=== PATIENT | female | born 1955 | race Caucasian/White ===

== ENCOUNTER 2019-05-26 18:02 | Observation (INO) | payer MEDICARE, SELFPAY ==
--- NOTE | ~2019-05-26 | XR_ITS ---
EXAMINATION: XR chest 2V DATE: 05/26/2019 18:36 INDICATION: Mid chest pain and dizziness TECHNIQUE: PA and lateral views of the chest are obtained. COMPARISON: 03/25/2019 FINDINGS: The lungs are free of acute opacities. There is no pleural effusion or pneumothorax. The ca rdiomediastinal silhouette is normal. There is mild thoracic spondylosis. IMPRESSION: 1. No acute cardiopulmonary abnormality. Reviewed, dictated and finalized at location A. PERFORMANCE SUPPORT ANALYST
[2019-05-26 18:05] VITALS: BP 107/66; PULSE 92; RESP 19; TEMP 37.3; O2SAT 97
[2019-05-26 18:08] VITALS: BP 128/82; PULSE 94; RESP 20; TEMP 37.1; O2SAT 100
--- NOTE | 2019-05-26 18:08 | ECG_ITS ---
Measurements Intervals [place] Rate: 89 P: 61 MO: 158 QRS: -30 QRSD: 111 T: 34 QT: 352 QTc: 430 Interpretive Statements SINUS RHYTHM LEFT AXIS DEVIATION POSSIBLE LEFT ATRIAL ENLARGEMENT INTRAVENTRICULAR CONDUCTION DELAY DELAYED PRECORDIAL R/S TRANSITION BORDERLINE ST-T WAVE ABNORMALITY- INFERIOR LEADS BASELINE ARTIFACT- II, III, AVL, AVF BORDERLINE ECG Electronically Signed On 05-26-2019 19:51:34 RUBBER TUBING SPLICER by Torin Pereyra D.O.
[2019-05-26 18:29] LABS: Basophils Percent Auto 0.5 % (0.2-1.2); Eosinophils Absolute Auto 0.1 K/mm3 (0-0.3); Eosinophils Percent Auto 1.1 % (0-4.4); Hematocrit 42.8 % (37.0-47.0); Hemoglobin 13.9 g/dL (12.0-15.0); Immature Granulocyte Absolute 0.02 K/mm3 (0.00-0.031); Immature Granulocyte Percent A 0.3 % (0-0.5); Lymphocytes Absolute Auto 1.43 K/mm3 (0.9-3.2); Mean Corpuscular HGB Conc 32.5 g/dl (32-36); Mean Corpuscular Hemoglobin 29.9 pg (26-34); Mean Platelet Volume 9.9 fl (7.4-10.4); Monocytes Absolute Auto 0.7 K/mm3 (0.1-0.6); Monocytes Percent Auto 9.3 % (2.6-8.5); Neutrophils Absolute Auto 5.6 K/mm3 (1.3-6.7); Neutrophils Percent Auto 70.8 % (45.5-73.1); Platelet Count Result 321 k/mm3 (150-375); Red Blood Count 4.65 M/mm3 (4.2-5.4); Red Cell Distribution Width 12.1 % (11.5-14.5)
[2019-05-26 18:40] LABS: INR 0.9; Prothrombin Time 11.9 Seconds (11.1-14.7)
[2019-05-26 18:41] LABS: Partial Thromboplastin Time 24.3 SECONDS (22.3-36.8)
[2019-05-26 18:42] LABS: Blood Urea Nitrogen 28 mg/dL (7-17); Calcium 9.5 mg/dL (8.4-10.2); Carbon Dioxide 25 mmol/L (22-30); Chloride 98 mmol/L (98-107); Estimated Glomerular Filt Rate 41; Glucose 115 mg/dL (65-105); Potassium 3.4 mmol/L (3.4-5.0); Sodium 139 mmol/L (137-145)
[2019-05-26 18:53] LABS: Troponin I < 0.012 ng/mL (0.000-0.034)
--- NOTE | 2019-05-26 21:00 | ED.CHESTPAIN ---
HPI - Chest Pain General Chief Complaint: Chest Pain Stated Complaint: chest pain Time Seen by Provider: 05/26/19 20:58 Source: patient, family and RN notes reviewed Mode of arrival: EMS Limitations: no limitations History of Present Illness HPI narrative: A 64 y/o female, with a hx of a cardiac arrest 7 years ago, presents to the ED via EMS with intermittent, stabbing, substernal CP for the past 4.5 hours. 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 She reports that the pain lasts a couple minutes each episode and is then resolved for a couple minutes before it returns. She notes associated SOB, nausea, and feeling hot. She states that she had a similar episode while she was pushing carts a couple months ago, which she was seen in the ED for but ended up leaving because her son was graduating the next day. She also reports that the Nitro helped alleviate her symptoms and denies anything aggravating them. She also denies any sweating, vomiting, or ABD pain. MD complaint: chest pain Pertinent past history: other (cardiac arrest) Onset (ago): hour(s) (4.5) Timing of current episode: episodic Prior episodes: Yes Onset: during exertion Pain location: substernal Quality: other (stabbing) Relieving factors: nitroglycerin Exacerbating factors: nothing Associated symptoms: nausea, dyspnea and other (feel hot) Treatment prior to arrival: nitroglycerin Related Data Home Medications Medication Instructions Recorded Confirmed atorvastatin 05/26/19 lacosamide [Vimpat] 05/26/19 lamotrigine 05/26/19 levothyroxine 05/26/19 lurasidone [Latuda] mg 05/26/19 meclizine mg 05/26/19 potassium chloride meq PO 05/26/19 quetiapine 05/26/19 quetiapine mg PO 05/26/19 quetiapine mg PO 05/26/19 ropinirole mg 05/26/19 tramadol mg 05/26/19 triamterene-hydrochlorothiazid cap 05/26/19 Allergies Allergy/AdvReac Type Severity Reaction Status Date / Time acetaminophen [From [place]] Allergy Unknown Verified 03/25/19 18:17 codeine Allergy Unknown Verified 03/25/19 18:17 erythromycin base Allergy Unknown Verified 12/13/19 18:17 hydrocodone [From [place]] Allergy Unknown Verified 03/25/19 18:17 latex Allergy Unknown Verified 03/25/19 18:17 Penicillins Allergy Unknown Verified 03/25/19 18:17 prednisone Allergy Unknown Verified 03/25/19 18:17 propoxyphene [From [place]] Allergy Unknown Verified 03/25/19 18:17 Review of Systems Review of Systems: All systems reviewed & are unremarkable except as noted in HPI and below Constitutional: Constitutional: Reports other (feeling hot. Denies: sweats.) Cardiovascular: Cardiovascular: Reports chest pain (substernal) Respiratory: Respiratory: Reports dyspnea Gastrointestinal: Gastrointestinal: Denies abdominal pain, Reports nausea and Denies vomiting PMFSH Past Medical History Medical History (Updated 05/26/19 @ 21:39 by Taylor Delvalle MD) Cardiac arrest Carpal tunnel syndrome History of heart attack Hx of endometriosis Hypercholesteremia Hypothyroid Meniere's disease Seizures Surgical History Surgical History (Updated 05/26/19 @ 21:28 by Reagan Fitzgerald) History of appendectomy History of carpal tunnel surgery History of knee surgery x2. Hx of cardiac cath No significant past surgical history S/P laparoscopic surgery Pelvic. Social History Social History (Updated 03/25/19 @ 18:50 by Reagan Fitzgerald) Smoking status: Smoker, status unknown Gender identity (if verbalized by the patient): Female Comments PCP: Dr. Griffin. Cardiology: Dr. Duckworth. Exam Const: General: cooperative, no acute distress and alert Nutritional Appearance: well nourished Orientation/consciousness: patient oriented x3 Limitations: no limitations HENMT: Mouth: Yes lip normal and Yes moist mucous membranes Resp: Effort & Inspection: normal respiratory effort Auscultation: clear to auscultation bilaterally Cardio: Rate: regular rate Rhythm: regular rhyth
[2019-05-26 21:20] VITALS: O2SAT 98
[2019-05-26 21:23] VITALS: BP 114/74; PULSE 84; RESP 17; O2SAT 98
[2019-05-26] MEDS: NITROGLYCERIN SL 0.4 MG TABLET SUBLINGUAL (21:54)
--- NOTE | 2019-05-26 22:00 | ECG_ITS ---
Measurements Intervals [place] Rate: 92 P: 49 ID: [id number] QRS: -33 QRSD: 93 T: 17 QT: 355 QTc: 440 Interpretive Statements SINUS RHYTHM LEFT AXIS DEVIATION BORDERLINE R WAVE PROGRESSION, ANTERIOR LEADS BORDERLINE T WAVE ABNORMALITY- INFERIOR LEADS BASELINE ARTIFACT- II, III, AVR, AVL, AVF BORDERLINE ECG Electronically Signed On 05-27-2019 6:59:55 POLYETHYLENE BAG MACHINE OPERATOR by Torin Pereyra D.O.
[2019-05-26 22:08] LABS: Cholesterol 137 mg/dL (0-200); HDL Direct 49 mg/dL; Triglycerides 71 mg/dL (<150)
[2019-05-26 22:20] LABS: LDL Cholesterol Direct 77 mg/dL
[2019-05-26 22:21] LABS: Troponin I < 0.012 ng/mL (0.000-0.034)
[2019-05-26] MEDS: KETOROLAC 30 MG/ML VIAL (*BKC) IV PUSH (22:27)
[2019-05-26 22:35] VITALS: BP 120/64; PULSE 78; RESP 20; TEMP 36.6; O2SAT 98
[2019-05-26] MEDS: ONDANSETRON INJ 4 MG/2 ML VIAL IV PUSH (22:40)
[2019-05-26 23:00] VITALS: BP 119/66; PULSE 74; PULSE 76; RESP 20; TEMP 37.2; O2SAT 97; BMI 27.0
--- NOTE | 2019-05-26 23:02 | ADMGEN ---
This patient, Katherin Penaloza, was admitted to [facility] at 2258. Patient/family oriented to hospital policies and general routines including ID bracelet, bed and alarms, visiting hours, pain management, procedures, bathroom and other care routines, personal items, smoking policy, room service/diet, and visiting hours. Valuables list has been completed. Information on how to activate the Rapid Response Team has been discussed. Patient/Family are encouraged to report perceived risks to care and to ask questions if they do not understand what they are told or what they should do.
[2019-05-27] VITALS: BP 113/58; PULSE 62; RESP 14; TEMP 36.5; O2SAT 98
--- NOTE | 2019-05-27 00:37 | ECG_ITS ---
Measurements Intervals [place] Rate: 61 P: 49 [place]: 176 QRS: -21 QRSD: 98 T: 19 QT: 405 QTc: 411 Interpretive Statements SINUS RHYTHM DELAYED PRECORDIAL R/S TRANSITION BORDERLINE T WAVE ABNORMALITY- INFERIOR LEADS BASELINE ARTIFACT- II, III, AVR, AVL, AVF, V5 BORDERLINE ECG Electronically Signed On 05-27-2019 7:02:09 MANUFACTURING MAINTENANCE MANAGER by Torin Pereyra D.O.
[2019-05-27] MEDS: QUEtiapine FUMARATE 25 MG TABLET PO (01:02)
[2019-05-27 01:03] LABS: Troponin I < 0.012 ng/mL (0.000-0.034)
[2019-05-27 02:00] VITALS: PULSE 73
[2019-05-27 04:00] VITALS: BP 110/48; PULSE 59; RESP 20; TEMP 36.2; O2SAT 98
[2019-05-27] MEDS: LEVOTHYROXINE SODIUM 112 MCG TABLET PO (06:20)
[2019-05-27] MEDS: LEVOTHYROXINE SODIUM 25 MCG TABLET PO (07:00)
[2019-05-27 08:00] VITALS: BP 106/47; PULSE 55; PULSE 67; RESP 14; TEMP 37.2; O2SAT 99
--- NOTE | 2019-05-27 09:11 | PC.NURSE ---
DR. BARRY HERE TO SEE PT. CONDITION UPDATE GIVEN.
--- NOTE | 2019-05-27 09:24 | PM.IMHP ---
H&P: HPI History of Present Illness Chief complaint: chest pain Narrative: Short-stay cardiology H&P summary: Date of service: 05/27/2019 08:54 Chief complaint: Sharp chest pain while pushing carts Katherin Penaloza is a pleasant 64 year old female with a past medical history significant for minimal nonobstructive CAD on left heart catheterization 2005 and 2012 with chronic chest pain syndrome, many years disease, history of syncope, seizure disorder, history of hypothyroidism, bipolar disorder who presented to the ER with complaints of sharp central chest pain radiating to the left arm with associated numbness lasting few minutes the nearly resolving with waxing and waning pattern. 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 while pushing carts she had onset of chest pain which was severe. Symptoms improved but then returned several minutes later and due to persistent she presented to the ER for further evaluation. She present to the ER in March with a very similar description. She states her chest pain symptoms are very similar to chest pain she has had over many years for which she has had 2 cardiac catheterizations and extensive follow-up. She feels well and has no complaints and would like to be discharged home. She has ruled out for myocardial infarction with negative serial cardiac enzymes, EKG unchanged compared to prior EKG April 2019. She last saw her window/distribution clerk Dr. Negro 04/2019. She has no other complaints at this time and feels well. She denies progressive exertional dyspnea, declining exercise tolerance, near-syncope or syncope. She states she had upper respiratory tract infection in the past 2-4 weeks with cough which has resolved. She intermittently has episodes of chest pain which can occur while bagging or other random times which are essentially exactly she describes with this episode. Patient mentions having had a cardiac arrest and heart attack, however, this appears to be related to a syncopal episode which no etiology could be identified after extensive workup. Per her window/distribution clerk's office note April 2019 this episode was felt to be more likely related to seizure. Review of Systems Review of Systems: All systems reviewed & are unremarkable except as noted in HPI and below Constitutional: Constitutional: Reports as per HPI and Reports no additional constitutional complaints Eyes: Eyes: Reports as per HPI and Reports no additional eye complaints ENT: Reports system reviewed and no additional complaints, except as documented and Reports as per HPI Comments: Progressive hearing loss, definite right ear. Cardiovascular: Cardiovascular: Reports as per HPI, Reports no additional cardiovascular complaints, Reports chest pain, Denies diaphoresis, Denies pedal edema, Denies leg edema, Denies lightheadedness and Denies palpitations Respiratory: Respiratory: Reports as per HPI, Reports no additional respiratory complaints, Denies cough, Denies hemoptysis, Denies dyspnea and Denies dyspnea on exertion Gastrointestinal: Gastrointestinal: Reports as per HPI, Reports no additional gastrointestinal complaints, Denies abdominal pain, Denies melena, Denies hematochezia, Denies heartburn, Reports nausea and Denies vomiting Genitourinary: Genitourinary: Reports as per HPI, Denies hematuria, Denies nocturia, Denies dysuria and Denies flank pain Musculoskeletal: Musculoskeletal: Reports no additional musculoskeletal complaints, Reports as per HPI, Denies back pain, Denies arthralgias and Denies neck pain Integumentary/Breasts: Skin/Breast: Reports system reviewed and no additional complaints, except as docu, Reports as per HPI, Denies rash and Denies unusual bruising Neurologic: Reports system reviewed and no additional complaints, except as documented, Reports as per HPI and Denies headache(s) Psychiatric: Psychiatric: Reports no additional psychiatric complaints, Reports
[2019-05-27 10:00] VITALS: PULSE 71
--- NOTE | 2019-05-27 12:30 | PC.NURSE ---
DISCHARGE INSTRUCTIONS GIVEN AND REVIEWED W/ PT. ALL QUESTIONS ANSWERED. VOICED UNDERSTANDING OF ALL. DISCHARGED HOME, OUT AMBULATORY, WITH ALL PERSONAL BELONGINGS AND DISCHARGE INSTRUCTIONS TO DAUGHTER IN LAW'S WAITING CAR. STEADY GAIT, VOICES NO C/O. NO DISTRESS NOTED.
== END 2019-05-27 12:30 | disposition home or self-care (01) ==
LOC: ANHED 21:39 → ANHCPC 21:59
PROVIDERS: Emergency Medicine; Admitting Provider Internal Medicine Cardiovascular Disease; Emergency Provider Emergency Medicine; Visit Provider Internal Medicine Cardiovascular Disease
DX: R07.89 Other chest pain (principal); I25.10 Atherosclerotic heart disease of native coronary artery without angina pectoris; E87.5 Hyperkalemia; H81.09 Meniere's disease, unspecified ear; G40.909 Epilepsy, unspecified, not intractable, without status epilepticus; E78.00 Pure hypercholesterolemia, unspecified; E03.9 Hypothyroidism, unspecified; I25.2 Old myocardial infarction; Z86.74 Personal history of sudden cardiac arrest; Z87.891 Personal history of nicotine dependence
CPT/HCPCS: 36415; 71046; 80048; 80061; 84484; 85025; 85610; 85730; 93005; 96374; 96375; 99285; A9270; G0378; J1885; J2405

== ENCOUNTER 2019-12-10 11:53 | Observation (INO) | payer MEDICARE, SELFPAY ==
[2019-12-10] VITALS (14 sets, daily range): BP systolic 107–137; BP diastolic 56–77; PULSE 60–80; RESP 16–20; TEMP 36.6–37.4; O2SAT 96–99; BMI 27.3
--- NOTE | ~2019-12-10 | XR_ITS ---
EXAMINATION: XR chest 2V DATE: 12/10/2019 12:23 INDICATION: Chest pain radiating to the left arm TECHNIQUE: PA and lateral views of the chest were obtained. COMPARISON: Chest radiograph dated 05/26/2019 FINDINGS: The lungs remain clear with no focal airspace opacities, pulmonary edema, pleural effusion or pneumot horax. The cardiomediastinal silhouette is normal. Mild thoracic spondylosis. IMPRESSION: 1. Reviewed, dictated and finalized at location A. IMPRESSION: 1.
--- NOTE | ~2019-12-10 | US_ITS ---
US right upper quadrant INDICATION: History of gallstones. PROCEDURE: Realtime right upper abdominal ultrasound. COMPARISON: No prior studies for comparison. FINDINGS: The pancreas is normal without focal mass or pancreatic ductal dilation. Liver echotexture is normal without focal mass or intrahepatic biliary dilatation. There is normal directional flow i n the portal vein. There are gallstones. No gallbladder wall thickening, pericholecystic fluid or gallbladder wall thick ening. Common bile duct measures 3 mm. No sonographic Flores's sign. IMPRESSION: 1: Cholelithiasis. Reviewed, dictated and finalized at location A. IMPRESSION: 1: Cholelithiasis.
--- NOTE | 2019-12-10 11:56 | ECG_ITS ---
Measurements Intervals [place] Rate: 69 P: 53 [place]: 170 QRS: -22 QRSD: 105 T: 31 QT: 386 QTc: 415 Interpretive Statements SINUS RHYTHM POSSIBLE LEFT ATRIAL ENLARGEMENT DELAYED PRECORDIAL R/S TRANSITION BASELINE ARTIFACT- II, III, AVR, AVL, AVF, V1 BORDERLINE ECG Electronically Signed On 12-10-2019 13:04:54 CDT by Torin Pereyra D.O.
[2019-12-10 13:08] LABS: Basophils Absolute Auto 0.1 K/mm3 (0.0-0.1); Basophils Percent Auto 0.7 % (0.2-1.2); Eosinophils Absolute Auto 0.1 K/mm3 (0-0.3); Eosinophils Percent Auto 1.4 % (0-4.4); Hematocrit 41.4 % (37.0-47.0); Hemoglobin 13.9 g/dL (12.0-15.0); Immature Granulocyte Absolute 0.03 K/mm3 (0.00-0.031); Immature Granulocyte Percent A 0.4 % (0-0.5); Lymphocytes Absolute Auto 1.17 K/mm3 (0.9-3.2); Lymphocytes Percent Auto 16.6 % (18.3-44.2); Mean Corpuscular HGB Conc 33.6 g/dl (32-36); Mean Corpuscular Hemoglobin 30.2 pg (26-34); Mean Platelet Volume 9.5 fl (7.4-10.4); Monocytes Absolute Auto 0.9 K/mm3 (0.1-0.6); Monocytes Percent Auto 12.8 % (2.6-8.5); Neutrophils Absolute Auto 4.8 K/mm3 (1.3-6.7); Neutrophils Percent Auto 68.1 % (45.5-73.1); Platelet Count Result 317 k/mm3 (150-375); Red Cell Distribution Width 12.8 % (11.5-14.5)
[2019-12-10 13:16] LABS: Partial Thromboplastin Time 22.5 SECONDS (22.3-36.8); Prothrombin Time 12.4 Seconds (11.1-14.7)
[2019-12-10 13:18] LABS: Anion Gap 7 mmol/L (8-16); Blood Urea Nitrogen 28 mg/dL (7-17); Calcium 8.9 mg/dL (8.4-10.2); Carbon Dioxide 28 mmol/L (22-30); Chloride 101 mmol/L (98-107); Estimated CRCL calculation 42 ml/min; Estimated Glomerular Filt Rate 50; Glucose 103 mg/dL (65-105); Potassium 3.4 mmol/L (3.4-5.0); Sodium 136 mmol/L (137-145)
[2019-12-10 13:29] LABS: Troponin I < 0.012 ng/mL (0.000-0.034)
[2019-12-10] MEDS: MORPHINE SULFATE 2 MG/ML INJ IV PUSH (13:45)
[2019-12-10] MEDS: ASPIRIN 81 MG CHEWABLE TABLET 324 MG PO (13:45)
--- NOTE | 2019-12-10 13:51 | ED.CHESTPAIN ---
HPI - Chest Pain General Chief Complaint: Chest Pain Stated Complaint: chest pains Time Seen by Provider: 12/10/19 12:37 Source: patient and family Mode of arrival: ambulatory Limitations: no limitations History of Present Illness HPI narrative: 64-year-old with a history of hypertension, CAD, seizure disorder, bipolar disorder, hypothyroidism here with complaints of left-sided chest pain started this morning while she was at work. 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 Patient states that she took 2 nitro tablets which helped to ease the pain. Patient still has pain 6 out of 10 at this time. She denies any shortness of breath, nausea or vomiting. Pain is nonreproducible. She denies any fever chills or COVID exposure. MD complaint: chest pain Pertinent past history: coronary artery disease Onset (ago): hour(s) (1) Timing of current episode: constant and still present Onset: during exertion Pain location: left chest Pain radiation: none Pain scale (0-10): 6 Quality: tightness and heaviness Relieving factors: nitroglycerin Exacerbating factors: nothing Risk Factors Coronary artery disease risk factors: hypertension Related Data Home Medications Medication Instructions Recorded Confirmed Latuda 10 mg PO DAILY 05/26/19 05/26/19 atorvastatin 20 mg PO DAILY 05/26/19 05/26/19 lamotrigine 200 mg PO DAILY 05/26/19 05/26/19 levothyroxine 137 mcg PO DAILY 05/26/19 05/26/19 meclizine 25 mg PO TID PRN 05/26/19 05/26/19 potassium chloride 20 meq PO DAILY 05/26/19 05/26/19 quetiapine 25 mg PO HS 05/26/19 05/26/19 ropinirole 2 mg PO HS 05/26/19 05/26/19 tramadol 50 mg PO Q6H PRN 05/26/19 05/26/19 triamterene-hydrochlorothiazid 2 cap PO DAILY 05/26/19 05/26/19 Allergies Allergy/AdvReac Type Severity Reaction Status Date / Time acetaminophen [From [place]] Allergy Unknown Verified 03/25/19 18:17 codeine Allergy Unknown Verified 03/25/19 18:17 erythromycin base Allergy Unknown Verified 03/25/19 18:17 hydrocodone [From [place]] Allergy Unknown Verified 03/25/19 18:17 latex Allergy Unknown Verified 03/25/19 18:17 Penicillins Allergy Unknown Verified 03/25/19 18:17 prednisone Allergy Unknown Verified 03/25/19 18:17 propoxyphene [From [place]] Allergy Unknown Verified 03/25/19 18:17 Review of Systems Review of Systems: All systems reviewed & are unremarkable except as noted in HPI and below Constitutional: Constitutional: Reports as per HPI Eyes: Eyes: Reports as per HPI ENT: Reports system reviewed and no additional complaints, except as documented Cardiovascular: Cardiovascular: Reports no additional cardiovascular complaints Respiratory: Respiratory: Reports as per HPI Gastrointestinal: Gastrointestinal: Reports as per HPI Musculoskeletal: Musculoskeletal: Reports no additional musculoskeletal complaints Neurologic: Reports system reviewed and no additional complaints, except as documented Psychiatric: Psychiatric: Reports no additional psychiatric complaints PMFSH Past Medical History Medical History CAD (coronary artery disease) Cardiac arrest Carpal tunnel syndrome History of heart attack Hx of endometriosis Hypercholesteremia Hypothyroid Meniere's disease Seizures Surgical History Surgical History History of appendectomy History of carpal tunnel surgery History of knee surgery x2. Hx of cardiac cath No significant past surgical history S/P laparoscopic surgery Pelvic. Family History Family History Mother Crohn disease Father Old age Sibling Diabetes mellitus Social History Social History Smoking status: Former smoker Smoking end date: 05/26/19 Gender identity (if verbalized by the patient): Female Exam
[2019-12-10] MEDS: NITROGLYCERIN OINTMENT 1 INCH DOSE TRANSDERM ×2 (14:42→18:58)
--- NOTE | 2019-12-10 15:05 | PC.NURSE ---
Report given to ENRIQUE Billingsley
--- NOTE | 2019-12-10 15:59 | PC.NURSE ---
This patient, Katherin Penaloza, was admitted to IMU Room 203-01. Patient/family oriented to hospital policies and general routines including ID bracelet, bed and alarms, visiting hours, pain management, procedures, bathroom and other care routines, personal items, smoking policy, room service/diet, and visiting hours. Valuables list has been completed. Information on how to activate the Rapid Response Team has been discussed. Patient/Family are encouraged to report perceived risks to care and to ask questions if they do not understand what they are told or what they should do.
[2019-12-10 16:31] LABS: Troponin I < 0.012 ng/mL (0.000-0.034)
--- NOTE | 2019-12-10 16:37 | PM.IMHP ---
H&P: HPI History of Present Illness Date/Time: 12/10/19 16:37 Chief complaint: Unstable angina Narrative: Katherin Penaloza is a 64 year old female Who stated that she had cardiac arrest in the past. But had a cardiac catheterization and only had about 25% blockages she stated. She has not had any cardiac stents or any CABG. Patient stated at 1 time she was in [facility] and her heart stopped and they had a code her and she stated that she was told she had a cardiac arrest. The patient has a history hypertension, seizure disorder bipolar disorder and hypothyroidism. The patient also has a history of having gallstones. She states that she has not had a gallbladder attack in the past. 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 the patient stated that her pain is in her left upper chest and does not radiate To neck or arm or back.. She is not nauseated or vomiting. But she rated her pain 6/10. She took 2 nitro and that did not seem to help. The pain is nonreproducible. Patient recently fractured her right elbow and is on light duty at work. She was given an aspirin here in the emergency room as well as morphine and nitro. She is still complaining of some midsternal chest pain. She has no relief but is worse with movement. Is not reproducible. Chest x-ray shows no focal airspace opacities. Nothing acute. Cardiac enzymes have been negative x2. . The patient stated that she has an upcoming appointment with her truss driver helper. I consulted the [facility]. Date of service 12/10/2019 SINUS RHYTHM POSSIBLE LEFT ATRIAL ENLARGEMENT DELAYED PRECORDIAL R/S TRANSITION BASELINE ARTIFACT- II, III, AVR, AVL, AVF, V1 BORDERLINE ECG Electronically Signed On 12-10-2019 13:04:54 CDT by Torin Pereyra D.O. Dictated By: Torin Pereyra DO 12/10/19 1202 Signed By: <Electronically signed by Torin Pereyra DO in [place]> Review of Systems Review of Systems: All systems reviewed & are unremarkable except as noted in HPI and below Constitutional: Constitutional: Reports as per HPI and Reports no additional constitutional complaints Eyes: Eyes: Reports as per HPI and Reports no additional eye complaints ENT: Reports system reviewed and no additional complaints, except as documented and Reports Normal hearing present Cardiovascular: Cardiovascular: Reports no additional cardiovascular complaints Respiratory: Respiratory: Reports no additional respiratory complaints and Reports no additional respiratory complaints Gastrointestinal: Gastrointestinal: Reports as per HPI and Reports no additional gastrointestinal complaints Musculoskeletal: Musculoskeletal: Reports no additional musculoskeletal complaints Integumentary/Breasts: Skin/Breast: Reports system reviewed and no additional complaints, except as docu and Reports as per HPI Neurologic: Reports system reviewed and no additional complaints, except as documented, Reports as per HPI and Reports Normal hearing present Psychiatric: Psychiatric: Reports no additional psychiatric complaints and Reports as per HPI Endocrine: Endocrine: Reports no additional endocrine complaints Hematologic/Lymphatic: Hematologic/Lymphatic: Reports no additional hematologic/lymphatic complaints Allergic/Immunologic: Allergic/Immunologic: Reports no additional allergic/immunologic complaints PMF Past Medical History Medical History (Updated 12/10/19 @ 17:00 by Rolanda Santana NP) Bipolar disorder CAD (coronary artery disease) Cardiac arrest Carpal tunnel syndrome Depression History of heart attack Hx of endometriosis Hypercholesteremia the patient stated she was taken off of that medicine for cholesterol. Hyperkalemia Hypothyroid Meniere's disease very poor hearing Restless leg syndrome Seizures Surgical complication involving right mastoid process Surgical History Surgical History (Updated 12/10/19 @ 17:00 by Rolanda Crane
--- NOTE | 2019-12-10 18:16 | WPDCN ---
Assessment and Plan Assessment and plan (1) Chest pain: Qualifiers: Ischemic chest pain type: unstable angina pectoris Code(s): R07.9 - Chest pain, unspecified Status: Acute Assessment and Plan: Atypical chest pain, lasting for several hours, not responsive to nitrates, pleuritic. Troponins negative x2. EKG was normal. Probably musculoskeletal. Doubt pericaridal, PE, etc. Symptomatic tx w/ short-term NSAIA (or Tylenol, though this islisted as an allergy). No further cardiac CLAY needed. Has an appt to see Dr. Villa on Thursday. (2) CAD (coronary artery disease): Code(s): I25.10 - Atherosclerotic heart disease of [place] coronary artery without angina pectoris Status: Acute Assessment and Plan: H/O minimal CAD, takes atorvastatin. HPI Data of Consult Date/Time: 12/10/19 18:16 Requesting Physician: Anayeli Vilchis MD Primary Care Provider: RECYCLING PROGRAM MANAGER PHYSICIAN Consult Narrative Narrative: Date of service: 12/10/2019 Katherin Penaloza is a 64 year old female Whom we were asked to see at the request of the hospitalist for advice and opinion regarding her chest pain, in consultation. The patient now sees Dr. Villa for her minimal nonocclusive coronary disease and recurrent chest pains. She takes nitroglycerin periodically, the last time being in June. She fractured her elbow 2 weeks ago is now on light duty, disinfecting the grocery store. Yesterday while cleaning and this infecting she had episode of her of left-sided chest which was relieved with 2 nitroglycerins. Today around 1045 she had another episode of chest pain while cleaning radiating to left arm. This time did not go away with 2 Nitroglycerins. Morphine in the ER took the edge off. She continues to have waxing waning discomfort which is sometimes intense. The patient has had 2 cardiac catheterizations, the last time being in 2012 with minimal CAD. Echo 08/2017 showed EF 55%, mild LVH and diastolic dysfunction. She had been followed by Dr. Keanu cabrera but, when she was admitted with atypical chest pain in May [address] Villa, now follows up with him and has an appointment on Thursday. She states that she had a cardiac arrest requiring CPR in the past but this appears to have been a syncopal episode in latter-day and may have been a seizure. 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 She has history of bipolar disorder. She has on atorvastatin for her mild coronary disease but has no history of diabetes, hypertension or smoking. Review of Systems Constitutional: Constitutional: Denies chills Eyes: Eyes: Denies blurry vision ENT: Denies Normal hearing present ( States she is deaf and needs to read lips) and Denies epistaxis Cardiovascular: Cardiovascular: Reports chest pain, Denies diaphoresis, Denies pedal edema, Denies leg edema, Denies lightheadedness and Denies palpitations Respiratory: Respiratory: Denies chest congestion, Denies dyspnea and Denies dyspnea on exertion Gastrointestinal: Gastrointestinal: Denies abdominal pain, Denies hematochezia and Denies constipation Genitourinary: Genitourinary: Denies hematuria and Denies dysuria Musculoskeletal: Musculoskeletal: Reports arthralgias Integumentary/Breasts: Skin/Breast: Denies rash Neurologic: Denies headache(s) Psychiatric: Psychiatric: Reports as per HPI [facility] Past Medical History Medical History (Updated 12/10/19 @ 18:58 by Sheba Velazquez MD) Bipolar disorder CAD (coronary artery disease) minimal CAD by catheterization in 2012. Cardiac arrest states she had a cardiac arrest requiring CPR but this may have been a syncopal episode or seizure Carpal tunnel syndrome Depression History of heart attack not well documented Hx of endometriosis Hyperc
[2019-12-10 19:39] LABS: Troponin I < 0.012 ng/mL (0.000-0.034)
[2019-12-10] MEDS: rOPINIRole HCL 1 MG TABLET 2 MG PO (21:25)
[2019-12-10] MEDS: VENLAFAXINE HCL XR 75 MG CAP.ER.24H PO (21:25)
[2019-12-10] MEDS: IBUPROFEN 400 MG TABLET PO (21:27)
[2019-12-11] VITALS (10 sets, daily range): BP systolic 99–116; BP diastolic 50–64; PULSE 50–88; RESP 16; TEMP 35.9–36.9; O2SAT 95–99
[2019-12-11 04:47] LABS: Basophils Absolute Auto 0.1 K/mm3 (0.0-0.1); Eosinophils Absolute Auto 0.1 K/mm3 (0-0.3); Hematocrit 37.1 % (37.0-47.0); Hemoglobin 12.6 g/dL (12.0-15.0); Immature Granulocyte Absolute 0.02 K/mm3 (0.00-0.031); Immature Granulocyte Percent A 0.4 % (0-0.5); Lymphocytes Percent Auto 21.2 % (18.3-44.2); Mean Corpuscular Hemoglobin 30.6 pg (26-34); Mean Platelet Volume 9.3 fl (7.4-10.4); Monocytes Absolute Auto 0.7 K/mm3 (0.1-0.6); Monocytes Percent Auto 13.1 % (2.6-8.5); Neutrophils Absolute Auto 3.3 K/mm3 (1.3-6.7); Neutrophils Percent Auto 63.3 % (45.5-73.1); Platelet Count Result 287 k/mm3 (150-375); Red Blood Count 4.12 M/mm3 (4.2-5.4); Red Cell Distribution Width 12.8 % (11.5-14.5); White Blood Count 5.2 K/mm3 (4.5-10.0)
[2019-12-11 05:02] LABS: Alanine Aminotransferase 20 U/L (4-35); Albumin Level 3.5 g/dL (3.5-5.1); Alkaline Phosphatase 69 U/L (38-126); Anion Gap 6 mmol/L (8-16); Aspartate Amino Transferase 22 U/L (14-36); Bilirubin,Total 0.7 mg/dL (0.2-1.3); Blood Urea Nitrogen 27 mg/dL (7-17); Calcium 8.7 mg/dL (8.4-10.2); Carbon Dioxide 28 mmol/L (22-30); Chloride 103 mmol/L (98-107); Estimated CRCL calculation 42 ml/min; Estimated Glomerular Filt Rate 50; Glucose 100 mg/dL (65-105); Potassium 3.5 mmol/L (3.4-5.0); Sodium 137 mmol/L (137-145)
[2019-12-11 06:10] LABS: Thyroid Stimulating Hormone Reflex 0.547 uIU/mL (0.465-4.68)
[2019-12-11] MEDS: LEVOTHYROXINE SODIUM 25 MCG TABLET PO (06:29)
[2019-12-11] MEDS: LEVOTHYROXINE SODIUM 112 MCG TABLET PO (06:29)
[2019-12-11] MEDS: IBUPROFEN 400 MG TABLET PO (06:30)
[2019-12-11] MEDS: ATORVASTATIN 20 MG TABLET PO (08:36)
[2019-12-11] MEDS: POTASSIUM CHLORIDE 20 MEQ TABLET.ER PO (08:36)
[2019-12-11] MEDS: ASPIRIN 81 MG ENTERIC TABLET PO (08:36)
--- NOTE | 2019-12-12 06:01 | PM.DS ---
DS: Admitting Diagnosis Admitting Diagnosis Admitting Diagnosis: Unstable angina DS: Discharge Diagnosis Discharge Diagnosis (1) Chest pain: Qualifiers: Ischemic chest pain type: unstable angina pectoris Code(s): R07.9 - Chest pain, unspecified Status: Acute Assessment and Plan: Date of Service 12/11/19 Ms. 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 She was at work when she began to experience chest pain. She took her nitro with little to no relief and presented to ED. Troponins were negative. She did mention she recently was seen by PCP for evaluation of epigastric abdominal pain. Right upper quadrant ultrasound was obtained and demonstrated gallstones without evidence of acute cholecystitis. It is reasonable to defer general surgery referral to outpatient since she is not having symptoms today. She was seen and evaluated by [facility] and in fact has an appointment to see Dr Villa tomorrow. ACS is not suspected. Patient was treated with nitro and pain control and her chest pain resolved. She was feeling well and was hemodynamically stable for discharge 12/11/19 with instructions to follow up with Dr Villa as scheduled tomorrow as well as PCP Dr Ng. . (2) Hypothyroid: Code(s): E03.9 - Hypothyroidism, unspecified Status: Chronic Assessment and Plan: Maintained on her home levothyroxine. (3) Depression: Code(s): F32.9 - Major depressive disorder, single episode, unspecified Status: Chronic Assessment and Plan: Continue with Seroquel and Latuda and Lamictal. (4) Hypercholesteremia: Code(s): E78.00 - Pure hypercholesterolemia, unspecified Status: Chronic (5) Bipolar disorder: Code(s): F31.9 - Bipolar disorder, unspecified Status: Chronic (6) Restless leg syndrome: Code(s): G25.81 - Restless legs syndrome Status: Chronic (7) Meniere's disease: Code(s): H81.09 - Meniere's disease, unspecified ear Status: Chronic (8) Seizure disorder: Code(s): G40.909 - Epilepsy, unspecified, not intractable, without status epilepticus Status: Acute (9) Elbow fracture, right: Code(s): S42.401A - Unspecified fracture of lower end of right humerus, initial encounter for closed fracture Status: Acute Assessment and Plan: Recent. DS: Summary Time Spent with Patient Time attestation: Total time spent providing and/or coordinating discharge services: 35 minutes Exam Narrative: Exam Narrative: General: Female resting sitting up in bed in no acute distress. HEENT: Normocephalic, EOMI, oral mucosa moist. Cardiovascular: Rate and rhythm are regular. Respiratory: Lungs clear to auscultation all good. Non-labored breathing. Abdomen: Soft, non-tender, non-distended, bowel sounds present. Extremities: Peripheral pulses intact. No edema. Neuro: No focal neurological deficits. Speech is clear. DS: Data Data Completed and Pending Labs on day of discharge: Last Vital Signs Temp 98.5 F 12/11/19 12:25 Pulse 66 12/11/19 14:00 Resp 16 12/11/19 12:25 BP 116/64 12/11/19 12:25 Pulse Ox 97 12/11/19 12:25 ITS Impressions Chest X-Ray 12/10/19 12:56 IMPRESSION: 1. The lungs remain clear with no focal airspace opacities, pulmonary edema, pleural effusion or pneumothorax. The cardiomediastinal silhouette is normal. Mild thoracic spondylosis. Upper Quadrant Ultrasound 12/11/19 14:42 IMPRESSION: 1: Cholelithiasis. Laboratory Tests 12/11/19 04:28 12/11/19 04:28 Discharge Plan Discharge Attending physician on discharge: Otoniel Vilchis
== END 2019-12-11 15:00 | disposition home or self-care (01) ==
LOC: ANHED 13:59 → ANHIMU 14:16
PROVIDERS: Emergency Medicine; Nurse Practitioner; Admitting Provider Family Medicine; Emergency Provider Family Medicine; PCP Internal Medicine; Visit Provider Family Medicine
DX: R07.89 Other chest pain (principal); K80.20 Calculus of gallbladder without cholecystitis without obstruction; E03.9 Hypothyroidism, unspecified; E78.5 Hyperlipidemia, unspecified; F31.9 Bipolar disorder, unspecified; G40.909 Epilepsy, unspecified, not intractable, without status epilepticus; G25.81 Restless legs syndrome; H81.09 Meniere's disease, unspecified ear; I10 Essential (primary) hypertension; I25.10 Atherosclerotic heart disease of native coronary artery without angina pectoris; S42.401D Unspecified fracture of lower end of right humerus, subsequent encounter for fracture with routine healing; Z87.891 Personal history of nicotine dependence
CPT/HCPCS: 36415; 71046; 76705; 80048; 80053; 83735; 84443; 84484; 85025; 85610; 85730; 93005; 96374; 99285; A9270; G0378; J2270

== ENCOUNTER 2020-06-06 08:56 | Outpatient (CLI) | payer OTHER, SELFPAY ==
--- NOTE | ~2020-06-06 | MM_ITS ---
EXAMINATION: MM screening reza BI w margaret HISTORY: Screening mammogram TECHNIQUE: Craniocaudal and mediolateral oblique 3-D tomosynthesis images were obtained and synthetic 2-D images were generated. CAD analysis was submitted and interpreted. COMPARISON: No prior mammogram is available for comparison at this institution. BREAST PARENCHYMAL COMPOSITION: There are scattered areas of fibroglandular density. FINDINGS: Occasional bilateral low-density circumscribed small masses, likely benign intramammary lym ph nodes possible fibroadenoma(s). Occasional bilateral benign calcifications. There is no evidence o f suspicious mass, calcification, or architectural distortion to suggest malignancy in either breast. There has been no suspicious interval change. IMPRESSION: 1. No mammographic evidence of malignancy. 2. Recommend routine screening mammography in one year. BI-RADS Category 2: Benign finding(s). Reviewed, dictated and finalized at location A. HENER
--- NOTE | ~2020-06-06 | DEXA_ITS ---
Bone Density Report Name: Katherin Penaloza Age: 65 Sex: Female Ethnicity: White Date of : 1955 Indication: postmenopausal; Referring Provider: Blanche Sorenson Study: Bone densitometry was performed. Exam Date: June 06, 2020 Accession number: [id number] Bone Density: Region BMD T-score Z-score Classification AP Spine (L1-L4) 0.886 -1.5 0.4 Osteopenia Femoral Neck (Left) 0.677 -1.6 0.1 Osteopenia Total Hip (Left) 0.673 -2.2 -0.9 Osteopenia Total Hip Bilateral Avg 0.650 -2.4 -1.0 Osteopenia Femoral Neck (Right) 0.630 -2.0 -0.3 Osteopenia Total Hip (Right) 0.626 -2.6 -1.2 Osteoporosis World Health Organization criteria for BMD impression classify patients as: Normal (T-score at or above -1.0), Osteopenia (T-score between -1.0 and -2.5), or Osteoporosis (T-score at or below -2.5). 10-year Fracture Risk: FRAX not reported because: Some T-score for Spine Total or Hip Total or Femoral Neck at or below -2.5 Clinical Information Provided by Patient: Patient maximum height was 66.5 Menopause Age: 48 Onset of menses at age 14 Number of children 3 Impression: The patient has osteoporosis, based on the Right Total Hip T-score. Discussion: INCREASED RISK OF FRACTURE. BONE DENSITY IS UNDESIRABLY LOW AT ONE OR MORE SKELETAL SITES, CONSISTENT WITH POSTMENOPAUSAL OSTEOPOROSIS. This patient's lowest T-score meets the World Health Organization's (WHO) criteria for osteoporosis at one or more sites (T-score -2.5 or below). In untreated patients, the risk of osteoporotic fracture increases approximately two-fold for each 1.0 SD decrease in T-score. Low bone density is not the only risk factor for fracture; also consider factors such as patient's age, frailty or poor health, risk of falling, risk of injury, previous osteoporotic fracture, family history of osteoporosis, cigarette smoking, low body weight, etc. Not everyone with low bone mineral density has osteoporosis; osteomalacia and other metabolic bone disorders should also be considered. Patients who have osteoporosis should be evaluated for specific diseases and conditions (secondary causes) that may cause or contribute to bone loss. The [place] [employer] Clinical Endocrinologists (AACE) and National Osteoporosis Foundation (NOF) recommend pharmacologic intervention for all postmenopausal women whose T-score is in this range. The patient should follow a healthful lifestyle (good nutrition with adequate calcium and vitamin D, and appropriate weight-bearing exercise). Follow-Up: Consider a repeat BMD and Vertebral Fracture Assessment (VFA) exam in 2 years or sooner if medically necessary, to reassess this patient's status. Reported by: [facility] on 06/06/2020 9:18:00 AM. Reviewed, dictated and finalized at locat
== END 2020-06-06 08:57 | disposition home or self-care (01) ==
LOC: ANHIMG 08:58
PROVIDERS: PCP Family Medicine; Visit Provider Family Medicine
DX: Z12.31 Encounter for screening mammogram for malignant neoplasm of breast (principal); M81.0 Age-related osteoporosis without current pathological fracture; M85.852 Other specified disorders of bone density and structure, left thigh; M85.851 Other specified disorders of bone density and structure, right thigh
CPT/HCPCS: 77063; 77067; 77080

== ENCOUNTER 2020-06-19 10:21 | Outpatient (CLI) | payer OTHER, SELFPAY ==
--- NOTE | ~2020-06-19 | MR_ITS ---
EXAMINATION: MR knee LT wo con DATE: 06/19/2020 11:57 INDICATION: Left knee pain. TECHNIQUE: Magnetic resonance imaging (MRI) of the left knee was performed without intravenous contra st. Sequences included axial PD-weighted FS FSE, coronal PD-weighted FSE and PD-weighted FS FSE, sagi ttal PD-weighted FSE, and sagittal T2-weighted FS FSE. COMPARISON: Left knee radiographs 06/11/2020 FINDINGS: Medial compartment: Medial meniscus is normal. There is shallow partial-thickness cartilage loss of tibial condyle, worst at the central articular surface. There is cartilage surface irregularity of tibial condyle. Lateral compartment: Lateral meniscus is normal. There is deep partial thickness cartilage loss of femoral condyle involvi ng the central articular surface. There is deep partial thickness cartilage loss of tibial condyle in volving the central and posterior articular surface. Patellofemoral compartment: There is full-thickness cartilage loss of patellar median ridge and lateral facet with mild subchondr al edema-like marrow signal intensity. There is deep partial thickness cartilage loss of patellar med ial facet. There is partial-thickness cartilage loss of trochlea, deep at the lateral trochlea. Ligaments and tendons: The anterior and posterior cruciate ligaments are normal. Medial collateral ligament is intact. There are changes of prior sprain of fibular collateral ligament characterized by increased signal intensi ty proximally. There is mild patellar tendinopathy. Fluid: There is a small knee joint effusion. There is trace fluid in a Mandel's cyst. IMPRESSION: 1. Severe chondrosis of patellofemoral compartment, moderate chondrosis of lateral compartment, and m ild chondrosis of medial compartment. 2. Small knee joint effusion. Reviewed, dictated and finalized at location A. R ANALYST IMPRESSION: 1. Severe chondrosis of patellofemoral compartment, moderate chondrosis of late ral compartment, and mild chondrosis of medial compartment. 2. Small knee joint effusion.
--- NOTE | ~2020-06-19 | MR_ITS ---
EXAMINATION: MR lower leg LT wo con DATE: 06/19/2020 11:57 INDICATION: Left lower leg pain. TECHNIQUE: Magnetic resonance imaging (MRI) of the left tibia and fibula was performed without intrav enous contrast. Sequences included axial T1-weighted FSE and T2-weighted FS FSE and sagittal and jimi nal T1-weighted FSE and STIR FSE. COMPARISON: Left knee radiographs 06/11/2020 FINDINGS: Bone alignment is normal. In distal tibial diaphysis, there is periosteal edema and bone ma rrow edema deep to the cortex characterized by increased T2-weighted signal intensity. No intracortic al signal change. The musculature demonstrates normal signal intensity. IMPRESSION: 1. Medial tibial stress syndrome, Fredericson grade 2 (out of 0-4b). Reviewed, dictated and finalized at location A. [employer]
== END 2020-06-19 10:22 ==
PROVIDERS: PCP Family Medicine; Visit Provider Nurse Practitioner Family
DX: M79.662 Pain in left lower leg (principal); M25.562 Pain in left knee; M76.812 Anterior tibial syndrome, left leg; M22.2X2 Patellofemoral disorders, left knee; M25.462 Effusion, left knee
CPT/HCPCS: 73718; 73721

== ENCOUNTER 2020-07-21 10:23 | Observation (INO) | payer OTHER, SELFPAY ==
[2020-07-21] VITALS (16 sets, daily range): BP systolic 90–126; BP diastolic 56–73; PULSE 66–108; RESP 16–26; TEMP 36.5–36.8; O2SAT 90–99; BMI 29.4
--- NOTE | ~2020-07-21 | XR_ITS ---
EXAMINATION: XR chest 2V EXAM DATE: 07/21/2020 11:46 INDICATION: Chest pain, history coronary artery disease. TECHNIQUE: Frontal and lateral projections of the chest obtained and reviewed. Comparison is made to prior examination from 12/10/2019. FINDINGS: The lungs are clear. There are no pleural effusions. The cardiomediastinal silhouette is within normal limits. There is no pneumothorax suspected. The bones and soft tissues are unremarkab le. IMPRESSION: No acute cardiopulmonary findings. Reviewed, dictated and finalized at location A.
--- NOTE | ~2020-07-21 | NM_ITS ---
EXAMINATION: NM stress w perf spect multi DATE: 07/23/2020 13:35 INDICATION: Chest pain. TECHNIQUE: Rest images were obtained following intravenous administration of 8.76 mCi Tc99m tetrofosm in (Myoview). The patient performed an exercise activity. At peak exercise, 27.8 mCi Tc99m tetrofosmi n (Myoview) was administered intravenously, and stress images were obtained. Data was reconstructed i nto short axis and horizontal and vertical long axis SPECT images. Gated SPECT images were also obtai don. COMPARISON: None. FINDINGS: There is no definite reversible or fixed perfusion abnormality to suggest ischemia or infar ction. Left ventricular ejection fraction measures 48%. IMPRESSION: 1. No definite ischemia or infarct. 2. Left ventricular ejection fraction measuring 48%. Reviewed, dictated and finalized at location A.
--- NOTE | 2020-07-21 10:37 | ECG_ITS ---
Measurements Intervals [place] Rate: 79 P: 49 CT: 170 QRS: -32 QRSD: 94 T: 42 QT: 368 QTc: 422 Interpretive Statements SINUS RHYTHM POSSIBLE LEFT ATRIAL ENLARGEMENT LEFT AXIS DEVIATION POSSIBLE LEFT VENTRICULAR HYPERTROPHY CANNOT RULE OUT SEPTAL INFARCT, AGE INDETERMINATE BASELINE ARTIFACT- I, II, III, AVR, AVL, AVF ABNORMAL ECG Electronically Signed On 07-21-2020 12:49:19 CDT by Torin Pereyra D.O.
--- NOTE | 2020-07-21 11:03 | ED.GENADULT ---
HPI - General Adult General Chief complaint: Chest Pain <SEAN Hernandez Last Filed: 07/21/20 14:11> Stated complaint: chest pain <SEAN Hernandez Last Filed: 07/21/20 14:11> Time Seen by Provider: 07/21/20 10:35 <SEAN Hernandez Last Filed: 07/21/20 14:11> History of Present Illness HPI narrative: Chest pain this morning while driving to work. Left anterior chest. Stabbing with associated SOB. Took a nitro which helped but pain is constant and still present. Did radiate down left arm. She was diaphoretic. Started just before 9 a.m. Has a hx of CAD. Previous TN 7 years ago. No stents. Followed by Dr. Moreno. Last stress test was several years ago, cath was several years ago. Took her baby aspirin this morning. <SEAN Hernandez Last Filed: 07/21/20 14:11> Related Data Home medications: Home Medications Medication Instructions Recorded Confirmed triamterene-hydrochlorothiazid 2 cap PO DAILY 05/26/19 07/21/20 meclizine 25 mg tablet 25 mg PO TID PRN 05/24/20 07/21/20 aspirin 81 mg tablet,delayed 81 mg PO DAILY 06/11/20 07/21/20 release nitroglycerin 0.4 mg sublingual 0.4 mg SUBLINGUAL Q5M PRN 06/11/20 07/21/20 tablet <SEAN Hernandez Last Filed: 07/21/20 14:11> Allergies/adverse reactions: Allergies Allergy/AdvReac Type Severity Reaction Status Date / Time codeine Allergy Unknown Verified 07/21/20 10:42 erythromycin base Allergy Unknown Verified 07/21/20 10:42 hydrocodone [From [place]] Allergy Unknown Verified 07/21/20 10:42 latex Allergy Unknown Verified 07/21/20 10:42 Penicillins Allergy Unknown Verified 07/21/20 10:42 prednisone Allergy Unknown Verified 07/21/20 10:42 propoxyphene [From [place]] Allergy Unknown Verified 07/21/20 10:42 <SEAN Hernandez Last Filed: 07/21/20 14:11> Review of Systems Constitutional: Constitutional: Reports as per HPI, Denies fever(s), Denies night sweats and Denies weakness <SEAN Hernandez Last Filed: 07/21/20 14:11> Cardiovascular: Cardiovascular: Reports as per HPI, Reports chest pain, Denies edema, Denies leg edema, Denies dyspnea and Denies orthopnea <SEAN Hernandez Last Filed: 07/21/20 14:11> Respiratory: Respiratory: Denies cough and Denies dyspnea <SEAN Hernandez Last Filed: 07/21/20 14:11> Gastrointestinal: Gastrointestinal: Denies abdominal pain, Denies constipation, Denies diarrhea, Denies nausea and Denies vomiting <SEAN Hernandez Last Filed: 07/21/20 14:11> Musculoskeletal: Musculoskeletal: Denies abnormal gait, Denies back pain, Denies numbness and Denies tingling <SEAN Hernandez Last Filed: 07/21/20 14:11> Neurologic: Denies Abnormal speech present, Denies abnormal gait, Denies numbness, Denies tingling and Denies weakness <SEAN Hernandez Last Filed: 07/21/20 14:11> Psychiatric: Psychiatric: Denies homicidal ideation and Denies suicidal ideation <SEAN Hernandez Last Filed: 07/21/20 14:11> [facility] Past Medical History Medical History: Medical History Bipolar disorder CAD (coronary artery disease) minimal CAD by catheterization in 2013. 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 Hyperkalemia Hypothyroid Medial meniscus tear Meniere's disease very poor hearing Osteoporosis Pain in left freire Pes planus Restless leg syndrome Seizures Freire injury Surgical complication involving right mastoid
[2020-07-21] MEDS: NITROGLYCERIN OINTMENT 1 INCH DOSE TRANSDERM (11:57)
[2020-07-21 12:35] LABS: Basophils Absolute Auto 0.1 K/mm3 (0.0-0.1); Basophils Percent Auto 0.6 % (0.2-1.2); Eosinophils Absolute Auto 0.1 K/mm3 (0-0.3); Eosinophils Percent Auto 0.6 % (0-4.4); Hematocrit 43.1 % (37.0-47.0); Hemoglobin 14.2 g/dL (12.0-15.0); Immature Granulocyte Absolute 0.03 K/mm3 (0.00-0.031); Immature Granulocyte Percent A 0.3 % (0-0.5); Lymphocytes Absolute Auto 0.98 K/mm3 (0.9-3.2); Lymphocytes Percent Auto 11.4 % (18.3-44.2); Mean Corpuscular HGB Conc 32.9 g/dl (32-36); Mean Corpuscular Hemoglobin 30.1 pg (26-34); Mean Corpuscular Volume 91.3 fl (80-100); Mean Platelet Volume 9.2 fl (7.4-10.4); Monocytes Absolute Auto 0.9 K/mm3 (0.1-0.6); Neutrophils Absolute Auto 6.6 K/mm3 (1.3-6.7); Neutrophils Percent Auto 77.1 % (45.5-73.1); Platelet Count Result 317 k/mm3 (150-375); Red Blood Count 4.72 M/mm3 (4.2-5.4); Red Cell Distribution Width 12.2 % (11.5-14.5); White Blood Count 8.6 K/mm3 (4.5-10.0)
[2020-07-21 12:47] LABS: Alanine Aminotransferase 37 U/L (4-35); Albumin Level 4.2 g/dL (3.5-5.1); Alkaline Phosphatase 109 U/L (38-126); Anion Gap 5 mmol/L (8-16); Aspartate Amino Transferase 35 U/L (14-36); Bilirubin,Total 0.7 mg/dL (0.2-1.3); Blood Urea Nitrogen 19 mg/dL (7-17); Carbon Dioxide 25 mmol/L (22-30); Chloride 107 mmol/L (98-107); Estimated CRCL calculation 52 ml/min; Estimated Glomerular Filt Rate 55; Glucose 100 mg/dL (65-105); Potassium 4.2 mmol/L (3.4-5.0); Sodium 137 mmol/L (137-145)
[2020-07-21 12:58] LABS: Troponin I < 0.012 ng/mL (0.000-0.034)
[2020-07-21] MEDS: ACETAMINOPHEN 500 MG TABLET 1000 MG PO (13:56)
--- NOTE | 2020-07-21 15:29 | PM.IMHP ---
H&P: HPI History of Present Illness Date/Time: 07/21/20 15:29 Chief Complaint: Chest pain Narrative: 65-year-old female with history of nonocclusive coronary artery disease was driving to work at about 9:00 a.m. this morning. Chest pain began about 5 minutes away from work. She went on into work and was there for about 20 minutes. Her work is not strenuous. Chest pain escalated to 10/10 severity. She took 1 nitroglycerin and it helped but did not resolve it. Pain remains severe. Workplace called EMS which transported her to [facility]. Once there she received nitroglycerin past but it dropped her blood pressure. So it was removed. The pain resolved almost completely. However it gradually returned and was moderate to severe again at 4:00 p.m. today. During the episode of pain at work she did have diaphoresis and the pain worsened with activity. No alleviating factors were noted. She was not short of breath nor did she have palpitations or any more than her usual chronic dizziness. Pain was similar to the chest pain she has had in the past. She has a history of myocardial infarction purportedly due to coronary spasm approximately 7 years ago. Coronary angiography revealed nonocclusive coronary disease at about 25% obstruction. She reportedly does not take anything but p.r.n. nitroglycerin due to low blood pressure. Review of Systems Review of Systems: All systems reviewed & are unremarkable except as noted in HPI and below [facility] Past Medical History Medical History Bipolar disorder CAD (coronary artery disease) minimal CAD by catheterization in 2012. 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 Hyperkalemia Hypothyroid Medial meniscus tear Meniere's disease very poor hearing Osteoporosis Pain in left macias Pes planus Restless leg syndrome Seizures Macias injury Surgical complication involving right mastoid process Wears glasses Surgical History Surgical History History of appendectomy History of carpal tunnel surgery B/L History of cochlear implant History of knee surgery x2. right knee Hx of cardiac cath she stated that she only had 25% blockages. No significant past surgical history S/P laparoscopic surgery Pelvic. S/P trigger finger release right hand Status post carpal tunnel release of both wrists Family History Family History Mother Crohn disease Father Old age Sibling Diabetes mellitus Social History Social History (Updated 07/21/20 @ 15:53 by Augustin Friend MD) Social History: The patient had 4 children with only 3 pregnancies. She had a set of twin boys. She is . She lives home alone. She occasionally drinks a glass a wine. Her daughter daughter Ivett is a durable power tax associate attorney for healthcare. Patient wishes to be a full code. She continues to work at [employer]. Patient was a former smoker. She does not use any marijuana or illicit drugs. Smoking packs per day: 1 Smoking cigarettes per day: 20.0 Years smoked: 1 Smoking pack-years: 1.00 Smoking status: Former smoker Tobacco type: cigarettes Second hand tobacco smoke exposure: No Smoking end date: 04/13/72 Alcohol intake: current Drinks per week: 4 Substance use: never Substance use type: does not use Gender identity (if verbalized by the patient): Female Spiritual care concerns: No Meds H
[2020-07-21] MEDS: MORPHINE SULFATE (*CRX) 2 MG/ML INJ IV PUSH (15:59)
[2020-07-21] MEDS: LACTATED RINGERS 1,000 ML 999 ML IV CONT (16:00)
--- NOTE | 2020-07-21 16:11 | ADMGEN ---
This patient, Katherin Penaloza, was admitted to IMU Room 200-01. Patient/family oriented to hospital policies and general routines including ID bracelet, bed and alarms, visiting hours, pain management, procedures, bathroom and other care routines, personal items, smoking policy, room service/diet, and visiting hours. Information on how to activate the Rapid Response Team has been discussed. Patient/Family are encouraged to report perceived risks to care and to ask questions if they do not understand what they are told or what they should do.
[2020-07-21 16:19] LABS: Glucose 102 mg/dL (65-105)
[2020-07-21 16:29] LABS: Troponin I < 0.012 ng/mL (0.000-0.034)
[2020-07-21] MEDS: ISOSORBIDE DINITRATE 10 MG TABLET PO (17:04)
[2020-07-21 19:41] LABS: Troponin I < 0.012 ng/mL (0.000-0.034)
[2020-07-21] MEDS: ENOXAPARIN 40 MG/0.4 ML SYRINGE SUB-Q (20:49)
[2020-07-21] MEDS: rOPINIRole HCL 1 MG TABLET 2 MG PO (20:49)
[2020-07-21] MEDS: ACETAMINOPHEN 325 MG TABLET 650 MG PO (20:49)
[2020-07-21] MEDS: POTASSIUM CHLORIDE 20 MEQ TABLET.ER PO (20:54)
[2020-07-21] MEDS: CLINDAMYCIN HCL 150 MG CAP 300 MG PO (22:09)
[2020-07-22] VITALS (19 sets, daily range): BP systolic 103–125; BP diastolic 56–69; PULSE 52–94; RESP 15–22; TEMP 36.1–36.8; O2SAT 97–99
[2020-07-22 04:49] LABS: Hematocrit 39.1 % (37.0-47.0); Mean Corpuscular HGB Conc 33.2 g/dl (32-36); Mean Corpuscular Hemoglobin 30.4 pg (26-34); Mean Corpuscular Volume 91.4 fl (80-100); Mean Platelet Volume 9.5 fl (7.4-10.4); Platelet Count Result 296 k/mm3 (150-375); Red Blood Count 4.28 M/mm3 (4.2-5.4); Red Cell Distribution Width 12.3 % (11.5-14.5); White Blood Count 6.5 K/mm3 (4.5-10.0)
[2020-07-22 05:07] LABS: Anion Gap 5 mmol/L (8-16); Blood Urea Nitrogen 22 mg/dL (7-17); Calcium 8.7 mg/dL (8.4-10.2); Carbon Dioxide 27 mmol/L (22-30); Chloride 107 mmol/L (98-107); Estimated CRCL calculation 52 ml/min; Estimated Glomerular Filt Rate 55; Glucose 93 mg/dL (65-105); Potassium 4.2 mmol/L (3.4-5.0); Sodium 139 mmol/L (137-145)
[2020-07-22] MEDS: CLINDAMYCIN HCL 150 MG CAP 300 MG PO ×3 (06:16→20:25)
[2020-07-22] MEDS: LEVOTHYROXINE SODIUM 112 MCG, LEVOTHYROXINE SODIUM 25 MCG 137 MCG PO (06:16)
[2020-07-22] MEDS: ATORVASTATIN 20 MG TABLET PO (07:51)
[2020-07-22] MEDS: ASPIRIN 81 MG ENTERIC TABLET PO (07:52)
[2020-07-22] MEDS: TRIAMTERENE 37.5 MG/HCTZ 25 MG (MAXZIDE) TABLET 2 TAB PO (07:52)
--- NOTE | 2020-07-22 11:21 | ECG_ITS ---
Measurements Intervals [place] Rate: 72 P: 51 CT: 174 QRS: -30 QRSD: 104 T: 28 QT: 369 QTc: 405 Interpretive Statements SINUS RHYTHM VOLTAGE CRITERIA FOR LVH POOR R WAVE PROGRESSION, ANTERIOR LEADS BASELINE ARTIFACT- I, II, III, AVR, AVL, AVF BORDERLINE ECG Electronically Signed On 07-26-2020 17:03:00 CDT by Torin Pereyra D.O.
[2020-07-22] MEDS: ISOSORBIDE MONONITRATE 30 MG TAB.ER.24H PO (12:03)
[2020-07-22] MEDS: ACETAMINOPHEN 325 MG TABLET 650 MG PO (14:01)
--- NOTE | 2020-07-22 14:01 | PM.CNCAR ---
Assessment and Plan Assessment and plan (1) Chest pain: Qualifiers: Chest pain type: unspecified Qualified Code(s): R07.9 - Chest pain, unspecified Code(s): R07.9 - Chest pain, unspecified Status: Acute Assessment and Plan: Longstanding, atypical chest pain for many years with previous documentation of nonobstructive CAD as far back as 2002 typically nitro responsive although refractory thus far. Ruled out for myocardial infarction with negative enzymes, no ischemic changes by EKG. Likely mechanism microvascular dysfunction/coronary spasm, esophageal spasm a consideration. Previously discussed ischemic workup which she deferred. Discussed role of ischemic evaluation. If symptoms persist Lexiscan stress test reasonable to begin workup. 2D echo. NPO after midnight if symptoms persist and/or she remains in house overnight. Change to Imdur 30 mg daily as tolerated. Recommendations to follow. She would prefer to avoid angiography which I think is very reasonable particularly given her history. (2) CAD (coronary artery disease): Qualifiers: Coronary Disease-Associated Artery/Lesion type: [place] artery [place] vs. transplanted heart: [place] heart Associated angina: with stable angina Qualified Code(s): I25.118 - Atherosclerotic heart disease of [place] coronary artery with other forms of angina pectoris Code(s): I25.10 - Atherosclerotic heart disease of [place] coronary artery without angina pectoris Status: Acute Assessment and Plan: As above, history of nonobstructive CAD remotely. Continue aspirin 81 mg daily, statin therapy. Aggressive risk modification. (3) Hypercholesteremia: Code(s): E78.00 - Pure hypercholesterolemia, unspecified Status: Chronic Assessment and Plan: As above, statin therapy.. Goal LDL less than 70. (4) Meniere's disease: Qualifiers: Laterality: bilateral Qualified Code(s): H81.03 - Meniere's disease, bilateral Code(s): H81.09 - Meniere's disease, unspecified ear Status: Chronic Assessment and Plan: Triamterene hydrochlorothiazide. Monitor BP with addition of nitrate therapy. History of Present Illness History of Present Illness Consult date/time: Date of service: 07/22/20 14:01 Cardiology consultation at the request of Dr. Friend for my opinion regarding chest pain. Requesting physician: Augustin Friend MD Consult reason: chest pain Reason For Visit: Chest pain Narrative: Patient is a pleasant 65-year-old female with a past medical history significant for nonobstructive CAD on [facility] 2005 and 2012 with many years of chronic, recurrent atypical chest pain described as sharp in nature random, sometimes exacerbated with activity generally nitroglycerin responsive,, history of Meniere's disease, history of severe hearing loss status post cochlear implant who was in her usual state of health when she states she began to experience chest pain described as a sharp heavy sensation central left chest while driving into work day of presentation. She states she attempted to be a with a discomfort which then became more severe after 20 minutes. She took 1 sublingual nitroglycerin which improved her symptoms but did not resolve them at which time her work summoned EMS and transported her to the emergency department. She received nitroglycerin paste with resulting relative hypotension some was discontinued. Patient states her symptoms eventually nearly resolved after receiving isosorbide dinitrate x1 yesterday afternoon but then early this morning returned in intensity. She noted worsening with deep breathing some shortness of breath mild diaphoresis. This is exactly the same as she has experienced for many years but the intensity was too much to tolerate. She states it had been several months since previous sublingual nitroglycerin use. She denies recent illness, fevers, chills. She has been compliant with m
[2020-07-22] MEDS: SODIUM CHLORIDE 0.9% IV 250 ML 999 ML IV CONT (17:40)
[2020-07-22] MEDS: METOPROLOL TARTRATE INJ 5 MG/5 ML VIAL 2.5 MG IV PUSH (17:41)
--- NOTE | 2020-07-22 18:00 | ECG_ITS ---
Measurements Intervals [place] Rate: 67 P: 45 MS: 176 QRS: -28 QRSD: 95 T: 23 QT: 383 QTc: 406 Interpretive Statements SINUS RHYTHM LOW QRS VOLTAGE IN PRECORDIAL LEADS VOLTAGE CRITERIA FOR LVH POOR R WAVE PROGRESSION, ANTERIOR LEADS BASELINE ARTIFACT- I, II, III, AVL, AVF, V4, V6 BORDERLINE ECG Electronically Signed On 07-23-2020 8:24:19 CDT by Torin Pereyra D.O.
--- NOTE | 2020-07-22 19:21 | PM.IMPN ---
Progress Note: A&P Assessment and Plan (1) Chest pain: Qualifiers: Chest pain type: unspecified Qualified Code(s): R07.9 - Chest pain, unspecified Code(s): R07.9 - Chest pain, unspecified Status: Acute Assessment and Plan: Her pain seems consistent with angina. To with morphine. IV fluid. Continue aspirin. Low-dose heparin. At low-dose isosorbide dinitrate Cardiology consultation. 07/22/2020 Patient has been placed on Imdur for her angina Cardiology is following Will continue to monitor throughout the day and if chest pain resolves will discharge home 7:23 p.m. patient's chest pain has not resolved and she currently has a headache she will stay hospitalized today and will be reassessed cardiology tomorrow for possible stress testing (2) CAD (coronary artery disease): Qualifiers: Coronary Disease-Associated Artery/Lesion type: [place] artery [place] vs. transplanted heart: [place] heart Associated angina: with stable angina Qualified Code(s): I25.118 - Atherosclerotic heart disease of [place] coronary artery with other forms of angina pectoris Code(s): I25.10 - Atherosclerotic heart disease of [place] coronary artery without angina pectoris Status: Acute Assessment and Plan: Continue atorvastatin 07/22/2020 Patient has mild nonocclusive vessel disease on her last cardiac catheterization (3) Meniere's disease: Qualifiers: Laterality: bilateral Qualified Code(s): H81.03 - Meniere's disease, bilateral Code(s): H81.09 - Meniere's disease, unspecified ear Status: Chronic Assessment and Plan: Continue triamterene hydrochlorothiazide (4) Seizure disorder: Code(s): G40.909 - Epilepsy, unspecified, not intractable, without status epilepticus Status: Acute Assessment and Plan: continue home meds (5) Restless leg syndrome: Code(s): G25.81 - Restless legs syndrome Status: Chronic Assessment and Plan: Continue ropinirole (6) Hypothyroid: Qualifiers: Hypothyroidism type: unspecified Qualified Code(s): E03.9 - Hypothyroidism, unspecified Code(s): E03.9 - Hypothyroidism, unspecified Status: Chronic Assessment and Plan: continue home meds (7) Bipolar disorder: Qualifiers: Active/Remission status: remission status unspecified Qualified Code(s): F31.9 - Bipolar disorder, unspecified Code(s): F31.9 - Bipolar disorder, unspecified Status: Chronic Assessment and Plan: continue home meds Time Spent With Patient Time with patient: 25 - 35 minutes Subjective Date/time seen: 07/22/20 19:21 patient seen examined this morning reports that she is having Chest pain although she does not want to admitted. This is been reviewed with treasury consultant and he states that he will try it dose of the Imdur and re-evaluate patient. She is well known to his practice and frequently has this complaint. She has had cardiac catheterizations in the past as well as stress test. Exam Narrative: Exam Narrative: GEN: NAD, AAOx3, cooperative HEENT: NCAT, MMM, EOMI Neck: no JVD Heart: S1S2 RRR Lungs: CTA B/l Ext: moves all, no cyanosis, no clubbing, no edema Neuro: No focal neurological deficits cranial nerves intact Psych: mood and affect congruent Objective Data Vital Signs Vital Signs: Vital Signs - 24 hr 07/21/20 20:00 07/21/20 22:00 07/21/20 23:53 Temperature 97.8 F 97.7 F Pulse Rate 84 68 66 Respiratory Rate 16 16 Blood Pressure 95/56 L 90/56 L Pulse Oximetry 97 98 07/22/20 00:00 07/22/20 02:00 07/22/20 03:37 Temperature 97.2 F L Pulse Rate 62 55 L 61 Respiratory Rate 15 Blood Pressure 103/56 L Pulse Oximetry 98 98 07/22/20 04:00 07/22/20 06:00 07/22/20 07:20 Temperature 97.6 F Pulse Rate 55 L 52 L 65 Respiratory Rate 20 Blood Pressure 115/60 Pulse Oximetry 98 97
[2020-07-22] MEDS: MECLIZINE HCL 25 MG TABLET PO (20:25)
[2020-07-22] MEDS: ENOXAPARIN 40 MG/0.4 ML SYRINGE SUB-Q (20:25)
[2020-07-22] MEDS: rOPINIRole HCL 1 MG TABLET 2 MG PO (20:25)
[2020-07-23] VITALS (11 sets, daily range): BP systolic 101–127; BP diastolic 51–73; PULSE 46–88; RESP 16–18; TEMP 36.5–36.7; O2SAT 97–100
--- NOTE | 2020-07-23 | EST_ITS ---
Patient Info Name: Katherin Penaloza Age: 65 years : 1955 Gender: Female Ht: 66 in Wt: 180 lbs BSA: 1.97 m2 Exam Date: 07/23/2020 11:13 AM Exam Location: [facility] Stress Patient Status: Inpatient Admit Date: 07/21/2020 Staff Ordering Physician: Ayo Villa MD Attending Provider: Augustin Friend MD Exercise Technologist: Janet Garza CT Exam Type: CA stress peng w NM Study Info A regadenoson stress test was performed. Summary 1. Sinus rhythm with leftward axis. 2. No significant ST or T changes following injection of Lexiscan. 3. Clinically and electrocardiographically uneventful Lexiscan stress test. 4. Myocardial perfusion imaging study to be reported by Radiology. Protocol: Lexiscan Stress ECG Details Stage: REST Duration (min): 1 min : 6 sec HR (bpm): 78 SBP (mmHg): 121 DBP (mmHg): 75 Stage: REST Duration (min): 9 min : 13 sec HR (bpm): 71 SBP (mmHg): 121 DBP (mmHg): 75 Stage: STAGE 1 Duration (min): 0 min : 59 sec HR (bpm): 88 SBP (mmHg): 124 DBP (mmHg): 79 Stage: RECOVERY Duration (min): 1 min : 0 sec HR (bpm): 100 SBP (mmHg): 124 DBP (mmHg): 79 Stage: RECOVERY Duration (min): 2 min : 0 sec HR (bpm): 100 SBP (mmHg): 124 DBP (mmHg): 79 Stage: RECOVERY Duration (min): 3 min : 0 sec HR (bpm): 97 SBP (mmHg): 116 DBP (mmHg): 73 Stage: RECOVERY Duration (min): 3 min : 27 sec HR (bpm): 91 SBP (mmHg): 116 DBP (mmHg): 73 Rest HR: 71 bpm Peak HR: 109 bpm Rest Sys BP: 121 mmHg Peak Sys BP: 124 mmHg Max Pred HR: 153 bpm % Max Pred HR: 71 % Target HR: 130 bpm Max RPP: 13,516 bpm*mmHg Termination Reason: Completed protocol Cardiac Symptoms: None Total Time: 1 min : 0 sec Rest Marsh BP: 75 mmHg Peak Marsh BP: 79 mmHg Total Dose: 0.4 mg Resting ECG Sinus rhythm with leftward axis. Stress ECG No significant ST or T changes following injection of Lexiscan. Report Signatures
[2020-07-23] MEDS: CLINDAMYCIN HCL 150 MG CAP 300 MG PO ×2 (05:36→13:05)
[2020-07-23] MEDS: LEVOTHYROXINE SODIUM 112 MCG, LEVOTHYROXINE SODIUM 25 MCG 137 MCG PO (05:37)
--- NOTE | 2020-07-23 10:20 | PC.NURSE ---
Patient to stress test via wheelchair.
--- NOTE | 2020-07-23 12:25 | PC.NURSE ---
Patient returned to room following stress test.
[2020-07-23] MEDS: ATORVASTATIN 20 MG TABLET PO (13:05)
[2020-07-23] MEDS: ASPIRIN 81 MG ENTERIC TABLET PO (13:05)
[2020-07-23] MEDS: ISOSORBIDE MONONITRATE 30 MG TAB.ER.24H PO (13:05)
[2020-07-23] MEDS: TRIAMTERENE 37.5 MG/HCTZ 25 MG (MAXZIDE) TABLET 2 TAB PO (13:06)
--- NOTE | 2020-07-23 14:03 | ECHO_ITS ---
Patient Info Name: Katherin Penaloza Age: 65 years : 1955 Gender: Female Ht: 66 in Wt: 182 lbs BSA: 1.98 m2 HR: 63 bpm BP: 104 / 58 mmHg Heart Rhythm: Sinus Rhythm Technical Quality: Good Exam Date: 07/23/2020 9:14 AM Exam Location: [facility] Pulmonary Patient Status: Inpatient Admit Date: 07/21/2020 Staff Ordering Physician: Ayo Villa MD [place] Machine Operator: Bipin Flores RDCS, RT Attending Provider: Augustin Friend MD Referring Physician: Daisy CHARLTON; Exam Type: CA echo doppler color flow Study Info Indications R07.9 - Chest pain, unspecified Complete two-dimensional, color flow and Doppler transthoracic echocardiogram is performed. Strain analysis performed. Summary 1. Complete two-dimensional, color flow and Doppler transthoracic echocardiogram is performed. 2. Left ventricular chamber dimension is normal. 3. Left ventricular systolic function is normal, estimated at 55-60%. 4. Trivial mitral and tricuspid valve regurgitation. 5. No ischemic wall motion abnormalities. Left Ventricle Left ventricular chamber dimension is normal. Left ventricular systolic function is normal, estimated at 55-60%. The left ventricular diastolic function is grade I diastolic dysfunction. Right Ventricle Right ventricular chamber dimension is normal. Left Atria Left atrial chamber dimension is normal. Right Atria Right atrial chamber dimension is normal. Aortic Valve The aortic valve is normal. Pulmonic Valve The pulmonic valve is normal. Mitral Valve The mitral valve has normal leaflets. There is trace mitral valve regurgitation. Tricuspid Valve The tricuspid valve leaflets are normal. There is mild tricuspid valve regurgitation. Pericardium/Pleural The pericardium appears normal. Aorta The aortic root size at the sinus of Valsalva is normal. Left Ventricular Outflow Tract Name Value Normal LVOT 2D LVOT Diameter 2.1 cm LVOT Doppler LVOT Peak Gradient 3 mmHg LVOT Mean Gradient 2 mmHg LVOT VTI 21 cm LVOT VTI/AV VTI Ratio 0.8 LVOT Stroke Volume 70 ml LVOT CO 4.6 l/min LVOT CI 2.3 l/min/m2 Mitral Valve Name Value Normal MV Doppler MV Decel [place] 136 cm/s2 MV PHT 89 ms MV Area (PHT) 2.5 cm2 4.0-5.0 MV Diastolic Function MV E Peak Velocity 42 cm/s MV A Peak Velocity 67 cm/s MV E/A 0.6 MV Decel Time 308 ms T
[2020-07-23] MEDS: ACETAMINOPHEN 325 MG TABLET 650 MG PO (14:19)
--- NOTE | 2020-07-23 16:08 | PM.DS ---
DS: Admitting Diagnosis Admitting Diagnosis Admitting Diagnosis: Chief Complaint: Chest pain DS: Discharge Diagnosis Discharge Diagnosis (1) Chest pain: Qualifiers: Chest pain type: unspecified Qualified Code(s): R07.9 - Chest pain, unspecified Code(s): R07.9 - Chest pain, unspecified Status: Acute Assessment and Plan: Her pain seems consistent with angina. To with morphine. IV fluid. Continue aspirin. Low-dose heparin. At low-dose isosorbide dinitrate Cardiology consultation. 07/22/2020 Patient has been placed on Imdur for her angina Cardiology is following Will continue to monitor throughout the day and if chest pain resolves will discharge home 7:23 p.m. patient's chest pain has not resolved and she currently has a headache she will stay hospitalized today and will be reassessed cardiology tomorrow for possible stress testing (2) CAD (coronary artery disease): Qualifiers: Coronary Disease-Associated Artery/Lesion type: [place] artery [place] vs. transplanted heart: [place] heart Associated angina: with stable angina Qualified Code(s): I25.118 - Atherosclerotic heart disease of [place] coronary artery with other forms of angina pectoris Code(s): I25.10 - Atherosclerotic heart disease of [place] coronary artery without angina pectoris Status: Acute Assessment and Plan: Continue atorvastatin 07/22/2020 Patient has mild nonocclusive vessel disease on her last cardiac catheterization (3) Meniere's disease: Qualifiers: Laterality: bilateral Qualified Code(s): H81.03 - Meniere's disease, bilateral Code(s): H81.09 - Meniere's disease, unspecified ear Status: Chronic Assessment and Plan: Continue triamterene hydrochlorothiazide (4) Seizure disorder: Code(s): G40.909 - Epilepsy, unspecified, not intractable, without status epilepticus Status: Acute Assessment and Plan: continue home meds (5) Restless leg syndrome: Code(s): G25.81 - Restless legs syndrome Status: Chronic Assessment and Plan: Continue ropinirole (6) Hypothyroid: Qualifiers: Hypothyroidism type: unspecified Qualified Code(s): E03.9 - Hypothyroidism, unspecified Code(s): E03.9 - Hypothyroidism, unspecified Status: Chronic Assessment and Plan: continue home meds (7) Bipolar disorder: Qualifiers: Active/Remission status: remission status unspecified Qualified Code(s): F31.9 - Bipolar disorder, unspecified Code(s): F31.9 - Bipolar disorder, unspecified Status: Chronic Assessment and Plan: continue home meds DS: Summary Hospital Course Reason for hospitalization: Chief Complaint: Chest pain Narrative: 65-year-old female with history of nonocclusive coronary artery disease was driving to work at about 9:00 a.m. this morning. Chest pain began about 5 minutes away from work. She went on into work and was there for about 20 minutes. Her work is not strenuous. Chest pain escalated to 10/10 severity. She took 1 nitroglycerin and it helped but did not resolve it. Pain remains severe. Workplace called EMS which transported her to [place] [facility]. Once there she received nitroglycerin past but it dropped her blood pressure. So it was removed. The pain resolved almost completely. However it gradually returned and was moderate to severe again at 4:00 p.m. today. During the episode of pain at work she did have diaphoresis and the pain worsened with activity. No alleviating factors were noted. She was not short of breath nor did she have palpitations or any more than her usual chronic dizziness. Pain was similar to the chest pain she has had in the past. She has a history of myocardial infarction purportedly due to coronary spasm approximately 7 years ago. Coronary angiography revealed nonocclusive coronary disease at a
== END 2020-07-23 18:08 | disposition home or self-care (01) ==
LOC: ANHED 14:12 → ANHIMU 17:36
PROVIDERS: Physician Assistant Medical; Admitting Provider Internal Medicine; Emergency Provider General Practice; PCP Family Medicine; Visit Provider Family Medicine
DX: R07.9 Chest pain, unspecified (principal); I25.10 Atherosclerotic heart disease of native coronary artery without angina pectoris; I25.2 Old myocardial infarction; Z87.891 Personal history of nicotine dependence; H81.03 Meniere's disease, bilateral; G40.909 Epilepsy, unspecified, not intractable, without status epilepticus
CPT/HCPCS: 36415; 71046; 78452; 80048; 80053; 82947; 84484; 85025; 85027; 93005; 93017; 93306; 96361; 96372; 96374; 96375; 99285; A9270; A9502; G0378; J1650; J2270; J2785; J7050; J7120

== ENCOUNTER 2020-10-14 14:56 | Observation (INO) | payer OTHER, SELFPAY ==
[2020-10-14] VITALS (12 sets, daily range): BP systolic 119–148; BP diastolic 59–84; PULSE 65–88; RESP 12–18; TEMP 35.9–36.9; O2SAT 96–100; BMI 30.2
--- NOTE | ~2020-10-14 | XR_ITS ---
EXAMINATION: XR chest 2V EXAM DATE: 10/14/2020 15:30 INDICATION: Midsternal chest pain. TECHNIQUE: Frontal and lateral projections of the chest obtained and reviewed. Comparison is made to prior examination from 07/21/2020. FINDINGS: The lungs are clear. There are no pleural effusions. The cardiomediastinal silhouette is within normal limits. There is no pneumothorax suspected. The bones and soft tissues are unremarkab le. IMPRESSION: No acute cardiopulmonary findings. Reviewed, dictated and finalized at location A.
--- NOTE | 2020-10-14 14:59 | ECG_ITS ---
Measurements Intervals [place] Rate: 87 P: 62 IA: 168 QRS: -16 QRSD: 93 T: 34 QT: 364 QTc: 440 Interpretive Statements SINUS RHYTHM DELAYED PRECORDIAL R/S TRANSITION BASELINE ARTIFACT- I, II, III, AVR, AVL, AVF, V1-V6 BORDERLINE ECG Electronically Signed On 10-14-2020 21:46:01 CDT by Torin Pereyra D.O.
--- NOTE | 2020-10-14 15:13 | ED.CHESTPAIN ---
HPI - Chest Pain General Chief Complaint: Chest Pain Stated Complaint: chest pain Time Seen by Provider: 10/14/20 15:00 Source: patient Mode of arrival: ambulatory Limitations: no limitations History of Present Illness HPI narrative: Patient is a 65-year-old female complaining of chest pain, midsternal, 7 out of 10, pressure, radiating to left arm started yesterday. Patient denies any shortness of breath, abdominal pain, nausea, vomiting, diaphoresis, fever or chills. Related Data Home Medications Medication Instructions Recorded Confirmed triamterene-hydrochlorothiazid 2 cap PO DAILY 05/26/19 09/11/20 meclizine 25 mg tablet 25 mg PO TID PRN 05/24/20 09/11/20 aspirin 81 mg tablet,delayed 81 mg PO DAILY 06/11/20 09/11/20 release nitroglycerin 0.4 mg sublingual 0.4 mg SUBLINGUAL Q5M PRN 06/11/20 09/11/20 tablet Allergies Allergy/AdvReac Type Severity Reaction Status Date / Time codeine Allergy Unknown Verified 10/14/20 15:00 erythromycin base Allergy Unknown Verified 10/14/20 15:00 hydrocodone [From [place]] Allergy Unknown Verified 10/14/20 15:00 latex Allergy Unknown Verified 10/14/20 15:00 Penicillins Allergy Unknown Verified 10/14/20 15:00 prednisone Allergy Unknown Verified 10/14/20 15:00 propoxyphene [From [place]] Allergy Unknown Verified 10/14/20 15:00 Review of Systems Review of Systems: All systems reviewed & are unremarkable except as noted in HPI and below Constitutional: Constitutional: Denies body ache(s), Denies chills, Denies excessive sweating, Denies fatigue, Denies fever(s), Denies headache(s), Denies lethargy, Denies malaise, Denies weakness and Denies weight loss Eyes: Eyes: Denies blurry vision, Denies change in vision and Denies loss of vision ENT: Denies dizziness, Denies ear discharge, Denies headache(s), Denies lip swelling, Denies epistaxis, Denies nasal congestion, Denies neck pain, Denies throat swelling and Denies tongue swelling Cardiovascular: Cardiovascular: Denies diaphoresis, Denies rapid heart rate, Denies edema, Denies irregular heart rhythm, Denies lightheadedness, Denies palpitations, Denies dyspnea and Denies dyspnea on exertion Respiratory: Respiratory: Denies chest congestion, Denies cough, Denies hemoptysis, Denies dyspnea and Denies dyspnea on exertion Gastrointestinal: Gastrointestinal: Denies abdominal pain, Denies melena, Denies hematochezia, Denies diarrhea, Denies nausea, Denies vomiting and Denies hematemesis Musculoskeletal: Musculoskeletal: Denies abnormal gait, Denies deformity, Denies joint swelling, Denies limited range of motion, Denies neck pain and Denies numbness Neurologic: Denies Abnormal speech present, Denies abnormal gait, Denies confusion, Denies dizziness, Denies headache(s), Denies focal weakness, Denies loss of vision, Denies numbness, Denies Other visual disturbances, Denies Sensory deficit (Neuro) and Denies weakness Psychiatric: Psychiatric: Denies confusion, Denies depression, Denies auditory hallucinations, Denies homicidal ideation and Denies suicidal ideation Endocrine: Endocrine: Denies cold intolerance, Denies excessive sweating, Denies fatigue, Denies heat intolerance and Denies palpitations Hematologic/Lymphatic: Hematologic/Lymphatic: Denies easy bleeding and Denies easy bruising Allergic/Immunologic: Allergic/Immunologic: Denies lip swelling, Denies throat swelling and Denies tongue swelling PMFSH Past Medical History Medical History Bipolar disorder CAD (coronary artery disease) minimal CAD by catheterization in 2013. 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
[2020-10-14 15:25] LABS: Basophils Absolute Auto 0.1 K/mm3 (0.0-0.1); Basophils Percent Auto 0.9 % (0.2-1.2); Eosinophils Absolute Auto 0.1 K/mm3 (0-0.3); Eosinophils Percent Auto 2.3 % (0-4.4); Hemoglobin 13.2 g/dL (12.0-15.0); Immature Granulocyte Absolute 0.01 K/mm3 (0.00-0.031); Immature Granulocyte Percent A 0.2 % (0-0.5); Lymphocytes Absolute Auto 1.33 K/mm3 (0.9-3.2); Lymphocytes Percent Auto 23.5 % (18.3-44.2); Mean Corpuscular HGB Conc 32.2 g/dl (32-36); Mean Corpuscular Hemoglobin 29.4 pg (26-34); Mean Corpuscular Volume 91.3 fl (80-100); Mean Platelet Volume 9.5 fl (7.4-10.4); Monocytes Absolute Auto 0.9 K/mm3 (0.1-0.6); Monocytes Percent Auto 15.6 % (2.6-8.5); Neutrophils Absolute Auto 3.3 K/mm3 (1.3-6.7); Neutrophils Percent Auto 57.5 % (45.5-73.1); Platelet Count Result 305 k/mm3 (150-375); Red Blood Count 4.49 M/mm3 (4.2-5.4); Red Cell Distribution Width 12.8 % (11.5-14.5); White Blood Count 5.7 K/mm3 (4.5-10.0)
[2020-10-14 15:35] LABS: Anion Gap 11 mmol/L (8-16); Blood Urea Nitrogen 26 mg/dL (7-17); Carbon Dioxide 24 mmol/L (22-30); Chloride 105 mmol/L (98-107); Estimated CRCL calculation 38 ml/min; Estimated Glomerular Filt Rate 38; Glucose 98 mg/dL (65-105); INR 0.9; Potassium 3.9 mmol/L (3.4-5.0); Prothrombin Time 12.5 Seconds (11.1-14.7); Sodium 140 mmol/L (137-145)
[2020-10-14 15:47] LABS: Troponin I < 0.012 ng/mL (0.000-0.034)
[2020-10-14] MEDS: NITROGLYCERIN SL 0.4 MG TABLET SUBLINGUAL (16:09)
[2020-10-14] MEDS: LACTATED RINGERS 1,000 ML 999 ML IV CONT (17:31)
[2020-10-14] MEDS: ASPIRIN 81 MG CHEWABLE TABLET 324 MG PO (17:38)
--- NOTE | 2020-10-14 18:31 | PC.NURSE ---
STRUGGLING TO GET 3 HR TROP, LAB REJECTED DUE TO HEMOLYSIS. LAB CALLED, PHLEBOTOMY TO OBTAIN 3 HR
--- NOTE | 2020-10-14 19:15 | ADMGEN ---
This patient, Katherin Penaloza, was admitted to IMU Room 210-01. Patient/family oriented to hospital policies and general routines including ID bracelet, bed and alarms, visiting hours, pain management, procedures, bathroom and other care routines, personal items, smoking policy, room service/diet, and visiting hours. Information on how to activate the Rapid Response Team has been discussed. Patient/Family are encouraged to report perceived risks to care and to ask questions if they do not understand what they are told or what they should do.
[2020-10-14 19:27] LABS: Troponin I < 0.012 ng/mL (0.000-0.034)
[2020-10-14] MEDS: SODIUM CHLORIDE 0.9% IV 1,000 ML 125 ML IV CONT (20:03)
[2020-10-14 22:04] LABS: Troponin I < 0.012 ng/mL (0.000-0.034)
[2020-10-14] MEDS: rOPINIRole HCL 1 MG TABLET 2 MG PO (23:05)
[2020-10-14] MEDS: POTASSIUM CHLORIDE 20 MEQ TABLET.ER PO (23:05)
--- NOTE | 2020-10-14 23:12 | PM.IMHP ---
H&P: HPI History of Present Illness Date/Time: 10/14/20 23:12 This is a 65-year-old female patient who came in today complaining of chest pain. She said she had chest pain last night but she took some nitro and a pain pill and she was able to get some sleep. Today she went to work and started having some chest pain when she was pushing the cart around. 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 the patient stated that her pain was 6/10. She states that this is been on and off for quite some time. She stated that she had a stress test back in July and was found to be negative. The patient stated she had a stress test many years ago was told that she had 25% blockage. [facility]. The patient is very hard of hearing. Her troponins have been negative x3 so far. Her EKG was read as sinus rhythm delayed pericardial are as transition. Borderline EKG. The patient stated that the nitro helps at home. The patient stated that chest pain is not in correlation with any of the food that she eats or any activities. The chest x-ray was read as no acute cardiopulmonary findings. She also had an echo of July this year which shows The following 1. Complete two-dimensional, color flow and Doppler transthoracic echocardiogram is performed. 2. Left ventricular chamber dimension is normal. 3. Left ventricular systolic function is normal, estimated at 55-60%. 4. Trivial mitral and tricuspid valve regurgitation. 5. No ischemic wall motion abnormalities. the patient was given aspirin nitro and IV fluids in the emergency room. The patient stated that she has a chronic pressure to her chest wall. It does not hurt with palpation. It is not reproducible. The patient does not feel that she has strained herself at work. Patient's creatinine is 1.4 with a BUN of 26. Patient was admitted to observation on the date of service of Chief Complaint: chest pain Review of Systems Review of Systems: All systems reviewed & are unremarkable except as noted in HPI and below Constitutional: Constitutional: Reports as per HPI and Reports no additional constitutional complaints Eyes: Eyes: Reports as per HPI and Reports no additional eye complaints ENT: Reports system reviewed and no additional complaints, except as documented and Reports Normal hearing present Cardiovascular: Cardiovascular: Reports no additional cardiovascular complaints Respiratory: Respiratory: Reports no additional respiratory complaints and Reports no additional respiratory complaints Gastrointestinal: Gastrointestinal: Reports as per HPI and Reports no additional gastrointestinal complaints Musculoskeletal: Musculoskeletal: Reports no additional musculoskeletal complaints Integumentary/Breasts: Skin/Breast: Reports system reviewed and no additional complaints, except as docu and Reports as per HPI Neurologic: Reports system reviewed and no additional complaints, except as documented, Reports as per HPI and Reports Normal hearing present Psychiatric: Psychiatric: Reports no additional psychiatric complaints and Reports as per HPI Endocrine: Endocrine: Reports no additional endocrine complaints Hematologic/Lymphatic: Hematologic/Lymphatic: Reports no additional hematologic/lymphatic complaints Allergic/Immunologic: Allergic/Immunologic: Reports no additional allergic/immunologic complaints [facility] Past Medical History Medical History (Updated 10/14/20 @ 23:19 by Rolanda Santana NP) Bipolar disorder CAD (coronary artery disease) minimal CAD by catheterization in 2012. 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
[2020-10-15] VITALS (9 sets, daily range): BP systolic 111–117; BP diastolic 45–65; PULSE 45–76; RESP 16–20; TEMP 35.9–36.3; O2SAT 96–99
[2020-10-15] MEDS: BELLADONNA ALK/PHENOB ELIX 10 ML, MAG HYDROX/ALUMINUM HYD/SIMETH 30 ML, LIDOCAINE HCL 2... PO (01:01)
[2020-10-15] MEDS: SODIUM CHLORIDE 0.9% IV 1,000 ML 125 ML IV CONT ×2 (04:02→12:04)
[2020-10-15 04:55] LABS: Basophils Absolute Auto 0.1 K/mm3 (0.0-0.1); Basophils Percent Auto 1.2 % (0.2-1.2); Eosinophils Absolute Auto 0.2 K/mm3 (0-0.3); Eosinophils Percent Auto 4.8 % (0-4.4); Hematocrit 37.2 % (37.0-47.0); Hemoglobin 12.3 g/dL (12.0-15.0); Immature Granulocyte Absolute 0.01 K/mm3 (0.00-0.031); Immature Granulocyte Percent A 0.2 % (0-0.5); Lymphocytes Absolute Auto 1.26 K/mm3 (0.9-3.2); Lymphocytes Percent Auto 29.1 % (18.3-44.2); Mean Corpuscular HGB Conc 33.1 g/dl (32-36); Mean Corpuscular Hemoglobin 29.9 pg (26-34); Mean Corpuscular Volume 90.3 fl (80-100); Mean Platelet Volume 9.3 fl (7.4-10.4); Monocytes Absolute Auto 0.7 K/mm3 (0.1-0.6); Monocytes Percent Auto 17.1 % (2.6-8.5); Neutrophils Absolute Auto 2.1 K/mm3 (1.3-6.7); Neutrophils Percent Auto 47.6 % (45.5-73.1); Platelet Count Result 269 k/mm3 (150-375); Red Blood Count 4.12 M/mm3 (4.2-5.4); Red Cell Distribution Width 12.5 % (11.5-14.5); White Blood Count 4.3 K/mm3 (4.5-10.0)
[2020-10-15 05:10] LABS: Alanine Aminotransferase 25 U/L (4-35); Albumin Level 3.6 g/dL (3.5-5.1); Alkaline Phosphatase 76 U/L (38-126); Anion Gap 4 mmol/L (8-16); Aspartate Amino Transferase 32 U/L (14-36); Bilirubin,Total 0.8 mg/dL (0.2-1.3); Blood Urea Nitrogen 21 mg/dL (7-17); Calcium 8.6 mg/dL (8.4-10.2); Carbon Dioxide 27 mmol/L (22-30); Chloride 108 mmol/L (98-107); Estimated CRCL calculation 41 ml/min; Estimated Glomerular Filt Rate 41; Glucose 90 mg/dL (65-105); Lactic Acid Reflex 0.6 mmol/L (0.7-2.1); Magnesium 1.7 mg/dL (1.6-2.3); Potassium 4.3 mmol/L (3.4-5.0); Sodium 139 mmol/L (137-145)
[2020-10-15 05:58] LABS: Thyroid Stimulating Hormone Reflex 0.477 uIU/mL (0.465-4.68)
[2020-10-15] MEDS: LEVOTHYROXINE SODIUM 25 MCG TABLET PO (06:11)
[2020-10-15] MEDS: LEVOTHYROXINE SODIUM 112 MCG TABLET PO (06:11)
[2020-10-15] MEDS: ATORVASTATIN 20 MG TABLET PO (08:21)
[2020-10-15] MEDS: ENOXAPARIN 40 MG/0.4 ML SYRINGE SUB-Q (08:21)
[2020-10-15] MEDS: FAMOTIDINE 20 MG TABLET PO (08:21)
[2020-10-15] MEDS: ISOSORBIDE MONONITRATE 30 MG TAB.ER.24H PO (08:21)
[2020-10-15] MEDS: ASPIRIN 81 MG ENTERIC TABLET PO (08:21)
--- NOTE | 2020-10-15 11:06 | PM.IMPN ---
Progress Note: A&P Assessment and Plan (1) Chest pain: Qualifiers: Chest pain type: chest pain due to myocardial ischemia Ischemic chest pain type: stable angina pectoris Qualified Code(s): I20.8 - Other forms of angina pectoris Code(s): R07.9 - Chest pain, unspecified Status: Acute Assessment and Plan: the patient recently had a stress test back in July that was found to be negative. The patient stated that she chronically has chest pressure and it has no correlation with food or activity. The patient stated that the nitro does help her discomfort. The patient stated that she has had a cardiac catheterization in the past and that she had some minimal blockages. The patient also stated that she was in cardiac arrest at 1 time and had CPR. Continue with patient's nitro on isosorbide. Her troponins are all negative so far. Her EKG use within normal limits. Further recommendation per Cardiology. (2) Hypothyroid: Qualifiers: Hypothyroidism type: unspecified Qualified Code(s): E03.9 - Hypothyroidism, unspecified Code(s): E03.9 - Hypothyroidism, unspecified Status: Chronic Assessment and Plan: Check thyroid level and continue with levothyroxine. (3) Meniere's disease: Qualifiers: Laterality: bilateral Qualified Code(s): H81.03 - Meniere's disease, bilateral Code(s): H81.09 - Meniere's disease, unspecified ear Status: Chronic Assessment and Plan: The patient is very hard of hearing and has hearing aids. (4) Restless leg syndrome: Code(s): G25.81 - Restless legs syndrome Status: Chronic Assessment and Plan: Continue with patient's Requip (5) Acute kidney injury: Code(s): N17.9 - Acute kidney failure, unspecified Status: Acute Assessment and Plan: continue with IV fluids and hold her diuretics as well as the potassium. (6) Hypercholesteremia: Code(s): E78.00 - Pure hypercholesterolemia, unspecified Status: Chronic Assessment and Plan: Continue with her home medication of atorvastatin. Additional Plan 10/15/20: Will continue current plan of care and treatment. Cardiology consult ordered. Subjective Date/time seen: 10/15/20 11:06 Patient was seen during the morning rounds today. At present patient denies any shortness of breath or chest pain. Abdominal pain, no nausea, no vomiting. Mood stable. Review of Systems Review of Systems: All systems reviewed & are unremarkable except as noted in HPI and below Constitutional: Constitutional: Reports as per HPI and Reports no additional constitutional complaints Eyes: Eyes: Reports as per HPI and Reports no additional eye complaints ENT: Reports system reviewed and no additional complaints, except as documented Cardiovascular: Cardiovascular: Reports no additional cardiovascular complaints Respiratory: Respiratory: Reports no additional respiratory complaints and Reports no additional respiratory complaints Gastrointestinal: Gastrointestinal: Reports as per HPI and Reports no additional gastrointestinal complaints Musculoskeletal: Musculoskeletal: Reports no additional musculoskeletal complaints Integumentary/Breasts: Skin/Breast: Reports system reviewed and no additional complaints, except as docu and Reports as per HPI Neurologic: Reports system reviewed and no additional complaints, except as documented and Reports as per HPI Psychiatric: Psychiatric: Reports no additional psychiatric complaints and Reports as per HPI Endocrine: Endocrine: Reports no additional endocrine complaints Hematologic/Lymphatic: Hematologic/Lymphatic: Reports no additional hematologic/lymphatic complaints Allergic/Immunologic: Allergic/Immunologic: Reports no additional allergic/immunologic complaints Exam Const: General: cooperative, healthy appearing, comfortable, no acute distress, well developed, alert, awake and Physi
--- NOTE | 2020-10-15 13:13 | PM.CNCAR ---
Assessment and Plan Additional Plan 65-year-old lady with longstanding intermittent chest pain which has never been shown to be a cardiac problem. As stated above she has had numerous evaluations for ischemic heart disease including a previous angiogram and a Lexiscan nuclear study that was just done several months ago here. The fact that she has had pain over this past weekend for more than 24 hours with no ECG abnormalities and no evidence of a rise in her troponin levels would be very strong evidence that the symptoms once again are not cardiac in nature. At this point I do not believe we need to initiate another ischemia workup. She can be safely discharged and has outpatient follow-up scheduled. Ian Pino MD [facility] History of Present Illness History of Present Illness Consult date/time: 10/15/20 13:13 Consult reason: chest pain Reason For Visit: Chest pain, acute kidney injury Narrative: this is a 65-year-old lady I am seeing at the request of the hospitalist this afternoon because of chest pain. She is known to in generally follows with Dr. Villa in our office as she has had a history of concerning chest pain for at least couple of decades. The patient has had quite a few evaluations for the concern regarding coronary artery disease and has never been found to have significant CAD. She did have a coronary angiogram in the remote past at [facility] and was told of minimal plaquing in the coronary arteries. She has had a number of stress tests at this hospital with negative findings. Most recently in July of this year about 3 months ago she was here with some symptoms and had a negative Lexiscan nuclear study. Patient does not have any exertional symptoms compatible with exertional angina she denies any orthopnea PND or accumulating edema. 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 She continued to work through the her shift and went home and tried to relax and have a glass of wine hoping the symptoms would relax. She went to bed and woke up yesterday with ongoing symptoms went back to work eventually she told her boss that she was still having chest pain despite taking several nitroglycerin doses and she left work and drove to the hospital of to image ER evaluation. In the emergency department her electrocardiogram was found to be unremarkable her biomarkers were normal and she was admitted to the hospital yet again. The patient's biomarkers are neg 3 sets. in total she had this chest pain for more than 24 hours over the course of this past weekend. She feels well this morning and does not have any significant complaints. Review of Systems Constitutional: Constitutional: Reports no additional constitutional complaints Eyes: Eyes: Reports no additional eye complaints ENT: Reports system reviewed and no additional complaints, except as documented Cardiovascular: Cardiovascular: Reports as per HPI Respiratory: Respiratory: Reports no additional respiratory complaints Gastrointestinal: Gastrointestinal: Reports no additional gastrointestinal complaints Musculoskeletal: Musculoskeletal: Reports no additional musculoskeletal complaints Integumentary/Breasts: Skin/Breast: Reports system reviewed and no additional complaints, except as docu Endocrine: Endocrine: Reports no additional endocrine complaints Hematologic/Lymphatic: Hematologic/Lymphatic: Reports no additional hematologic/lymphatic complaints Allergic/Immunologic: Allergic/Immunologic: Reports no additional allergic/immunologic complaints [facility] Past Medical History Medical History (Updated 10/14/20 @ 23:19 by Rolanda Santana NP) Bipolar disorder CAD (coronary artery disease) minimal CAD by catheterization in 2012. Cardiac arrest states she had a cardiac arrest requiring CPR but this may have been a syncopal episode or seizure Carpal t
--- NOTE | 2020-10-15 14:58 | PM.DS ---
DS: Admitting Diagnosis Admitting Diagnosis Admitting Diagnosis: chest pain high cholesterol DS: Discharge Diagnosis Discharge Diagnosis (1) Chest pain: Qualifiers: Chest pain type: chest pain due to myocardial ischemia Ischemic chest pain type: stable angina pectoris Qualified Code(s): I20.8 - Other forms of angina pectoris Code(s): R07.9 - Chest pain, unspecified Status: Acute Assessment and Plan: the patient recently had a stress test back in July that was found to be negative. The patient stated that she chronically has chest pressure and it has no correlation with food or activity. The patient stated that the nitro does help her discomfort. The patient stated that she has had a cardiac catheterization in the past and that she had some minimal blockages. The patient also stated that she was in cardiac arrest at 1 time and had CPR. Continue with patient's nitro on isosorbide. Her troponins are all negative so far. Her EKG use within normal limits. Further recommendation per Cardiology. (2) Hypothyroid: Qualifiers: Hypothyroidism type: unspecified Qualified Code(s): E03.9 - Hypothyroidism, unspecified Code(s): E03.9 - Hypothyroidism, unspecified Status: Chronic Assessment and Plan: Check thyroid level and continue with levothyroxine. (3) Meniere's disease: Qualifiers: Laterality: bilateral Qualified Code(s): H81.03 - Meniere's disease, bilateral Code(s): H81.09 - Meniere's disease, unspecified ear Status: Chronic Assessment and Plan: The patient is very hard of hearing and has hearing aids. (4) Restless leg syndrome: Code(s): G25.81 - Restless legs syndrome Status: Chronic Assessment and Plan: Continue with patient's Requip (5) Acute kidney injury: Code(s): N17.9 - Acute kidney failure, unspecified Status: Acute Assessment and Plan: continue with IV fluids and hold her diuretics as well as the potassium. (6) Hypercholesteremia: Code(s): E78.00 - Pure hypercholesterolemia, unspecified Status: Chronic Assessment and Plan: Continue with her home medication of atorvastatin. DS: Summary Hospital Course Reason for hospitalization: chest pain Hospital Course: 55 years old female admitted complains of having chest pain. Patient has history of Meniere's disease and high cholesterol. Patient was given chest pain treatment and cardiology was consulted. Patient workup was negative. After consultation with Cardiology to side the patient discharged home to be followed up as an outpatient, will do Lexiscan as an outpatient. Status at Discharge Cognitive/behavioral status at discharge: stable Functional status at discharge: independent ambulation Overall status at discharge: patient is back to baseline Time Spent with Patient Time attestation: Total time spent providing and/or coordinating discharge services: Time spent: Less than 30 minutes Exam Const: General: cooperative, healthy appearing, comfortable, no acute distress, well developed, alert, awake and Physically active Nutritional Appearance: average body habitus and well nourished Orientation/consciousness: oriented to person, oriented to place, oriented to time and patient oriented x3 Limitations: no limitations HENMT: Head: normal to inspection, No palpable skull fracture present, normocephalic, atraumatic and abrasion Ears: external ears normal and hearing grossly impaired General nose exam: Normal external nose present and Normal nares present Eyes: General: appearance normal, both eyes and all related structures Alignment and Position: alignment normal Periorbital: periorbital findings normal Eyelids: eyelids normal Conjunctivae: conjunctivae normal Sclera: sclerae normal Cornea: corneas normal Pupils: Equal, round and reactive pupils present and Pupil accommodation reflex normal EOM: EOMs
== END 2020-10-15 16:00 | disposition home or self-care (01) ==
LOC: ANHED 17:26 → ANHIMU 18:14
PROVIDERS: Nurse Practitioner; Admitting Provider Internal Medicine; Emergency Provider Emergency Medicine; PCP Family Medicine; Visit Provider Internal Medicine
DX: R07.9 Chest pain, unspecified (principal); I20.8 Other forms of angina pectoris; N17.9 Acute kidney failure, unspecified; I25.10 Atherosclerotic heart disease of native coronary artery without angina pectoris; I25.2 Old myocardial infarction; E78.00 Pure hypercholesterolemia, unspecified; E03.9 Hypothyroidism, unspecified; H81.09 Meniere's disease, unspecified ear; M81.0 Age-related osteoporosis without current pathological fracture; M17.10 Unilateral primary osteoarthritis, unspecified knee; M16.10 Unilateral primary osteoarthritis, unspecified hip; M21.40 Flat foot [pes planus] (acquired), unspecified foot; G25.81 Restless legs syndrome; R56.9 Unspecified convulsions; F31.9 Bipolar disorder, unspecified; Z90.49 Acquired absence of other specified parts of digestive tract; Z96.21 Cochlear implant status; Z87.891 Personal history of nicotine dependence
CPT/HCPCS: 36415; 71046; 80048; 80053; 83605; 83735; 84443; 84484; 85025; 85610; 85730; 93005; 96360; 96361; 96372; 99285; A9270; G0378; J1650; J7030; J7120

== ENCOUNTER 2021-04-17 00:37 | Day surgery (SDC) | payer OTHER, SELFPAY ==
[2021-04-11 15:21] VITALS: BMI 29.1
--- NOTE | 2021-04-11 15:45 | PC.NURSE ---
Report to the Outpatient Waiting Room, entrance under the green pavilion located off [facility], at time _0600_ on date _04/17/21_. OR Time: ___0730 AM . - You and your visitor will be asked a series of questions to screen for COVID 19 for your protection. - A mask is required within the hospital. - NO visitors is allowed at this time. Patient visitors will be guided where to wait when not with patient. Preoperative COVID Testing Requirements: No COVID Test needed if: (proof is required; if not received patient will have Rapid Test prior to entry) - Patient has received COVID Vaccine at least 14 days prior to procedure date or - Patient has positive COVID test result within last 90 days of surgery date. COVID Test needed if above criteria is not met If not COVID vaccinated a COVID test must be conducted within 72 hours of surgery and patient is asked to isolate self from time of testing until procedure. You will go to the [facility] for your COVID testing. The [facility] site is located at the corner of [address] from [facility]. You will only be called if COVID results are positive and your surgeon may reschedule your elective surgery date. Patients may have clear liquids (water, carbonated beverages, clear teas, apple juice) until 3 hours prior to surgery with a maximum of 20 ounces. (0430 AM) - No food from midnight until time of surgery - Infants may have breast milk until 4 hours before surgery, formula 6 hours prior to surgery. - Children will be allowed to drink immediately following surgery. If applicable, please bring a bottle or sippy cup to assist with drinking. Juice, water, soda, and popsicles are readily available. For infants on formula, please bring formula the day of surgery. Pacifiers are allowed. Take the following medications with a SIP of water the morning of surgery: _LEVOTHYROXINE, RANOLAZINE, -TYLENOL, NITRO & MECLIZINE IF NEEDED, _ Medications to discontinue per physician N/A Date to take last dose Please no make-up, nail libyan, hairspray, perfume, deodorant, or body powder the day of surgery. No jewelry (including any body piercings) or valuables the day of surgery, leave them at home. Please take a shower or bath the night before, or the morning of, surgery with an antibacterial soap. Wear comfortable, loose fitting clothing. Children are encouraged to wear pajamas. - Jewelry must be removed prior to entering the operating room. Rings and piercings that are not removed may be cut off. - The hospital will not accept responsibility for valuables. - Please leave all valuables, including medications, at home the day of surgery. If you are going home after surgery, a licensed truck driver instructor must drive you home. - NO public transportation without another adult. - We recommend that an adult stay with you for 24 hours following discharge. - We also recommend that you do not drive, make important decision, drink alcoholic beverages, or take any drugs that were not prescribed by your health care provider for at least 24 hours after your discharge time. For Pediatric surgeries, we recommend two adults accompany the child home (only one inside the building at this time). Follow any additional instructions given to you from your surgeon. Telephone instructions given to ____PT and asked if any additional questions and then verbalized understanding. Patient advised to call surgeon office or pre surgery nurse liaison [phone] if any additional questions.
--- NOTE | 2021-04-16 14:19 | WPDANESEPPF ---
Anes - Initial Pre Proc Eval Procedure: Operation Date: 04/17/21 07:30 Proposed Procedures p Right Trapezium Resection Arthroplasty with Arthrex Internal Brace - Mihir Malin MD Date/Time: 04/16/21 14:19 Surgeon: Mihir Malin MD Pre Op Diagnosis: Severe Rt Scaphotrapezial Joint Osteoarthritis Patient Data Age: 65 Gender: F Height: 1.68 m Weight: 81.81 kg Allergies Allergy/AdvReac Type Severity Reaction Status Date / Time codeine Allergy Intermediate Hives Verified 04/17/21 06:22 erythromycin base Allergy Intermediate N/V Verified 04/17/21 06:22 hydrocodone [From Jeannette] Allergy Intermediate Hives Verified 04/17/21 06:22 latex Allergy Intermediate HVIES Verified 04/17/21 06:22 Penicillins Allergy Intermediate Hives Verified 04/17/21 06:22 prednisone Allergy Intermediate Hives Verified 04/17/21 06:22 propoxyphene [From Darvon] Allergy Intermediate Hives Verified 04/17/21 06:22 Home Medications Medication Instructions Recorded Confirmed Type triamterene-hydrochlorothiazid 2 cap PO DAILY 05/26/19 04/17/21 History meclizine 25 mg tablet 25 mg PO TID PRN 05/24/20 04/17/21 History aspirin 81 mg tablet,delayed 81 mg PO DAILY 06/11/20 04/17/21 History release nitroglycerin 0.4 mg sublingual 0.4 mg SUBLINGUAL Q5M PRN 06/11/20 04/17/21 History tablet acetaminophen [Acetaminophen Extra 1,000 mg PO Q6H PRN 10/14/20 04/17/21 History Strength] naproxen 500 mg PO BID PRN 10/14/20 04/17/21 History potassium chloride 20 mEq See Rx Instructions .ROUTE 02/02/21 04/17/21 Rx tablet,extended release(part/cryst) .COMPLEX #90 tablet levothyroxine 137 mcg tablet 137 mcg PO DAILY@0630 #90 tablet 02/25/21 04/17/21 Rx ropinirole 3 mg tablet 3 mg PO QHS #30 tablet 02/25/21 04/17/21 Rx atorvastatin [Lipitor] 20 mg PO QAM 04/11/21 04/17/21 History ranolazine 500 mg PO BID 04/11/21 04/17/21 History Patient hx anesthesia problems: none Family hx anesthesia problems: none Results Review: All pre-operative results and documents have been reviewed as part of the pre-operative evaluation. [facility] Past Medical History Medical History Bipolar disorder CAD (coronary artery disease) minimal CAD by catheterization in 2012. 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 Hyperkalemia Hypothyroid Left knee DJD Medial meniscus tear Meniere's disease very poor hearing Osteoporosis Pain in left macias Pes planus Restless leg syndrome Right wrist pain Seizures Macias injury Surgical complication involving right mastoid process Wears glasses Surgical History Surgical History History of appendectomy History of carpal tunnel surgery B/L History of cochlear implant History of knee surgery x2. right knee Hx of cardiac cath she stated that she only had 25% blockages. No significant past surgical history S/P laparoscopic surgery Pelvic. S/P trigger finger release right hand Status post carpal tunnel release of both wrists Family History Family History Mother Crohn disease Father Old age Sibling Diabetes mellitus Prostate carcinoma Social History Social History (Updated 02/25/21 @ 09:04 by Nunu Olea) Social History: The patient had 4 children with only 3 pregnancies. She had a set of twin boys. She is . She lives home alone. She occasionally drinks a glass a wine. Her daughter daughter Ivett is a durable p
[2021-04-17] VITALS (7 sets, daily range): BP systolic 91–128; BP diastolic 52–84; PULSE 66–85; RESP 8–22; TEMP 36.6–36.8; O2SAT 96–100
--- NOTE | ~2021-04-17 | XR_ITS ---
EXAMINATION: XR surgery orthopedic DATE: 04/17/2021 09:12 INDICATION: First carpal metacarpal suspension arthroplasty. TECHNIQUE: 4 fluoroscopic images of the carpus right hand, presumably right-sided, were obtained durchai ng procedure performed by Dr. Malin. Radiologist was not present for the imaging or procedure. No ref erence provided for the side of the procedure on either the indication was submitted images however t he bones and there are associated degenerative changes appear identical to that of the right wrist ra diographs dated 02/02/2021. The amount of fluoroscopy time used during this procedure was 0.2 minutes . COMPARISON: 01/03/2021 FINDINGS: Images demonstrate a first carpal metacarpal suspension arthroplasty with resection of the trapezium and with suture anchor tracks at the base of the first and second metacarpals. Alignment appears near -anatomic. Again seen is ulnar positive variance with mild osteoarthritis at the distal radioulnar ely int. Redemonstration of mild degenerative cystic change at the ulnar side of the distal radius and al slime the distal articular surface of the scaphoid. IMPRESSION: 1. Fluoroscopy utilized during first carpal metacarpal suspension arthroplasty. See procedure note fo r further detail. Reviewed, dictated and finalized at location B. [employer] IMPRESSION: 1. Fluoroscopy utilized during first carpal metacarpal suspension arthroplasty. See procedure note for further detail.
[2021-04-17] MEDS: ACETAMINOPHEN 500 MG TABLET 1000 MG PO (06:31)
[2021-04-17] MEDS: KETOROLAC 30 MG/ML VIAL (*BKC) IV PUSH (06:38)
[2021-04-17] MEDS: LACTATED RINGERS 1,000 ML 30 ML IV CONT ×2 (06:38→09:25)
--- NOTE | 2021-04-17 07:14 | WPDHPUPDATE1 ---
History and Physical Update Update Date/Time: 04/17/21 07:14 History and Physical has been reviewed, including an updated exam of the patient. There are NO changes in the patient's condition. Risks, benefits, and alternatives have been discussed and questions answered. Patient agrees to proceed with procedure.
[2021-04-17] MEDS: CLINDAMYCIN 900 MG/D5W 50 ML 900 MG/50 ML PIGGYBACK 50 MG IVPB (07:29)
[2021-04-17] MEDS: BUPIVACAINE HCL 0.5% PF 30 ML VIAL INFILTRATE (09:07)
[2021-04-17] MEDS: LIDO 1%/EPINEPHRINE/PF 1:200,000 30 ML VIAL INFILTRATE (09:07)
--- NOTE | 2021-04-17 09:42 | W.PM.PROC2 ---
Procedure Note - Detailed Date of Procedure 04/17/21 Pre-op Diagnosis Severe Rt Scaphotrapezial Joint Osteoarthritis Post-op Diagnosis same Procedure Performed Right 1st trapezium resection arthroplasty with Arthrex internal brace Surgeon Mihir Malin MD Food Preservation Scientist Marta chatman Anesthesia general Indications Severe ST T osteoarthritis failing conservative treatment Findings Same Description of Procedure The basal joint area on the right thumb was marked on the patient in the holding area. She was taken to the operating room where she was placed supine on the operating table. A time-out was held and confirmed. The patient was administered general anesthesia and the right upper extremity was prepped and draped in usual fashion. The surgical site was remarked with a pen and locally infiltrated with 1% lidocaine with epinephrine. A 4 in Tye wrap was used to exsanguinate the extremity and the tourniquet was inflated to 250 mmHg. The tourniquet was elevated for a little over 60 minutes. The incision was made as marked and dissection carried bluntly through the subcutaneous tissue. A large cutaneous nerve over the dorsal thumb was identified, mobilized and protected under the palmar skin flap with a vessel loop 1 limb of which was passed through a small opening in the skin. The capsular incision was made between the EPB and the APL tendons. The trapezium was dissected around the periphery with sharp and blunt dissection. It was divided with an osteotome. It was removed piecemeal in its entirety with a rongeur. Images indicated the vacated location of the trapezium. The Arthrex internal brace package was opened on the back table. The location for the 2nd metacarpal fenestration was imaged with a C-wire and skin markings made. The C-wire was then placed and again imaged. The drill guide was passed over that and the anchor hole was made. This also was imaged The guide wire was removed. The suture lock with SutureTape was fixed at that point. The radial base of the metacarpal was visualized freed of local soft tissue and the 2nd anchor lock placed at that position with the thumb abducted and slightly distracted.. This stabilized the 1st metacarpal into the 2nd. This site with distraction and compression was imaged. The capsule was repaired with interrupted 4-0 Vicryl suture. The skin was closed with interrupted 4-0 intradermal Vicryl and glue. The usual soft bandage with thumb spica splint was applied. 8 milliliter of 0.5% Marcaine were infiltrated just proximal to this surgical site and into the resection gap. The patient tolerated procedure well and was discharged from the operating room stable condition. She is being discharged home with instructions in wound care and follow-up. She uses naproxen for pain control she is allergic to most narcotics. Estimated Blood Loss 2 Drains No Packing No Pathology none sent Complications No immediate complications Condition stable Disposition PACU
== END 2021-04-17 11:22 | disposition home or self-care (01) ==
PROVIDERS: PCP Family Medicine; Visit Provider Plastic Surgery
PROC: (CPT 25447; principal; 2021-04-17 07:30)
DX: M18.11 Unilateral primary osteoarthritis of first carpometacarpal joint, right hand (principal); F31.9 Bipolar disorder, unspecified; I25.10 Atherosclerotic heart disease of native coronary artery without angina pectoris; I25.2 Old myocardial infarction; E78.00 Pure hypercholesterolemia, unspecified; E03.9 Hypothyroidism, unspecified; M81.0 Age-related osteoporosis without current pathological fracture; G25.81 Restless legs syndrome; G40.909 Epilepsy, unspecified, not intractable, without status epilepticus
CPT/HCPCS: 25447; A9270; C1713; J1100; J1170; J1885; J2250; J2370; J2405; J2704; J3010; J7120

== ENCOUNTER → 2021-09-18 12:19 | Outpatient (CLI) | payer OTHER, SELFPAY ==
--- NOTE | ~2021-09-18 | XR_ITS ---
XR foot RT min 3V DATE: 09/18/2021 12:55 INDICATION: Plantar foot pain, third metatarsal pain for 2 weeks TECHNIQUE: 4 views COMPARISON: None FINDINGS: Prominent plantar calcaneal enthesopathy. No fracture or dislocation, periosteal reaction or bone destruction or erosive change. IMPRESSION: Prominent plantar calcaneal enthesopathy Reviewed, dictated and finalized at location A.
== END ==
PROVIDERS: PCP Family Medicine; Visit Provider Family Medicine
DX: M77.31 Calcaneal spur, right foot (principal); M77.41 Metatarsalgia, right foot
CPT/HCPCS: 73630

== ENCOUNTER → 2021-11-21 16:02 | Outpatient (CLI) | payer OTHER, SELFPAY ==
--- NOTE | ~2021-11-21 | CT_ITS ---
EXAMINATION: CT foot RT wo con DATE: 11/21/2021 16:15 INDICATION: Right foot stress fracture. TECHNIQUE: Computed tomography (CT) of the right foot was performed without intravenous contrast. Aut omated exposure control and iterative reconstruction technique were employed. The dose-length product was 164.67 mGy-cm. COMPARISON: Right foot radiograph 09/18/2021 FINDINGS: There is dorsiflexion of the metatarsophalangeal joints and flexion of the interphalangeal joints. No fracture. No periosteal reaction. There is mild osteoarthritis of fifth proximal interphal angeal joint. There are enthesophytes at the posterior and plantar aspects of calcaneal tuberosity. IMPRESSION: 1. No fracture. Reviewed, dictated and finalized at location A. IMPRESSION: 1. No fracture.
== END ==
PROVIDERS: PCP Family Medicine; Visit Provider Podiatrist Foot & Ankle Surgery
DX: S92.334D Nondisplaced fracture of third metatarsal bone, right foot, subsequent encounter for fracture with routine healing (principal)
CPT/HCPCS: 73700

== ENCOUNTER 2022-01-07 09:17 | Observation (INO) | payer OTHER, SELFPAY ==
[2022-01-07] VITALS (14 sets, daily range): BP systolic 101–162; BP diastolic 56–83; PULSE 49–115; RESP 14–20; TEMP 36.6–36.8; O2SAT 95–100; BMI 30.2
--- NOTE | ~2022-01-07 | NM_ITS ---
EXAMINATION: NM peng stress w perfusion DATE: 01/08/2022 09:33 INDICATION: Chest pain. TECHNIQUE: Rest images were obtained following intravenous administration of 9.6 mCi Tc99m tetrofosmi n (Myoview). The patient was infused intravenously with Lexiscan (regadenoson). Then, 31.3 mCi Tc99m tetrofosmin (Myoview) was administered intravenously, and supine and prone stress images were obtaine d. Data was reconstructed into short axis and horizontal and vertical long axis SPECT images. Gated S PECT images were also obtained. COMPARISON: Myocardial perfusion imaging 07/23/2020 FINDINGS: There is no definite reversible or fixed perfusion abnormality to suggest ischemia or infar ction. There is no segmental wall motion abnormality. Left ventricular ejection fraction measures 6 9%. IMPRESSION: 1. No definite ischemia or infarct. 2. Normal left ventricular ejection fraction measuring 69%. Reviewed, dictated and finalized at location A.
--- NOTE | ~2022-01-07 | XR_ITS ---
EXAMINATION: XR chest 2V DATE: 01/07/2022 10:37 INDICATION: Left-sided chest pain TECHNIQUE: AP and lateral views of the chest are obtained. COMPARISON: 10/14/2020 FINDINGS: There are minimal bibasilar airspace opacities. No pleural effusion or pneumothorax. The ca rdiomediastinal silhouette is normal. There is mild thoracic spondylosis. IMPRESSION: 1. No acute cardiopulmonary abnormality. Reviewed, dictated and finalized at location A.
--- NOTE | 2022-01-07 09:18 | ECG_ITS ---
Measurements Intervals [place] Rate: 66 P: 58 MN: 174 QRS: -41 QRSD: 86 T: 41 QT: 391 QTc: 412 Interpretive Statements SINUS RHYTHM LEFT AXIS DEVIATION RSR' IN V1 OR V2, PROBABLY NORMAL VARIANT POSSIBLE LEFT ATRIAL ENLARGEMENT BASELINE ARTIFACT- III BORDERLINE ECG COMPARED TO ECG 10/14/2020 15:04:53 NO SIGNIFICANT CHANGES Electronically Signed On 01-07-2022 10:10:05 CDT by Torin Pereyra D.O.
[2022-01-07 10:18] LABS: Basophils Absolute Auto 0.1 K/mm3 (0.0-0.1); Basophils Percent Auto 0.8 % (0.2-1.2); Eosinophils Absolute Auto 0.1 K/mm3 (0-0.3); Hematocrit 43.7 % (37.0-47.0); Hemoglobin 14.1 g/dL (12.0-15.0); Immature Granulocyte Absolute 0.01 K/mm3 (0.00-0.031); Immature Granulocyte Percent A 0.2 % (0-0.5); Lymphocytes Absolute Auto 0.96 K/mm3 (0.9-3.2); Lymphocytes Percent Auto 15.8 % (18.3-44.2); Mean Corpuscular HGB Conc 32.3 g/dl (32-36); Mean Corpuscular Hemoglobin 30.6 pg (26-34); Mean Corpuscular Volume 94.8 fl (80-100); Mean Platelet Volume 9.9 fl (7.4-10.4); Monocytes Absolute Auto 0.5 K/mm3 (0.1-0.6); Monocytes Percent Auto 8.9 % (2.6-8.5); Neutrophils Absolute Auto 4.5 K/mm3 (1.3-6.7); Neutrophils Percent Auto 73.3 % (45.5-73.1); Platelet Count Result 332 k/mm3 (150-375); Red Blood Count 4.61 M/mm3 (4.2-5.4); Red Cell Distribution Width 12.9 % (11.5-14.5); White Blood Count 6.1 K/mm3 (4.5-10.0)
[2022-01-07] MEDS: fentaNYL CITRATE INJ (*CRX) 100 MCG/2 ML VIAL 50 MCG IV PUSH (10:25)
[2022-01-07] MEDS: ASPIRIN 81 MG CHEWABLE TABLET 324 MG PO (10:25)
[2022-01-07 10:37] LABS: Partial Thromboplastin Time 25.8 SECONDS (22.3-36.8); Prothrombin Time 13.1 Seconds (11.1-14.7)
[2022-01-07 10:43] LABS: Alanine Aminotransferase 20 U/L (6-35); Albumin Level 4.4 g/dL (3.5-5.1); Alkaline Phosphatase 87 U/L (38-126); Anion Gap 11 mmol/L (8-16); Aspartate Amino Transferase 27 U/L (14-36); Blood Urea Nitrogen 18 mg/dL (7-17); Calcium 9.2 mg/dL (8.4-10.2); Carbon Dioxide 24 mmol/L (22-30); Chloride 105 mmol/L (98-107); Estimated CRCL calculation 52 ml/min; Estimated Glomerular Filt Rate 55; Glucose 98 mg/dL (65-110); Lipase 42 U/L (23-300); Potassium 4.3 mmol/L (3.4-5.0); Sodium 140 mmol/L (137-145)
[2022-01-07 10:50] LABS: Troponin I < 0.012 ng/mL (0.000-0.034)
--- NOTE | 2022-01-07 12:11 | ED.GENADULT ---
HPI - General Adult General Chief complaint: Chest Pain Stated complaint: chest pain Time Seen by Provider: 01/07/22 10:01 History of Present Illness HPI narrative: Patient is a 66-year-old female who presents ER with chest pain. Reports history of coronary disease a small vessel. Her cotton stomper is Dr. Villa. She began having the chest pain yesterday. She went to be evaluated the hospital but the wait was too long so she went home. She applied Nitropaste to her chest which alleviated her discomfort. She wore throughout the night but began having terrible headache and dizziness so she took it off. She reports her chest pain then recurred. Its pressure in the center of her chest like something is sitting on her. Its worse with laying down flat. She also will mentally get a sharp pain on the left side that goes around her chest wall. No fevers or chills or sweats. No runny nose or sore throat or productive cough. Related Data Home Medications Medication Instructions Recorded Confirmed triamterene 37.5 2 cap PO DAILY 05/26/19 01/07/22 mg-hydrochlorothiazide 25 mg capsule meclizine 25 mg tablet 25 mg PO TID PRN Vertigo 05/24/20 01/07/22 aspirin 81 mg tablet,delayed 81 mg PO DAILY 06/11/20 01/07/22 release (Adult Aspirin Regimen) nitroglycerin 0.4 mg sublingual 0.4 mg sublingual Q5M PRN Chest 06/11/20 01/07/22 tablet Pain acetaminophen 500 mg tablet 1,000 mg PO Q6H PRN Fever Or Pain 10/14/20 01/07/22 (Acetaminophen Extra Strength) ranolazine 500 mg tablet,extended 1,000 mg PO BID 09/18/21 01/07/22 release,12 hr atorvastatin 40 mg tablet 40 mg PO DAILY 01/07/22 01/07/22 levothyroxine 137 mcg tablet 137 mcg PO DAILY 01/07/22 01/07/22 meclizine 25 mg tablet 25 mg PO DAILY 01/07/22 01/07/22 potassium chloride 20 mEq 20 meq PO HS 01/07/22 01/07/22 tablet,extended release(part/cryst) ropinirole 3 mg tablet 3 mg PO HS 01/07/22 01/07/22 Allergies Allergy/AdvReac Type Severity Reaction Status Date / Time codeine Allergy Intermediate Hives Verified 01/07/22 09:32 erythromycin base Allergy Intermediate N/V Verified 01/07/22 09:32 hydrocodone [From [place]] Allergy Intermediate Hives Verified 01/07/22 09:32 latex Allergy Intermediate HVIES Verified 01/07/22 09:32 Penicillins Allergy Intermediate Hives Verified 01/07/22 09:32 prednisone Allergy Intermediate Hives Verified 01/07/22 09:32 propoxyphene [From [place]] Allergy Intermediate Hives Verified 01/07/22 09:32 Review of Systems Review of Systems: All systems reviewed & are unremarkable except as noted in HPI and below Constitutional: Constitutional: Denies chills, Denies fatigue and Denies fever(s) ENT: Denies nasal congestion and Denies sore throat Cardiovascular: Cardiovascular: Reports chest pain, Denies rapid heart rate and Denies radiating jaw, neck or arm pain Comments: Orthopnea Respiratory: Respiratory: Denies cough and Reports dyspnea Gastrointestinal: Gastrointestinal: Denies abdominal pain, Denies nausea and Denies vomiting Neurologic: Reports headache(s), Denies focal weakness and Denies numbness PMFSH Past Medical History Medical History Acute kidney injury Bipolar disorder CAD (coronary artery disease) minimal CAD by catheterization in 2012. Cardiac arrest states she had a cardiac arrest requiring CPR but this may have been a syncopal episode or seizure Carpal tunnel syndrome De Quervain's disease (tenosynovitis) Degenerative joint disease (DJD) of hip Elbow fracture, right Hearing loss High cholesterol History of heart attack not well documented Hx of endometriosis Hypothyroid Restless leg syndrome Seizures Surgical complication involving right mastoid process Wears glasses Surgical History Surgical History History of appendectomy History of carpal tunnel surgery B/L History of cochlear implant removed. reject
--- NOTE | 2022-01-07 13:42 | ADMGEN ---
This patient, Katherin Penaloza, was admitted to IMU Room 202-01. Patient/family oriented to hospital policies and general routines including ID bracelet, bed and alarms, visiting hours, pain management, procedures, bathroom and other care routines, personal items, smoking policy, room service/diet, and visiting hours. Information on how to activate the Rapid Response Team has been discussed. Patient/Family are encouraged to report perceived risks to care and to ask questions if they do not understand what they are told or what they should do.
--- NOTE | 2022-01-07 15:51 | PM.IMHP ---
H&P: HPI History of Present Illness Date/Time: 01/07/22 15:51 Chief Complaint: Chest pain Narrative: Katherin Penaloza is a 66 year old female with a medical history significant for coronary artery disease (nonobstructive by cardiac catheterization in 2005 and 2012). She also has chronic chest pain syndrome, bipolar depression, and Meniere's disease. She comes to the hospital today with a chief complaint of chest pain that began yesterday while she was at work. 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 She went to the emergency department at [facility] but left before being seen because of a long wait. She has nitroglycerin at home which she took and experienced relief. However, this morning when the nitro wore off her chest pain returned so she presented to the emergency department for evaluation. Her troponin levels were normal and EKG showed sinus rhythm with no ischemic changes. She was admitted for further evaluation of her chest pain. At the time of my evaluation she is free from chest pain resting comfortably in bed. Review of Systems Constitutional: Constitutional: Denies chills, Denies fever(s), Denies headache(s) and Denies malaise Eyes: Eyes: Denies change in vision ENT: Reports Normal hearing present, Denies dizziness, Denies headache(s) and Denies hearing loss Cardiovascular: Cardiovascular: Reports chest pain, Reports chest pain at rest, Reports chest pain with activity, Denies syncope, Denies leg edema, Denies palpitations, Denies dyspnea and Denies dyspnea on exertion Respiratory: Respiratory: Denies cough, Denies dyspnea, Denies dyspnea on exertion and Denies wheezing Gastrointestinal: Gastrointestinal: Denies abdominal pain, Denies constipation and Denies diarrhea Genitourinary: Genitourinary: Denies hematuria and Denies dysuria Musculoskeletal: Musculoskeletal: Denies myalgias, Denies arthralgias and Denies muscle cramps Integumentary/Breasts: Skin/Breast: Denies wounds Neurologic: Reports Normal hearing present, Denies confusion, Denies dizziness, Denies syncope and Denies headache(s) Psychiatric: Psychiatric: Denies anxiety, Denies confusion and Denies depression Endocrine: Endocrine: Denies cold intolerance, Denies flushing, Denies heat intolerance and Denies palpitations Hematologic/Lymphatic: Hematologic/Lymphatic: Denies easy bleeding and Denies easy bruising Allergic/Immunologic: Allergic/Immunologic: Denies wheezing PMFSH Past Medical History Medical History Acute kidney injury Bipolar disorder CAD (coronary artery disease) minimal CAD by catheterization in 2013. Cardiac arrest states she had a cardiac arrest requiring CPR but this may have been a syncopal episode or seizure Carpal tunnel syndrome De Quervain's disease (tenosynovitis) Degenerative joint disease (DJD) of hip Elbow fracture, right Hearing loss High cholesterol History of heart attack not well documented Hx of endometriosis Hypothyroid Restless leg syndrome Seizures Surgical complication involving right mastoid process Wears glasses Surgical History Surgical History History of appendectomy History of carpal tunnel surgery B/L History of cochlear implant removed. rejection of implants History of knee surgery x2. right knee Hx of cardiac cath she stated that she only had 25% blockages. S/P laparoscopic surgery Pelvic. S/P trigger finger release right hand Family History Family History Mother Crohn disease Father Old age Sibling Diabetes mellitus Prostate carcinoma Social History Social History Social History: The patient had 4
[2022-01-07 16:06] LABS: Troponin I < 0.012 ng/mL (0.000-0.034)
[2022-01-07] MEDS: rOPINIRole HCL 1 MG TABLET 3 MG PO (21:28)
[2022-01-07] MEDS: POTASSIUM CHLORIDE 20 MEQ TABLET.ER PO (21:28)
[2022-01-07] MEDS: RANOLAZINE 500 MG TAB.ER.12H 1000 MG PO (21:28)
[2022-01-08] VITALS (12 sets, daily range): BP systolic 106–145; BP diastolic 48–77; PULSE 58–76; RESP 16–20; TEMP 36.2–37.1; O2SAT 96–99
--- NOTE | 2022-01-08 | EST_ITS ---
Patient Info Name: Katherin Penaloza Age: 66 years : 1955 Gender: Female Ht: 66 in Wt: 185 lbs BSA: 2.00 m2 Exam Date: 01/08/2022 8:23 AM Exam Location: [facility] Stress Patient Status: Inpatient Admit Date: 01/07/2022 Staff Ordering Physician: Mirta Wilde Attending Provider: Hany Mayberry MD Exercise Technologist: Bipin Flores RDCS, RT Exercise Physician: Hany Mayberry MD Exam Type: CA stress peng w NM Study Info A regadenoson stress test was performed. Summary 1. No abnormal ST-T wave changes with lexiscan. 2. Please correlate with nuclear medicine images, reported separately. Protocol: Lexiscan Stress ECG Details Stage: REST Duration (min): 5 min : 49 sec HR (bpm): 59 SBP (mmHg): 142 DBP (mmHg): 86 Stage: REST Duration (min): 10 min : 22 sec HR (bpm): 58 SBP (mmHg): 142 DBP (mmHg): 86 Stage: STAGE 1 Duration (min): 0 min : 59 sec HR (bpm): 92 SBP (mmHg): 153 DBP (mmHg): 95 Stage: RECOVERY Duration (min): 1 min : 0 sec HR (bpm): 104 SBP (mmHg): 153 DBP (mmHg): 95 Stage: RECOVERY Duration (min): 2 min : 0 sec HR (bpm): 97 SBP (mmHg): 145 DBP (mmHg): 87 Stage: RECOVERY Duration (min): 3 min : 0 sec HR (bpm): 92 SBP (mmHg): 142 DBP (mmHg): 83 Stage: RECOVERY Duration (min): 3 min : 1 sec HR (bpm): 93 SBP (mmHg): 142 DBP (mmHg): 83 Rest HR: 58 bpm Peak HR: 106 bpm Rest Sys BP: 142 mmHg Peak Sys BP: 153 mmHg Max Pred HR: 152 bpm % Max Pred HR: 70 % Target HR: 129 bpm Max RPP: 16,218 bpm*mmHg BP Response: Normal blood pressure response Total Time: 1 min : 0 sec Rest Marsh BP: 86 mmHg Peak Marsh BP: 95 mmHg Total Dose: 0.4 mg Resting ECG Sinus bradycardia. Stress ECG Sinus tachycardia. No ST/T wave changes with Lexiscan. Arrhythmias None. Report Signatures
[2022-01-08] MEDS: LEVOTHYROXINE SODIUM 25 MCG TABLET PO (06:25)
[2022-01-08] MEDS: LEVOTHYROXINE SODIUM 112 MCG TABLET PO (06:25)
[2022-01-08] MEDS: ACETAMINOPHEN 500 MG TABLET 1000 MG PO (09:41)
[2022-01-08] MEDS: NITROGLYCERIN SL 0.4 MG TABLET SUBLINGUAL ×2 (09:42→09:51)
[2022-01-08] MEDS: ASPIRIN 81 MG ENTERIC TABLET PO (09:42)
--- NOTE | 2022-01-08 09:46 | ECG_ITS ---
Measurements Intervals [place] Rate: 89 P: 49 AL: 169 QRS: -26 QRSD: 91 T: 25 QT: 382 QTc: 467 Interpretive Statements SINUS RHYTHM POSSIBLE LEFT ATRIAL ENLARGEMENT BORDERLINE R WAVE PROGRESSION, ANTERIOR LEADS BORDERLINE ECG COMPARED TO ECG 01/07/2022 09:22:14 NO SIGNIFICANT CHANGES Electronically Signed On 01-08-2022 11:28:27 CDT by Torin Pereyra D.O.
--- NOTE | 2022-01-08 11:49 | PM.DS ---
DS: Admitting Diagnosis Discharge Date 01/08/22 Admitting Diagnosis chest pain DS: Discharge Diagnosis Discharge Diagnosis (1) Chest pain: Code(s): R07.9 - Chest pain, unspecified Status: Acute Assessment and Plan: Atypical chest pain with no objective evidence of ACS. Lexiscan stress test did not show any ischemia or infarct, EF measured at 69& Will add low dose Imdur. Notes indicated she was intolerant to this in the past but the patient doesn't remember having any issues while taking it. Continue ASA indefinitely Continue statin p.r.n. Nitro Follow up in our office in 2 weeks. DS: Summary Hospital Course Reason for hospitalization: Chest pain Hospital Course: Presented with chest pain relieved by nitro initially but ultimately relieved with Fentanyl. Underwent lexiscan stress test this morning which did not show any ischemia, normal EF. Did not have any further chest pain overnight but had a recurrence of pain this morning relieved by nitro and tylenol. Added Imdur back to her medical regimen. Hopefully this will not cause her any problems with worsening dizziness. Stable and appropriate for discharge home today. Time Spent with Patient Time attestation: Total time spent providing and/or coordinating discharge services: 41 minutes Exam Const: General: comfortable, no acute distress, alert and awake; No confusion Orientation/consciousness: patient oriented x3 and No confusion HENMT: Head: normal to inspection Eyes: General: appearance normal, both eyes and all related structures Pupils: Equal, round and reactive pupils present Neck: Neck: normal visual inspection, supple and no JVD Carotids: normal carotid upstroke Resp: Effort & Inspection: normal respiratory effort Auscultation: clear to auscultation bilaterally Cardio: Rate: regular rate Rhythm: regular rhythm Heart sounds: S1 normal heart sound present, S2 normal heart sound present and no murmurs Other: No reproducible chest wall pain to palpation. GI: Auscultation: normal bowel sounds Skin: General skin exam: normal color Neuro: General: patient oriented x3 and No confusion Cranial nerves: Yes Equal, round and reactive pupils present and Yes Normal hearing present Extrem: General: normal to inspection Psych: Appearance: grossly normal Mental Status: mental status grossly normal DS: Data Data Completed and Pending Labs on day of discharge: Labs from last 24 hours 01/07/22 15:24 Troponin I < 0.012 Discharge Plan Discharge Attending physician on discharge: Hany Mayberry Discharging Clinician: Mirta Wilde Patient Disposition: Home, Self-Care Activity: may shower Diet: heart healthy Patient Instructions: Antibiotic Form, Cardiac Stress Test (DC) Stand Alone Forms: General Discharge Information Follow-up/Referrals: Mirta Wilde, AGENC[facility] CASHIER-[facility] [Advanced Practice Nurse] - (01/22 at 1:30. Please arrive at 1:15. ) Discharge Medications: New isosorbide mononitrate 30 mg tablet extended release 24 hr 30 mg PO DAILY Qty: 30 1RF Continued meclizine 25 mg tablet 25 mg PO TID PRN (Reason: Vertigo) Rx Instructions: Pt takes 25 mg daily, then PRN during the day if needed ranolazine 500 mg tablet extended release 12 hr 1,000 mg PO BID aspirin [Adult Aspirin Regimen] 81 mg tablet,delayed release (DR/EC) 81 mg PO DAILY nitroglycerin 0.4 mg tablet, sublingual 0.4 mg sublingual Q5M PRN (Reason: Chest Pain) Rx Instructions: do not exceed 3 doses per episode levothyroxine 137 mcg tablet 137 mcg PO DAILY Rx Instructions: TAKE 1 TABLET BY MOUTH DAILY AT 6:30AM ropinirole 3 mg tablet 3 mg PO HS Rx Instructions: TAKE ONE TABLET BY MOUTH EVERY NIGHT AT BEDTIME potassium chloride 20 mEq tablet,ER particles/crystals 20 meq PO HS Rx Instructions: TAKE 1 TABLET BY MOUTH EVERYDAY AT BEDTIME atorvastat
== END 2022-01-08 14:25 | disposition home or self-care (01) ==
LOC: ANHED 12:15 → ANHIMU 17:20
PROVIDERS: Admitting Provider Internal Medicine Cardiovascular Disease; Emergency Provider Emergency Medicine; PCP Family Medicine; Visit Provider Nurse Practitioner
DX: R07.9 Chest pain, unspecified (principal); R07.1 Chest pain on breathing; H81.09 Meniere's disease, unspecified ear; F31.9 Bipolar disorder, unspecified; I25.10 Atherosclerotic heart disease of native coronary artery without angina pectoris; M16.10 Unilateral primary osteoarthritis, unspecified hip; E78.00 Pure hypercholesterolemia, unspecified; I25.2 Old myocardial infarction; E03.9 Hypothyroidism, unspecified; G25.81 Restless legs syndrome; Z72.89 Other problems related to lifestyle; Z87.891 Personal history of nicotine dependence; Z79.82 Long term (current) use of aspirin; Z79.1 Long term (current) use of non-steroidal anti-inflammatories (NSAID); Z79.899 Other long term (current) drug therapy
CPT/HCPCS: 36415; 71046; 78452; 80053; 83690; 84484; 85025; 85610; 85730; 93005; 93017; 96374; 99285; A9270; A9502; G0378; J2785; J3010

== ENCOUNTER 2023-11-26 09:28 | Outpatient (CLI) | payer OTHER, SELFPAY ==
[2023-11-26 10:48] LABS: INR 0.9; Prothrombin Time 12.9 Seconds (11.1-14.7)
[2023-11-26 10:53] LABS: Anion Gap 11 mmol/L (4-12); Blood Urea Nitrogen 24 mg/dL (7-17); Calcium 9.1 mg/dL (8.4-10.2); Carbon Dioxide 26 mmol/L (22-30); Chloride 96 mmol/L (98-107); Estimated Glomerular Filt Rate 40; Glucose 89 mg/dL (65-110); Potassium 4.4 mmol/L (3.4-5.0); Sodium 133 mmol/L (137-145)
== END 2023-11-26 09:29 | disposition home or self-care (01) ==
LOC: ANHSURGERY 09:33
PROVIDERS: Anesthesiology; PCP Family Medicine; Visit Provider Orthopaedic Surgery
DX: N18.9 Chronic kidney disease, unspecified (principal); Z01.818 Encounter for other preprocedural examination
CPT/HCPCS: 36415; 80048; 85610; 85730

== ENCOUNTER 2023-11-27 00:18 | Day surgery (SDC) | payer OTHER, SELFPAY ==
[2023-11-25 13:16] VITALS: BMI 26.6
--- NOTE | 2023-11-25 13:51 | PC.NURSE ---
Report to the Outpatient Waiting Room, entrance under the green pavilion located off [facility], at time __0700am on date ___11/27/23____. Planned Procedure Time: ___0900am . Time changes happen often and if your time is changed the preop area will call you the afternoon before. - You and your visitor will be asked to self-screen and do not enter if you have any COVID symptoms. - A mask is optional within the hospital at this time. Patients may have clear liquids (water, carbonated beverages, clear teas, apple juice) until 3 hours prior to surgery (till 0600am) with a maximum of 20 ounces. - No food from midnight until time of surgery Take the following medications with a SIP of water the morning of surgery: ____Levothyroxine and Ranexa. May take Tylenol as needed DO NOT STOP ANY OF YOUR OTHER PRESCRIPTION MEDICATIONS PRIOR TO SURGERY ?EXCEPT THE FOLLOWING Medications to discontinue per physician ____Hold all NSAIDS, and Vitamins [address] Dickinson (pt stated was told) Date to take last dose___11/19/23 Pt was told to call Dr Dickinson office to ask about Aspirin dosing/instructions, she will call today as soon as done with our conversation. Please no make-up, nail malay, hairspray, perfume, deodorant, or body powder the day of surgery. No jewelry (including any body piercings) or valuables the day of surgery, leave them at home. Please take a shower or bath the night before, or the morning of, surgery with an antibacterial soap. Wear comfortable, loose fitting clothing. - Jewelry must be removed prior to entering the operating room. Rings and piercings that are not removed may be cut off. - The hospital will not accept responsibility for valuables. - Please leave all valuables, including medications, at home the day of surgery. If you are going home after surgery, a licensed security patrol driver must drive you home. - NO public transportation without another adult if you receive anesthesia. - We recommend that an adult stay with you for 24 hours following discharge. - We also recommend that you do not drive, make important decision, drink alcoholic beverages, or take any drugs that were not prescribed by your health care provider for at least 24 hours after your discharge time. Follow any additional instructions given to you from your surgeon. If you or anyone in your household have experienced Covid symptoms in the past week, please notify your surgeon or the nurse liaison at the phone number below for possible testing. Telephone instructions given to ___patient and asked if any additional questions and then verbalized understanding. Patient advised to call surgeon office or pre surgery nurse liaison [phone] if any additional questions.
[2023-11-27] VITALS (9 sets, daily range): BP systolic 108–124; BP diastolic 45–61; PULSE 54–69; RESP 12–18; TEMP 36.7–37.5; O2SAT 97–100
[2023-11-27] MEDS: CELECOXIB 200 MG CAPSULE PO (07:20)
[2023-11-27] MEDS: ACETAMINOPHEN 500 MG TABLET 1000 MG PO (07:20)
--- NOTE | 2023-11-27 07:25 | WPDHPUPDATE1 ---
History and Physical Update Update Date/Time: 11/27/23 07:25 History and Physical has been reviewed, including an updated exam of the patient. There are NO changes in the patient's condition. Risks, benefits, and alternatives have been discussed and questions answered. Patient agrees to proceed with procedure.
[2023-11-27] MEDS: LACTATED RINGERS 1,000 ML 30 ML IV CONT (07:38)
--- NOTE | 2023-11-27 09:21 | W.PM.PROC2 ---
Procedure Note - Detailed Date of Procedure 11/27/23 Pre-op Diagnosis left knee chondromalacia Post-op Diagnosis Other (LEFT MEDIAL AND LATERAL MENISCUS TEAR) Procedure Performed LEFT KNEE SCOPE Surgeon Taiwo Dickinson MD Anesthesia General Description of Procedure PATIENT WAS TAKEN TO THE OR. THE LEFT LEG WAS PREPPED AND DRAPED STERILE. TROCARS WERE PLACED IN THE USUAL FASHION. CAMERA WAS INTRODUCED. THERE WAS SEVERE CHONDROMALACIA TO THE PATELLA FEMORAL JOINT. THERE WAS A LOT OF SYNOVITIS IN ALL COMPARTMENTS. THE MEDIAL COMPARTMENT SHOWED CHONDROMALACIA TO THE MEDIAL FEMORAL CONDYLE. A SHAVER WAS USED TO PREFORM A CHONDROPLASTY. THERE WAS A SMALL COMPLEX MEDIAL MENISCUS TEAR. THE TEAR WAS RESECTED WITH A BITER AND A SHAVER DOWN TO A SMOOTH BASE. ABOUT 10% OF THE MENISCUS WAS REMOVED. THE ACL WAS INTACT. THE LATERAL MENISCUS WAS TORN AT THE ROOT SECTION. THE TEAR WAS RESECTED. THE LATERAL COMPARTMENT HAD MINIMAL CHONDROMALACIA AT THE LATERAL PLATEAU. THERE WAS A GRADE 2 LESION ON THE LTERAL FEMORAL CONDYLE MEASURING ABOUT 0.5 CM. CHONDROPLASTY WAS PREFORMED. A SYNOVECTOMY WAS PREFORMED WELL. THE PATELLO FEMORAL JOINT UNDERWENT CHONDROPLASTY. THERE WAS GRADE 3 AND 4 CHONDROMALACIA IN MOST OF THE TROCHLEA AND PART OF THE PATELLA. SYNOVECTOMY WAS PREFORMED IN THE SUPERIOR MEDIAL COMPARTMENT. THE WOUNDS WERE APPROXIMATED WITH 4.0 NYLON. STERILE DRESSING WAS APPLIED. PATIENT WAS EXTUBATED. Estimated Blood Loss 5 Complications No immediate complications Condition Stable Disposition PACU
--- NOTE | 2023-11-27 09:37 | WPDANESEPPF ---
Anes - Initial Pre Proc Eval Procedure: Operation Date: 11/27/23 09:00 Proposed Procedures p Left Knee Arthroscopy, Proceed As Indicated - Taiwo Dickinson MD Date/Time: 11/27/23 09:37 Surgeon: Taiwo Dickinson MD Pre Op Diagnosis: left knee chondromalacia Patient Data Age: 68 Gender: F Height: 1.68 m Weight: 74.2 kg Last Vital Signs Temp 99.5 F 11/27/23 07:29 Pulse 69 11/27/23 07:29 Resp 16 11/27/23 07:29 BP 117/52 L 11/27/23 07:29 Pulse Ox 97 11/27/23 07:29 O2 Del Method Room Air 11/27/23 07:29 Allergies Allergy/AdvReac Type Severity Reaction Status Date / Time codeine Allergy Intermediate Hives Verified 11/27/23 07:12 erythromycin base Allergy Intermediate N/V Verified 11/27/23 07:12 hydrocodone [From [place]] Allergy Intermediate Hives Verified 11/27/23 07:12 latex Allergy Intermediate HVIES Verified 11/27/23 07:12 Penicillins Allergy Intermediate Hives Verified 11/27/23 07:12 prednisone Allergy Intermediate Hives Verified 11/27/23 07:12 propoxyphene [From [place]] Allergy Intermediate Hives Verified 11/27/23 07:12 Home Medications Medication Instructions Recorded Confirmed Type aspirin 81 mg tablet,delayed 81 mg PO DAILY 06/11/20 11/27/23 History release (Adult Aspirin Regimen) nitroglycerin 0.4 mg sublingual 0.4 mg sublingual Q5M PRN Chest 06/11/20 11/25/23 History tablet Pain meclizine 25 mg tablet 25 mg PO DAILY 01/07/22 11/27/23 History naproxen sodium 220 mg capsule 220 mg PO BID PRN Pain 12/18/22 11/27/23 History (Aleve) ranolazine 1,000 mg 1,000 mg PO BID 12/18/22 11/27/23 History tablet,extended release,12 hr triamterene 37.5 1 cap PO BID 12/18/22 11/27/23 History mg-hydrochlorothiazide 25 mg capsule cholecalciferol (vitamin D3) 50 50 mcg PO DAILY 05/04/23 11/27/23 History mcg (2,000 unit) capsule potassium chloride 20 mEq See Rx Instructions .Route 06/01/23 11/27/23 Rx tablet,extended .COMPLEX #90 tabs release(part/cryst) (Klor-Con M) atorvastatin 80 mg tablet 80 mg PO DAILY 07/22/23 11/27/23 History ezetimibe 10 mg tablet 10 mg PO DAILY 07/22/23 11/27/23 History tramadol 50 mg tablet 50 mg PO Q6H PRN pain #20 tabs 08/26/23 11/27/23 Rx levothyroxine 137 mcg tablet 137 mcg PO DAILY #90 tabs 08/27/23 11/27/23 Rx chlorhexidine gluconate 4 % 1 applic topical ONCE #237 mL 11/23/23 11/27/23 Rx topical liquid (Hibiclens) hydrocodone 5 mg-acetaminophen 325 1 tablet PO Q6H PRN pain #20 tabs 11/27/23 Rx mg tablet Patient hx anesthesia problems: none Family hx anesthesia problems: none Results Review: All pre-operative results and documents have been reviewed as part of the pre-operative evaluation. [facility] Past Medical History Medical History Acute kidney injury Bipolar disorder Broken wrist Left 12/28/2022 CAD (coronary artery disease) minimal CAD by catheterization in 2012. Cardiac arrest states she had a cardiac arrest requiring CPR but this may have been a syncopal episode or seizure Carpal tunnel syndrome De Quervain's disease (tenosynovitis) Degenerative joint disease (DJD) of hip Elbow fracture, right Hearing loss High cholesterol History of heart attack not well documented Hx of endometriosis Hypothyroid Left knee DJD Medial meniscus tear Restless leg syndrome Seizures Surgical complication involving right mastoid process Wears glasses Surgical History Surgical History History of appendectomy History of carpal tunnel surgery B/L History of cochlear implant removed. rejection of implants History of knee surgery x2. right knee Hx of cardiac cath she stated that she only had 25% blockages. S/P laparoscopic surgery Pelvic. S/P trigger finger release right hand Family History Family History Mother Crohn disease Father
[2023-11-27] MEDS: ceFAZolin 2 GM/D5W 50 ML 2 GM/50 ML BAG IVPB (09:59)
[2023-11-27] MEDS: BUPivacaine HCL 0.5% PF 30 ML VIAL INFILTRATE (10:10)
== END 2023-11-27 12:50 | disposition home or self-care (01) ==
PROVIDERS: PCP Family Medicine; Visit Provider Orthopaedic Surgery
PROC: (CPT 29870; principal; 2023-11-27 09:00)
DX: S83.232A Complex tear of medial meniscus, current injury, left knee, initial encounter (principal); S83.282A Other tear of lateral meniscus, current injury, left knee, initial encounter; M94.262 Chondromalacia, left knee; M65.862 Other synovitis and tenosynovitis, left lower leg; M17.12 Unilateral primary osteoarthritis, left knee; I25.10 Atherosclerotic heart disease of native coronary artery without angina pectoris; E78.00 Pure hypercholesterolemia, unspecified; I25.2 Old myocardial infarction; E03.9 Hypothyroidism, unspecified; G25.81 Restless legs syndrome; F31.9 Bipolar disorder, unspecified; M65.4 Radial styloid tenosynovitis [de Quervain]; G89.29 Other chronic pain; Z79.82 Long term (current) use of aspirin; Z79.1 Long term (current) use of non-steroidal anti-inflammatories (NSAID); Z79.891 Long term (current) use of opiate analgesic; Z98.890 Other specified postprocedural states; Z95.5 Presence of coronary angioplasty implant and graft; Z87.891 Personal history of nicotine dependence; Z87.42 Personal history of other diseases of the female genital tract; Z80.42 Family history of malignant neoplasm of prostate; X58.XXXA Exposure to other specified factors, initial encounter
CPT/HCPCS: 29880; 36415; 80048; 85610; 85730; A9270; J0690; J2250; J2405; J2704; J3010; J7120

== ENCOUNTER 2024-01-18 16:09 | Outpatient (CLI) | payer OTHER, SELFPAY ==
--- NOTE | ~2024-01-18 | XR_ITS ---
XR wrist LT min 3V Ordering provider: Parviz Wright MD History: . M25.532 - Pain in left wrist . Comparison: March 23, 2023 FINDINGS: BONES: Healing fracture in the distal radius. No definite scaphoid fracture. JOINT SPACES: Severe osteoarthritic changes between the scaphoid, trapezium and trapezoid bones. SOFT TISSUES: Normal. IMPRESSION: No definite acute osseous abnormality left wrist. Severe osteoarthritic changes between the scaphoid, trapezium and trapezoid bones. Reviewed, dictated and finalized at location A. IMPRESSION: No definite acute osseous abnormality left wrist. Severe osteoarthritic changes between the scaphoid, trapezium and trapezoid rachell lawrence
== END 2024-01-18 16:10 | disposition home or self-care (01) ==
LOC: ANHIMG 16:11
PROVIDERS: PCP Family Medicine; Visit Provider Plastic Surgery
DX: M25.532 Pain in left wrist (principal)
CPT/HCPCS: 73110

== ENCOUNTER 2024-05-18 10:32 | Outpatient (CLI) | payer OTHER, SELFPAY ==
--- NOTE | 2024-05-18 11:00 | NEURO_ITS ---
Impression: # nondiabetic Complains of numbness of left hand. ? # Mild sensory Carpal Tunnel Syndrome. ? # No ulnar neuropathy. ? # Normal needle/EMG exam. Nerve Conduction Studies Anti Sensory Summary Table ?Stim Site NR Peak (ms) P-T Amp (?V) Site1 Site2 Delta-P (ms) Dist (cm) Michael (m/s) Left Median Anti Sensory (2-3nd Digit) Wrist ? 4.0 42.1 Wrist 2-3nd Digit 4.0 14.0 35 Wrist ? 4.2 62.5 Wrist 2-3nd Digit 4.0 14.0 35 Left Radial Anti Sensory (Base 1st Digit) Wrist ? 1.9 44.2 Wrist Base 1st Digit 1.9 0.0 Left Ulnar Anti Sensory (5th Digit) Wrist ? 2.7 37.2 Wrist 5th Digit 2.7 14.0 52 Motor Summary Table ?Stim Site NR Onset (ms) O-P Amp (mV) Site1 Site2 Delta-0 (ms) Dist (cm) Michael (m/s) Left Median Motor (Abd Poll Brev) Wrist ? 3.9 1.7 Elbow Wrist 5.1 29.0 57 Elbow ? 9.0 6.1 Left Ulnar Motor (Abd Dig Minimi) Wrist ? 2.7 6.5 A Elbow Wrist 5.4 31.0 57 A Elbow ? 8.1 5.9 F Wave Studies ?NR F-Lat (ms) L-R F-Lat (ms) Left Median (Mrkrs) (Abd Poll Brev) ? 31.81 Left Ulnar (Mrkrs) (Abd Dig Min) ? 31.35 EMG ?Side Muscle Nerve Root Ins Act Fibs Amp Dur Recrt Comment Left 1stDorInt Ulnar C8-T1 Nml Nml Nml Nml Nml Left Ext Indicis Radial (Post Int) C7-8 Nml Nml Nml Nml Nml Left Ext Digitorum Radial (Post Int) C7-8 Nml Nml Nml Nml Nml Left BrachioRad Radial C5-6 Nml Nml Nml Nml Nml Left PronatorTeres Median C6-7 Nml Nml Nml Nml Nml Left Abd Poll Brev Median C8-T1 Nml Nml Nml Nml Nml Left ABD Dig Min Ulnar C8-T1 Nml Nml Nml Nml Nml Left Biceps Musculocut C5-6 Nml Nml Nml Nml Nml ? ? MTDD
== END 2024-05-18 10:33 | disposition home or self-care (01) ==
LOC: ANHNEURO 10:33
PROVIDERS: PCP Family Medicine; Visit Provider Plastic Surgery
DX: G56.02 Carpal tunnel syndrome, left upper limb (principal); G56.22 Lesion of ulnar nerve, left upper limb
CPT/HCPCS: 95886; 95909

== ENCOUNTER 2024-07-05 10:12 | Outpatient (CLI) | payer OTHER, SELFPAY ==
--- NOTE | ~2024-07-05 | XR_ITS ---
EXAMINATION: XR elbow RT min 3V DATE: 07/05/2024 10:30 INDICATION: Right elbow pain. TECHNIQUE: 4 views of right elbow were obtained. COMPARISON: None. FINDINGS: Alignment is normal. No fracture. 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 There is an e lbow joint effusion with loose bodies. There is a suture anchor in lateral humeral epicondyle. IMPRESSION: 1. Severe elbow joint osteoarthritis. 2. Elbow joint effusion with loose bodies. Reviewed, dictated and finalized at location A.
== END 2024-07-05 10:13 | disposition home or self-care (01) ==
LOC: GOSHIMG 10:12
PROVIDERS: PCP Student in an Organized Health Care Education/Training Program; Visit Provider Student in an Organized Health Care Education/Training Program
DX: M19.021 Primary osteoarthritis, right elbow (principal); M25.421 Effusion, right elbow
CPT/HCPCS: 73080

== ENCOUNTER 2024-07-14 12:57 | Outpatient (CLI) | payer OTHER, SELFPAY ==
--- NOTE | 2024-07-14 13:00 | ECG_ITS ---
Test Date: 2024-07-14 13:44:07 Measurements Intervals [place] Rate: 67 P: 64 IN: 179 QRS: -20 QRSD: 95 T: 32 QT: 415 QTc: 438 Interpretive Statements SINUS RHYTHM POSSIBLE LEFT ATRIAL ENLARGEMENT POOR R WAVE PROGRESSION BASELINE ARTIFACT- I, II, III, AVR, AVL, AVF BORDERLINE ECG No previous ECG available for comparison Electronically Signed On 07-14-2024 13:56:59 CDT by Torin Pereyra D.O.
--- OUTSIDE RECORDS SUMMARY | 2024-07-14 13:12 | XMS_ITS | Clinical Summary ---
Author Organization [facility] Address [address] [place] [address] Care Team Providers Care [employer] Project Manager Name Role Phone Paty Lloyd MD Primary Care Provider [phone] Source Comments [facility],non-owned Affiliates and Associated Physician Practices is amultiple site organization consisting of ambulatory clinics and hospital sitesin [place], [place], [place] and [place]. This disclosure is being madepursuant to the Care Everywhere program and may not contain all information available regarding this patient. Last updated 18.[facility] Allergies Active Allergy Reactions Criticality Noted Date Comments Codeine Urticaria Medium 06/28/2018 Darvon 65 Mg Oral Capsule [Other] Nausea and/or Vomiting 06/18/2017 Received name: Darvon 65 Mg Oral Capsule Propoxyphene Urticaria,Diarrhea Medium 06/28/2018 Erythromycin Urticaria Medium 06/28/2018 Latex Itching Medium 05/21/2020 Causes large hives Oxycodone Other 06/20/2022 Pt doesn't want to risk taking it with history of other allergies. Does tolerate Tramadol Penicillins Urticaria Medium 06/28/2018 Prednisone Urticaria Medium 06/28/2018 Hydrocodone-Acetaminoph en Urticaria Medium 06/28/2018 Medications * Be aware that medications may not be up to date on this document. Alwaysverify current medications with the patient. Medication Sig Dispensed Refills Start Date End Date Status levothyroxine (SYNTHROID) 137 MCG tablet Take 1 (one) tablet by mouth once daily 04/08/2018 Active nitroGLYCERIN (NITROSTAT) 0.4 MG tablet Dissolve 1 (one) tablet under the tongue every 5 minutes as needed 07/26/2019 Active aspirin buffered (BUFFERIN LOW DOSE) 81 MG tablet Take 1 (one) tablet by mouth once daily Active potassium chloride ER (KLOR-CON) 20 MEQ tablet Take 1 (one) tablet by mouth at bedtime 01/20/[address] PO Take 1 tablet by mouth as needed Active traMADol (Ultram) 50 MG tablet Take 1 (one) tablet by mouth every 6 hours as needed for Pain 20 tablet 06/20/2022 Active atorvastatin (Lipitor) 80 MG tablet Take 1 (one) tablet by mouth once daily 01/23/2023 Active ranolazine ER 12hr (Ranexa) 1000 MG tablet Take 1 (one) tablet by mouth 2 times daily 01/21/2023 Active triamterene-hydroCH LOROthiazide (Dyazide) 37.5-25 MG capsule TAKE 2 CAPSULES BY MOUTH EVERY DAY 180 capsule 3 07/30/2023 Active meclizine (Antivert) 25 MG tablet TAKE 1 TABLET BY MOUTH 3 TIMES A DAY NEEDED FOR DIZZINESS 90 tablet 3 02/04/2024 Active Active Problems Problem Noted Date Diagnosed Date 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 Patient has no history of trauma to the leg. Pain on range of motion of her ankle and foot for great pain in a over tibia. His strict lower anterior tibia she has no calf pain. No redness or swelling to tibia strictly pain on palpating. X-ray of her tibia was benign. Patient is allergic to prednisone. He is given meloxicam 15 mg daily 30 day supply progress report in the week if she is not improving I will refer to Orthopedics patient so advised. Coronary artery disease 12/12/2019 Chronic chest pain 12/12/2019 Pruritus 08/15/2019 Overview (07/19/2020): Last Assessment & Plan: Patient continues to have pruritus. She now tells me she is having nausea without vomiting. Symptoms have been going on approximately 2 months. Patient has no fever no chills no night sweats she has no weight loss. One occasion yesterday she had possible hot flash. 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 He all a G of her he neuritis and nausea unknown. A laboratory studies show some minor changes with her renal function creatinine 1.2 bicarb levels 21 anion gap of 16. Repeat CMP today were no liver function abnormalities on the last lab studies. TSH level to be done. Patient advised to stop [facility] at a nausea as well as a rash could be from [facility]. She is to give me a progress report in 2-3 weeks. Complex tear of medial menis cus of right knee as current injury 04/20/2019 Trauma 03/03/2019 Overview (07/19/2020): Last Assessment & Plan: Patient filled jammed injured her right knee a few days ago x-rays negative for fracture dislocation some pain on range of motion no significant swelling or redness.. Anticipate full recovery. Patient advised she can continue working no further recommendations. Right sided weakness 01/10/2019 Vertigo 01/10/2019 Overview (01/10/2019): Last Assessment & Plan: Patient's vertigo is is doing very well she is now seeing a ear nose and throat physician at [facility] for management vertigo. Patient rise stationary bike at home for purposes of seeing in condition and helping her muscle tone and overall function. Acute ear pain, left 12/06/2018 Overview (01/10/2019): Last Assessment & Plan: Patient developed left ear pain in the last 24-48 hours. This just right inside the left ear. She has no drainage from ears no hearing loss. Problems for many years has not been aggravated by the ear pain. Exam pain on pulling on the ear pinna of the ear and placing the otoscope in the ear. No drainage from the ear no redness of the appears to have maybe a little nodule just inside ears difficult to see. Patient given cortical sparring order drops 4 drops t.i.d. For the next 5-7 days Carpal tunnel syndrome of right wrist 10/18/2018 Overview (01/10/2019): Added automatically from request for surgery [id number] Ulnar neuropathy of right upper extremity 2018 Overview (01/10/2019): Added automatically from request for surgery [id number] Carpal tunnel syndrome of right wrist 10/18/2018 Overview (07/19/2020): Added automatically from request for surgery [id number] Cubital tunnel syndrome on right 10/18/2018 Overview (07/19/2020): Added automatically from request for surgery [id number] Ulnar neuropathy of right upper extremity 2018 Overview (07/19/2020): Added automatically from request for surgery [id number] Right wrist pain 09/20/2018 Overview (01/10/2019): Last Assessment & Plan: Patient pre-existing paresthesias of her hands she now complains of stiffness with abdominal a the 3rd phalanx referred because the 4th phalanx occasion she has straightened out manually no other new problems regarding her he her restless leg syndrome apparently has improved within change in medication of Requip 3 milligrams daily. 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 She just started working there 2 weeks ago.. She has pain on palpating over the right radius distally and thumb x-rays were negative. Patient no direct injury to her wrist. Patient is allergic to prednisone. Advised use Advil which she is taking before in the past successfully. She can also use a wrist splint. She is to contact me if she fails to improve over the next 2 weeks. Restless leg 07/22/2018 Overview (01/10/2019): Last Assessment & Plan: Patient is taking gabapentin was giving her making her too sleepy she would like to resume ropinirole nighttime the start 2 mg at HS Asymmetrical hearing loss of right ear 9 Endolymphatic hydrops, right 07/03/2018 Right-sided tinnitus 07/03/2018 Cubital tunnel syndrome 06/02/2018 Overview (01/10/2019): Added automatically from request for surgery [id number] Median nerve compression in right forearm 2018 Foot pain, right 05/24/2018 Overview (01/10/2019): Last Assessment & Plan: Patient complains of right foot pain for for 5th toe in distal metatarsal. Patient did kezia tape her toes together for least a week. She has had no improvement it hurts for a wear shoes because of the top of her toes bother in fact patient's wearing sandals in 30 degree weather. No redness or swelling pressure a mild tenderness on palpating over the distal 4th and 5th metatarsal and the toes themselves. A. X-ray I failed to see any fractures x-ray of her foot. No obvious degenerate changes pressure. Is my impression she may have possible done some tendon damage to her toe I recommended she follow up with Podiatry. Polydipsia 05/24/2018 Overview (01/10/2019): Last Assessment & Plan: Patient complains of a constant thirst for last 2 months she relates this to a dry mouth. Minute check a BMP and UA pretty renal disease or diabetes.. Suspect she may very well have dry mouth symptoms from some of her psychiatric medications. Essential hypertension 05/24/2018 Overview (07/19/2020): Last Assessment & Plan: Blood pressure well control no change in therapy at this time Depression 04/13/2018 Low back pain without sciatica 12/05/2017 Overview (01/10/2019): Last Assessment & Plan: Patient continues to have back pain has improved she has been [id number] medications well as gabapentin. Also using a heating pad Low back pain without sciatica 12/05/2017 Overview (07/19/2020): Last Assessment & Plan: Patient continues to have back pain has improved she has been [id number] medications well as gabapentin. Also using a heating pad Breast cancer screening 07/09/2017 Overview (01/10/2019): Last Assessment & Plan: Last mammogram September 2015 will this done in the next few months. Mixed hyperlipidemia 07/09/2017 Overview (01/10/2019): Last Assessment & Plan: Lipid profile is acceptable patient tolerating medications no change in therapy. Menopause present 07/09/2017 Overview (01/10/2019): Last Assessment & Plan: Last bone density 2013 this will be schedule next 3 months. Medicare annual wellness visit, subsequent 07/09 Overview (07/19/2020): Last Assessment & Plan: Patient health risk assessment health maintenance reviewed she is tolerating the medication she is doing very well. Compared to few years ago when she is having considerable amount of vertigo.. Patient has return to work part-time is handling the jaw without difficulty any symptomatology of vertigo or emotional instability. Menopause present 07/09/2017 Overview (07/19/2020): Last Assessment & Plan: Last bone density 2013 this will be schedule next 3 months. Bipolar I disorder, most rec ent episode (or current) manic, mild 06/18/2017 Generalized anxiety disorder 06/18/2017 Bipolar I disorder, most recent episode depresse d 06/18/2017 Psychophysiological insomnia 06/11/2017 Epileptic seizure 04/13/2017 Mixed hyperlipidemia 04/13/2017 Overview (07/19/2020): Last Assessment & Plan: Continue present medications tolerating statins without difficulty. At risk for falls 03/13/2017 Overview (07/19/2020): Note: -- h/o frequent falls Bilateral hearing loss 03/13/2017 Overview (07/19/2020): Last Assessment & Plan: Patient's 90% hearing loss she has to read lips.. Her cellphone is coordinated with a hearing aids so she can use a cell phone communicate.. Note: 100% deaf in right ear and 25% deaf in left ear Restless leg 03/13/2017 Overview (07/19/2020): Last Assessment & Plan: Present tolerate rating ropinirole without difficulty meaning no side effects and is effective in helping her leg cramps. Bipolar II disorder, most recent episode major d epressive 08/27/2013 Overview (01/10/2019): Bipolar 2 disorder Last Assessment & Plan: Patient continues to see psychiatry she tells me her mood is been very good lately. She is very stable. Seizure 08/27/2013 Overview (01/10/2019): Seizure Last Assessment & Plan: Right after the syncopal episode Dr. Rich noticed that she is having seizures. That is why she was the he moved to [facility], [place]. EEG is pending. MRI brain without contrast shows no acute changes. Hypothyroidism 08/27/2013 Overview (07/19/2020): Hypothyroidism Last Assessment & Plan: Patient continues on her medication for hypothyroid without any problems. Bipolar II disorder 08/27/2013 Overview (07/19/2020): Bipolar 2 disorder Last Assessment & Plan: Patient is on no psychiatric medications at this time is doing well Auditory vertigo 08/27/2013 Overview (07/19/2020): Menieres disease Last Assessment & Plan: Symptoms of vertigo have made a complete turn around he is under care of a Dr. Anuj Wooten twice chair director of neurotology and basilar skull surgery at [facility] in [place].. Patient can ambulate much better not had any further falls since she has been under his care medication changes were made. Principal medication for controlling her vertigo has triamterene 37.5/25 she had a total dietary change. Angina pectoris 03/03/2012 Overview (01/10/2019): Angina pectoris Last Assessment & Plan: Patient denies any angina symptoms for several years. Meniere's disease 05/14/1989 Immunizations Name Administration Dates Next Due [employer] primary monoval ent 12+ yr 0.3mL Purple cap 06/26/2020,06/05/2020 INFLUENZA VACCINE 02/07/2021, 9,12/12/2018,2017 INFLUENZA VACCINE, HIGH-DOSE , QUADR. (FLUZONE HIGH-DOSE QUADRIVALENT; 65Y+), 0.7 ML (HD-IIV4) 01/15/2022,01/06/2021 INFLUENZA VACCINE, QUADR. (F LUZONE; FLULAVAL; FLUARIX; AFLURIA QUADRIVALENT; 6MO+), 0.5 ML (IIV4) 02/19/2018,01/07/2017,01/16/2016 PNEUMOCOCCAL PPV VACCINE 11/20/2021 Pneumococcal Pcv13 Conj 12/31/2018,12/12/2018 Family History Medical History Relation Name Comments Diabetes - Type 2 Brother Cataract Father Relation Name Status Comments Brother Father Social History Tobacco Use Types Packs/Day Years Used Date Smoking Tobacco: Former Cigarettes Q uit: 1973 Smokeless Tobacco: Never Tobacco Cessation:Counseling Given: Not Answered Alcohol Use Standard Drinks/Week Comments Yes 7 (1 standard drink = 0.6 oz pur e alcohol) Sex and Gender Information Value Date Recorded Sex Assigned at Not on file Gender Identity Not on file Sexual Orientation Not on file Last Filed Vital Signs Vital Sign Reading Time Taken Comments Blood Pressure 127/80 02/16/2023 10:48 AM STATION MECHANIC APPRENTICE Pulse 66 02/16/2023 10:48 AM STATION MECHANIC APPRENTICE Temperature 36.9 C (98.4 F) 06/20/2022 12:25 PM STATION MECHANIC APPRENTICE Respiratory Rate 22 06/20/2022 1:08 PM STATION MECHANIC APPRENTICE Oxygen Saturation 96% 02/16/2023 10:48 AM STATION MECHANIC APPRENTICE Inhaled Oxygen Concentration 21% 08/22/2020 5 :35 PM CDT Weight 82.6 kg (182 lb 3.2 oz) 02/16/2023 10:48 AM STATION MECHANIC APPRENTICE Height 167.6 cm (5' 6 ) 02/16/2023 10:48 AM STATION MECHANIC APPRENTICE Body Mass Index 29.41 02/16/2023 10:48 AM STATION MECHANIC APPRENTICE Plan of Treatment Health Maintenance Due Date Last Done Comments BONE DENSITY TESTING 1955 COLOGUARD (AGES 45-75) - COLON CA SCREENING 1955 COLON MONITORING 1953 COLONOSCOPY - COLON CA SCREENING 1953 CT COLONOGRAPHY - COLON CA SCREENING 1955 Colorectal Cancer Screening 1955 FIT - COLON CA SCREENING 1955 FLEX SIG - COLON CA SCREENING 1955 MEDICARE AWV 12 MONTHS 1953 HEPATITIS C SCREENING 04/24/1971 DTAP/TDAP/TD VACCINES (1 - Tdap) 1972 ZOSTER VACCINE (1 of 2) 2003 Respiratory Syncytial Virus (RSV) Vaccine Pt: or over 60 yrs (1 - Risk 60-74 years 1-dose series) 2013 COVID-19 VACCINE (5 - season) 2023 03/04/2022, 01/06/2021, 06/26/2020, Additional history exists MAMMOGRAM 12/10/2024 12/10/2022, 07/04/2021 INFLUENZA VACCINE (Season Ended) 2024 01/15/2022, 02/07/2021, 01/06/2021, Additional history exists SCREENING FOR DIABETES 06/06/2025 06/06/2022, 2020 PNEUMOCOCCAL VACCINE 50+ Completed 022, 12/31/2018, 12/12/2018 HEPATITIS B VACCINE Aged Out No longe r eligible based on patient's age to complete this topic HIB VACCINE Aged Out No longer eligi ble based on patient's age to complete this topic HPV VACCINE Aged Out No longer eligi ble based on patient's age to complete this topic MENINGOCOCCAL (Group B) VACCINE SHARED DECISION-MAKING Aged Out No longer eligible based on patient's age to complete this topic MENINGOCOCCAL GROUPS A/C/Y/W VACCINE Aged Out No longer eligible based on patient's age to complete this topic Medical Devices Implanted Type Area Sports Announcer Device Identifier Shelf Expiration Date Model / Serial / Lot Nucleus Cochlear Implant With Slim Straight Electrode Implanted:Qty: 1 on 06/20/2022 by López Delvalle MD at [facility] Other (Type not listed) Right: Ear Cochlear [employer] 05/11/2024 [id number] / [id number] / Explanted Type Area Sports Announcer Device Identifier Shelf Expiration Date Model / Serial / Lot Cochlear Nucleus [id number] Cochlear Implant With Slim Straight Electrode Implanted:Qty: 1 on 05/29/2020 by López Delvalle MD at [facility] Explanted:Qty: 1 on 08/22/2020 by López Delvalle MD at [facility] Right: Ear [employer] 03/16/2022 [id number] / [id number] / Procedures Procedure Name Priority Date/Time Associated Diagnosis Comments BASIC METABOLIC PANEL (CALCIUM TOTAL) Routine 06/06/2022 11:15 AM STATION MECHANIC APPRENTICE Pre-op evaluation from Last 3 Months or Most Recently Relevant to Health Maintenance Results * (ABNORMAL) BASIC METABOLIC PANEL (CALCIUM TOTAL) (06/06/2022 11:15 AM STATION MECHANIC APPRENTICE) BUN 23 7 - 26 mg/dL 06/06/2022 12:25 PM [facility] Creatinine 1.10(H) 0.56 - 0.96 mg/dL 06/06/2022 12:25 PM [facility] Sodium 140 136 - 145 mmol/L 06/06/2022 12:25 PM [facility] Potassium 3.5 3.5 - 4.5 mmol/L 06/06/2022 12:25 PM [facility] Chloride 105 98 - 107 mmol/L 06/06/2022 12:25 PM [facility] CO2 24 22 - 29 mmol/L 06/06/2022 12:25 PM [facility] Glucose 83 70 - 115 mg/dL 06/06/2022 12:25 PM [facility] Calcium 9.6 8.4 - 10.2 mg/dL 06/06/2022 12:25 PM [facility] Anion Gap 15 8 - 18 06/06/2022 12:25 PM [facility] BUN/Creatinine Ratio 21 7 - 23 06/06/2022 12:25 PM [facility] Osmolality Calculated 293 270 - 300 mOsm/kg 06/06/2022 12:25 PM [facility] eGFR by CKD-EPI 54(L) >=90 mL/min/1.7 3 m2 06/06/2022 12:25 PM [facility] Blood BLOOD SPECIMEN / Unknown Lab Venipuncture / Unknown 06/06/2022 11:15 AM STATION MECHANIC APPRENTICE 06/06/2022 11:51 AM STATION MECHANIC APPRENTICE Aniya Betancur [employer] TECHNICIAN-CENTER LEAD CONSULTANT LAB - ERNIE KAREEN ORDERABLES [facility] [address] [place] [address], [facility] [phone] from Last 3 Months or Most Recently Relevant to Health Maintenance Care Teams [employer] Project Manager Relationship Specialty Start Date End Date Paty Lloyd MD [address] [place] [id number] PCP - General 08/24/21
--- OUTSIDE RECORDS SUMMARY | 2024-07-14 13:12 | XMS_ITS | Clinical Summary ---
Author Organization [facility] Address [address] [place] [address] Phone Care Team Providers Care Sql Report Developer Name Role Phone Paty Lloyd MD Primary Care Provider Allergies Active Allergy Reactions Criticality Noted Date Comments Codeine Hives Medium 04/14/2019 Erythromycin Hives,Nausea,Vomitin g,Ot her (see Comments) High 04/14/2019 SEVERE ABDOMINAL CRAMPS Hydrocodone Hives Medium 04/14/2019 Penicillins Hives Medium 04/14/2019 Prednisone Hives High 04/14/2019 Propoxyphene Hives Medium 04/14/2019 Medications levothyroxine (LEVOXYL) 137 MCG Tablet Take 137 mcg by mouth daily. Active DIAZOXIDE PO Take by mouth. Active lamoTRIgine (LAMICTAL) 200 MG Tablet Take 200 mg by mouth daily. Active atorvastatin (LIPITOR) 40 MG Tablet Take 20 mg by mouth daily. Active QUEtiapine (SEROQUEL) 100 MG Tablet Take 25 mg by mouth nightly. Active rOPINIRole (REQUIP) 1 MG Tablet Take 2 mg by mouth nightly. Active lacosamide (VIMPAT) 50 MG Tablet Take by mouth 2 times daily. Active Lurasidone HCl (LATUDA PO) Take 10 mg by mouth every morning. Active triamterene-hyd rochlorothiazid e (DYAZIDE) 37.5-25 MG Capsule Take 1 Cap by mouth every morning. Active potassium chloride (KLOR-CON) 20 MEQ Pack Take 20 mEq by mouth 2 times daily. Active Aspirin 81 MG Tablet Take 81 mg by mouth daily. Active Gabapentin Enacarbil ER (HORIZANT) 600 MG Tablet Controlled Release Take 600 mg by mouth nightly. At 7pm Active traMADol (ULTRAM) 50 MG Tablet Take 1-2 Tabs by mouth every 6 hours as needed for Moderate or more severe pain. 20 Tab 04/20/2019 Active ibuprofen (MOTRIN) 600 MG Tablet Take 1 Tablet by mouth every 6 hours as needed for Moderate or more severe pain or Fever. 60 Tablet 03/06/2021 Active Active Problems Problem Noted Date Diagnosed Date Complex tear of medial menis cus of right knee as current injury 04/20/2019 Bipolar II disorder, most recent episode major d epressive 07/07/2017 Family History Medical History Relation Name Comments Crohn's Disease Mother Relation Name Status Comments Brother Alive Father Mother Sister Alive Social History Tobacco Use Types Packs/Day Years Used Date Smoking Tobacco: Former Cigarettes 0.3 3 0 04/14/1969 - 04/14/1972 Smokeless Tobacco: Never Tobacco Cessation:Counseling Given: No Alcohol Use Standard Drinks/Week Comments Yes 0 (1 standard drink = 0.6 oz pure alcohol) Patient is only drinking occasionally currently Sexually Active Control Partners Comments Never Comments Unknown Sex and Gender Information Value Date Recorded Sex Assigned at Not on file Legal Sex Female 8:35 PM CDT Gender Identity Not on file Sexual Orientation Not on file Last Filed Vital Signs Vital Sign Reading Time Taken Comments Blood Pressure 126/75 03/06/2021 4:48 PM CONTINUITY CLERK Pulse 86 03/06/2021 4:48 PM CONTINUITY CLERK Temperature 36.8 C (98.3 F) 03/06/2021 4:48 PM CONTINUITY CLERK Respiratory Rate 16 03/06/2021 4:48 PM CONTINUITY CLERK Oxygen Saturation 97% 03/06/2021 4:48 PM CONTINUITY CLERK Inhaled Oxygen Concentration - - Weight 83.9 kg (185 lb) 03/06/2021 4:48 PM CONTINUITY CLERK Height 167.6 cm (5' 6 ) 03/06/2021 4:48 PM CONTINUITY CLERK Body Mass Index 29.86 03/06/2021 4:48 PM CONTINUITY CLERK Plan of Treatment Health Maintenance Due Date Last Done Comments Hepatitis C Virus (HCV) Screening 1955 TdaP Immunization 1955 Colonoscopy 1998 Colorectal Cancer Screening 1998 Cologuard 2003 Immunochemical Fecal Occult Blood 2003 Zoster Immunization (1 of 2) 2003 Pneumococcal Immunization (50+ years) (2 of 2 - PPSV23) 01/01/2020 12/31/2018, 12/12/2018 Influenza Immunization (#1) 12/13/202312/13, 12/31/2018, 12/12/2018, Additional history exists SARS-COV-2 Immunization ( season) 2023 01/06/2021, 06/26/2020, 06/05/2020 Respiratory Syncytial Virus (RSV) Immunization (Adult) (1 - 1-dose 75+ series) 2028 Pneumococcal Immunization Combined Discontinued 12/31/2018, 12/12/2018 Hepatitis B Immunization Aged Out No longer eligible based on patient's age to complete this topic Meningococcal Immunization (ACWY) Aged Out No longer eligible based on patient's age to complete this topic Rotavirus Immunization Aged Out No lo nger eligible based on patient's age to complete this topic [facility] [id number] [facility] MEDIC[facility] C [place] Care Teams Sql Report Developer Relationship Specialty Start Date End Date Paty Lloyd MD PCP - General Family Medicine 11/15/21
--- OUTSIDE RECORDS SUMMARY | 2024-07-14 13:12 | XMS_ITS | Clinical Summary ---
Author Organization [facility] Address [address] [place] [address] Care Team Providers Care Title Searcher Name Role Phone Otto Maria DPM Unavailable [phone] Paty Lloyd MD Primary Care Provider + Allergies Active Allergy Reactions Criticality Noted Date Comments Codeine Hives Medium Erythromycin Nausea & Vomiting Low Severe abdominal cramps. Hydrocodone Hives Medium Latex Hives Medium 05/09/2020 Penicillins Hives Medium Prednisone Hives Medium Propoxyphene Hives Medium Medications aspirin (ASPIR-81) 81 mg tablet take 1 tablet by oral route every day 0 0 5 Active triamterene-hyd roCHLOROthiazid e (MAXZIDE,DYAZID E) 37.5-25 mg per tablet/capsule Take 2 tablet/capsule by mouth daily Active potassium chloride ER (KLOR-CON) 20 mEq CR tablet Take 1 tablet (20 mEq total) by mouth daily 90 tablet 3 0 Active Additional Information Patient not taking.Reported on 06/06/2024 levothyroxine (SYNTHROID) 137 mcg tablet TAKE 1 TABLET BY MOUTH EVERY DAY 90 tablet 1 0 Active meclizine (ANTIVERT) 25 mg tablet Take 1 tablet (25 mg total) by mouth 3 (three) times a day as needed 0 Active traMADoL (ULTRAM) 50 mg tabletIndicatio ns:Closed fracture of distal end of left radius, unspecified fracture morphology, initial encounter Take 1 tablet (50 mg total) by mouth every 6 (six) hours as needed for pain P.r.n. pain not relieved by naproxen alone. Take with food. Take 500-650 mg of acetaminophen with each dose. Collaborating physician Ray Santiago MD 20 tablet 3 Active nitroglycerin (NITROSTAT) 0.4 mg SL tabletIndicatio ns:Chest pain, unspecified type PLACE 1 TABLET UNDER THE TONGUE EVERY 5 MINUTES NEEDED FOR CHEST PAIN. 25 tablet 10 4 Active acetaminophen (TYLENOL) 500 mg tablet Take 1 tablet (500 mg total) by mouth every 6 (six) hours as needed for pain Take with Tramadol Active naproxen (ALEVE) 220 mg tablet Take 1 tablet (220 mg total) by mouth every 6 (six) hours as needed for pain Active alendronate (FOSAMAX) 70 mg tablet TAKE 1 TABLET BY MOUTH WEEKLY 4 Active atorvastatin (LIPITOR) 80 mg tablet Take 1 tablet (80 mg total) by mouth daily 90 tablet 3 4 Active ranolazine ER (RANEXA) 1,000 mg 12 hr tabletIndicatio ns:Coronary artery disease involving prairie band coronary artery of prairie band heart with other form of angina pectoris Take 1 tablet (1,000 mg total) by mouth 2 (two) times a day 180 tablet 3 5 Active potassium chloride ER (Klor-Con M20) 20 mEq CR tablet TAKE 1 TABLET BY MOUTH EVERY DAY 90 tablet 5 Active Additional Information Patient not taking.Reported on 06/06/2024 potassium chloride ER (KLOR-CON) 20 mEq CR tablet Take 1 tablet (20 mEq total) by mouth daily 90 tablet 3 5 026 Active ezetimibe (ZETIA) 10 mg tablet Take 1 tablet (10 mg total) by mouth daily 30 tablet 11 5 026 Active nitroglycerin (NITRODUR) 0.4 mg/hr Place 1 patch on the skin daily 30 patch 5 5 026 Active Active Problems Problem Noted Date Diagnosed Date Acute chest pain 08/04/2023 Closed fracture of left distal radius 01/07/2023 Abrasion of right elbow 01/07/2023 Abrasion of right knee 01/07/2023 Abrasion of left knee 01/07/2023 Unstable angina 07/10/2021 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 [...] will refer to Orthopedics patient so advised. Pain in left leg 01/09/2020 Bilateral hearing loss 01/09/2020 Assessment & Plan (01/09/2020 4:32 PM CDT): Patient's 90% hearing loss she has to read lips.. Her cellphone is coordinated with a hearing aids so she can use a cell phone communicate.. Chest pain 12/12/2019 Coronary artery disease 12/12/2019 Pruritus 08/15/2019 Assessment & Plan (09/23/2019 5:29 PM CDT): Patient continues to have pruritus. She now [...] to be done. Patient advised to stop [facility] at a nausea as well as a rash could be from [facility]. She is to give me a progress report in 2-3 weeks. Assessment & Plan (08/15/2019 6:02 PM CDT): Patient's curettings for few weeks.. Benadryl is not effective. No change in lifestyle or any over habits. No symptoms suggesting renal or liver disease. Her exam she has no rash and she has no hepatomegaly or splenomegaly no abnormalities on exam.. Plans get a CBC CMP the pruritus is been present for several weeks. Patient is given samples of Zyrtec 10 mg 1 daily. He is advised to try Calmoseptine cream to apply topically for rash she advised trash may going indefinitely and very well may leave suddenly. Trauma 03/03/2019 Assessment & Plan (03/03/2019 12:51 PM CIRCUIT DESIGNER): Patient filled jammed injured her right knee a few days ago x-rays negative for fracture dislocation some pain on range of motion no significant swelling or redness.. Anticipate full recovery. Patient advised she can continue working no further recommendations. Carpal tunnel syndrome of right wrist 10/18/2018 Overview (10/18/2018): Added automatically from request for surgery [id number] Cubital tunnel syndrome on right 10/18/2018 Overview (10/18/2018): Added automatically from request for surgery [id number] Ulnar neuropathy of right upper extremity 2018 Overview (10/18/2018): Added automatically from request for surgery [id number] Restless leg 07/22/2018 Assessment & Plan (01/29/2019 6:23 PM CDT): Present tolerate rating ropinirole without difficulty meaning no side effects and is effective in helping her leg cramps. 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 Assessment & Plan (08/15/2018 5:19 PM CDT): . Hypertension remains controlled no change in therapy. Assessment & Plan (06/30/2018 5:24 PM CDT): Hypertension well control no change in therapy patient is tolerating medications. Assessment & Plan (05/24/2018 1:38 PM CIRCUIT DESIGNER): . Blood pressure is very well control on hydrochlorothiazide/triamterene 37.5/25, he takes 1 tablet per day no change in therapy.. Low back pain without sciatica 12/05/2017 Assessment & Plan (06/30/2018 5:26 PM CDT): Patient continues to have back pain has improved she has been [id number] medications well as gabapentin. Also using a heating pad Assessment & Plan (12/05/2017 1:27 PM CDT): Patient is here because of low back pain without sciatica seen on 11/20/2017. She has had this to happen in the past. Pain is lasting about 7 days at this point. It is beginning to let up. Exam is pretty much unremarkable some pain over palpating between L3-L5 will paravertebral muscles. Patient is on multiple medications. She is found heating pad to be of benefit. Recommendations arthritis Tylenol. Medicare annual wellness visit, subsequent 07/09 Assessment & Plan (01/29/2019 6:24 PM CDT): Patient health risk assessment health maintenance reviewed she is tolerating the medication she is doing very well. Compared to few years ago when she is having considerable amount of vertigo.. Patient has return to work part-time is handling the jaw without difficulty any symptomatology of vertigo or emotional instability. Assessment & Plan (07/09/2017 6:38 PM CDT): Last mammogram September 2015 will this done in the next few months. Menopause 07/09/2017 Assessment & Plan (07/09/2017 6:38 PM CDT): Last bone density 2013 this will be schedule next 3 months. Mixed hyperlipidemia 07/09/2017 Assessment & Plan (01/29/2019 6:22 PM CDT): Continue present medications tolerating statins without difficulty. Assessment & Plan (06/30/2018 5:25 PM CDT): Lipid profile is acceptable patient tolerating medications no change in therapy. Assessment & Plan (07/09/2017 6:39 PM CDT): Lipid profile from the last visit was excellent no change in therapy. Bipolar I disorder, most rec ent episode (or current) manic, mild 06/18/2017 Generalized anxiety disorder 06/18/2017 Epileptic seizure 04/13/2017 Auditory vertigo 08/27/2013 Overview (07/18/2016): Menieres disease Assessment & Plan (06/30/2018 5:23 PM CDT): Symptoms of vertigo have made a complete turn around he is under care of a Dr. Anuj Wooten twice chair director of neurotology and basilar skull surgery at [facility] in [place].. Patient can ambulate much better not had any further falls since she has been under his care medication changes were made. Principal medication for controlling her vertigo has triamterene 37.5/25 she had a total dietary change. Assessment & Plan (07/23/2017 4:42 PM CDT): Continue meclizine and Ativan. Neuro evaluation pending, MRI without contrast negative for acute changes. Recommending physical therapy. Assessment & Plan (07/09/2017 6:37 PM CDT): Patient forms me her dizziness has become more intense in the last month. She is under care of neurologist Dr. gloria the dizziness changes since that visit no new changes in her hearing she has no headache problems patient advised of notify Dr. bradley the changes. She also needs update of eye exam which is been several years this could be contributing to her dizziness at times. Patient also has severe carpal tunnel she is getting surgery next month on the right hand she is having trouble managing the walker that she uses a walker because of carpal tunnel at this might be contributing to somewhat did a changes in dizziness. Hypothyroidism 08/27/2013 Overview (07/18/2016): Hypothyroidism Assessment & Plan (01/29/2019 6:22 PM CDT): Patient continues on her medication for hypothyroid without any problems. Assessment & Plan (12/05/2017 1:27 PM CDT): TSH is been in therapeutic range recheck on next visit. Assessment & Plan (01/10/2017 2:21 PM CDT): Reassess patient's hypothyroid status TSH levels been ordered. No change in therapy at this time. Bipolar II disorder 08/27/2013 Overview (07/18/2016): Bipolar 2 disorder Assessment & Plan (09/23/2019 5:30 PM CDT): Patient is on no psychiatric medications at this time is doing well Assessment & Plan (06/30/2018 5:20 PM CDT): Patient continues to see psychiatry she tells me her mood is been very good lately. She is very stable. Assessment & Plan (12/05/2017 1:28 PM CDT): Bipolar disorder stable she continues see Psychiatry. The been no changes in her medications psychiatric marcelo. Assessment & Plan (09/03/2017 4:51 PM CDT): Patient continues see a psychiatrist for her bipolar problems. Review the psychologist notes mention that patient has sets of drinking. I asked the patient regarding her drinking pattern she tells me she has stop as of the last month. She describes a drinking maybe twice a week. Assessment & Plan (08/02/2017 11:01 AM CDT): Patient advised me she still seeing Dr. Kent and is also seeing a therapist which is helping her. Assessment & Plan (07/09/2017 6:38 PM CDT): . Patient forms me she has a new psychiatrist she is seeing Dr. Penny Gamble at this time. She has had 1 visit with her and that went well. with the did make some changes in her psychiatric medications. Resolved Problems Problem Noted Date Diagnosed Date Resolved Date Acute ear pain, left 12/06/2018 019 Assessment & Plan (12/06/2018 5:40 PM CDT): Patient developed left ear pain in the [...] drops t.i.d. For the next 5-7 days Right wrist pain 09/20/2018 01/29/2019 Assessment & Plan (09/20/2018 6:22 PM CDT): Patient developed right wrist pain when pushing [...] to improve over the next 2 weeks. Foot pain, right 05/24/2018 01/29/2019 Assessment & Plan (05/24/2018 1:29 PM CIRCUIT DESIGNER): Patient complains of right foot pain for [...] she follow up with Podiatry. Polydipsia 05/24/2018 01/29/2019 Assessment & Plan (05/24/2018 1:31 PM CIRCUIT DESIGNER): Patient complains of a constant thirst for last 2 months she relates this to a dry mouth. Minute check a BMP and UA pretty renal disease or diabetes.. Suspect she may very well have dry mouth symptoms from some of her psychiatric medications. Hospital discharge follow-up 08/02/2017 05/24/2018 Assessment & Plan (09/03/2017 4:48 PM CDT): Patient is here for hospital follow-up visit from 08/27/2017. She continues to have these periods of loss of consciousness and falling etiology is not been determined. She has severe Meniere's disease for several years. Assessment & Plan (08/02/2017 11:03 AM CDT): Hospital follow-up visit patient admitted on July 22, 2017 discharge few days later readmitted on July 27, 2017. Reason for admission was syncope please see current assessment and plan under syncope. Syncope 07/21/2017 05/24/2018 Assessment & Plan (12/05/2017 1:25 PM CDT): Syncopal episodes of pretty much come to in since her vertigo is improved. See note under vertigo Assessment & Plan (09/03/2017 4:50 PM CDT): Patient continues to have these syncopal episodes etiology is not been determined she has been in the hospital 3 if not 4 times in the past 60 days for the very same reason. Hospital she has been on monitors nothing shown up. She has seen Neurology etiology still undetermined she has had EEGs. At this time I advised the patient to start using support stockings see if this will make a difference with her feelings of syncope in absolutely falling out. Advised this patient she needs to look into utilizing a wheelchair rhythm continues a walker. Patient informs me she cannot presently utilize a wheelchair apartment because steps to get into the apartment. She has discussed with her landlord about making arrangements. She is considering going to [place] to see a specialist who treats Meniere's disease only. She will check with insurance company for coverage regarding this referral who specialist. Assessment & Plan (08/02/2017 11:00 AM CDT): Patient has had 2 hospital admissions recently for some she is transferred from my office to the [facility] stated few days. Sec hospital admission was less than 7 days later. Etiology is syncopal episodes undetermined according to the patient's son this information given to her by hospitalist and neurologist. Reviewed the neurologist notes no confirmation was seizure evaluation. Patient advises me that she has started using CBD OIL which is a form of marijuana she is in the opinion that is helping her. Also home hepatic product was purchase called [employer] has been tried. Have no new recommendations at this time for syncopal episodes. Assessment & Plan (07/22/2017 12:07 PM CDT): She had a syncopal episode at her primary care physician's office yesterday. Workup is pending Assessment & Plan (07/21/2017 4:56 PM CDT): EKG was done shortly after patient had a syncopal episode , normal sinus rhythm no acute changes. Patient's vitals were excellent. Right hand pain 11/13/2016 01/29/2019 Assessment & Plan (11/19/2016 11:46 AM CDT): Patient pre-existing paresthesias of her hands she [...] of her right hand no new recommendations Bilateral carpal tunnel syndrome 05/22/2016 06/30/2018 Overview (07/17/2016): Paresthesia of hand Seizure 08/27/2013 01/29/2019 Overview (07/18/2016): Seizure Assessment & Plan (07/23/2017 4:41 PM CDT): Right after the syncopal episode Dr. Rich noticed that she is having seizures. That is why she was the he moved to [facility] ER. EEG is pending. MRI brain without contrast shows no acute changes. Assessment & Plan (07/21/2017 4:52 PM CDT): Patient has a history of Meniere's disease over 20 years. Her impression that is becoming worse because of increased dizziness in on in inability to maintain her balance. Fell at [facility] 3 days ago was seen emergency room placed on Ativan in sent home. We attempted to move her from the wheelchair to the exam room he fell to the floor she was cough without a it in the head of having a significant injury. Remainder time here to office for least 30 min complains of intense dizziness became worse when she open eyes and looked up. I contacted her neurologist Dr. Ian Gloria regarding this problem recommended patient go back to physical therapy as an utilize Ativan. Return to the attempt to get the patient up and she loss consciousness. She is actually having a seizure she was not aware of anything did not respond to any stimulus for least 3 min. This occurred 1 other time here in office follows on the phone with Dr. Gloria. Patient was sent to emergency room [facility] by ambulance. She was too unstable to send by private vehicle. Do lose office was contacted other changes since I talked to him over the phone. In incident report was written up because patient's falling here in office. This patient does have a pre-existing diagnosis of seizures was last seen by her neurologist April 2017. Angina pectoris 03/03/2012 01/29/2019 Overview (07/18/2016): Angina pectoris Assessment & Plan (08/15/2018 5:20 PM CDT): Patient denies any angina symptoms for several years. Assessment & Plan (01/10/2017 2:23 PM CDT): Patient denies any chest pain or anything to suggest she is having angina past 6 months. Vertigo 01/29/2019 Assessment & Plan (08/15/2018 5:20 PM CDT): Patient's vertigo is is doing very well she is now seeing a ear nose and throat physician at [facility] for management vertigo. Patient rise stationary bike at home for purposes of seeing in condition and helping her muscle tone and overall function. Assessment & Plan (12/05/2017 1:26 PM CDT): Patient's condition is greatly improved she is now Medicare Dr. Anuj Wooten calendering machine operator of neurotology and skull lbase at [facility] in [place]. S physicians notes can be found under care everywhere in [facility]. Right sided weakness 020 Encounters Date Type Department Care Team Description 07/08/2024 3:20 PM CDT - 07/08/2024 11:59 PM CDT Hospital Encounter [facility] [address] [place] [address] Nontoxic multinodular goiter Discharge Disposition: Discharge to home or self care 06/06/2024 11:00 AM CIRCUIT DESIGNER Office Visit [facility] [address] [place] [id number] Joana Chinchilla NP Atherosclerosis of prairie band coronary artery without angina pectoris, unspecified whether prairie band or transplanted heart 05/04/2024 Telephone [facility] [address] [place] [address] Joana Chinchilla NP Med Management 04/26/2024 1:00 PM CIRCUIT DESIGNER Office Visit [facility] Cardiology [address] [place] [address] Joana Chinchilla NP Nonobstructive atherosclerosis of coronary artery (Primary Dx); Stable angina from Last 3 Months Immunizations Immunization Administration Dates Next Due Influenza, Trivalent, IM (MDV) 01/11/2015 Influenza, Unspecified 02/07/2021,12/31/2018 Pneumococcal Conjugate PCV 13 12/31/2018 Surgical History Surgery Date Site/Laterality Comments OTHER SURGICAL HISTORY 04/13/2001 - 04/12/2002 metal clip R elbow APPENDECTOMY Appendectomy OTHER SURGICAL HISTORY endolymphatic shunt R ear +25 years ago OTHER SURGICAL HISTORY bipolar depression OTHER SURGICAL HISTORY Vertigo: Medical Management LAPAROSCOPY Endometrosis KNEE ARTHROSCOPY Right TRIGGER FINGER RELEASE Right 3rd and 5th digit ABDOMINAL SURGERY Laproscopy for endometriosis WRIST SURGERY corpal tunnel KNEE ARTHROSCOPY W/ LATERAL RELEASE Medical History Medical History Date Comments Hyperlipidemia Hyperlipidemia Disorder of thyroid Thyroid dise ase Auditory vertigo Meniere's disea se Hx Other Medical Bipolar disease w/ depression Hx Other Medical hearing loss Hx Other Medical Restless leg sy ndrome Hx Other Medical syncope Hypothyroidism hypothyroidism Angina pectoris Angina Hx Other Medical Vertigo Myocardial infarction (HCC) 2011 Seizure disorder (HCC) Seizure d isorder, last one 2013 Coronary artery disease Bipolar depression (HCC) CAD (coronary artery disease) Meniere disease Mixed conductive and sensorineural hearing loss Arthritis Family History Medical History Relation Name Comments Cancer Brother Prostrate Diabetes Brother Prostrate Other Father Alive and well; Cancer Maternal Grandmother ALL Crohn's disease Mother Crohn's dise ase; Breast cancer Mother's Sister Asthma Other 1 Family history of Asthma; Crohn's disease Other 3 Family histo ry of Crohn's disease; Diabetes type II Other 4 Family hist ory of Diabetes -Type 2; Heart attack Paternal Grandfather Ovarian cancer Neg Hx Thyroid cancer Neg Hx Relation Name Status Comments Brother Prostrate Father Alive Maternal Grandmother ALL Mother Mother's Sister Other 1 Other 2 Other 3 Other 4 Paternal Grandfather Social History Tobacco Use Types Packs/Day Years Used Date Smoking Tobacco: Former Smokeless Tobacco: Never Tobacco Cessation:Counseling Given: Not Answered Alcohol Use Standard Drinks/Week Comments Yes 0 (1 standard drink = 0.6 oz pur e alcohol) occassional wine AUDIT-C Answer Date Recorded Q1: How often do you have a drink containing alcohol? 4 or more times a week 04/25/2022 Q2: How many drinks containi ng alcohol do you have on a typical day when you are drinking? 1 or 2 Frequency of Binge Drinking Not on file 04/13 PHQ-2 Answer Date Recorded PHQ-2 Score 0 01/27/2019 Personal Safety Answer Date Recorded Have you ever been in or are you currently in a harmful physical or emotional relationship or is someone making you feel afraid or unsafe? Denies 08/04/2023 Comments No Sex and Gender Information Value Date Recorded Sex Assigned at Not on file Legal Sex Female 11:59 AM CIRCUIT DESIGNER Gender Identity Female 12/08/2020 9:18 AM CDT Sexual Orientation Straight 12/08/2020 9: 18 AM CDT Obstetrics History Para Term AB IAB SAB Ectopic Multiple Livin g Live Births 3 3 3 Date Outcome GA Total Labor Labor/2nd/3rd Weight Sex Type Anes PTL Cheryl A1 A5 Name Clin Term Term Term Last Filed Vital Signs Vital Sign Reading Time Taken Comments Blood Pressure 108/62 06/06/2024 11:02 AM CIRCUIT DESIGNER Pulse 71 06/06/2024 11:02 AM CIRCUIT DESIGNER Temperature 36.3 C (97.3 F) 08/05/2023 3:45 PM CDT Respiratory Rate 19 08/05/2023 3:45 PM CDT Oxygen Saturation 99% 06/06/2024 11:02 AM CIRCUIT DESIGNER Inhaled Oxygen Concentration - - Weight 71.2 kg (157 lb) 06/06/2024 11:02 AM CIRCUIT DESIGNER Height 165.1 cm (5' 5 ) 06/06/2024 11:02 AM CIRCUIT DESIGNER Body Mass Index 26.13 06/06/2024 11:02 AM CIRCUIT DESIGNER Plan of Treatment Health Maintenance Due Date Last Done Comments Colon Cancer Screening-Colonoscopy 1953 DTaP/Tdap/Td Vaccine (1 - Tdap) 1964 Hepatitis B Screening 1971 Zoster Vaccine (1 of 2) 2003 Depression Screening 01/28/2020 01/27/2019, 01/15/20 Well Visit 65+ 01/28/2020 01/27/2019, 01/14/2018 Covid-19 Vaccine (3 - 2023-2 5 season) 2023 06/26/2020, 06/05/2020 Fall Risk Assessment 08/04/2024 08/05/2023, 01/27/2019, 01/14/2018 Osteoporosis Screening-Bone Density Scan 12/10/2024 12/10/2022 Influenza Vaccine (Season Ended) 2024 02/07/2021, 12/31/2018, 12/12/2018, Additional history exists Breast Cancer Screening-Mammogram 12/29/2024 12/30/2023, 12/10/2022, 07/04/2021 Hepatitis C Screening Completed 07/03/2016 Pneumococcal vaccine 65+ Completed 022, 12/31/2018, 12/12/2018 Medical Devices Implanted Type Area Medical Science Liaison Device Identifier Shelf Expiration Date Model / Serial / Lot Other-Cochlea r Implant-2022 Implanted:Qty : 1 on 06/20/2022 by López Delvalle MD Other - see comments Right: Head [employer] [facility] [id number] - NUCLEUS PROFILE PLUS / / Description:3 cm in length Tx/rx coil used Procedures Procedure Name Priority Date/Time Associated Diagnosis Comments ECG 12-LEAD Routine 04/26/2024 1:25 PM CIRCUIT DESIGNER Nonobstructive atherosclerosis of coronary artery SCREENING MAMMOGRAM BILATERAL W ROBIN Schedule Routine, Read Routine (OP Routine) 12/30/2023 1:02 PM CDT Screening mammogram, encounter for DEXA AXIAL SKELETON BONE DENSITY 1 OR MORE SITES Schedule Routine, Read Routine (OP Routine) 12/10/2022 2:39 PM CDT Asymptomatic menopausal state HEPATITIS C ANTIBODY Routine 07/03/2016 12:57 PM CDT from Last 3 Months or Most Recently Relevant to Health Maintenance Results * ECG 12 lead (04/26/2024 1:25 PM CIRCUIT DESIGNER) 04/26/2024 1:25 PM CIRCUIT DESIGNER Joana Chinchilla ART STUDIO TEACHER ECG ORDERABLES Edited Re sult - Final * Screening Mammogram Bilateral W Robin (12/30/2023 1:02 PM CDT) Anatomical Region Laterality Modality Breast Bilateral Mammography 12/30/2023 1:24 PM CDT Impressions 12/30/2023 1:24 PM CDT There is no mammographic evidence of malignancy. A 1 year screening mammogram is recommended. BI-RADS: 1 - Negative. The patient has been or will be contacted. The patient will be entered into a reminder system with a target due date of 1 year for her next mammogram. Electronically signed by: TRAMAINE OH Narrative 12/30/2023 1:24 PM CDT EXAMINATION: SCREENING MAMMOGRAM BILATERAL W ROBIN ORDERING HEALTHCARE PROVIDER: SELF SCREENING MAMMOGRAM HISTORY: Routine screening mammography. COMPARISON: 12/10/2022, 07/04/2021, 06/06/2020. TECHNIQUE: CC and MLO views of both breasts were obtained with digital technique using digital breast tomosynthesis with C view. Computer aided detection was utilized. FINDINGS: DENSITY: There are scattered areas of fibroglandular density. BREASTS: There is no new suspicious finding in either breast on mammogram. Self Screening Mammogram IMG MAMMO PROCEDURES Fi nal Result * Dexa Axial Skeleton Bone Density 1 or 2 Site (12/10/2022 2:39 PM CDT) Anatomical Region Laterality Modality Body N/A Other 12/11/2022 12:1 2 AM CDT Narrative 12/11/2022 12:13 AM CDT EXAM DESCRIPTION: DEXA AXIAL SKELETON BONE DENSITY 1 OR MORE SITES REASON FOR STUDY: 67 y/o year old F with given history of: Z78.0 Screening. Postmenopausal Medical Science Liaison/Model: [employer] (S/N [id number]) CLINICAL INFORMATION: Current height: 66 inches Maximum height: 66 inches Weight: 175 pounds Risk factors: Postmenopausal, adult fracture, seizure disorder COMPARISON: None available FINDINGS: AP LUMBAR SPINE L1-L4: Total BMD is 0.951 g/cm2 T-score is -0.9 LEFT HIP: Total BMD is 0.636 g/cm2 T-score is -2.5 Femoral neck BMD is 0.602 g/cm2 T-score is -2.2 FRAX: FRAX not reported due to T-scores of hip, femoral neck and/or spine being at or below -2.5 (Osteoporosis). IMPRESSION: Osteoporosis. REFERENCE: Bone mineral density: Normal (T-score above or = -1.0) Low bone mass (T-score between -1.0 and -2.5) replaces the previously used term osteopenia Osteoporosis (T-score = or below -2.5) Medical evaluation for secondary causes of low bone mineral density may be appropriate. FRAX is a World Health Organization validated fracture risk assessment tool that calculates a person's 10 year probability of a major osteoporosis related fracture and hip fracture. According to the National Osteoporosis Foundation guidelines, postmenopausal women and men age 50 or older with low bone mass and a 10 year probability of a major osteoporosis related fracture = or greater than 20% or a 10 year probability of a hip fracture = or greater than 3% should be considered for treatment. For further information, including treatment recommendations, please refer to the 2019 ISCD Official Positions (http://www.iscd.org) and the NOF's Clinician's Guide to Prevention and Treatment of Osteoporosis (http://www.nof.org/professionals/clinical-guidelines) THIS IS AN ELECTRONICALLY VERIFIED FINAL REPORT 12/11/2022 12:13 AM - Electronically signed by Ian Blanchard M.D. MF: MCKENZIE Report ID: [id number] Reading Location: [id number] Note Ian Blanchard MD - 12/11/2022 EXAM DESCRIPTION: DEXA AXIAL SKELETON BONE DENSITY 1 OR MORE SITES REASON FOR STUDY: 67 y/o year old F with given history of: Z78.0 Screening. Postmenopausal Medical Science Liaison/Model: [employer] Discovery SL (S/N [id number]) CLINICAL INFORMATION: Current height: 66 inches Maximum height: 66 inches Weight: 175 pounds Risk factors: Postmenopausal, adult fracture, seizure disorder COMPARISON: None available FINDINGS: AP LUMBAR SPINE L1-L4: Total BMD is 0.951 g/cm2 T-score is -0.9 LEFT HIP: Total BMD is 0.636 g/cm2 T-score is -2.5 Femoral neck BMD is 0.602 g/cm2 T-score is -2.2 FRAX: FRAX not reported due to T-scores of hip, femoral neck and/or spine beingat or below -2.5 (Osteoporosis). IMPRESSION: Osteoporosis. REFERENCE: Bone mineral density: Normal (T-score above or = -1.0) Low bone mass (T-score between -1.0 and -2.5) replaces thepreviously used term osteopenia Osteoporosis (T-score = or below -2.5) Medical evaluation for secondary causes of low bone mineral density may be appropriate. FRAX is a World Health Organization validated fracture risk assessmenttool that calculates a person's 10 year probability of a major osteoporosisrelated fracture and hip fracture. According to the National OsteoporosisFoundation guidelines, postmenopausal women and men age 50 or older with low bonemass and a 10 year probability of a major osteoporosis related fracture = or greater than 20% or a 10 year probability of a hip fracture = or greaterthan 3% should be considered for treatment. For further information, including treatment recommendations, please referto the 2019 ISCD Official Positions (http://www.iscd.org) and the NOF's Clinician's Guide to Prevention and Treatment of Osteoporosis (http://www.nof.org/professionals/clinical-guidelines) THIS IS AN ELECTRONICALLY VERIFIED FINAL REPORT 12/11/2022 12:13 AM - Electronically signed by Ian Blanchard M.D. MF: MCKENZIE Report ID: [id number] Reading Location: [place] [address] us Paty Lloyd MD IM DXA PROCEDURES Final Result * Hepatitis C antibody (07/03/2016 12:57 PM CDT) SIGNAL TO CUT-OFF 0.01 <1.00 [facility]ORICAL RESULTS Comment: Test performed at [facility] [address] [id number] Director: LINDA EDWARDS DO,MPH Hep C Ab NON-REACT WHITLEY NON-REACT WHITLEY [facility]ISTORICAL RESULTS 07/03/2016 12:5 7 PM CDT Lnida Ng MD LAB MICROBIOLOGY - GENERAL ORDERABLES Final Result [facility]ORICAL RESULTS from Last 3 Months or Most Recently Relevant to Health Maintenance Insurance MEDICARE [facility] MEDICARE [facility] WORKERS COMPENSATION GENERIC Advance Directives For more information, please contact: [phone] * Full Code (Latest Code Status on File) Date Activated Date Inactivated Comments 08/04/2023 11:11 AM 08/05/2023 8:51 PM * Full Code Date Activated Date Inactivated Comments 07/10/2021 8:08 PM 07/11/2021 9:59 PM * Full Code Date Activated Date Inactivated Comments 07/21/2017 9:18 PM 07/23/2017 8:40 PM Healthcare Agents on File Name Relationship Healthcare Agent Relationshi p Communication Ivett Magallon Daughter Health Care Agent Maldonado Han Son Second Alternate Health Car e Agent Care Teams Title Searcher Relationship Specialty Start Date End Date Paty Lloyd MD [facility] [place] [address] PCP - General Family Medicine 04/27/24 Otto Maria DPM [address] [place] [address] Consulting Physician Orthotics 04/25/22
--- OUTSIDE RECORDS SUMMARY | 2024-07-14 13:12 | XMS_ITS | Referral Summary ---
Author Organization [facility] Address [address] [place] [address] Care Team Providers Care Assembly Person Name Role Phone Otto MariaM Unavailable [phone] Paty Lloyd MD Primary Care Provider + Encounters Date Type Department Care Team Description 07/08/2024 3:20 PM CDT - 07/08/2024 11:59 PM CDT Hospital Encounter [facility] [address] [place] [address] Nontoxic multinodular goiter Discharge Disposition: Discharge to home or self care 06/06/2024 11:00 AM BREWMASTER Office Visit [facility] Medical [facility] Cardiology [address] [place] [address] [address] [place] [phone] Joana Chinchilla NP Atherosclerosis of [place] coronary artery without angina pectoris, unspecified whether [place] or transplanted heart 05/04/2024 Telephone [facility] Cardiology [address] [place] [address] [address] [place] [phone] Joana Chinchilla NP Med Management 04/26/2024 1:00 PM BREWMASTER Office Visit [facility] Cardiology [address] [place] [address] [address] [place] [phone] Joana Chinchilla NP Nonobstructive atherosclerosis of coronary artery (Primary Dx); Stable angina from Last 3 Months Allergies Active Allergy Reactions Criticality Noted Date [...] 12 hr tabletIndicatio ns:Coronary artery disease involving [place] coronary artery of [place] heart with other form of angina pectoris [...] by mouth daily 90 tablet 3 5 Active ezetimibe (ZETIA) 10 mg tablet Take 1 tablet (10 mg total) by mouth daily 30 tablet 11 5 Active nitroglycerin (NITRODUR) 0.4 mg/hr Place 1 patch on the skin daily 30 patch 5 5 Active Active Problems Problem Noted Date Diagnosed Date Acute chest pain 08/04/2023 Closed fracture of left distal radius 01/07/2023 Abrasion of right elbow 01/07/2023 Abrasion of right knee 01/07/2023 Abrasion of left knee 01/07/2023 Unstable angina 07/10/2021 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 He all a G of her he neuritis and nausea unknown. A laboratory studies show some minor changes with her renal function creatinine 1.2 bicarb levels 21 anion gap of 16. Repeat CMP today were no liver function abnormalities on the last lab studies. TSH level to be done. Patient advised to stop [facility] at a nausea as well as a rash could be from [facility]. She is to give me a progress [...] 03/03/2019 Assessment & Plan (03/03/2019 12:51 PM BREWMASTER): Patient filled gela injured her right knee a few days ago x-rays negative for fracture dislocation some pain on range of motion no significant swelling or redness.. Anticipate full recovery. Patient advised she can continue working no further recommendations. Carpal tunnel syndrome of right wrist 10/18/2018 Overview (10/18/2018): Added automatically from request for surgery [id number] Cubital tunnel syndrome on right 10/18/2018 Overview (10/18/2018): Added automatically from request for surgery [id number] Ulnar neuropathy of right upper extremity 2018 Overview (10/18/2018): Added automatically from request for surgery [id number] Restless leg 07/22/2018 Assessment & Plan (01/29/2019 [...] medications. Assessment & Plan (05/24/2018 1:38 PM BREWMASTER): . Blood pressure is very well control on hydrochlorothiazide/triamterene 37.5/25, he takes 1 tablet per day no change in therapy.. Low back pain without sciatica 12/05/2017 Assessment & Plan (06/30/2018 5:26 PM CDT): Patient continues to have back pain has improved she has been lhyh-lfv-pxynatn medications well as gabapentin. Also using a [...] of neurotology and basilar skull surgery at [facility] in [place].. Patient can ambulate much better not had any further falls since she has been under his care medication changes were made. Principal medication for controlling her vertigo has triamterene 37.09/04 she had a total dietary change. Assessment [...] visit with her and that went well. Dr. with the did make some changes in [...] 01/29/2019 Assessment & Plan (05/24/2018 1:29 PM BREWMASTER): Patient complains of right foot pain for [...] 01/29/2019 Assessment & Plan (05/24/2018 1:31 PM BREWMASTER): Patient complains of a constant thirst for [...] making arrangements. She is considering going to [place] to see a specialist who treats Meniere's disease only. She will check with insurance company for coverage regarding this referral who specialist. Assessment & Plan (08/02/2017 11:00 AM CDT): Patient has had 2 hospital admissions recently for some she is transferred from my office to the [facility] stated few days. Sec hospital admission was [...] Also home hepatic product was purchase called CINCHONA BARK has been tried. Have no new [...] why she was the he moved to [facility] ER. EEG is pending. MRI brain without contrast shows no acute changes. Assessment & Plan (07/21/2017 4:52 PM CDT): Patient has a history of Meniere's disease over 20 years. Her impression that is becoming worse because of increased dizziness in on in inability to maintain her balance. [facility] was seen emergency room [...] Gloria. Patient was sent to emergency room [facility] by ambulance. She was too unstable to [...] a ear nose and throat physician at [facility] for management vertigo. Patient rise stationary bike at home for purposes of seeing in condition and helping her muscle tone and overall function. Assessment & Plan (12/05/2017 1:26 PM CDT): Patient's condition is greatly improved she is now Medicare Dr. Anuj Wooten chair mechanic of neurotology and skull lbase at [facility] in [place]. S physicians notes can be found under care [facility]. Right sided weakness 020 Immunizations Immunization Administration Dates Next Due Influenza, Trivalent, IM (MDV) 01/11/2015 Influenza, Unspecified 02/07/2021,12/31/2018 Pneumococcal Conjugate PCV 13 12/31/2018 Social History Tobacco Use Types Packs/Day Years [...] on file Legal Sex Female 11:59 AM BREWMASTER Gender Identity Female 12/08/2020 9:18 AM CDT Sexual Orientation Straight 12/08/2020 9: 18 AM CDT Last Filed Vital Signs Vital Sign Reading Time Taken Comments Blood Pressure 108/62 06/06/2024 11:02 AM BREWMASTER Pulse 71 06/06/2024 11:02 AM BREWMASTER Temperature 36.3 C (97.3 F) 08/05/2023 3:45 PM CDT Respiratory Rate 19 08/05/2023 3:45 PM CDT Oxygen Saturation 99% 06/06/2024 11:02 AM BREWMASTER Inhaled Oxygen Concentration - - Weight 71.2 kg (157 lb) 06/06/2024 11:02 AM BREWMASTER Height 165.1 cm (5' 5 ) 06/06/2024 11:02 AM BREWMASTER Body Mass Index 26.13 06/06/2024 11:02 AM BREWMASTER Plan of Treatment Not on file Medical Devices Implanted Type Area Frame Table Operator Device Identifier Shelf Expiration Date Model / Serial / Lot Other-Cochlea r Implant-2022 Implanted:Qty : 1 on 06/20/2022 by López Delvalle MD Other - see comments Right: Head [employer] DUP [id number] - NUCLEUS PROFILE PLUS / / Description:3 cm in length Tx/rx coil used Procedures Procedure Name Priority Date/Time Associated Diagnosis Comments ECG 12-LEAD Routine 04/26/2024 1:25 PM BREWMASTER Nonobstructive atherosclerosis of coronary artery SCREENING MAMMOGRAM [...] * ECG 12 lead (04/26/2024 1:25 PM BREWMASTER) 04/26/2024 1:25 PM BREWMASTER us Joana Chinchilla NP ECG ORDERABLES Edited Re sult - Final [...] suspicious finding in either breast on mammogram. us Self Screening Mammogram IMG MAMMO PROCEDURES Fi [...] with given history of: Z78.0 Screening. Postmenopausal Frame Table Operator/Model: [employer] Discovery SL (S/N [id number]) CLINICAL INFORMATION: Current height: 66 inches Maximum [...] Ian Blanchard M.D. MF: MCKENZIE Report ID: [id number] Reading Location: [address] Note Ian Blanchard MD - 12/11/2022 EXAM DESCRIPTION: DEXA AXIAL SKELETON BONE DENSITY 1 OR MORE SITES REASON FOR STUDY: 67 y/o year old F with given history of: Z78.0 Screening. Postmenopausal Frame Table Operator/Model: [employer] SL (S/N [id number]) CLINICAL INFORMATION: Current height: 66 inches Maximum [...] Ian Blanchard M.D. MF: MCKENZIE Report ID: [id number] Reading Location: [place] [address] us Paty Lloyd MD IMG DXA PROCEDURES Final Result * Hepatitis C antibody (07/03/2016 12:57 PM CDT) [facility] SIGNAL TO CUT-OFF 0.01 <1.00 [facility]ORICAL RESULTS Comment: [facility] [address] [place] [address] Director: LINDA EDWARDS DO,MPH Hep C Ab NON-REACT WHITLEY NON-REACT WHITLEY [facility] HISTORICAL RESULTS 07/03/2016 12:5 7 PM CDT us Linda Ng MD LAB MICROBIOLOGY - GENERAL ORDERABLES Final Result [facility] HISTORICAL RESULTS from Last 3 Months or Most Recently Relevant to Health Maintenance Insurance MEDICARE [facility] COMPENSATION GENERIC Advance Directives For more information, please contact: [phone] * Full Code (Latest Code Status on File) Date Activated Date Inactivated Comments 08/04/2023 11:11 AM 08/05/2023 8:51 PM * Full Code Date Activated Date Inactivated Comments 07/10/2021 8:08 PM 07/11/2021 9:59 PM * Full Code Date Activated Date Inactivated Comments 07/21/2017 9:18 PM 07/23/2017 8:40 PM Healthcare Agents on File Name Relationship Healthcare Agent [facility] p Communication Ivett Magallon Daughter Health Care Agent Maldonado Han Son Second Alternate Health Car e Agent Care Teams Assembly Person Relationship Specialty Start Date End Date Paty Lloyd MD [facility] [place] [address] PCP - General Family Medicine 04/27/24 Otto Maria DPM [address] [place] [address] Consulting Physician Orthotics 04/25/22
[2024-07-14 14:07] LABS: Partial Thromboplastin Time 24.4 Seconds (22.3-36.8); Prothrombin Time 13.5 Seconds (11.1-14.7)
[2024-07-14 14:18] LABS: Anion Gap 10 mmol/L (4-12); Blood Urea Nitrogen 25 mg/dL (7-17); Calcium 9.5 mg/dL (8.4-10.2); Carbon Dioxide 25 mmol/L (22-30); Chloride 101 mmol/L (98-107); Estimated Glomerular Filt Rate 38; Glucose 91 mg/dL (65-110); Potassium 4.1 mmol/L (3.4-5.0); Sodium 136 mmol/L (137-145)
[2024-07-14 14:28] LABS: Add Urine Microscopic? YES; Amorphous Sediment Urine Moderate; Appearance Urine Turbid (Clear); Bacteria Urine 4+ /hpf; Bilirubin Urine 1+ (Negative); Blood Urine Negative (Negative); Color Urine Dark Yellow (Yellow); Glucose Urine UA Negative (Negative); Ketones Urine Trace mg/dL (Negative); Leukocyte Esterase Ur 2+ LEU/UL (Negative); Need Manual Microscopic Reviewed; Nitrate Urine Negative (Negative); Protein Urine Trace mg/dL (Negative); RBC Urine 0-2 /hpf (0-2); Specific Grav Ur 1.018 (1.001-1.035); Squamous Epithelial Cell Urine Many /hpf (Few); WBC Urine 51-100 /hpf (0-3); White Blood Cell Casts Urine Present /lpf
== END 2024-07-14 12:58 | disposition home or self-care (01) ==
LOC: ANHSURGERY 12:59
PROVIDERS: Anesthesiology; Nurse Practitioner Family; PCP Family Medicine; Visit Provider Plastic Surgery
DX: R53.83 Other fatigue (principal); E03.9 Hypothyroidism, unspecified; E55.9 Vitamin D deficiency, unspecified; N18.9 Chronic kidney disease, unspecified
CPT/HCPCS: 36415; 80048; 81001; 85610; 85730; 93005

== ENCOUNTER 2024-07-20 00:12 | Day surgery (SDC) | payer OTHER, SELFPAY ==
[2024-07-06 15:55] VITALS: BMI 23.8
--- NOTE | 2024-07-06 16:10 | PC.NURSE ---
Report to the Outpatient Waiting Room, entrance under the green pavilion located off [facility], at time __0945am on date __07/20/24 . Planned Procedure Time: _1145am .? Time changes happen often and if your time is changed the preop area will call you the afternoon before. - You and your visitor will be asked to self-screen and do not enter if you have any COVID symptoms. Please call surgeon if you need to reschedule. - A mask is optional within the hospital at this time. Patients may have No food from midnight until time of surgery and no smoking, or chewing tobacco (or any form of nicotine). No chewing gum, candy or mints. Take only the following medications with a SIP of water on the morning of surgery: ___Ranexa, Levothyroxine, NTG patch, Tramadol if needed DO NOT STOP ANY OF YOUR OTHER PRESCRIPTION MEDICATIONS PRIOR TO SURGERY EXCEPT THE FOLLOWING Medications to discontinue per physician None Date to take last dose None Please no make-up, nail bulgarian, hairspray, perfume, deodorant, or body powder the day of surgery.? No jewelry (including any body piercings) or valuables the day of surgery, leave them at home.? Please take a shower or bath the night before, or the morning of, surgery with an antibacterial soap.? Wear comfortable, loose fitting clothing.? - Jewelry must be removed prior to entering the operating room.? Rings and piercings that are not removed may be cut off. - The hospital will not accept responsibility for valuables.? - Please leave all valuables, including medications, at home the day of surgery. If you are going home after surgery, a licensed tank wagon driver must drive you home.? - NO public transportation without another adult if you receive anesthesia. - We recommend that an adult stay with you for 24 hours following discharge. - We also recommend that you do not drive, make important decision, drink alcoholic beverages, or take any drugs that were not prescribed by your health care provider for at least 24 hours after your discharge time. Follow any additional instructions given to you from your surgeon. Telephone instructions given to __Patient and asked if any additional questions and then verbalized understanding. Patient advised to call surgeon office or pre surgery nurse liaison [phone] if any additional questions.
--- OUTSIDE RECORDS SUMMARY | 2024-07-20 00:14 | XMS_ITS | Clinical Summary ---
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 Patient advised to stop [facility] at a nausea as well as a rash could be from [facility]. She is to give me a [...] 03/03/2019 Assessment & Plan (03/03/2019 12:51 PM BRUSH TRIMMING MACHINE SETTER): Patient filled jammed injured her right knee a few days ago x-rays negative for fracture dislocation some pain on range of motion no significant swelling or redness.. Anticipate full recovery. Patient advised she can continue working no further recommendations. Carpal tunnel syndrome of right wrist 10/18/2018 Overview (10/18/2018): Added automatically from request for surgery [id number] Cubital tunnel syndrome on right 10/18/2018 Overview (10/18/2018): Added automatically from request for surgery [id number] Ulnar neuropathy of right upper extremity 2018 Overview (10/18/2018): Added automatically from request for surgery [id number] Restless leg 07/22/2018 Assessment & Plan (01/29/2019 [...] medications. Assessment & Plan (05/24/2018 1:38 PM BRUSH TRIMMING MACHINE SETTER): . Blood pressure is very well control on hydrochlorothiazide/triamterene 37.5/25, he takes 1 tablet per day no change in therapy.. Low back pain without sciatica 12/05/2017 Assessment & Plan (06/30/2018 5:26 PM CDT): Patient continues to have back pain has improved she has been sqkc-tcm-fhukulh medications well as gabapentin. Also using a [...] of neurotology and basilar skull surgery at [facility] in [place].. Patient can ambulate much better not had [...] 01/29/2019 Assessment & Plan (05/24/2018 1:29 PM BRUSH TRIMMING MACHINE SETTER): Patient complains of right foot pain for [...] 01/29/2019 Assessment & Plan (05/24/2018 1:31 PM BRUSH TRIMMING MACHINE SETTER): Patient complains of a constant thirst for [...] making arrangements. She is considering going to [place] to see a specialist who treats Meniere's disease only. She will check with insurance company for coverage regarding this referral who specialist. Assessment & Plan (08/02/2017 11:00 AM CDT): Patient has had 2 hospital admissions recently for some she is transferred from my office to the [facility] stated few days. Sec hospital admission [...] Also home hepatic product was purchase called [employer] has been tried. Have no new [...] why she was the he moved to [facility] ER. EEG is pending. MRI brain without contrast shows no acute changes. Assessment & Plan (07/21/2017 4:52 PM CDT): Patient has a history of Meniere's disease over 20 years. Her impression that is becoming worse because of increased dizziness in on in inability to maintain her balance. Fell at [facility] 3 days ago was seen emergency room [...] Gloria. Patient was sent to emergency room [facility] by ambulance. She was too unstable [...] a ear nose and throat physician at [facility] for management vertigo. Patient rise stationary bike at home for purposes of seeing in condition and helping her muscle tone and overall function. Assessment & Plan (12/05/2017 1:26 PM CDT): Patient's condition is greatly improved she is now Medicare Dr. Anuj Wooten executive chairman of the board of neurotology and skull lbase at [facility] in [place]. S physicians notes can be found under care everywhere in [facility]. Right sided weakness 020 Encounters Date Type Department Care Team Description 07/08/2024 3:20 PM CDT - 07/08/2024 11:59 PM CDT Hospital Encounter [facility] [address] [place] [address] Nontoxic multinodular goiter Discharge Disposition: Discharge to home or self care 06/06/2024 11:00 AM BRUSH TRIMMING MACHINE SETTER Office Visit [facility] [address] [place] [id number] Joana Chinchilla NP Atherosclerosis of agua caliente coronary artery without angina pectoris, unspecified whether agua caliente or transplanted heart 05/04/2024 Telephone [facility] [address] [place] [address] Joana Chinchilla NP Med Management 04/26/2024 1:00 PM BRUSH TRIMMING MACHINE SETTER Office Visit [facility] Cardiology [address] [place] [address] Joana Chinchilla NP Nonobstructive atherosclerosis [...] on file Legal Sex Female 11:59 AM BRUSH TRIMMING MACHINE SETTER Gender Identity Female 12/08/2020 9:18 AM CDT [...] Comments Blood Pressure 108/62 06/06/2024 11:02 AM BRUSH TRIMMING MACHINE SETTER Pulse 71 06/06/2024 11:02 AM BRUSH TRIMMING MACHINE SETTER Temperature 36.3 C (97.3 F) 08/05/2023 3:45 PM CDT Respiratory Rate 19 08/05/2023 3:45 PM CDT Oxygen Saturation 99% 06/06/2024 11:02 AM BRUSH TRIMMING MACHINE SETTER Inhaled Oxygen Concentration - - Weight 71.2 kg (157 lb) 06/06/2024 11:02 AM BRUSH TRIMMING MACHINE SETTER Height 165.1 cm (5' 5 ) 06/06/2024 11:02 AM BRUSH TRIMMING MACHINE SETTER Body Mass Index 26.13 06/06/2024 11:02 AM BRUSH TRIMMING MACHINE SETTER Plan of Treatment Health Maintenance Due Date [...] 12/31/2018, 12/12/2018 Medical Devices Implanted Type Area Doorperson Device Identifier Shelf Expiration Date Model / Serial / Lot Other-Cochlea r Implant-2022 Implanted:Qty : 1 on 06/20/2022 by López Delvalle MD Other - see comments Right: Head [facility] [id number] - NUCLEUS PROFILE PLUS / / Description:3 cm in length Tx/rx coil used Procedures Procedure Name Priority Date/Time Associated Diagnosis Comments US THYROID Schedule Routine, Read Routine (OP Routine) 07/08/2024 4:04 PM CDT Nontoxic multinodular goiter ECG 12-LEAD Routine 04/26/2024 1:25 PM BRUSH TRIMMING MACHINE SETTER Nonobstructive atherosclerosis of coronary artery SCREENING MAMMOGRAM [...] Recently Relevant to Health Maintenance Results * US Thyroid (07/08/2024 4:04 PM CDT) Anatomical Region Laterality Modality Head and Neck N/A Ultrasound 07/15/2024 10:2 7 AM CDT Narrative 07/15/2024 10:37 AM CDT EXAM DESCRIPTION: US THYROID REASON FOR STUDY: US THYROID TECHNIQUE: Ultrasound of the thyroid was performed with grayscale and color doppler. COMPARISON: 05/27/2023, 09/10/2022, 07/04/2021 FINDINGS: RIGHT: Measures 3.5 x 1.5 x 1.1 cm. Normal echotexture. Nodule # 1 Size: 0.8 x 0.4 x 0.7 cm Location: Right superior thyroid Composition: Solid or almost completely solid (2) Echogenicity: Hypoechoic (2) Shape: Wvdme-qjyn-dlve (0) Margin: Smooth (0) Echogenic Foci: None (0) Total Points: 4 TI-RADS Score: 4: TR4 Moderately suspicious FNA if 1.5 cm or greater; US follow up at 1, 2, 3, and 5 years if 1 cm or greater LEFT: Measures 2.8 x 1.1 x 1.2 cm. Normal echotexture. Nodule # 2 Size: 1.0 x 0.7 x 0.7 cm, unchanged. Location: Left superior thyroid Composition: Solid or almost completely solid (2) Echogenicity: Hyperechoic (1) Shape: Ixlis-reju-fkdb (0) Margin: Smooth (0) Echogenic Foci: None (0) Total Points: 3 TI-RADS Score: 3: TR3 Mildly suspicious FNA if 2.5 cm or greater; US follow up at 1, 3, and 5 years if 1.5 cm or greater Nodule # 3 Size: 1.0 x 0.5 x 0.9 cm Location: Left mid thyroid Composition: Solid or almost completely solid (2) Echogenicity: Hyperechoic (1) Shape: Wgomv-jfwr-akcg (0) Margin: Smooth (0) Echogenic Foci: None (0) Total Points: 3 TI-RADS Score: 3: TR3 Mildly suspicious FNA if 2.5 cm or greater; US follow up at 1, 3, and 5 years if 1.5 cm or greater Of note, left thyroid nodule 1 and 2 appear to have been previously measured as 1 nodule on prior ultrasounds. ISTHMUS: Measures 0.2 cm in AP dimension. Normal echotexture. VASCULARITY: Normal. OTHER: No other significant finding. IMPRESSION: Bilateral thyroid nodules that do not meet ACR TI-RADS criteria for tissue sampling. ACR TI-RADS Risk Category: 4 REFERENCE: According to the ACR Thyroid Imaging, Reporting and Data System (TI-RADS): White Paper of the ACR TI-RADS Committee Aug, 2016 recommendations regarding the management of thyroid nodules are as follows: 1. TI-RADS 1: Risk of malignancy <2%, no FNA or follow up required. 2. TI-RADS 2: Risk of malignancy <2%, no FNA or follow up required. 3. TI-RADS 3: Risk of malignancy 2%-5%. Nodules 1.5 cm or greater follow up at 1, 3 and 5 years recommended, for nodules 2.5 cm or greater FNA recommended. 4. TI-RADS 4: Risk of malignancy 5%-20% Nodules 1.0 cm or greater follow up at 1, 2, 3 and 5 years recommended, for nodules 1.5 cm or greater FNA recommended 5. TI-RADS 5: Risk of malignancy >20%. Nodules 0.5 cm or greater annual follow up for 5 years recommended, for nodules 1.0 cm or greater FNA recommended. The ACR TI-RADS committee recommends targeting no more than two nodules for FNA. If three or more nodules meet criteria for FNA, the two with the most suspicious appearance based on ACR TI-RADS points should be sampled. THIS IS AN ELECTRONICALLY VERIFIED FINAL REPORT 07/15/2024 10:37 AM - Electronically signed by Soto Pereira M.D. NS: PLACIDO Report ID: [id number] Reading Location: [place] [address] Procedure Note Soto Pereira MD - 07/15/2024 EXAM DESCRIPTION: US THYROID REASON FOR STUDY: US THYROID TECHNIQUE: Ultrasound of the thyroid was performed with grayscale andcolor doppler. COMPARISON: 05/27/2023, 09/10/2022, 07/04/2021 FINDINGS: RIGHT: Measures 3.5 x 1.5 x 1.1 cm. Normal echotexture. Nodule # 1 Size: 0.8 x 0.4 x 0.7 cm Location: Right superior thyroid Composition: Solid or almost completely solid (2) Echogenicity: Hypoechoic (2) Shape: Dvuvk-ornr-ofnz (0) Margin: Smooth (0) Echogenic Foci: None (0) Total Points: 4 TI-RADS Score: 4: TR4 Moderately suspicious FNA if 1.5 cm or greater; US follow up at 1, 2, 3, and 5 years if 1 cm or greater LEFT: Measures 2.8 x 1.1 x 1.2 cm. Normal echotexture. Nodule # 2 Size: 1.0 x 0.7 x 0.7 cm, unchanged. Location: Left superior thyroid Composition: Solid or almost completely solid (2) Echogenicity: Hyperechoic (1) Shape: Uxohw-xoyn-clmw (0) Margin: Smooth (0) Echogenic Foci: None (0) Total Points: 3 TI-RADS Score: 3: TR3 Mildly suspicious FNA if 2.5 cm or greater; US follow up at 1, 3, and 5 years if 1.5 cm or greater Nodule # 3 Size: 1.0 x 0.5 x 0.9 cm Location: Left mid thyroid Composition: Solid or almost completely solid (2) Echogenicity: Hyperechoic (1) Shape: Nvmoq-jgqj-ndlq (0) Margin: Smooth (0) Echogenic Foci: None (0) Total Points: 3 TI-RADS Score: 3: TR3 Mildly suspicious FNA if 2.5 cm or greater; US follow up at 1, 3, and 5 years if 1.5 cm or greater Of note, left thyroid nodule 1 and 2 appear to have been previouslymeasured as 1 nodule on prior ultrasounds. ISTHMUS: Measures 0.2 cm in AP dimension. Normal echotexture. VASCULARITY: Normal. OTHER: No other significant finding. IMPRESSION: Bilateral thyroid nodules that do not meet ACR TI-RADS criteria for tissue sampling. ACR TI-RADS Risk Category: 4 REFERENCE: According to the ACR Thyroid Imaging, Reporting and Data System (TI-RADS): White Paper of the ACR TI-RADS Committee Aug, 2016recommendations regarding the management of thyroid nodules are as follows: 1. TI-RADS 1: Risk of malignancy <2%, no FNA or follow up required. 2. TI-RADS 2: Risk of malignancy <2%, no FNA or follow up required. 3. TI-RADS 3: Risk of malignancy 2%-5%. Nodules 1.5 cm or greater followup at 1, 3 and 5 years recommended, for nodules 2.5 cm or greater FNArecommended. 4. TI-RADS 4: Risk of malignancy 5%-20% Nodules 1.0 cm or greater followup at 1, 2, 3 and 5 years recommended, for nodules 1.5 cm or greater FNA recommended 5. TI-RADS 5: Risk of malignancy >20%. Nodules 0.5 cm or greater annual follow up for 5 years recommended, for nodules 1.0 cm or greater FNA recommended. The ACR TI-RADS committee recommends targeting no more than two nodulesfor FNA. If three or more nodules meet criteria for FNA, the two with themost suspicious appearance based on ACR TI-RADS points should be sampled. THIS IS AN ELECTRONICALLY VERIFIED FINAL REPORT 07/15/2024 10:37 AM - Electronically signed by Soto Pereira M.D. NS: NS Report ID: [id number] Reading Location: [id number] us Not In File Miscellaneous IMG US PROCEDURES Suzie l Result * ECG 12 lead (04/26/2024 1:25 PM BRUSH TRIMMING MACHINE SETTER) 04/26/2024 1:25 PM BRUSH TRIMMING MACHINE SETTER Joana Chinchilla NP ECG ORDERABLES Edited Re [...] with given history of: Z78.0 Screening. Postmenopausal Doorperson/Model: [employer] SL (S/N [id number]) CLINICAL INFORMATION: Current height: 66 inches Maximum [...] Ian Blanchard M.D. MF: MCKENZIE Report ID: [id number] Reading Location: [address] Note Ian Blanchard MD - 12/11/2022 EXAM DESCRIPTION: DEXA AXIAL SKELETON BONE DENSITY 1 OR MORE SITES REASON FOR STUDY: 67 y/o year old F with given history of: Z78.0 Screening. Postmenopausal Doorperson/Model: [employer] SL (S/N [id number]) CLINICAL INFORMATION: Current height: 66 inches Maximum [...] Ian Blanchard M.D. MF: MCKENZIE Report ID: [id number] Reading Location: [place] [address] us Paty Lloyd MD IMG DXA PROCEDURES Final Result * Hepatitis C antibody (07/03/2016 12:57 PM CDT) [facility] SIGNAL TO CUT-OFF 0.01 <1.00 [facility] HISTORICAL RESULTS Comment: Test performed at [email or web address] [place] [address] [facility] [facility] [place] [place] [address] Director: LINDA EDWARDS DO,MPH Hep C Ab NON-REACT WHITLEY NON-REACT WHITLEY [facility] HISTORICAL RESULTS 07/03/2016 12:5 7 PM CDT us Linda Ng MD LAB MICROBIOLOGY - GENERAL ORDERABLES Final Result [facility]ISTORICAL RESULTS from Last 3 Months or Most Recently Relevant to Health Maintenance Insurance MEDICARE [facility] MEDICARE IDPA [facility] WORKERS COMPENSATION GENERIC Advance Directives For more information, please contact: [phone] * Full Code (Latest Code Status on File) Date Activated Date Inactivated Comments 08/04/2023 11:11 AM 08/05/2023 8:51 PM * Full Code Date Activated Date Inactivated Comments 07/10/2021 8:08 PM 07/11/2021 9:59 PM * Full Code Date Activated Date Inactivated Comments 07/21/2017 9:18 PM 07/23/2017 8:40 PM Healthcare Agents on File Name Relationship Healthcare Agent [facility] p Communication Ivett Magallon Daughter Health Care Agent Maldonado Han Son Second Alternate Health Car e Agent Care Teams Credit Card Associate Relationship Specialty Start Date End Date Paty Lloyd MD [address] [place] [address] PCP - General Family Medicine 04/27/24 Otto Maria DPM [address] [place] [address] Consulting Physician Orthotics 04/25/22
--- OUTSIDE RECORDS SUMMARY | 2024-07-20 00:15 | XMS_ITS | Clinical Summary ---
Author Organization [facility] Address [address] [place] [address] Phone Care Team Providers Care Metal Cut Off Saw Operator Name Role Phone Paty Lloyd MD Primary Care Provider [phone] Allergies Active Allergy Reactions Criticality Noted Date [...] Comments Blood Pressure 126/75 03/06/2021 4:48 PM STEEL SHOT HEADER OPERATOR Pulse 86 03/06/2021 4:48 PM STEEL SHOT HEADER OPERATOR Temperature 36.8 C (98.3 F) 03/06/2021 4:48 PM STEEL SHOT HEADER OPERATOR Respiratory Rate 16 03/06/2021 4:48 PM STEEL SHOT HEADER OPERATOR Oxygen Saturation 97% 03/06/2021 4:48 PM STEEL SHOT HEADER OPERATOR Inhaled Oxygen Concentration - - Weight 83.9 kg (185 lb) 03/06/2021 4:48 PM STEEL SHOT HEADER OPERATOR Height 167.6 cm (5' 6 ) 03/06/2021 4:48 PM STEEL SHOT HEADER OPERATOR Body Mass Index 29.86 03/06/2021 4:48 PM STEEL SHOT HEADER OPERATOR Plan of Treatment Health Maintenance Due Date [...] patient's age to complete this topic Insurance [place] [id number] Care Teams Metal Cut Off Saw Operator Relationship Specialty Start Date End Date Paty Lloyd MD PCP - General Family Medicine 11/15/21
--- OUTSIDE RECORDS SUMMARY | 2024-07-20 00:15 | XMS_ITS | Referral Summary ---
Author Organization [facility] Address [address] [place] [address] Care Team Providers Care Advance Seal Delivery System Maintainer Name Role Phone Otto MariaM Unavailable [phone] Paty Lloyd MD Primary Care Provider + Encounters Date Type Department Care Team Description 07/08/2024 3:20 PM CDT - 07/08/2024 11:59 PM CDT Hospital Encounter [facility] [address] [place] [address] Nontoxic multinodular goiter Discharge Disposition: Discharge to home or self care 06/06/2024 11:00 AM DINING ROOM HOSTESS Office Visit [facility] Medical [facility] Cardiology [address] [place] [address] [address] [place] [phone] Joana Chinchilla NP 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, unspecified whether cold springs or transplanted heart 05/04/2024 Telephone [facility] [address] [place] [address] [address] [place] [phone] Joana Chinchilla NP Med Management 04/26/2024 1:00 PM DINING ROOM HOSTESS Office Visit [facility] [address] [place] [address] [address] [place] [phone] Joana Chinchilla NP Nonobstructive atherosclerosis of [...] 12 hr tabletIndicatio ns:Coronary artery disease involving cold springs coronary artery of [place] springs heart with other form of angina pectoris [...] (04/10/2020): Added automatically from request for surgery [id number] Pain in left tibia 01/09/2020 Assessment & [...] is not he 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 He all a G of her he neuritis and nausea unknown. A laboratory studies show some minor changes with her renal function creatinine 1.2 bicarb levels 21 anion gap of 16. Repeat CMP today were no liver function abnormalities on the last lab studies. TSH level to be done. Patient advised to stop [facility] at a nausea as well as a rash could be from [facility]. She is to give me a progress [...] 03/03/2019 Assessment & Plan (03/03/2019 12:51 PM DINING ROOM HOSTESS): Patient filled gela injured her right knee a few days ago x-rays negative for fracture dislocation some pain on range of motion no significant swelling or redness.. Anticipate full recovery. Patient advised she can continue working no further recommendations. Carpal tunnel syndrome of right wrist 10/18/2018 Overview (10/18/2018): Added automatically from request for surgery [id number] Cubital tunnel syndrome on right 10/18/2018 Overview (10/18/2018): Added automatically from request for surgery [id number] Ulnar neuropathy of right upper extremity 2018 Overview (10/18/2018): Added automatically from request for surgery [id number] Restless leg 07/22/2018 Assessment & Plan (01/29/2019 [...] medications. Assessment & Plan (05/24/2018 1:38 PM DINING ROOM HOSTESS): . Blood pressure is very well control on hydrochlorothiazide/triamterene 37.5/25, he takes 1 tablet per day no change in therapy.. Low back pain without sciatica 12/05/2017 Assessment & Plan (06/30/2018 5:26 PM CDT): Patient continues to have back pain has improved she has been yvwp-zhl-nrhvksg medications well as gabapentin. Also using a [...] surgery at [facility] in [place].. Patient can ambulate much better not had [...] 01/29/2019 Assessment & Plan (05/24/2018 1:29 PM DINING ROOM HOSTESS): Patient complains of right foot pain for [...] 01/29/2019 Assessment & Plan (05/24/2018 1:31 PM DINING ROOM HOSTESS): Patient complains of a constant thirst for [...] making arrangements. She is considering going to [place] to see a specialist who treats Meniere's disease only. She will check with insurance company for coverage regarding this referral who specialist. Assessment & Plan (08/02/2017 11:00 AM CDT): Patient has had 2 hospital admissions recently for some she is transferred from my office to the [facility] stated few days. Sec hospital admission [...] why she was the he moved to [facility] ER. EEG is pending. MRI brain without contrast shows no acute changes. Assessment & Plan (07/21/2017 4:52 PM CDT): Patient has a history of Meniere's disease over 20 years. Her impression that is becoming worse because of increased dizziness in on in inability to maintain her balance. Fell at [facility] 3 days ago was seen emergency room [...] Gloria. Patient was sent to emergency room [facility] by ambulance. She was too unstable [...] a ear nose and throat physician at [facility] for management vertigo. Patient rise stationary bike at home for purposes of seeing in condition and helping her muscle tone and overall function. Assessment & Plan (12/05/2017 1:26 PM CDT): Patient's condition is greatly improved she is now Medicare Dr. Anuj Wooten chair spring assembler of neurotology and skull lbase at [facility] in [place]. S physicians notes can be found under care everywhere in [facility]. Right sided weakness 020 Immunizations Immunization [...] on file Legal Sex Female 11:59 AM DINING ROOM HOSTESS Gender Identity Female 12/08/2020 9:18 AM CDT Sexual Orientation Straight 12/08/2020 9: 18 AM CDT Last Filed Vital Signs Vital Sign Reading Time Taken Comments Blood Pressure 108/62 06/06/2024 11:02 AM DINING ROOM HOSTESS Pulse 71 06/06/2024 11:02 AM DINING ROOM HOSTESS Temperature 36.3 C (97.3 F) 08/05/2023 3:45 PM CDT Respiratory Rate 19 08/05/2023 3:45 PM CDT Oxygen Saturation 99% 06/06/2024 11:02 AM DINING ROOM HOSTESS Inhaled Oxygen Concentration - - Weight 71.2 kg (157 lb) 06/06/2024 11:02 AM DINING ROOM HOSTESS Height 165.1 cm (5' 5 ) 06/06/2024 11:02 AM DINING ROOM HOSTESS Body Mass Index 26.13 06/06/2024 11:02 AM DINING ROOM HOSTESS Plan of Treatment Not on file Medical Devices Implanted Type Area Retort Feeder Ground Bone Device Identifier Shelf Expiration Date Model / [...] goiter ECG 12-LEAD Routine 04/26/2024 1:25 PM DINING ROOM HOSTESS Nonobstructive atherosclerosis of coronary artery SCREENING MAMMOGRAM [...] completely solid (2) Echogenicity: Hypoechoic (2) Shape: Fsbxt-lxop-aoxz (0) Margin: Smooth (0) Echogenic Foci: None [...] completely solid (2) Echogenicity: Hyperechoic (1) Shape: Yhoyi-krgx-fmnc (0) Margin: Smooth (0) Echogenic Foci: None (0) Total Points: 3 TI-RADS Score: 3: TR3 Mildly suspicious FNA if 2.5 cm or greater; US follow up at 1, 3, and 5 years if 1.5 cm or greater Nodule # 3 Size: 1.0 x 0.5 x 0.9 cm Location: Left mid thyroid Composition: Solid or almost completely solid (2) Echogenicity: Hyperechoic (1) Shape: Rqnft-gabf-uxlo (0) Margin: Smooth (0) Echogenic Foci: None [...] Soto Pereira M.D. NS: PLACIDO Report ID: [id number] Reading Location: [place] [address] Procedure Note Soto Pereira MD - 07/15/2024 [...] completely solid (2) Echogenicity: Hypoechoic (2) Shape: Ozijz-dctr-tbgy (0) Margin: Smooth (0) Echogenic Foci: None [...] completely solid (2) Echogenicity: Hyperechoic (1) Shape: Sjbkl-klqe-hoks (0) Margin: Smooth (0) Echogenic Foci: None (0) Total Points: 3 TI-RADS Score: 3: TR3 Mildly suspicious FNA if 2.5 cm or greater; US follow up at 1, 3, and 5 years if 1.5 cm or greater Nodule # 3 Size: 1.0 x 0.5 x 0.9 cm Location: Left mid thyroid Composition: Solid or almost completely solid (2) Echogenicity: Hyperechoic (1) Shape: Xdplc-zrdq-ebts (0) Margin: Smooth (0) Echogenic Foci: None [...] Soto Pereira M.D. NS: NS Report ID: [id number] Reading Location: [place] [address] us Not In File Miscellaneous IMG US PROCEDURES Suzie l Result * ECG 12 lead (04/26/2024 1:25 PM DINING ROOM HOSTESS) 04/26/2024 1:25 PM DINING ROOM HOSTESS us Joana Chinchilla NP ECG ORDERABLES Edited [...] with given history of: Z78.0 Screening. Postmenopausal Retort Feeder Ground Bone/Model: [employer] SL (S/N [id number]) CLINICAL INFORMATION: Current height: 66 inches Maximum [...] Ian Blanchard M.D. MF: MCKENZIE Report ID: [id number] Reading Location: [place] [address] Procedure Note Ian Blanchard MD - 12/11/2022 EXAM DESCRIPTION: DEXA AXIAL SKELETON BONE DENSITY 1 OR MORE SITES REASON FOR STUDY: 67 y/o year old F with given history of: Z78.0 Screening. Postmenopausal Retort Feeder Ground Bone/Model: [employer] SL (S/N 58821) CLINICAL INFORMATION: Current height: 66 inches Maximum [...] Ian Blanchard M.D. MF: MCKENZIE Report ID: [id number] Reading Location: [place] [address] us Paty Lloyd MD IMG DXA PROCEDURES Final Result * Hepatitis C antibody (07/03/2016 12:57 PM CDT) [facility] SIGNAL TO CUT-OFF 0.01 <1.00 [facility]ORICAL RESULTS Comment: Test performed at [facility] [address] [place] [address] Director: LINDA EDWARDS DO,MPH Hep C Ab NON-REACT WHITLEY NON-REACT WHITLEY [facility] HISTORICAL RESULTS 07/03/2016 12:5 7 PM CDT us Linda Ng MD LAB MICROBIOLOGY - GENERAL ORDERABLES Final Result [facility]ORICAL RESULTS from Last 3 Months or Most Recently Relevant to Health Maintenance Insurance MEDICARE [facility] MEDICARE [facility] WORKERS COMPENSATION GENERIC Advance Directives For more information, please contact: [phone] * Full Code (Latest Code Status on [...] Alternate Health Car e Agent Care Teams Advance Seal Delivery System Maintainer Relationship Specialty Start Date End Date Paty Lloyd MD [facility] [place] [address] PCP - General Family Medicine 04/27/24 Otto Maria DPM [address] [place] [address] Consulting Physician Orthotics 04/25/22
--- OUTSIDE RECORDS SUMMARY | 2024-07-20 00:15 | XMS_ITS | Clinical Summary ---
Author Organization [facility] Address [address] [place] [address] Care Team Providers Care Crnp Name Role Phone Paty Lloyd MD Primary Care Provider [phone] Source Comments [facility],non-owned Affiliates and Associated Physician Practices is amultiple site organization consisting of ambulatory clinics and hospital sitesin [place], [place], [place] and [place]. This disclosure is being madepursuant to the Care Everywhere program and may not contain all information available regarding this patient. Last updated 18.[facility] Allergies Active Allergy Reactions Criticality Noted Date [...] (07/19/2020): Added automatically from request for surgery [id number] Pain in left leg 01/09/2020 Pain in [...] to be done. Patient advised to stop [facility] at a nausea as well as a rash could be from [facility]. She is to give me [...] a ear nose and throat physician at [facility] for management vertigo. Patient rise [...] (01/10/2019): Added automatically from request for surgery [id number] Ulnar neuropathy of right upper extremity 2018 Overview (01/10/2019): Added automatically from request for surgery [id number] Carpal tunnel syndrome of right wrist 10/18/2018 Overview (07/19/2020): Added automatically from request for surgery [id number] Cubital tunnel syndrome on right 10/18/2018 Overview (07/19/2020): Added automatically from request for surgery [id number] Ulnar neuropathy of right upper extremity 2018 Overview (07/19/2020): Added automatically from request for surgery [id number] Right wrist pain 09/20/2018 Overview (01/10/2019): Last [...] (01/10/2019): Added automatically from request for surgery [id number] Median nerve compression in right forearm 2018 [...] back pain has improved she has been sxui-bpj-ikfisty medications well as gabapentin. Also using a heating pad Low back pain without sciatica 12/05/2017 Overview (07/19/2020): Last Assessment & Plan: Patient continues to have back pain has improved she has been keyt-lzo-qtlfbeb medications well as gabapentin. Also using a [...] why she was the he moved to [facility]. EEG is pending. MRI brain without contrast [...] of neurotology and basilar skull surgery at [facility] in [place].. Patient can ambulate much better not had [...] 05/14/1989 Immunizations Name Administration Dates Next Due DotSpots primary monoval ent 12+ yr 0.3mL Purple [...] Comments Blood Pressure 127/80 02/16/2023 10:48 AM BRUSH STAINER Pulse 66 02/16/2023 10:48 AM BRUSH STAINER Temperature 36.9 C (98.4 F) 06/20/2022 12:25 PM BRUSH STAINER Respiratory Rate 22 06/20/2022 1:08 PM BRUSH STAINER Oxygen Saturation 96% 02/16/2023 10:48 AM BRUSH STAINER Inhaled Oxygen Concentration 21% 08/22/2020 5 :35 PM CDT Weight 82.6 kg (182 lb 3.2 oz) 02/16/2023 10:48 AM BRUSH STAINER Height 167.6 cm (5' 6 ) 02/16/2023 10:48 AM BRUSH STAINER Body Mass Index 29.41 02/16/2023 10:48 AM BRUSH STAINER Plan of Treatment Health Maintenance Due Date [...] this topic Medical Devices Implanted Type Area Weatherization And Housing Inspector Device Identifier Shelf Expiration Date Model / Serial / Lot Nucleus Cochlear Implant With Slim Straight Electrode Implanted:Qty: 1 on 06/20/2022 by López Delvalle MD at [facility] Other (Type not listed) Right: Ear Cochlear [employer] 05/11/2024 [id number] / [id number] / Explanted Type Area Weatherization And Housing Inspector Device Identifier Shelf Expiration Date Model / Serial / Lot Cochlear Nucleus [id number] Cochlear Implant With Slim Straight Electrode Implanted:Qty: 1 on 05/29/2020 by López Delvalle MD at [facility] Explanted:Qty: 1 on 08/22/2020 by López Delvalle MD at [facility] Right: Ear [employer] 03/16/2022 [id number] / [id number] / Procedures Procedure Name Priority Date/Time Associated Diagnosis Comments BASIC METABOLIC PANEL (CALCIUM TOTAL) Routine 06/06/2022 11:15 AM BRUSH STAINER Pre-op evaluation from Last 3 Months or Most Recently Relevant to Health Maintenance Results * (ABNORMAL) BASIC METABOLIC PANEL (CALCIUM TOTAL) (06/06/2022 11:15 AM BRUSH STAINER) BUN 23 7 - 26 mg/dL 06/06/2022 12:25 PM [facility] Creatinine 1.10(H) 0.56 - 0.96 mg/dL 06/06/2022 12:25 PM [facility] Sodium 140 136 - 145 mmol/L 06/06/2022 12:25 PM [facility] Potassium 3.5 3.5 - 4.5 mmol/L 06/06/2022 12:25 PM [facility] Chloride 105 98 - 107 mmol/L 06/06/2022 12:25 PM [facility] CO2 24 22 - 29 mmol/L 06/06/2022 12:25 PM [facility] Glucose 83 70 - 115 mg/dL 06/06/2022 12:25 PM [facility] Calcium 9.6 8.4 - 10.2 mg/dL 06/06/2022 12:25 PM [facility] Anion Gap 15 8 - 18 06/06/2022 12:25 PM [facility] BUN/Creatinine Ratio 21 7 - 23 06/06/2022 12:25 PM [facility] Osmolality Calculated 293 270 - 300 mOsm/kg 06/06/2022 12:25 PM [facility] eGFR by CKD-EPI 54(L) >=90 mL/min/1.7 3 m2 06/06/2022 12:25 PM [facility] Blood BLOOD SPECIMEN / Unknown Lab Venipuncture / Unknown 06/06/2022 11:15 AM BRUSH STAINER 06/06/2022 11:51 AM BRUSH STAINER Aniya Betancur ASSISTANT OPERATIONS MANAGER-SOFTWARE TOOLS DEVELOPER LAB - ERNIE KAREEN ORDERABLES [facility] [address] [place] [address], [facility] [phone] from Last 3 Months or Most Recently Relevant to Health Maintenance Care Teams Crnp Relationship Specialty Start Date End Date Paty Lloyd MD [address] [place] [id number] PCP - General 08/24/21
--- OUTSIDE RECORDS SUMMARY | 2024-07-20 00:15 | XMS_ITS | Continuity of Care Document ---
Author Organization [facility] Address [address] [place] [address] Phone Care Team Providers Care Batch Plant Supervisor Name Role Phone Dolores Mccollum PTA Unavailable Unavailable Procedures Procedure Date Therapeutic Activities Neuromuscular Re-Ed Therapeutic Exercise Progress Note Therapeutic Activities Neuromuscular Re-Ed Therapeutic Exercise Neuromuscular Re-Ed Therapeutic Exercise Manual Therapy Therapeutic Activities Neuromuscular Re-Ed Therapeutic Exercise Manual Therapy Therapeutic Activities Neuromuscular Re-Ed Therapeutic Exercise Manual Therapy Therapeutic Activities Neuromuscular Re-Ed Therapeutic Exercise Manual Therapy Therapeutic Activities Neuromuscular Re-Ed Therapeutic Exercise Manual Therapy Therapeutic Activities Neuromuscular Re-Ed Therapeutic Exercise Manual Therapy Therapeutic Activities Neuromuscular Re-Ed Therapeutic Exercise Manual Therapy Therapeutic Activities Neuromuscular Re-Ed Therapeutic Exercise Manual Therapy Doc neg elder mal no plan PRES/ABSN URINE INCON ASSESS PT Evaluation Moderate Complexity Therapeutic Activities Neuromuscular Re-Ed Therapeutic Exercise Therapeutic Activities Therapeutic Exercise Manual Therapy Therapeutic Activities Neuromuscular Re-Ed Therapeutic Exercise Manual Therapy Therapeutic Activities Neuromuscular Re-Ed Manual Therapy Therapeutic Exercise Therapeutic Activities Neuromuscular Re-Ed Therapeutic Exercise Manual Therapy Therapeutic Activities Neuromuscular Re-Ed Manual Therapy Therapeutic Activities Neuromuscular Re-Ed Therapeutic Exercise Manual Therapy Therapeutic Activities Therapeutic Exercise Manual Therapy Therapeutic Activities Neuromuscular Re-Ed Progress Note Therapeutic Activities Neuromuscular Re-Ed Therapeutic Exercise Manual Therapy Therapeutic Activities Therapeutic Exercise Manual Therapy Therapeutic Activities Therapeutic Exercise Manual Therapy Therapeutic Activities Neuromuscular Re-Ed Hot or Cold Pack Therapeutic Activities Neuromuscular Re-Ed Therapeutic Activities Neuromuscular Re-Ed Therapeutic Exercise Doc neg elder mal no plan PRES/ABSN URINE INCON ASSESS PT Evaluation Moderate Complexity Therapeutic Activities Neuromuscular Re-Ed Therapeutic Exercise Therapeutic Activities Neuromuscular Re-Ed Therapeutic Activities Neuromuscular Re-Ed Therapeutic Activities Neuromuscular Re-Ed Therapeutic Activities Neuromuscular Re-Ed Doc neg elder mal no plan PRES/ABSN URINE INCON ASSESS Identified as not an unhealthy alcohol u ser Not identified as unhealthy alcohol via screening OT Evaluation Moderate Complexity Therapeutic Activities Neuromuscular Re-Ed Progress Note Therapeutic Activities Neuromuscular Re-Ed Hot or Cold Pack Therapeutic Activities Neuromuscular Re-Ed Therapeutic Activities Neuromuscular Re-Ed Neuromuscular Re-Ed Manual Therapy Therapeutic Activities Neuromuscular Re-Ed Therapeutic Exercise Progress Note Therapeutic Activities Neuromuscular Re-Ed Therapeutic Activities Neuromuscular Re-Ed Therapeutic Activities Neuromuscular Re-Ed Therapeutic Activities Neuromuscular Re-Ed Therapeutic Activities Neuromuscular Re-Ed Therapeutic Activities Neuromuscular Re-Ed Manual Therapy Progress Note Therapeutic Activities Neuromuscular Re-Ed Therapeutic Activities Neuromuscular Re-Ed Progress Note Therapeutic Activities Neuromuscular Re-Ed Therapeutic Activities Neuromuscular Re-Ed Therapeutic Activities Neuromuscular Re-Ed Therapeutic Activities Neuromuscular Re-Ed Therapeutic Activities Neuromuscular Re-Ed Therapeutic Exercise Hot or Cold Pack Therapeutic Activities Neuromuscular Re-Ed Therapeutic Activities Neuromuscular Re-Ed Hot or Cold Pack Therapeutic Activities Neuromuscular Re-Ed Hot or Cold Pack Doc neg elder mal no plan PRES/ABSN URINE INCON ASSESS OT Evaluation Moderate Complexity Therapeutic Activities Therapeutic Exercise Advance Directives Directive Yes / No Effective Date File Name No Information Encounters Encounter Description Practice Location Reason(s) For Visit Diagnoses Date Provider Providers Copied on Encounter [facility], [id number], tel:[phone] [place] No Information Veda Bernal. . Referring Provider: Karl Martinez [address] [facility], [place], [address]. tel:[phone] [facility] [address] [facility] [address], [place], [address], tel:[phone] [place] No Information Bret Kumar. . Referring Provider: Karl Martinez [address], [place], [address]. tel:[phone] [facility] [facility] [address], [place], [place], [address], tel:[phone] [place] No Information Veda Bernal. . Referring Provider: Karl Martinez [address], [place], [address]. tel:[phone] [facility], [address], [place], [place], [address], tel:[phone] [place] No Information Garrels Stacy. . Referring Provider: Deepa Martinez[address] [place] [address] [address], [place], [address]. tel:[phone] [facility] [address], [place], [place], [address], tel:[phone] [place] No Information Kristian Ryder. [address] [place] [address], [address], [place], [address], . tel:[phone] Referring Provider: Deepa Martinez[address] [place] [address] [address], [place], [address]. tel:[phone] [facility] [address], [place], [place], [address], tel:[phone] [place] No Information Dees Stacy. . Referring Provider: Deepa Martinez[address] [place] [address] [address], [place], [address]. tel:[phone] [facility], [address], [place], [place], [address], tel:[phone] [place] No Information Pantera Rosas. . Referring Provider: Karl Martinez [facility] [address], [place], [address]. tel:[phone] [facility] [address], [place], [place], [address], [place] tel:[phone] [place] No Information Emilie Solis. . Referring Provider: Karl Martinez [facility] [address], [place], [address]. tel:[phone] [facility], [place], [place], [address], [place] tel:[phone] [place] No Information Pantera Rosas. . Referring Provider: Karl Martinez [facility] [address], [place], [address]. tel:[phone] [facility], [address], [place], [place], [address], [place] tel:[phone] [place] No Information Kristian Ryder. [address] [facility], [address], [place], [place], [facility], [place]. tel:[phone] Referring Provider: Karl Martinez [facility] [address], [place], [address]. tel:[phone] [facility], [address], [place], [place], [address], tel:[phone] [place] No Information Pantera Rosas. . Referring Provider: Karl Martinez [facility] [address], [place], [address]. tel:[phone] [facility], [address], [place], [place], [address], [place] tel:[phone] [place] No Information Pantera Rosas. . Referring Provider: Paty Lloyd, [address] [place] [address] [address], [place], [address]. tel:[phone] [facility] [address], [place], [place], [address], [place] tel:[phone] [place] No Information Kristian Ryder. [address] [facility], [address], [place], [place], [facility], . tel:[phone] Referring Provider: Paty Lloyd, [address] [place] [address] [address], [place], [address]. tel:[phone] [facility], [place], [place], [address], [place] tel:[phone] [place] No Information LozadaRadha Nirmal. [address] [facility], [address], [place], [place], [facility], [place]. tel:[phone] Referring Provider: Paty Lloyd, [address] [place] [address] [address], [place], [address]. tel:[phone] [place] [address], [facility] [address], [place], [place], [address], [place] tel:[phone] [place] No Information Hisky Ralph. . Referring Provider: Paty Lloyd, [address] [place] [address] [address], [place], [address]. tel:[phone] [place] [address], [address], [place], [place], [address], tel:[phone] [place] No Information Hisky Ralph. . Referring Provider: Paty Lloyd, [address] [place] [address] [address], [place], [address]. tel:[phone] [place] [address], [address], [place], [place], [address], [place] tel:[phone] [place] No Information Hisky Ralph. . Referring Provider: Paty Lloyd, [address] [place] [address] [address], [place], [address]. tel:[phone] [place] [address], [address], [place], [place], [address], [place] tel:[phone] [place] No Information Kristian Ryder. [address] [facility], [address], [place], [address], [place]. tel:[phone] Referring Provider: Paty Lloyd, [address] [place] [address] [address], [place], [address]. tel:[phone] [place] [address] [address], [place], [place], [address], [place] tel:[phone] [place] No Information George Morgan. . [facility] [facility], [place], [place], [address], [place] tel:[phone] [place] No Information Pantera Rosas. . Referring Provider: Paty Lloyd, [address] [place] [address] [address], [place], [address]. tel:[phone] [facility] [facility] [address], [place], [place], [address], [place] tel:[phone] [place] No Information Kristian Ryder. [address] [place] [address], [address], [place], [place], [facility], . tel:[phone] Referring Provider: Paty Lloyd, [address] [place] [address] [address], [place], [address]. tel:[phone] [facility] [facility] [address], [place], [place], [address], [place] tel:[phone] [place] No Information Kristian Ryder. [address] [place] [address], [address], [place], [place], [facility], . tel:[phone] [facility] [facility] [address], [place], [address], [place] tel:[phone] [place] No Information Monica Guevara. . [facility] [facility], [place], [place], [address], [place] tel:[phone] [place] No Information George Morgan. . [facility] [facility], [place], [place], [address], [place] tel:[phone] [place] No Information Pantera Rosas. . [facility] [facility], [place], [place], [address], [place] tel:[phone] [place] No Information Pantera Ralph. . [facility], [place], [place], [address], [place] tel:[phone] [place] No Information George Morgan. . [facility], [place], [place], [address], [place] tel:[phone] [place] No Information Vazquezarley Morgan. . [facility], [address], [place], [place], [address], [place] tel:[phone] [place] No Information George Morgan. . [facility], [address], [place], [place], [address], [place] tel:[phone] [place] No Information George Morgan. . [facility], [address], [place], [place], [address], [place] tel:[phone] [place] No Information George Morgan. . [facility], [place], [place], [address], [place] tel:[phone] [place] No Information George Morgan. . Referring Provider: Jozef Bosch, [address] [place], [address]. tel:[phone] [facility], [place], [place], [address], [place] tel:[phone] [place] No Information George Morgan. . Referring Provider: Jozef Bosch, [address] [place], [address]. tel:[phone] [facility], [place], [place], [address], [place] tel:[phone] [place] No Information George Morgan. . Referring Provider: Jozef Boshc, [address] [place], [address]. tel:[phone] [facility], [address], [place], [place], [address], [place] tel:[phone] [place] No Information George Morgan. . Referring Provider: Jozef Bosch, [address] [place], [address]. tel:[phone] [facility] [address], [place], [place], [address], [place] tel:[phone] [place] No Information George Morgan. . Referring Provider: Jozef Bosch, [address] [place], [address]. tel:[phone] [facility] [address], [place], [place], [address], [place] tel:[phone] [place] No Information George Morgan. . Referring Provider: Jozef Bosch, [address] [place], [address]. tel:[phone] [facility] [address], [place], [place], [address], [place] tel:[phone] [place] No Information George Morgan. . Referring Provider: Jozef Bosch, [address] [place], [address]. tel:[phone] [facility] [address], [place], [place], [address], [place] tel:[phone] [place] No Information George Morgan. . Referring Provider: Jozef Bosch, [address] [place], [address]. tel:[phone] [facility], [place], [place], [address], tel:[phone] [place] No Information George Morgan. . Referring Provider: Jozef Bosch, [address] [place], [address]. tel:[phone] [facility], [address] [facility], [place], [place], [address], tel:[phone] [place] No Information George Morgan. . Referring Provider: Jzoef Bosch, [address] [place], [address]. tel:[phone] [facility] [address] [facility], [place], [place], [address], tel:[phone] [place] No Information George Morgan. . Referring Provider: Jozef Bosch, [address] [place], [address]. tel:[phone] [facility], [address] [facility], [place], [place], [address], [place] tel:[phone] [place] No Information George Morgan. . Referring Provider: Jozef Bosch, [address] [place], [address]. tel:[phone] [facility] [address] [facility], [place], [place], [address], [place] tel:[phone] [place] No Information George Morgan. . Referring Provider: Jozef Bosch, [address] [place], [address]. tel:[phone] [facility] [address], [place], [place], [address], tel:[phone] [place] No Information George Morgan. . Referring Provider: Jozef Bosch, [address] [place], [address]. tel:[phone] [facility], [address], [place], [place], [address], [place] tel:[phone] [place] No Information George Morgan. . Referring Provider: Jozef Bosch, [address] [place], [address]. tel:[phone] [facility] [address] [facility], [place], [place], [address], [place] tel:[phone] [place] No Information George Morgan. . Referring Provider: Jozef Bosch, [address] [place], [address]. tel:[phone] [facility], [address] [facility], [place], [place], [address], tel:[phone] [place] No Information George Morgan. . Referring Provider: Jozef Bosch, [address] [place], [address]. tel:[phone] [facility], [address] [facility], [place], [place], [address], [place] tel:[phone] [place] No Information Krzysztof Pink. . Referring Provider: Jozef Bosch, [address] [place], [address]. tel:[phone] [facility] [address], [place], [place], [address], [place] tel:[phone] [place] No Information George Morgan. . Referring Provider: Jozef Bosch, [address] [place], [address]. tel:[phone] [facility], [place], [place], [address], tel:[phone] [place] No Information George Morgan. . Referring Provider: Jozef Bosch, [address] [place], [address]. tel:[phone] [facility], [address], [place], [place], [address], tel:[phone] [place] No Information George Morgan. . Referring Provider: Jozef Bosch, [address] [place], [address]. tel:[phone] [facility] [address], [place], [place], [address], tel:[phone] [place] No Information George Morgan. . Referring Provider: Jozef Bosch, [address] [place], [address]. tel:[phone] Family History Family Member Type Diagnosis Age At Onset No Information Payers Payer name Insurance type Covered alliance party ID Authormikael nobleedison(s) [employer] [place] [id number] Social History Type Description Quantity Date Captured Comments Sex Female Smoking Status No Information Chief Complaint And Reason For Visit No Information Reason For Referral Reason For Referral No Information Plan Of Treatment Date Type Action Status Appointment Katherin Penaloza $35 Sched BOOKED History Of Present Illness Encounter Date Complaint History Of Prese nt Illness No Information Functional Status Date Functional Assessmen t No Information Instructions Date Instruction Additional Infor nannette Dietary needs education Related to Overweight Prescribed activity/exercise edu cation Related to Overweight Assessments Type Assessment Date No Information Patient Care Teams Name Effective Dates (start - stop) Status Members No Information
--- OUTSIDE RECORDS SUMMARY | 2024-07-20 00:15 | XMS_ITS | Continuity of Care Document ---
Author Organization [facility] Address [address] [place] [address] Phone Care Team Providers Care Personal Secretary Name Role Phone Bethel Muñoz MD Unavailable Unavailable Procedures Procedure Date Office Consultation Visual Field Examination(s) Advance Directives Directive Yes / No Effective Date File Name No Information Encounters Encounter Description Practice Location Reason(s) For Visit Diagnoses Date Provider Providers Copied on Encounter Office Consultation [facility], [address], [place], [place], [address], tel:[phone] [place] No Information [address] Wanda Hugo. [address] [facility] [place], [address], [place]. tel:[phone] Referring Provider: Nury Ratliff OD, [address], [address]. tel:[phone] Family History Family Member Type Diagnosis Age At Onset No Information Payers Payer name Insurance type Covered republican ID Authoriza tion(s) Medicare [facility] [id number] Social History Type Description Quantity Date Captured Comments Sex Female Smoking Status No Information Chief Complaint And Reason For Visit No Information Reason For Referral Reason For Referral No Information History Of Present Illness Encounter Date Complaint History Of Prese nt Illness No Information Functional Status Date Functional Assessmen t No Information Instructions Date Instruction Additional Infor mation No Information Assessments Type Assessment Date No Information Patient Care Teams Name Effective Dates (start - stop) Status Members No Information
--- OUTSIDE RECORDS SUMMARY | 2024-07-20 00:15 | XMS_ITS | Continuity of Care Document ---
Author Organization [facility] Address [address] [facility] [address] [place] [address] Phone Care Team Providers Care Customer Care Coordinator Name Role Phone Nadine MS, OTR/L, CANDIDATHyacinth Unavailable Unavailable Procedures Procedure Date Progress Note Therapeutic Exercise Therapeutic Activities Neuromuscular Re-Ed Manual Therapy Hot or Cold Pack Therapeutic Exercise Therapeutic Activities Neuromuscular Re-Ed Manual Therapy Hot or Cold Pack Therapeutic Exercise Therapeutic Activities Manual Therapy Hot or Cold Pack OT Evaluation Moderate Complexity Therapeutic Exercise Manual Therapy Hot or Cold Pack Advance Directives Directive Yes / No Effective Date File Name No Information Encounters Encounter Description Practice Location Reason(s) For Visit Diagnoses Date Provider Providers Copied on Encounter [facility], [place], [place], [address], [place] tel:[phone] [place] No Information [address] [facility] [place] [address], [place], [address], [place]. tel:[phone] [facility], [place], [place], [address], tel:[phone] [place] Pain in right wristStiffness of right wrist, not elsewhere classifiedStiff ness of right hand, not elsewhere classifiedOth symptoms and signs involving the musculoskeletal systemEffusion, right wristEffusion, right handUnspecified sprain of right wrist, subsequent encounter [address] [address] [facility] ([place], [place]), [address], [place], [address], [place]. tel:[phone] Referring Provider: Ronald Davidson, [address], [place], [address]. tel:[phone] [facility], [address], [place], [place], [address], [place] tel:[phone] [place] Pain in right wristStiffness of right wrist, not elsewhere classifiedStiff ness of right hand, not elsewhere classifiedOth symptoms and signs involving the musculoskeletal systemEffusion, right wristEffusion, right handUnspecified sprain of right wrist, subsequent encounter [address] [address] [facility] ([place], [place]), [address], [place], [address], [place]. tel:[phone] Referring Provider: Ronald Davidson, [address], [place], [address]. tel:[phone] [facility], [address], [place], [place], [address], [place] tel:[phone] [place] Pain in right wristStiffness of right wrist, not elsewhere classifiedStiff ness of right hand, not elsewhere classifiedOth symptoms and signs involving the musculoskeletal systemEffusion, right wristEffusion, right handUnspecified sprain of right wrist, subsequent encounter [address] [address] [facility] ([place], [place]), [address], [place], [address], [place]. tel:[phone] Referring Provider: Ronald Davidson, [address], [place], [address]. tel:[phone] [facility], [address], [place], [place], [address], [place] tel:[phone] [place] Pain in right wristStiffness of right wrist, not elsewhere classifiedStiff ness of right hand, not elsewhere classifiedOth symptoms and signs involving the musculoskeletal systemEffusion, right wristEffusion, right handUnspecified sprain of right wrist, subsequent encounter 9 Aldo Arriaga. . Referring Provider: Ronald Davidson [address] [place] [address] [address], [place], [address]. tel:[phone] Family History Family Member Type Diagnosis Age At Onset No Information Payers Payer name Insurance type Covered democrat ID Authormikael dickeyedison(s) [id number] Social History Type Description Quantity Date Captured [...]
--- NOTE | 2024-07-20 06:49 | P.HPUP_ITS ---
History and Physical Update Update Date/Time: 07/20/24 06:49 Patient seen and examined in pre-operative holding area. No interval change in medical history or symptoms. Patient recalls previous discussion of benefits and alternatives to procedure. Continues to desire to proceed with left open carpal tunnel release revision, left Cubital tunnel release, left wrist arthroscopy possible debridment and extensor carpi ulnaris sheath release. Reviewed procedure, post-op expectations and risks including but not limited to bleeding, infection, injury to tendon/nerve/vessel, decreased hand function, stiffness, RSD, no change or worsening of symptoms. I discussed the possible use of a ssistants and their participation in the case. Patient stated understanding and signed the consent form wishing to proceed.
--- NOTE | 2024-07-20 06:50 | P.HP_ITS ---
History of Present Illness History of Present Illness Chief complaint: left oa of carpal metacarpal joint, Narrative: Patient seen and examined in pre-operative holding area. No interval change in medical history or symptoms. Patient recalls previous discussion of benefits and alternatives to procedure. Continues to desire to proceed with left open carpal tunnel release revision, left Cubital tunnel release, left wrist arthroscopy possible debridment and extensor carpi ulnaris sheath release. Reviewed pro cedure, post-op expectations and risks including but not limited to bleeding, infection, injury to tendon/nerve/vessel, decreased hand function, stiffness, RSD, no change or worsening of symptoms. I discussed the possible use of assistants and their participation in the case. Patient stated understanding and signed the consent form wishing to proceed. Review of Systems Review of Systems: All systems reviewed & are unremarkable except as noted in HPI and below PMFSH Past Medical History Medical History Other fatigue Medial meniscus tear Broken wrist Left 12/28/2022 Left knee DJD Acute kidney injury De Quervain's disease (tenosynovitis) Degenerative joint disease (DJD) of hip High cholesterol Hearing loss Wears glasses Surgical complication involving right mastoid process Bipolar disorder Elbow fracture, right Restless leg syndrome CAD (coronary artery disease) minimal CAD by catheterization in 2012. Cardiac arrest states she had a cardiac arrest requiring CPR but this may have been a syncopal episode or seizure Hx of endometriosis Carpal tunnel syndrome Hypothyroid Seizures History of heart attack not well documented Surgical History Surgical History History of cochlear implant removed. rejection of implants S/P trigger finger release right hand S/P laparoscopic surgery Pelvic. Hx of cardiac cath she stated that she only had 25% blockages. History of appendectomy History of carpal tunnel surgery B/L History of knee surgery x2. right knee Family History Family History Mother Crohn disease Father Old age Sibling Diabetes mellitus Prostate carcinoma Social History Social History Social History: The patient had 4 children with only 3 pregnancies. She had a set of twin boys. She is . She lives home alone. She occasionally drinks a glass a wine. Her daughter daughter Ivett is a durable power commercial litigation attorney for healthcare. Patient wishes to be a full code. 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 Patient was a former smoker. She does not use any marijuana or illicit drugs. Smoking packs per day: 1 Smoking cigarettes per day: 20.0 Years smoked: 1 Smoking pack-years: 1.00 Smoking status: Former smoker Tobacco type: cigarettes Second hand tobacco smoke exposure: No Smoking end date: 04/13/94 Additional smoking assessment comments: NO nicotine use at all Alcohol intake: current Drinks per week: 4 Substance use: never Substance use type: does not use Do You Feel Safe in your Home?: Yes Lack of Transportation: No Lack of Food: Never True Current Housing: I Have Housing Concerned About Future Housing: No Difficulty Paying Gas/Electric Bills: No Difficulty Paying for Meds: No Currently Unemployed: No Education: Bachelor's Degree Difficulty w/ Childcare or Family Care: No Living arrangements: alone Occupation/Education: occupation Gender identity (if verbalized by the patient): Female Sexual Orientation (if Verbalized by the Patient): Straight or Heterosexual Spiritual care concerns: No Meds Home Medications and Allergies Home Medications ?Medication ?Instructions ?Recorded ?Confirmed ?Type aspirin 81 mg tablet,delayed 81 mg PO DAILY 06/11/20 07/20/24 History release (Adult Aspirin Regimen) nitroglycerin 0.4 mg sublingual 0.4 mg sublingual Q5M PRN Chest 06/11/20 07/06/24 History tablet Pain meclizine 25 mg tablet 25 mg PO DAILY 01/07/22 07/20/24 History naproxen sodium 220 mg capsule 220 mg PO BID PRN Pain 12/18/22 07/06/24 History (Aleve) ranolazine 1,000 mg 1,000 mg PO BID 12/18/22 07/20/24 History tablet,extended release,12 hr triamterene 37.5 1 cap PO BID 12/18/22 07/20/24 History mg-hydrochlorothiazide 25 mg capsule potassium chloride 20 mEq See Rx Instructions .Route 06/01/23 07/06/24 Rx tablet,extended .COMPLEX #90 tabs release(part/cryst) (Klor-Con M) atorvastatin 80 mg tablet 80 mg PO DAILY 07/22/23 07/20/24 History ezetimibe 10 mg tablet 10 mg PO DAILY 07/22/23 07/20/24 History levothyroxine 137 mcg tablet 137 mcg PO DAILY #90 tabs 02/01/24 07/20/24 Rx tramadol 50 mg tablet 50 mg PO Q6H PRN pain #30 tabs 06/07/24 07/20/24 Rx nitroglycerin 0.4 mg/hr 1 patch transdermal .12h 07/05/24 07/20/24 History transdermal 24 hour patch Allergies Allergy/AdvReac Type Severity Reaction Status Date / Time codeine Allergy Intermediate Hives Verified 07/20/24 10:00 erythromycin base Allergy Intermediate N/V Verified 07/20/24 10:00 hydrocodone (From [place]) Allergy Intermediate Hives Verified 07/20/24 10:00 latex Allergy Intermediate HVIES Verified 07/20/24 10:00 Penicillins Allergy Intermediate Hives Verified 07/20/24 10:00 prednisone Allergy Intermediate Hives Verified 07/20/24 10:00 propoxyphene (From [place]) Allergy Intermediate Hives Verified 07/20/24 10:00 Exam Narrative: unchanged Assessment and Plan Assessment and plan (1) Entrapment of left ulnar nerve at elbow: Code(s): G56.22 - Lesion of ulnar nerve, left upper limb Status: Acute Assessment and Plan: cont as above (2) Left carpal tunnel syndrome: Code(s): G56.02 - Carpal tunnel syndrome, left upper limb Status: Acute (3) Left wrist pain: Code(s): M25.532 - Pain in left wrist Status: Acute
--- NOTE | 2024-07-20 06:50 | W.PM.PROC2 ---
Procedure Note - Detailed Date of Procedure 07/20/24 Pre-op Diagnosis left carpal and cubital tunnel syndrome, left ulnar wrist sprain and ecu tenosynoviits Post-op Diagnosis Same Procedure Performed left open carpal tunnel release revision, left Cubital tunnel release, left wrist arthroscopy debridment of TFCC and extensor carpi ulnaris sheath repair/recon. Surgeon Parviz Wright MD Field Human Resources Manager rosina burton pa-c Anesthesia MAC Description of Procedure INFORMED CONSENT: The patient was seen and examined and marked in the pre-op area.? The patient signed the consent form. PROCEDURE IN DETAIL:The patient taken back to OR on the stretcher in supine position. Time out performed with anesthesia, surgeon and staff agreeing on patient's name site and surgery to be performed SCDs were placed on the lower extremities and inflated. A tourniquet was placed on {left} upper extremity and antibiotics given IV After anesthesia administered sedation I injected {15}cc 1%lido with epi and 0.5% marcaine plain at the operative sites The?{left upper extremity}?was prepped and draped in sterile fashion the??{left upper extremity} was? exsanguinated with Esmarch bandage and tourniquet inflated to 250mmHg The Acumed traction tower was brought into the field and the hand was placed on 10 pounds of traction. I localized my 4R in for you portals using 21 gauge needle to verify portal placement. Fifteen blade scalpel was used to make these incision through skin and dermis. curved hemostat was used to spread bluntly down to the joint capsule and enter the radial and ulnar carpal joints. The Arthrex an anoscope was placed in the 4R portal for radiocarpal examination. This area was free of masses and synovitis. The scapholunate interval appeared normal. The camera was taken into the ulnar carpal joint noting a small dorsal peripheral TFCC tear with fraying and synovitis. There was a small firmer loose body also identified. A grasper was used to withdraw this free body and Arthrex shaver and cautery were used for significant debridement of this TFCC flap and treatment of surrounding synovitis. The joint was irrigated with normal saline. Instrumentation was removed and wrist taken off of traction. Next I proceeded with making a longitudinal incision over the extensor carpi ulnaris through skin and dermis with a 15 blade scalpel. Littler scissors were used to spread down to the extensor tendon sheath. I incised the extensor tendon on its dorsal aspect. The ECU was retracted radially. Identified the somewhat loose and attenuated capsule on the floor of the ulnocarpal joint. The capsule was imbricated with 3-0 Vicryl sutures improving the tension of the capsule and stability at this interval. The ECU sheet was repaired with 4-0 Vicryl after Z-plasty to prevent subluxation of the ECU tendon. The tendon was gliding smoothly in the repaired sheath and did not appear to suffer any impingement. I irrigated with normal saline. Closure with 3-0 Vicryl and 4-0 chromic. Dorsal portal sites were closed with 4-0 chromic. Next I proceeded with the open carpal tunnel release revision. I proceeded with making a longitudinal incision of the palm proximal and in line with the ring finger through skin and dermis with a 15 scalpel. This incision was carried proximally onto the forearm going obliquely to create a radially based flap across the flexion crease. Littler scissors were used to spread proximally down through subcutaneous tissue and antebrachial fascia. The antebrachial fascia was incised and the median nerve was identified below this. I proceeded with cautious anterograde dissection of the nerve and release of scar and possibly persistent transverse carpal ligament with 15 blade scalpel and Littler scissors. There was notably a significant amount of synovitis within the carpal tunnel partially adherent around the nerve and flexor tendons. I proceeded with tenosynovectomy and neurolysis of the synovium off of the FDS and FDP tendons and median nerve until the nerve appeared unencumbered and had visible Vaso nervorum. I irrigated with normal saline. Closure was performed with 3-0 Vicryl for dermis and 4-0 chromic. I next proceeded with making a longitudinal incision between two heads for flexor carpi ulnaris at end of {left} cubital tunnel with 15 blade scalpel.? Littler scissors were used to spread down to FCU fascia.? An incision was made in FCU fascia and ulnar nerve identified exiting cubital tunnel.? I proceeded with complete retrograde release of the cubital tunnel including 7cm proximal for the intermuscular septum.? The nerve appeared healthy with visible vaso nervorum.? There was no subluxation on full elbow range of motion. ? I irrigated with normal saline and closure with 4-0 monocryl for dermis and subcuticular. The elbow incision was covered with Dermabondand amd then xeroform for the wrist incisons, then 4x4s, sowmya, and a volar wrist and posterior elbow splint for patient safety, security and comfort and secured with roel bandages after the tourniquet was let down noting the hand was warm and well perfused.? Patient awaken from anesthesia and transferred to recovery in stable condition Complications - none EBL- 1cc Disposition - home in stable conditions Rosina Burton PA-C was essential for positioning, retraction, closure and dressing placement [facility] Billing Surgery - Charge Forward: Surgery Billing ([id number] same for rosina adding modifier )
[2024-07-20 09:45] VITALS: BP 122/71; PULSE 57; RESP 18; TEMP 36.8; O2SAT 100; BMI 24.0
[2024-07-20] MEDS: LACTATED RINGERS 1,000 ML 30 ML IV CONT (10:10)
--- NOTE | 2024-07-20 10:54 | P.PNAN_ITS ---
Anes - Initial Pre Proc Eval Procedure: Operation Date: 07/20/24 11:15 Proposed Procedures p Left Wrist Arthroscopy with Debridement and Extensor Carpi Ulnaris Sheath Release, - Parviz Wright MD s Left Open Carpal Tunnel Release, Left Cubital Tunnel Release - Parviz Wright MD Date/Time: 07/20/24 10:54 Surgeon: Parviz Wright MD Pre Op Diagnosis: left oa of carpal metacarpal joint, Patient Data Age: 69 Gender: F Height: 1.68 m Weight: 67.4 kg Last Vital Signs Temp 36.8 C 07/20/24 09:45 Pulse 57 L 07/20/24 09:45 Resp 18 07/20/24 09:45 BP 122/71 07/20/24 09:45 Pulse Ox 100 07/20/24 09:45 O2 Del Method Room Air 07/20/24 09:45 Allergies Allergy/AdvReac Type Severity Reaction Status Date / Time codeine Allergy Intermediate Hives Verified 07/20/24 10:00 erythromycin base Allergy Intermediate N/V Verified 07/20/24 10:00 hydrocodone (From [place]) Allergy Intermediate Hives Verified 07/20/24 10:00 latex Allergy Intermediate HVIES Verified 07/20/24 10:00 Penicillins Allergy Intermediate Hives Verified 07/20/24 10:00 prednisone Allergy Intermediate Hives Verified 07/20/24 10:00 propoxyphene (From [place]) Allergy Intermediate Hives Verified 07/20/24 10:00 Home Medications ?Medication ?Instructions ?Recorded ?Confirmed ?Type aspirin 81 mg tablet,delayed 81 mg PO DAILY 06/11/20 07/20/24 History release (Adult Aspirin Regimen) nitroglycerin 0.4 mg sublingual 0.4 mg sublingual Q5M PRN Chest 06/11/20 07/06/24 History tablet Pain meclizine 25 mg tablet 25 mg PO DAILY 01/07/22 07/20/24 History naproxen sodium 220 mg capsule 220 mg PO BID PRN Pain 12/18/22 07/06/24 History (Aleve) ranolazine 1,000 mg 1,000 mg PO BID 12/18/22 07/20/24 History tablet,extended release,12 hr triamterene 37.5 1 cap PO BID 12/18/22 07/20/24 History mg-hydrochlorothiazide 25 mg capsule potassium chloride 20 mEq See Rx Instructions .Route 06/01/23 07/06/24 Rx tablet,extended .COMPLEX #90 tabs release(part/cryst) (Klor-Con M) atorvastatin 80 mg tablet 80 mg PO DAILY 07/22/23 07/20/24 History ezetimibe 10 mg tablet 10 mg PO DAILY 07/22/23 07/20/24 History levothyroxine 137 mcg tablet 137 mcg PO DAILY #90 tabs 02/01/24 07/20/24 Rx tramadol 50 mg tablet 50 mg PO Q6H PRN pain #30 tabs 06/07/24 07/20/24 Rx nitroglycerin 0.4 mg/hr 1 patch transdermal .12h 07/05/24 07/20/24 History transdermal 24 hour patch Patient hx anesthesia problems: none Family hx anesthesia problems: none Results Review: All pre-operative results and documents have been reviewed as part of the pre- operative evaluation. [facility] Past Medical History Medical History Other fatigue Medial meniscus tear Broken wrist Left 12/28/2022 Left knee DJD Acute kidney injury De Quervain's disease (tenosynovitis) Degenerative joint disease (DJD) of hip High cholesterol Hearing loss Wears glasses Surgical complication involving right mastoid process Bipolar disorder Elbow fracture, right Restless leg syndrome CAD (coronary artery disease) minimal CAD by catheterization in 2012. Cardiac arrest states she had a cardiac arrest requiring CPR but this may have been a syncopal episode or seizure Hx of endometriosis Carpal tunnel syndrome Hypothyroid Seizures History of heart attack not well documented Surgical History Surgical History History of cochlear implant removed. rejection of implants S/P trigger finger release right hand S/P laparoscopic surgery Pelvic. Hx of cardiac cath she stated that she only had 25% blockages. History of appendectomy History of carpal tunnel surgery B/L History of knee surgery x2. right knee Family History Family History Mother Crohn disease Father Old age Sibling Diabetes mellitus Prostate carcinoma Social History Social History Social History: The patient had 4 children with only 3 pregnancies. She had a set of twin boys. She is . She lives home alone. She occasionally drin ks a glass a wine. Her daughter daughter Ivett is a durable power managing attorney for healthcare. Patient wishes to be a full code. 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 Patient was a former smoker. She does not use any marijuana or illicit drugs. Smoking packs per day: 1 Smoking cigarettes per day: 20.0 Years smoked: 1 Smoking pack-years: 1.00 Smoking status: Former smoker Tobacco type: cigarettes Second hand tobacco smoke exposure: No Smoking end date: 04/13/94 Additional smoking assessment comments: NO nicotine use at all Alcohol intake: current Drinks per week: 4 Substance use: never Substance use type: does not use Do You Feel Safe in your Home?: Yes Lack of Transportation: No Lack of Food: Never True Current Housing: I Have Housing Concerned About Future Housing: No Difficulty Paying Gas/Electric Bills: No Difficulty Paying for Meds: No Currently Unemployed: No Education: Bachelor's Degree Difficulty w/ Childcare or Family Care: No Living arrangements: alone Occupation/Education: occupation Gender identity (if verbalized by the patient): Female Sexual Orientation (if Verbalized by the Patient): Straight or Heterosexual Spiritual care concerns: No Anes - Eval Final PreProcedure Day of Procedure 07/20/24 10:54 Patient weight: normal Heart: regular rate and rhythm Lungs: clear to auscultation Airway: Mallampati scale class II Neurological: alert and oriented Last oral intake: >/= 8 hours ASA classification: III Emergent: no Anesthetic plan: proceed Anesthesia type and monitoring: general LMA and standard monitoring Results Review: All pre-operative results and documents have been reviewed as part of the pre- operative evaluation. Informed Consent: The patient's anesthetic plan and its attendant risks and benefits were discu ssed with the patient/family/POA. Questions were solicited and answers provided to the satisfaction of the patient/family/POA.
[2024-07-20] MEDS: BUPivacaine HCL 0.5% PF 30 ML VIAL INFILTRATE (11:47)
[2024-07-20] MEDS: LIDO 1%/EPINEPHRINE 1:100,000 50 ML VIAL INFILTRATE (11:47)
[2024-07-20] MEDS: ceFAZolin 2 GM/D5W 50 ML 2 GM/50 ML BAG IVPB (11:47)
[2024-07-20] MEDS: BACITRACIN OINTMENT 15 GM TUBE 1 APPLIC TOPICAL (11:47)
[2024-07-20 13:14] VITALS: BP 136/107; PULSE 83; RESP 16; TEMP 36.3; O2SAT 100
[2024-07-20 13:30] VITALS: BP 132/95; PULSE 79; RESP 13; O2SAT 100
[2024-07-20 13:45] VITALS: BP 137/66; PULSE 76; RESP 14; O2SAT 96
[2024-07-20 13:54] VITALS: BP 136/73; PULSE 75; RESP 16
[2024-07-20 14:24] VITALS: BP 122/59; PULSE 74; RESP 16
== END 2024-07-20 14:30 | disposition home or self-care (01) ==
PROVIDERS: PCP Family Medicine; Visit Provider Plastic Surgery
PROC: (CPT 64721; principal; 2024-07-20 11:15)
PROC: (CPT 64721; 2024-07-20 11:15)
DX: G56.02 Carpal tunnel syndrome, left upper limb (principal); G56.22 Lesion of ulnar nerve, left upper limb; M65.832 Other synovitis and tenosynovitis, left forearm; S63.592A Other specified sprain of left wrist, initial encounter; X58.XXXA Exposure to other specified factors, initial encounter; Z87.891 Personal history of nicotine dependence
CPT/HCPCS: 64721; 64718; 25320; 29846; 26145; 88304; A9270; J0690; J2004; J2405; J2704; J3010; J7030; J7120

== ENCOUNTER 2024-09-02 11:55 | Outpatient (CLI) | payer OTHER, SELFPAY ==
--- OUTSIDE RECORDS SUMMARY | 2024-09-02 12:01 | XMS_ITS | Clinical Summary ---
Author Organization [facility] Address [address] [place] [address] Phone Care Team Providers Care Portainer Operator Name Role Phone Paty Lloyd MD Primary Care Provider [phone] Allergies Active Allergy Reactions Criticality Noted Date [...] Comments Blood Pressure 126/75 03/06/2021 4:48 PM RECONCILIATION CLERK Pulse 86 03/06/2021 4:48 PM RECONCILIATION CLERK Temperature 36.8 C (98.3 F) 03/06/2021 4:48 PM RECONCILIATION CLERK Respiratory Rate 16 03/06/2021 4:48 PM RECONCILIATION CLERK Oxygen Saturation 97% 03/06/2021 4:48 PM RECONCILIATION CLERK Inhaled Oxygen Concentration - - Weight 83.9 kg (185 lb) 03/06/2021 4:48 PM RECONCILIATION CLERK Height 167.6 cm (5' 6) 03/06/2021 4:48 PM RECONCILIATION CLERK Body Mass Index 29.86 03/06/2021 4:48 PM RECONCILIATION CLERK Plan of Treatment Health Maintenance Due [...] patient's age to complete this topic [place] [place] [id number] Care Teams Portainer Operator Relationship Specialty Start Date End Date Paty Lloyd MD PCP - General Family Medicine 11/15/21
--- OUTSIDE RECORDS SUMMARY | 2024-09-02 12:01 | XMS_ITS | Clinical Summary ---
Author Organization [facility] Address [address] [place] [address] Care Team Providers Care Supervisor Advice Name Role Phone Paty Lloyd MD Primary Care Provider [phone] Source Comments [facility],non-owned Affiliates and Associated Physician Practices is amultiple site organization consisting of ambulatory clinics and hospital sitesin [place], [place], [place] and [place]. This disclosure is being madepursuant to the Care Everywhere program and may not contain all information available regarding this patient. Last updated 18.[facility] Allergies Active Allergy Reactions Criticality Noted Date [...] document. Alwaysverify current medications with the patient. levothyroxine (SYNTHROID) 137 MCG tablet Take 1 (one) tablet by mouth once daily 8 Active nitroGLYCERIN (NITROSTAT) 0.4 MG tablet Dissolve 1 (one) tablet under the tongue every 5 minutes as needed 0 Active aspirin buffered (BUFFERIN LOW DOSE) 81 MG tablet Take 1 (one) tablet by mouth once daily Active potassium chloride ER (KLOR-CON) 20 MEQ tablet Take 1 (one) tablet by mouth at bedtime [address] PO Take 1 tablet by mouth as needed Active traMADol (Ultram) 50 MG tablet Take 1 (one) tablet by mouth every 6 hours as needed for Pain 20 tablet 3 Active atorvastatin (Lipitor) 80 MG tablet Take 1 (one) tablet by mouth once daily 3 Active ranolazine ER 12hr (Ranexa) 1000 MG tablet Take 1 (one) tablet by mouth 2 times daily 3 Active meclizine (Antivert) 25 MG tablet TAKE 1 TABLET BY MOUTH 3 TIMES A DAY NEEDED FOR DIZZINESS 90 tablet 3 4 Active triamterene-hyd roCHLOROthiazid e (Dyazide) 37.5-25 MG capsule TAKE 2 CAPSULES BY MOUTH EVERY DAY 180 capsule 3 5 Active Active Problems Problem Noted Date Diagnosed Date 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 Patient advised to stop [facility] at a nausea as well as a rash could be from [facility]. She is to give me [...] a ear nose and throat physician at [facility] for management vertigo. Patient rise stationary [...] (01/10/2019): Added automatically from request for surgery [id number] Ulnar neuropathy of right upper extremity 2018 Overview (01/10/2019): Added automatically from request for surgery [id number] Carpal tunnel syndrome of right wrist 10/18/2018 Overview (07/19/2020): Added automatically from request for surgery [id number] Cubital tunnel syndrome on right 10/18/2018 Overview (07/19/2020): Added automatically from request for surgery [id number] Ulnar neuropathy of right upper extremity 2018 Overview (07/19/2020): Added automatically from request for surgery [id number] Right wrist pain 09/20/2018 Overview (01/10/2019): Last [...] (01/10/2019): Added automatically from request for surgery [id number] Median nerve compression in right forearm 2018 [...] back pain has improved she has been tjxi-bkv-pafzicc medications well as gabapentin. Also using a heating pad Low back pain without sciatica 12/05/2017 Overview (07/19/2020): Last Assessment & Plan: Patient continues to have back pain has improved she has been dyrr-ywn-emrcmsc medications well as gabapentin. Also using a [...] why she was the he moved to [facility]. EEG is pending. MRI brain without contrast [...] of neurotology and basilar skull surgery at [facility] in [place].. Patient can ambulate much better not had any further falls since she has been under his care medication changes were made. Principal medication for controlling her vertigo has triamterene 37.5/25 she had a total dietary change. Angina pectoris 03/03/2012 Overview (01/10/2019): Angina pectoris Last Assessment & Plan: Patient denies any angina symptoms for several years. Meniere's disease 05/14/1991 Encounters Date Type Department Care Team Description 07/30/2024 Refill [facility] - ENT [address] [place] [address] López Delvalle MD Refill Request from Last 3 Months Immunizations Immunization Administration Dates Next Due [place] primary monoval ent 12+ yr 0.3mL Purple [...] drink = 0.6 oz pur e alcohol) Comments No Sex and Gender Information Value Date Recorded Sex Assigned at Not on file Legal Sex Female 3:46 PM CDT Gender Identity Not on file Sexual Orientation Not on file Last Filed Vital Signs Vital Sign Reading Time Taken Comments Blood Pressure 127/80 02/16/2023 10:48 AM LEAN PROCESS DEPLOYMENT CONSULTANT Pulse 66 02/16/2023 10:48 AM LEAN PROCESS DEPLOYMENT CONSULTANT Temperature 36.9 C (98.4 F) 06/20/2022 12:25 PM LEAN PROCESS DEPLOYMENT CONSULTANT Respiratory Rate 22 06/20/2022 1:08 PM LEAN PROCESS DEPLOYMENT CONSULTANT Oxygen Saturation 96% 02/16/2023 10:48 AM LEAN PROCESS DEPLOYMENT CONSULTANT Inhaled Oxygen Concentration 21% 08/22/2020 5 :35 PM CDT Weight 82.6 kg (182 lb 3.2 oz) 02/16/2023 10:48 AM LEAN PROCESS DEPLOYMENT CONSULTANT Height 167.6 cm (5' 6) 02/16/2023 10:48 AM LEAN PROCESS DEPLOYMENT CONSULTANT Body Mass Index 29.41 02/16/2023 10:48 AM LEAN PROCESS DEPLOYMENT CONSULTANT Plan of Treatment Health Maintenance Due Date [...] 60-74 years 1-dose series) 2013 COVID-19 VACCINE ( season) 2023 03/04/2022, 01/06/2021, 06/26/2020, Additional history [...] this topic Medical Devices Implanted Type Area Assistant Department Manager Device Identifier Shelf Expiration Date Model / Serial / Lot Nucleus Cochlear Implant With Slim Straight Electrode Implanted:Qty: 1 on 06/20/2022 by López Delvalle MD at [facility] Other (Type not listed) Right: Ear [employer] 05/11/2024 [id number] / [id number] / Explanted Type Area Assistant Department Manager Device Identifier Shelf Expiration Date Model / Serial / Lot Cochlear Nucleus [id number] Cochlear Implant With Slim Straight Electrode Implanted:Qty: 1 on 05/29/2020 by López Delvalle MD at [facility] Explanted:Qty: 1 on 08/22/2020 by López Delvalle MD at [facility] Right: Ear Cochlear Assemblage 03/16/2022 [id number] / [id number] / Procedures Procedure Name Priority Date/Time Associated Diagnosis Comments BASIC METABOLIC PANEL (CALCIUM TOTAL) Routine 06/06/2022 11:15 AM LEAN PROCESS DEPLOYMENT CONSULTANT Pre-op evaluation from Last 3 Months or Most Recently Relevant to Health Maintenance Results * (ABNORMAL) BASIC METABOLIC PANEL (CALCIUM TOTAL) (06/06/2022 11:15 AM [facility]) BUN 23 7 - 26 mg/dL 06/06/2022 12:25 PM [facility] Creatinine 1.10(H) 0.56 - 0.96 mg/dL 06/06/2022 12:25 PM [facility] Sodium 140 136 - 145 mmol/L 06/06/2022 12:25 PM [facility] Potassium 3.5 3.5 - 4.5 mmol/L 06/06/2022 12:25 PM [facility] Chloride 105 98 - 107 mmol/L 06/06/2022 12:25 PM [facility] CO2 24 22 - 29 mmol/L 06/06/2022 12:25 PM [facility] Glucose 83 70 - 115 mg/dL 06/06/2022 12:25 PM [facility] Calcium 9.6 8.4 - 10.2 mg/dL 06/06/2022 12:25 PM [facility] Anion Gap 15 8 - 18 06/06/2022 12:25 PM [facility] BUN/Creatinine Ratio 21 7 - 23 06/06/2022 12:25 PM [facility] Osmolality Calculated 293 270 - 300 mOsm/kg 06/06/2022 12:25 PM [facility] eGFR by CKD-EPI 54(L) >=90 mL/min/1.7 3 m2 06/06/2022 12:25 PM [facility] Blood BLOOD SPECIMEN / Unknown Lab Venipuncture / Unknown 06/06/2022 11:15 AM LEAN PROCESS DEPLOYMENT CONSULTANT 06/06/2022 11:51 AM [facility] Aniya Betancur ENDOSCOPY NURSE-AIRPLANE INSPECTOR LAB - CHEMISTRY O RDERABLES Final Result [facility] [address] [place] [address], [facility] [phone] from Last 3 Months or Most Recently Relevant to Health Maintenance Insurance [facility] MEDICARE SELF PAY NO INSURANCE Member Subscriber Plan / Payer (Ef fective for All Dates) Name:CaRavenHanna E Member ID:Not on file Relation to Subscriber:Not on file Name:HANNA PENALOZA Subscriber ID:Not on file (Home) Address: [address] [place] [address] Payer ID:Not on file Group ID:Not on file Type:Self Pay Address: [place], [place] Care Teams Supervisor Advice Relationship Specialty Start Date End Date Paty Lloyd MD [address] [place] [address] PCP - General 08/24/21
--- OUTSIDE RECORDS SUMMARY | 2024-09-02 12:01 | XMS_ITS | Referral Summary ---
Author Organization [facility] Address [address] [place] [address] Care Team Providers Care Silk Screen Processor Name Role Phone Otto Maria DPM Unavailable [phone] Paty Lloyd MD Primary Care Provider + Encounters Date Type Department Care Team Description 08/12/2024 Orders Only [facility] Cardiology [address] [place] [phone] Travis Liu NP 08/12/2024 11:15 AM CDT Office Visit [facility] Cardiology [address] [place] [phone] Saima Jimenez MD Mixed hyperlipidemia (Primary Dx); Nonobstructive atherosclerosis of coronary artery 07/08/2024 3:20 PM CDT - 07/08/2024 11:59 PM CDT Hospital Encounter [facility] [address] [place] [address] Nontoxic multinodular goiter Discharge Disposition: Discharge to home or self care 06/06/2024 11:00 AM FORMAL WEAR RENTAL CLERK Office Visit [facility] Cardiology [address] [place] [address] Joana Chinchilla NP Atherosclerosis of [place] coronary artery without angina pectoris, unspecified whether the [place] or transplanted heart from Last 3 Months Allergies Active Allergy Reactions Criticality Noted Date Comments Codeine Hives Medium Erythromycin Nausea & Vomiting Low Severe abdominal cramps. Hydrocodone Hives Medium Latex Hives Medium 05/09/2020 Penicillins Hives Medium Prednisone Hives Medium Propoxyphene Hives Medium Medications aspirin (ASPIR-81) 81 mg tablet take 1 tablet by oral route every day 0 0 07/21/19 15 Active triamterene-hyd roCHLOROthiazid e (MAXZIDE,DYAZID E) 37.5-25 mg per tablet/capsule Take 2 tablet/capsule by mouth daily Active levothyroxine (SYNTHROID) 137 mcg tablet TAKE 1 TABLET BY MOUTH EVERY DAY 90 tablet 1 01/20/20 20 Active meclizine (ANTIVERT) 25 mg tablet Take 1 tablet (25 mg total) by mouth 3 (three) times a day as needed 12/28/19 20 Active traMADoL (ULTRAM) 50 mg tabletIndicatio ns:Closed fracture of distal end of left radius, unspecified fracture morphology, initial encounter Take 1 tablet (50 mg total) by mouth every 6 (six) hours as needed for pain P.r.n. pain not relieved by naproxen alone. Take with food. Take 500-650 mg of acetaminophen with each dose. Collaborating physician Ray Santiago MD 20 tablet 01/08/20 23 Active nitroglycerin (NITROSTAT) 0.4 mg SL tabletIndicatio ns:Chest pain, unspecified type PLACE 1 TABLET UNDER THE TONGUE EVERY 5 MINUTES NEEDED FOR CHEST PAIN. 25 tablet 10 06/04/19 24 Active acetaminophen (TYLENOL) 500 mg tablet Take 1 tablet (500 mg total) by mouth every 6 (six) hours as needed for pain Take with Tramadol Active naproxen (ALEVE) 220 mg tablet Take 1 tablet (220 mg total) by mouth every 6 (six) hours as needed for pain Active atorvastatin (LIPITOR) 80 mg tablet Take 1 tablet (80 mg total) by mouth daily 90 tablet 3 01/25/20 24 Active ranolazine ER (RANEXA) 1,000 mg 12 hr tabletIndicatio ns:Coronary artery disease involving the [place] coronary artery of [place] heart with other form of angina pectoris Take 1 tablet (1,000 mg total) by mouth 2 (two) times a day 180 tablet 3 04/27/19 25 Active ezetimibe (ZETIA) 10 mg tablet Take 1 tablet (10 mg total) by mouth daily 30 tablet 11 05/04/19 25 026 Active nitroglycerin (NITRODUR) 0.4 mg/hr Place 1 patch on the skin daily 30 patch 5 05/05/19 25 026 Active potassium chloride ER 20 mEq CR tablet TAKE 1 TABLET BY MOUTH EVERY DAY 90 tablet 2 07/28/19 25 Active alendronate (FOSAMAX) 70 mg tablet TAKE 1 TABLET BY MOUTH WEEKLY 05/04/19 24 025 Discontin ued(Héctor nt Reported) Active Problems Problem Noted Date Diagnosed Date Acute chest pain 08/04/2023 Closed fracture of left distal radius 01/07/2023 Abrasion of right elbow 01/07/2023 Abrasion of right knee 01/07/2023 Abrasion of left knee 01/07/2023 Unstable angina 07/10/2021 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 Chest pain 12/12/2019 Nonobstructive atherosclerosis of coronary arter y 12/12/2019 Pruritus 08/15/2019 Assessment & Plan (09/23/2019 5:29 PM CDT): Patient continues to have pruritus. She now tells me she is having nausea without vomiting. Symptoms have been going on approximately 2 months. Patient has no fever no chills no night sweats she has no weight loss. One occasion yesterday she had possible hot flash. 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 He all a G of her he neuritis and nausea unknown. A laboratory studies show some minor changes with her renal function creatinine 1.2 bicarb levels 21 anion gap of 16. Repeat CMP today were no liver function abnormalities on the last lab studies. TSH level to be done. Patient advised to stop [facility] at a nausea as well as a rash could be from [facility]. She is to give [...] 03/03/2019 Assessment & Plan (03/03/2019 12:51 PM FORMAL WEAR RENTAL CLERK): Patient filled jammed injured her right knee a few days ago x-rays negative for fracture dislocation some pain on range of motion no significant swelling or redness.. Anticipate full recovery. Patient advised she can continue working no further recommendations. Carpal tunnel syndrome of right wrist 10/18/2018 Overview (10/18/2018): Added automatically from request for surgery [id number] Cubital tunnel syndrome on right 10/18/2018 Overview (10/18/2018): Added automatically from request for surgery [id number] Ulnar neuropathy of right upper extremity 2018 Overview (10/18/2018): Added automatically from request for surgery [id number] Restless leg 07/22/2018 Assessment & Plan (01/29/2019 [...] medications. Assessment & Plan (05/24/2018 1:38 PM FORMAL WEAR RENTAL CLERK): . Blood pressure is very well control on hydrochlorothiazide/triamterene 37.5/25, he takes 1 tablet per day no change in therapy.. Low back pain without sciatica 12/05/2017 Assessment & Plan (06/30/2018 5:26 PM CDT): Patient continues to have back pain has improved she has been cuot-sgq-lsbgpyt medications well as gabapentin. Also using a [...] of neurotology and basilar skull surgery at [facility] in [place].. Patient can ambulate much better not had [...] 01/29/2019 Assessment & Plan (05/24/2018 1:29 PM FORMAL WEAR RENTAL CLERK): Patient complains of right foot pain for [...] 01/29/2019 Assessment & Plan (05/24/2018 1:31 PM FORMAL WEAR RENTAL CLERK): Patient complains of a constant thirst for [...] making arrangements. She is considering going to [place] to see a specialist who treats Meniere's disease only. She will check with insurance company for coverage regarding this referral who specialist. Assessment & Plan (08/02/2017 11:00 AM CDT): Patient has had 2 hospital admissions recently for some she is transferred from my office to the [facility] few days. Sec hospital admission was less [...] Also home hepatic product was purchase called ASHLEY BARK has been tried. Have no new [...] why she was the he moved to [facility]. EEG is pending. MRI brain without contrast shows no acute changes. Assessment & Plan (07/21/2017 4:52 PM CDT): Patient has a history of Meniere's disease over 20 years. Her impression that is becoming worse because of increased dizziness in on in inability to maintain her balance. [facility]ell [facility] days ago was seen emergency room [...] Gloria. Patient was sent to emergency room [facility] by ambulance. She was too unstable [...] a ear nose and throat physician at [facility] for management vertigo. Patient rise stationary bike at home for purposes of seeing in condition and helping her muscle tone and overall function. Assessment & Plan (12/05/2017 1:26 PM CDT): Patient's condition is greatly improved she is now Medicare Dr. Anuj Wooten political science chair of neurotology and skull lbase at [facility] in [place]. S physicians notes can be found under care everywhere in epic. Right sided weakness 020 Immunizations Immunization Administration [...] on file Legal Sex Female 11:59 AM FORMAL WEAR RENTAL CLERK Gender Identity Female 12/08/2020 9:18 AM CDT Sexual Orientation Straight 12/08/2020 9: 18 AM CDT Last Filed Vital Signs Vital Sign Reading Time Taken Comments Blood Pressure 124/72 08/12/2024 11:08 AM CDT Pulse 78 08/12/2024 11:08 AM CDT Temperature 36.3 C (97.3 F) 08/05/2023 3:45 PM CDT Respiratory Rate 19 08/05/2023 3:45 PM CDT Oxygen Saturation 98% 08/12/2024 11:08 AM CDT Inhaled Oxygen Concentration - - Weight 69.4 kg (153 lb) 08/12/2024 11:08 AM CDT Height 165.1 cm (5' 5) 08/12/2024 11:08 AM CDT Body Mass Index 25.46 08/12/2024 11:08 AM CDT Plan of Treatment Not on file Medical Devices Implanted Type Area Organisation And Methods Analyst Device Identifier Shelf Expiration Date Model / [...] 07/08/2024 4:04 PM CDT Nontoxic multinodular goiter LIPID PANEL Routine 06/25/2024 11:45 AM CDT SCREENING MAMMOGRAM BILATERAL W ROBIN Schedule Routine, [...] completely solid (2) Echogenicity: Hypoechoic (2) Shape: Vawds-xker-zpwv (0) Margin: Smooth (0) Echogenic Foci: None [...] completely solid (2) Echogenicity: Hyperechoic (1) Shape: Kptmw-uioo-xdfu (0) Margin: Smooth (0) Echogenic Foci: None (0) Total Points: 3 TI-RADS Score: 3: TR3 Mildly suspicious FNA if 2.5 cm or greater; US follow up at 1, 3, and 5 years if 1.5 cm or greater Nodule # 3 Size: 1.0 x 0.5 x 0.9 cm Location: Left mid thyroid Composition: Solid or almost completely solid (2) Echogenicity: Hyperechoic (1) Shape: Iwajx-sogs-sfrm (0) Margin: Smooth (0) Echogenic Foci: None [...] Soto Pereira M.D. NS: PLACIDO Report ID: [id number] Reading Location: [place] [address] Procedure Note Soto Pereira MD - 07/15/2024 [...] completely solid (2) Echogenicity: Hypoechoic (2) Shape: Vduex-feab-fvoa (0) Margin: Smooth (0) Echogenic Foci: None [...] completely solid (2) Echogenicity: Hyperechoic (1) Shape: Rrnon-rkwf-opwg (0) Margin: Smooth (0) Echogenic Foci: None (0) Total Points: 3 TI-RADS Score: 3: TR3 Mildly suspicious FNA if 2.5 cm or greater; US follow up at 1, 3, and 5 years if 1.5 cm or greater Nodule # 3 Size: 1.0 x 0.5 x 0.9 cm Location: Left mid thyroid Composition: Solid or almost completely solid (2) Echogenicity: Hyperechoic (1) Shape: Qozms-tolt-achb (0) Margin: Smooth (0) Echogenic Foci: None [...] Soto Pereira M.D. NS: NS Report ID: [id number] Reading Location: [id number] us Not In File Miscellaneous IMG US PROCEDURES Suzie l Result * Lipid panel (06/25/2024 11:45 AM CDT) Blood us Travis Liu NP LAB BLOOD ORDERABLES Final Res ult * Screening Mammogram Bilateral W Robin (12/30/2023 [...] with given history of: Z78.0 Screening. Postmenopausal Organisation And Methods Analyst/Model: [employer] SL (S/N 22296) CLINICAL INFORMATION: Current height: 66 inches Maximum [...] Ian Blanchard M.D. MF: MCKENZIE Report ID: [id number] Reading Location: [id number] Procedure Note Ian Blanchard MD - 12/11/2022 EXAM DESCRIPTION: DEXA AXIAL SKELETON BONE DENSITY 1 OR MORE SITES REASON FOR STUDY: 67 y/o year old F with given history of: Z78.0 Screening. Postmenopausal Organisation And Methods Analyst/Model: [employer] SL (S/N 11400) CLINICAL INFORMATION: Current height: 66 inches Maximum [...] Ian Blanchard M.D. MF: MCKENZIE Report ID: [id number] Reading Location: [place] [address] us Paty Lloyd MD IMG DXA PROCEDURES Final Result * Hepatitis C antibody (07/03/2016 12:57 PM CDT) SIGNAL TO CUT-OFF 0.01 <1.00 [facility] RES[facility] Comment: Test performed at [employer] [address] [place] [address] Director: LINDA EDWARDS DO,MPH Hep C Ab NON-REACT WHITLEY NON-REACT WHITLEY [facility]OR[facility] RESULTS 07/03/2016 12:5 7 PM CDT us Linda Ng MD LAB MICROBIOLOGY - GENERAL ORDERABLES Final Result [facility] RESULTS from Last 3 Months or Most Recently Relevant to Health Maintenance [place] [address] MEDICARE [facility] HEALTHCARE MEDICARE IDKS [facility] HEALTHCARE WORKERS COMPENSATION GENERIC Advance Directives For more information, please contact: [phone] * Full Code (Latest Code Status on File) Date Activated Date Inactivated Comments 08/04/2023 11:11 AM 08/05/2023 8:51 PM * Full Code Date Activated Date Inactivated Comments 07/10/2021 8:08 PM 07/11/2021 9:59 PM * Full Code Date Activated Date Inactivated Comments 07/21/2017 9:18 PM 07/23/2017 8:40 PM Healthcare Agents on File Name Relationship Healthcare Agent [facility] Communication Ivett Magallon Daughter Health Care Agent Maldonado Han Son Second Alternate Health Car e Agent Care Teams Silk Screen Processor Relationship Specialty Start Date End Date Paty Lloyd MD [address] [facility] [place] [address] PCP - General Family Medicine 04/27/24 Otto Maria DPM [address] [place] [address] Consulting Physician Orthotics 04/25/22
--- OUTSIDE RECORDS SUMMARY | 2024-09-02 12:01 | XMS_ITS | Clinical Summary ---
Author Organization [facility] Address [address] [place] [address] Care Team Providers Care Jewelry Estimator Name Role Phone Otto Maria DPM Unavailable [phone] Paty Lloyd MD Primary Care Provider + [...] 12 hr tabletIndicatio ns:Coronary artery disease involving seneca coronary artery of seneca heart with other form of angina pectoris [...] BY MOUTH WEEKLY 05/04/19 24 025 Discontin ued(Patie nt Reported) Active Problems Problem Noted Date Diagnosed Date Acute chest pain 08/04/2023 Closed fracture of left distal radius 01/07/2023 Abrasion of right elbow 01/07/2023 Abrasion of right knee 01/07/2023 Abrasion of left knee 01/07/2023 Unstable angina 07/10/2021 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 Patient advised to stop [facility] at a nausea as well as a rash could be from [facility]. She is to give [...] 03/03/2019 Assessment & Plan (03/03/2019 12:51 PM APPLIANCE ASSEMBLER): Patient filled jammed injured her right knee a few days ago x-rays negative for fracture dislocation some pain on range of motion no significant swelling or redness.. Anticipate full recovery. Patient advised she can continue working no further recommendations. Carpal tunnel syndrome of right wrist 10/18/2018 Overview (10/18/2018): Added automatically from request for surgery [id number] Cubital tunnel syndrome on right 10/18/2018 Overview (10/18/2018): Added automatically from request for surgery [id number] Ulnar neuropathy of right upper extremity 2018 Overview (10/18/2018): Added automatically from request for surgery [id number] Restless leg 07/22/2018 Assessment & Plan (01/29/2019 [...] medications. Assessment & Plan (05/24/2018 1:38 PM APPLIANCE ASSEMBLER): . Blood pressure is very well control on hydrochlorothiazide/triamterene 37.5/25, he takes 1 tablet per day no change in therapy.. Low back pain without sciatica 12/05/2017 Assessment & Plan (06/30/2018 5:26 PM CDT): Patient continues to have back pain has improved she has been erkd-nwg-iggnsrt medications well as gabapentin. Also using a [...] of neurotology and basilar skull surgery at [facility] in [place].. Patient can ambulate much better not had any further falls since she has been under his care medication changes were made. Principal medication for controlling her vertigo has triamterene 37.5 she had a total dietary change. Assessment [...] new psychiatrist she is seeing Dr. Penny Kent injuries Advil at this time. She has had 1 [...] 01/29/2019 Assessment & Plan (05/24/2018 1:29 PM APPLIANCE ASSEMBLER): Patient complains of right foot pain for [...] 01/29/2019 Assessment & Plan (05/24/2018 1:31 PM APPLIANCE ASSEMBLER): Patient complains of a constant thirst for [...] making arrangements. She is considering going to [place] to see a specialist who treats Meniere's disease only. She will check with insurance company for coverage regarding this referral who specialist. Assessment & Plan (08/02/2017 11:00 AM CDT): Patient has had 2 hospital admissions recently for some she is transferred from my office to the [facility] stated few days. Sec hospital admission [...] why she was the he moved to [facility] ER. EEG is pending. MRI brain without contrast shows no acute changes. Assessment & Plan (07/21/2017 4:52 PM CDT): Patient has a history of Meniere's disease over 20 years. Her impression that is becoming worse because of increased dizziness in on in inability to maintain her balance. [facility] was seen emergency room [...] Gloria. Patient was sent to emergency room [facility] by ambulance. She was too unstable [...] a ear nose and throat physician at [facility] for management vertigo. Patient rise stationary bike at home for purposes of seeing in condition and helping her muscle tone and overall function. Assessment & Plan (12/05/2017 1:26 PM CDT): Patient's condition is greatly improved she is now Medicare Dr. Anuj Wooten management department chair of neurotology and skull lbase at [facility] in [place]. S physicians notes can be found under care everywhere in [facility]. Right sided weakness 020 Encounters Date Type Department Care Team Description 08/12/2024 11:15 AM CDT Office Visit [facility] Medical [facility] Cardiology [address] [place] [address] Saima Jimenez MD Mixed hyperlipidemia (Primary Dx); Nonobstructive atherosclerosis of coronary artery 08/12/2024 Orders Only [facility] Medical [facility] Cardiology [address] [place] [address] Travis Liu NP 07/08/2024 3:20 PM CDT - 07/08/2024 11:59 PM CDT Hospital Encounter [facility] [address] [place] [address] Nontoxic multinodular goiter Discharge Disposition: Discharge to home or self care 06/06/2024 11:00 AM APPLIANCE ASSEMBLER Office Visit [facility] Medical Group Cardiology [address] [place] [address] Joana Chinchilla NP Atherosclerosis of seneca coronary artery without angina pectoris, unspecified whether seneca or transplanted heart from Last 3 Months Immunizations Immunization Administration [...] Hx Other Medical Vertigo Myocardial infarction (HCC) 2012 Seizure disorder (HCC) Seizure d isorder, last one 2014 Coronary artery disease Bipolar depression (HCC) CAD [...] on file Legal Sex Female 11:59 AM APPLIANCE ASSEMBLER Gender Identity Female 12/08/2020 9:18 AM CDT [...] 08/12/2024 11:08 AM CDT Plan of Treatment Health Maintenance Due Date Last Done Comments Colon Cancer Screening-Colonoscopy 1955 DTaP/Tdap/Td Vaccine (1 - Tdap) 1964 Hepatitis B Screening 1971 Zoster Vaccine (1 of 2) 2003 Depression Screening 01/28/2020 01/27/2019, 01/15/20 18 Well Visit 65+ 01/28/2020 01/27/2019, 01/14/2018 Covid-19 [...] 12/31/2018, 12/12/2018 Medical Devices Implanted Type Area Administrative Appeals Tribunal Member Device Identifier Shelf Expiration Date Model / [...] completely solid (2) Echogenicity: Hypoechoic (2) Shape: Ajcqj-gmmb-ykoq (0) Margin: Smooth (0) Echogenic Foci: None [...] completely solid (2) Echogenicity: Hyperechoic (1) Shape: Upkux-wqko-yzwa (0) Margin: Smooth (0) Echogenic Foci: None (0) Total Points: 3 TI-RADS Score: 3: TR3 Mildly suspicious FNA if 2.5 cm or greater; US follow up at 1, 3, and 5 years if 1.5 cm or greater Nodule # 3 Size: 1.0 x 0.5 x 0.9 cm Location: Left mid thyroid Composition: Solid or almost completely solid (2) Echogenicity: Hyperechoic (1) Shape: Hvukw-uozb-bjxv (0) Margin: Smooth (0) Echogenic Foci: None [...] Soto Pereira M.D. NS: PLACIDO Report ID: [id number] Reading Location: [id number] Procedure Note Soto Pereira MD - 07/15/2024 [...] completely solid (2) Echogenicity: Hypoechoic (2) Shape: Zgzaj-pdfm-pdrk (0) Margin: Smooth (0) Echogenic Foci: None [...] completely solid (2) Echogenicity: Hyperechoic (1) Shape: Gafcf-tgtu-ypyj (0) Margin: Smooth (0) Echogenic Foci: None (0) Total Points: 3 TI-RADS Score: 3: TR3 Mildly suspicious FNA if 2.5 cm or greater; US follow up at 1, 3, and 5 years if 1.5 cm or greater Nodule # 3 Size: 1.0 x 0.5 x 0.9 cm Location: Left mid thyroid Composition: Solid or almost completely solid (2) Echogenicity: Hyperechoic (1) Shape: Diiev-ztvl-cevt (0) Margin: Smooth (0) Echogenic Foci: None [...] Soto Pereira M.D. NS: NS Report ID: [id number] Reading Location: [place] [address] us Not In File Miscellaneous IMG US [...] her next mammogram. Electronically signed by: TRAMAINE Hill 12/30/2023 1:24 PM CDT EXAMINATION: SCREENING MAMMOGRAM [...] with given history of: Z78.0 Screening. Postmenopausal Administrative Appeals Tribunal Member/Model: [email or web address] Discovery SL (S/N [id number]) CLINICAL INFORMATION: Current height: 66 inches Maximum [...] Ian Blanchard M.D. MF: MCKENZIE Report ID: [id number] Reading Location: [place] [address] Procedure Note Ian Blanchard MD - 12/11/2022 EXAM DESCRIPTION: DEXA AXIAL SKELETON BONE DENSITY 1 OR MORE SITES REASON FOR STUDY: 67 y/o year old F with given history of: Z78.0 Screening. Postmenopausal Administrative Appeals Tribunal Member/Model: [email or web address] Discovery SL (S/N [id number]) CLINICAL INFORMATION: Current height: 66 inches Maximum [...] Ian Blanchard M.D. MF: MCKENZIE Report ID: [id number] Reading Location: [place] [address] us Paty Lloyd MD IMG DXA PROCEDURES Final Result * Hepatitis C antibody (07/03/2016 12:57 PM CDT) [facility] SIGNAL TO CUT-OFF 0.01 <1.00 [facility] HISTORICAL RESULTS Comment: [facility] performed at [facility] [address] [place] [address] Director: LINDA EDWARDS DO,MPH Hep C Ab NON-REACT WHITLEY NON-REACT WHITLEY [facility] HISTORICAL RESULTS 07/03/2016 12:5 7 PM CDT us Linda Ng MD LAB MICROBIOLOGY - GENERAL ORDERABLES Final Result [facility] HISTORICAL RESULTS from Last 3 Months or Most Recently Relevant to Health Maintenance Insurance MEDICARE [facility] MEDICARE [facility] WORKERS COMPENSATION GENERIC Advance Directives For more information, please contact: [phone] * Full Code (Latest Code Status on File) Date Activated Date Inactivated Comments 08/04/2023 11:11 AM 08/05/2023 8:51 PM * Full Code Date Activated Date Inactivated Comments 07/10/2021 8:08 PM 07/11/2021 9:59 PM * Full Code Date Activated Date Inactivated Comments 07/21/2017 9:18 PM 07/23/2017 8:40 PM Healthcare Agents on File Name Relationship Healthcare Agent [facility] p Communication Ivett Magallon Daughter Health Care Agent Maldonado Han Son Second Alternate Health Car e Agent Care Teams Jewelry Estimator Relationship Specialty Start Date End Date Paty Lloyd MD [facility] [place] [address] PCP - General Family Medicine 04/27/24 Otto Maria DPM [address] [place] [address] Consulting Physician Orthotics 04/25/22
--- NOTE | 2024-09-02 12:40 | PC.NURSE ---
Report to the Outpatient Waiting Room, entrance under the green pavilion located off [facility], at time ___6:00AM____ on date ___09/14/24____. Planned Procedure Time: ___7:30AM .? Time changes happen often and if your time is changed the preop area will call you the afternoon before. - You and your visitor will be asked to self-screen and do not enter if you have any COVID symptoms. Please call surgeon if you need to reschedule. - A mask is optional within the hospital at this time. Patients may have clear liquids (water, carbonated beverages, clear teas, apple juice) until 3 hours prior to surgery (4:30AM) with a maximum of 20 ounces. - No food from midnight until time of surgery and no smoking, or chewing tobacco (or any form of nicotine). No chewing gum, candy or mints. Take only the following medications with a SIP of water on the morning of surgery: ___LEVOTHYROXINE, RANOLAZINE, NITRO PATCH. MAY TAKE MECLIZINE AND TRAMADOL NEEDED. DO NOT STOP ANY OF YOUR OTHER PRESCRIPTION MEDICATIONS PRIOR TO SURGERY EXCEPT THE FOLLOWING Hold all vitamins and supplements for 3 days per anesthesiologist. Medications to discontinue per physician ____HOLD ASPIRIN & NAPROXEN (NSAIDS) 7 DAYS PRE-OP PER DR CÁRDENAS. Date to take last dose 09/06/24 Please no make-up, nail yakut, hairspray, perfume, deodorant, or body powder the day of surgery.? No jewelry (including any body piercings) or valuables the day of surgery, leave them at home.? Please take a shower or bath the night before, or the morning of, surgery with an antibacterial soap.? Wear comfortable, loose fitting clothing.? - Jewelry must be removed prior to entering the operating room.? Rings and piercings that are not removed may be cut off. - The hospital will not accept responsibility for valuables.? - Please leave all valuables, including medications, at home the day of surgery. If you are going home after surgery, a licensed milk pickup driver must drive you home.? - NO public transportation without another adult if you receive anesthesia. - We recommend that an adult stay with you for 24 hours following discharge. - We also recommend that you do not drive, make important decision, drink alcoholic beverages, or take any drugs that were not prescribed by your health care provider for at least 24 hours after your discharge time. Follow any additional instructions given to you from your surgeon. Telephone instructions given to ____PATIENT and asked if any additional questions and then verbalized understanding. Patient advised to call surgeon office or pre surgery nurse liaison [phone] if any additional questions.
[2024-09-02 14:04] LABS: Basophils Absolute Auto 0.1 K/mm3 (0.0-0.1); Basophils Percent Auto 0.8 % (0.2-1.2); Eosinophils Absolute Auto 0.2 K/mm3 (0-0.3); Eosinophils Percent Auto 3.2 % (0-4.4); Hematocrit 41.1 % (37.0-47.0); Hemoglobin 13.2 g/dL (12.0-15.0); Immature Granulocyte Absolute 0.01 K/mm3 (0.00-0.031); Immature Granulocyte Percent A 0.2 % (0-0.5); Lymphocytes Absolute Auto 0.84 K/mm3 (0.9-3.2); Lymphocytes Percent Auto 14.1 % (18.3-44.2); Mean Corpuscular HGB Conc 32.1 g/dl (32-36); Mean Corpuscular Volume 96.5 fl (80-100); Mean Platelet Volume 9.7 fl (7.4-10.4); Monocytes Absolute Auto 0.8 K/mm3 (0.1-0.6); Monocytes Percent Auto 13.8 % (2.6-8.5); Neutrophils Percent Auto 67.9 % (45.5-73.1); Platelet Count Result 287 k/mm3 (150-375); Red Blood Count 4.26 M/mm3 (4.2-5.4); Red Cell Distribution Width 13.3 % (11.5-14.5); White Blood Count 5.9 K/mm3 (4.5-10.0)
[2024-09-02 14:20] LABS: Albumin Level 4.2 g/dL (3.5-5.1); Anion Gap 8 mmol/L (4-12); Blood Urea Nitrogen 23 mg/dL (7-17); Calcium 9.2 mg/dL (8.4-10.2); Carbon Dioxide 28 mmol/L (22-30); Chloride 100 mmol/L (98-107); Estimated Glomerular Filt Rate 48; Glucose 88 mg/dL (65-110); Sodium 136 mmol/L (137-145); Urine Cotinine NEGATIVE
[2024-09-02 14:31] LABS: Add Urine Microscopic? YES; Appearance Urine Clear (Clear); Bacteria Urine 4+ /hpf; Bilirubin Urine Negative (Negative); Blood Urine Negative (Negative); Color Urine Yellow (Yellow); Glucose Urine UA Negative (Negative); Ketones Urine Negative (Negative); Leukocyte Esterase Ur 2+ LEU/UL (Negative); Need Manual Microscopic Reviewed; Nitrate Urine Negative (Negative); Non Pathogenic Casts 0-2; Protein Urine Negative (Negative); RBC Urine 0-2 /hpf (0-2); Specific Grav Ur 1.017 (1.001-1.035); Squamous Epithelial Cell Urine None Seen /hpf (Few); WBC Urine 21-50 /hpf (0-3)
[2024-09-02 15:17] LABS: MRSA (PCR) NOT DETECTED (NOT DETECTE)
[2024-09-02 17:13] LABS: Hemoglobin A1C 5.3 % (<5.7)
== END 2024-09-02 11:56 | disposition home or self-care (01) ==
PROVIDERS: PCP Family Medicine; Visit Provider Orthopaedic Surgery
DX: Z01.812 Encounter for preprocedural laboratory examination (principal); M16.12 Unilateral primary osteoarthritis, left hip
CPT/HCPCS: 80048; 80307; 81001; 82040; 83036; 85025; 86850; 86900; 86901; 87077; 87086; 87186; 87641

== ENCOUNTER 2024-09-13 13:01 | Outpatient (CLI) | payer OTHER, SELFPAY ==
--- OUTSIDE RECORDS SUMMARY | 2024-09-13 13:18 | XMS_ITS | Clinical Summary ---
Author Organization [facility] Address [address] [place] [address] Care Team Providers Care Wallpaper Remover Steam Name Role Phone Otto Maria DPM Unavailable [phone] Paty Lloyd MD Primary Care Provider + [...] 12 hr tabletIndicatio ns:Coronary artery disease involving yavapai-apache coronary artery of yavapai-apache heart with other form of angina pectoris Take 1 tablet (1,000 mg total) by mouth 2 (two) times a day 180 tablet 3 5 Active ezetimibe (ZETIA) 10 mg tablet Take 1 tablet (10 mg total) by mouth daily 30 tablet 11 5 026 Active nitroglycerin (NITRODUR) 0.4 mg/hr Place 1 patch on the skin daily 30 patch 5 5 026 Active potassium chloride ER 20 mEq CR tablet TAKE 1 TABLET BY MOUTH EVERY DAY 90 tablet 2 5 Active Active Problems Problem Noted Date Diagnosed Date Acute chest pain 08/04/2023 Closed fracture of left distal radius 01/07/2023 Abrasion of right elbow 01/07/2023 Abrasion of right knee 01/07/2023 Abrasion of left knee 01/07/2023 Unstable angina 07/10/2021 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 She is to give me a progress [...] 03/03/2019 Assessment & Plan (03/03/2019 12:51 PM CREAM GATHERER): Patient filled jammed injured her right knee a few days ago x-rays negative for fracture dislocation some pain on range of motion no significant swelling or redness.. Anticipate full recovery. Patient advised she can continue working no further recommendations. Carpal tunnel syndrome of right wrist 10/18/2018 Overview (10/18/2018): Added automatically from request for surgery [id number] Cubital tunnel syndrome on right 10/18/2018 Overview (10/18/2018): Added automatically from request for surgery [id number] Ulnar neuropathy of right upper extremity 2018 Overview (10/18/2018): Added automatically from request for surgery [id number] Restless leg 07/22/2018 Assessment & Plan (01/29/2019 [...] medications. Assessment & Plan (05/24/2018 1:38 PM CREAM GATHERER): . Blood pressure is very well control on hydrochlorothiazide/triamterene 37.5, he takes 1 tablet per day no change in therapy.. Low back pain without sciatica 12/05/2017 Assessment & Plan (06/30/2018 5:26 PM CDT): Patient continues to have back pain has improved she has been rvix-cff-lnwrjqd medications well as gabapentin. Also using a [...] neurotology and basilar skull surgery at [facility] in [place].. Patient can ambulate much better not had [...] no headache problems patient advised of notify lose the changes. She also needs update of [...] 01/29/2019 Assessment & Plan (05/24/2018 1:29 PM CREAM GATHERER): Patient complains of right foot pain for [...] 01/29/2019 Assessment & Plan (05/24/2018 1:31 PM CREAM GATHERER): Patient complains of a constant thirst for [...] making arrangements. She is considering going to [place] to see a specialist who treats Meniere's disease only. She will check with insurance company for coverage regarding this referral who specialist. Assessment & Plan (08/02/2017 11:00 AM CDT): Patient has had 2 hospital admissions recently for some she is transferred from my office to the [facility] stated few days. Sec hospital admission was [...] Also home hepatic product was purchase called [id number] BARK has been tried. Have no new [...] why she was the he moved to [facility] ER. EEG is pending. MRI brain without contrast shows no acute changes. Assessment & Plan (07/21/2017 4:52 PM CDT): Patient has a history of Meniere's disease over 20 years. Her impression that is becoming worse because of increased dizziness in on in inability to maintain her balance. Fell at [facility] 3 days ago was seen emergency room [...] Gloria. Patient was sent to emergency room [facility] by ambulance. She was too unstable to [...] ear nose and throat physician at [facility] for management vertigo. Patient rise stationary bike at home for purposes of seeing in condition and helping her muscle tone and overall function. Assessment & Plan (12/05/2017 1:26 PM CDT): Patient's condition is greatly improved she is now Medicare Dr. Anuj Wooten social studies department chair of neurotology and skull lbase at [facility] in [place]. physicians notes can be found under care everywhere in [facility]. Right sided weakness 020 Encounters Date Type Department Care Team Description 08/12/2024 11:15 AM CDT Office Visit [facility] Medical Group Cardiology [address] [place] [address] Saima Jimenez MD Mixed hyperlipidemia (Primary Dx); Nonobstructive atherosclerosis of coronary artery 08/12/[address] [facility] Medical [facility] Cardiology [address] [place] [phone] Travis Liu NP 07/08/2024 3:20 PM CDT - 07/08/2024 11:59 PM CDT Hospital Encounter [facility] [address] [place] [address] Nontoxic multinodular goiter Discharge Disposition: Discharge to home or self care from Last 3 Months Immunizations Immunization Administration [...] on file Legal Sex Female 11:59 AM CREAM GATHERER Gender Identity Female 12/08/2020 9:18 AM CDT [...] 12/31/2018, 12/12/2018 Medical Devices Implanted Type Area Parking Line Painter Device Identifier Shelf Expiration Date Model / [...] completely solid (2) Echogenicity: Hypoechoic (2) Shape: Gebdt-vjkm-xbkp (0) Margin: Smooth (0) Echogenic Foci: None [...] completely solid (2) Echogenicity: Hyperechoic (1) Shape: Ippsx-kqqj-hkvm (0) Margin: Smooth (0) Echogenic Foci: None (0) Total Points: 3 TI-RADS Score: 3: TR3 Mildly suspicious FNA if 2.5 cm or greater; US follow up at 1, 3, and 5 years if 1.5 cm or greater Nodule # 3 Size: 1.0 x 0.5 x 0.9 cm Location: Left mid thyroid Composition: Solid or almost completely solid (2) Echogenicity: Hyperechoic (1) Shape: Fmmcl-fnix-ujab (0) Margin: Smooth (0) Echogenic Foci: None [...] Soto Pereira M.D. NS: NS Report ID: [id number] Reading Location: [id number] Procedure Note Soto Pereira MD - 07/15/2024 [...] completely solid (2) Echogenicity: Hypoechoic (2) Shape: Hwupm-qunm-tuex (0) Margin: Smooth (0) Echogenic Foci: None [...] completely solid (2) Echogenicity: Hyperechoic (1) Shape: Zuopj-dmvu-kcis (0) Margin: Smooth (0) Echogenic Foci: None (0) Total Points: 3 TI-RADS Score: 3: TR3 Mildly suspicious FNA if 2.5 cm or greater; US follow up at 1, 3, and 5 years if 1.5 cm or greater Nodule # 3 Size: 1.0 x 0.5 x 0.9 cm Location: Left mid thyroid Composition: Solid or almost completely solid (2) Echogenicity: Hyperechoic (1) Shape: Xhyqi-exic-wnyo (0) Margin: Smooth (0) Echogenic Foci: None [...] Soto Pereira M.D. NS: NS Report ID: [id number] Reading Location: [id number] us Not In File Miscellaneous IMG US [...] with given history of: Z78.0 Screening. Postmenopausal Parking Line Painter/Model: BitX SL (S/N [id number]) CLINICAL INFORMATION: Current height: 66 inches Maximum [...] Ian Blanchard M.D. MF: MCKENZIE Report ID: [id number] Reading Location: [place] [address] Procedure Note Ian Blanchard MD - 12/11/2022 EXAM DESCRIPTION: DEXA AXIAL SKELETON BONE DENSITY 1 OR MORE SITES REASON FOR STUDY: 67 y/o year old F with given history of: Z78.0 Screening. Postmenopausal Parking Line Painter/Model: BitX SL (S/N [id number]) CLINICAL INFORMATION: Current height: 66 inches Maximum [...] Ian Blanchard M.D. MF: MCKENZIE Report ID: [id number] Reading Location: [place] [address] us Paty Lloyd MD IMG DXA PROCEDURES Final Result * Hepatitis C antibody (07/03/2016 12:57 PM CDT) SIGNAL TO CUT-OFF 0.01 <1.00 [facility] HISTORICAL RESULTS Comment: [facility] [employer] [facility] [address] [place] [address] Director: LINDA EDWARDS DO,MPH Hep C Ab NON-REACT WHITLEY NON-REACT WHITLEY [facility] HISTORICAL RESULTS 07/03/2016 12:5 7 PM CDT us Linda Ng MD LAB MICROBIOLOGY - GENERAL ORDERABLES Final Result [facility] HISTORICAL RESULTS from Last 3 Months or Most Recently Relevant to Health Maintenance Insurance MEDICARE [facility] MEDICARE [facility] WORKERS COMPENSATION GENERIC Advance Directives For more information, please contact: [phone] * Full Code (Latest Code Status on File) Date Activated Date Inactivated Comments 08/04/2023 11:11 AM 08/05/2023 8:51 PM * Full Code Date Activated Date Inactivated Comments 07/10/2021 8:08 PM 07/11/2021 9:59 PM * Full Code Date Activated Date Inactivated Comments 07/21/2017 9:18 PM 07/23/2017 8:40 PM Healthcare Agents on File Name Relationship Healthcare Agent Relationshi p Communication Ivett Sherita Daughter Health Care Agent Maldonado Han Son Second Alternate Health Car e Agent Care Teams Wallpaper Remover Steam Relationship Specialty Start Date End Date Paty Lloyd MD [address] [facility] [place] [address] PCP - General Family Medicine 04/27/24 Otto Maria DPM [address] [place] [address] Consulting Physician Orthotics 04/25/22
--- OUTSIDE RECORDS SUMMARY | 2024-09-13 13:18 | XMS_ITS | Clinical Summary ---
Author Organization [facility] Address [address] [place] [address] Phone Care Team Providers Care Machine Former Name Role Phone Paty Lloyd MD Primary [...] Comments Blood Pressure 126/75 03/06/2021 4:48 PM ACCOUNT MANAGER B2B Pulse 86 03/06/2021 4:48 PM ACCOUNT MANAGER B2B Temperature 36.8 C (98.3 F) 03/06/2021 4:48 PM ACCOUNT MANAGER B2B Respiratory Rate 16 03/06/2021 4:48 PM ACCOUNT MANAGER B2B Oxygen Saturation 97% 03/06/2021 4:48 PM ACCOUNT MANAGER B2B Inhaled Oxygen Concentration - - Weight 83.9 kg (185 lb) 03/06/2021 4:48 PM ACCOUNT MANAGER B2B Height 167.6 cm (5' 6) 03/06/2021 4:48 PM ACCOUNT MANAGER B2B Body Mass Index 29.86 03/06/2021 4:48 PM ACCOUNT MANAGER B2B Plan of Treatment Health Maintenance Due Date Last Done Comments Hepatitis C Virus (HCV) Screening 1955 TdaP Immunization 1955 Colonoscopy 1998 Colorectal Cancer Screening 1998 Cologuard 2003 Immunochemical Fecal Occult Blood 2003 Zoster Immunization (1 of 2) 2003 Pneumococcal Immunization (50+ years) (2 of 2 - PPSV23) 01/01/2020 12/31/2018, 12/12/2018 SARS-COV-2 Immunization ( - season) 2023 01/06/2021, 06/26/2020, 06/05/2020 Influenza Immunization (Season Ended) 2024 01/06/2021, 12/31/2018, 12/12/2018, Additional history exists Respiratory Syncytial Virus (RSV) Immunization (Adult) (1 - 1-dose 75+ series) 2028 Pneumococcal Immunization Combined Discontinued 12/31/2018, 12/12/2018 Hepatitis B Immunization Aged Out No longer eligible based on patient's age to complete this topic Human Papillomavirus (HPV) Immunization Aged Out No longer eligible based on patient's age to complete this topic Meningococcal Immunization (ACWY) Aged Out No longer eligible based on patient's age to complete this topic Rotavirus Immunization Aged Out No lo nger eligible based on patient's age to complete this topic Insurance MEDICARE C [employer] Care Teams Machine Former Relationship Specialty Start Date End Date Paty Lloyd MD PCP - General Family Medicine 11/15/21
--- OUTSIDE RECORDS SUMMARY | 2024-09-13 13:18 | XMS_ITS | Clinical Summary ---
Author Organization [facility] Address [address] [place] [address] Care Team Providers Care Rag Cutting Machine Tender Name Role Phone Paty Lloyd MD Primary Care Provider [phone] Source Comments [facility],non-owned Affiliates and Associated Physician Practices is amultiple site organization consisting of ambulatory clinics and hospital sitesin [place], [place], [place] and [place]. This disclosure is being madepursuant to the Care Everywhere program and may not contain all information available regarding this patient. Last updated 18.[facility] Allergies Active Allergy Reactions Criticality Noted Date [...] (07/19/2020): Added automatically from request for surgery [id number] Pain in left leg 01/09/2020 Pain in [...] well as a rash could be from [facility]. She is to give me a progress [...] a ear nose and throat physician at [facility] for management vertigo. Patient [...] (01/10/2019): Added automatically from request for surgery [id number] Ulnar neuropathy of right upper extremity 2018 Overview (01/10/2019): Added automatically from request for surgery [id number] Carpal tunnel syndrome of right wrist 10/18/2018 Overview (07/19/2020): Added automatically from request for surgery [id number] Cubital tunnel syndrome on right 10/18/2018 Overview (07/19/2020): Added automatically from request for surgery [id number] Ulnar neuropathy of right upper extremity 2018 Overview (07/19/2020): Added automatically from request for surgery [id number] Right wrist pain 09/20/2018 Overview (01/10/2019): Last [...] (01/10/2019): Added automatically from request for surgery [id number] Median nerve compression in right forearm 2018 [...] back pain has improved she has been hwiz-drb-bjqjfzi medications well as gabapentin. Also using a heating pad Low back pain without sciatica 12/05/2017 Overview (07/19/2020): Last Assessment & Plan: Patient continues to have back pain has improved she has been uumo-lto-yajzdhp medications well as gabapentin. Also using a [...] she was the he moved to [facility]. EEG is pending. MRI brain [...] of neurotology and basilar skull surgery at [facility] in [place].. Patient can ambulate much better not had [...] Refill [facility] [address] [place] [address] López Delvalle MD Refill Request from Last 3 Months Immunizations Immunization Administration Dates Next Due [employer] primary monoval ent 12+ yr 0.3mL Purple [...] Comments Blood Pressure 127/80 02/16/2023 10:48 AM VEHICLE AND EQUIPMENT CLEANER Pulse 66 02/16/2023 10:48 AM VEHICLE AND EQUIPMENT CLEANER Temperature 36.9 C (98.4 F) 06/20/2022 12:25 PM VEHICLE AND EQUIPMENT CLEANER Respiratory Rate 22 06/20/2022 1:08 PM VEHICLE AND EQUIPMENT CLEANER Oxygen Saturation 96% 02/16/2023 10:48 AM VEHICLE AND EQUIPMENT CLEANER Inhaled Oxygen Concentration 21% 08/22/2020 5 :35 PM CDT Weight 82.6 kg (182 lb 3.2 oz) 02/16/2023 10:48 AM VEHICLE AND EQUIPMENT CLEANER Height 167.6 cm (5' 6) 02/16/2023 10:48 AM VEHICLE AND EQUIPMENT CLEANER Body Mass Index 29.41 02/16/2023 10:48 AM VEHICLE AND EQUIPMENT CLEANER Plan of Treatment Health Maintenance Due Date [...] this topic Medical Devices Implanted Type Area Income Tax Auditor Device Identifier Shelf Expiration Date Model / Serial / Lot Nucleus Cochlear Implant With Slim Straight Electrode Implanted:Qty: 1 on 06/20/2022 by López Delvalle MD at [facility] Other (Type not listed) Right: Ear [employer] 05/11/2024 [id number] / [id number] / Explanted Type Area Income Tax Auditor Device Identifier Shelf Expiration Date Model / Serial / Lot Cochlear Nucleus [id number] Cochlear Implant With Slim Straight Electrode Implanted:Qty: 1 on 05/29/2020 by López Delvalle MD at [facility] Explanted:Qty: 1 on 08/22/2020 by López Delvalle MD at [facility] Right: Ear Cochlear Simple Tithe 03/16/2022 [id number] / [id number] / Procedures Procedure Name Priority Date/Time Associated Diagnosis Comments BASIC METABOLIC PANEL (CALCIUM TOTAL) Routine 06/06/2022 11:15 AM VEHICLE AND EQUIPMENT CLEANER Pre-op evaluation from Last 3 Months or Most Recently Relevant to Health Maintenance Results * (ABNORMAL) BASIC METABOLIC PANEL (CALCIUM TOTAL) (06/06/2022 11:15 AM [facility]) BUN 23 7 - 26 mg/dL 06/06/2022 12:25 PM [facility] Creatinine 1.10(H) 0.56 - 0.96 mg/dL 06/06/2022 12:25 PM [facility] Sodium 140 136 - 145 mmol/L 06/06/2022 12:25 PM [facility] Potassium 3.5 3.5 - 4.5 mmol/L 06/06/2022 12:25 PM [facility] Chloride 105 98 - 107 mmol/L 06/06/2022 12:25 PM [facility] CO2 24 22 - 29 mmol/L 06/06/2022 12:25 PM [facility] Glucose 83 70 - 115 mg/dL 06/06/2022 12:25 PM [facility] Calcium 9.6 8.4 - 10.2 mg/dL 06/06/2022 12:25 PM [facility] Anion Gap 15 8 - 18 06/06/2022 12:25 PM [facility] BUN/Creatinine Ratio 21 7 - 23 06/06/2022 12:25 PM [facility] Osmolality Calculated 293 270 - 300 mOsm/kg 06/06/2022 12:25 PM [facility] eGFR by CKD-EPI 54(L) >=90 mL/min/1.7 3 m2 06/06/2022 12:25 PM [facility] Blood BLOOD SPECIMEN / Unknown Lab Venipuncture / Unknown 06/06/2022 11:15 AM VEHICLE AND EQUIPMENT CLEANER 06/06/2022 11:51 AM [facility] Aniya Betancur SOLAR DESIGNER/INSTALLER-RN ACUTE CARE LAB - CHEMISTRY O RDERABLES Final Result [facility] [address] [place] [address], [facility] [phone] from Last 3 Months or Most Recently Relevant to Health Maintenance Insurance [facility] MEDICARE SELF PAY NO INSURANCE Member Subscriber Plan / Payer (Ef fective for All Dates) Name:CaRavenHanna E Member ID:Not on file Relation to Subscriber:Not on file Name:HANNA PENALOZA Subscriber ID:Not on file (Home) Address: [address] [place] [address] Payer ID:Not on file Group ID:Not on file Type:Self Pay Address: [place], [place] Care Teams Rag Cutting Machine Tender Relationship Specialty Start Date End Date Paty Lloyd MD [address] [place] [address] PCP - General 08/24/21
--- OUTSIDE RECORDS SUMMARY | 2024-09-13 13:18 | XMS_ITS | Referral Summary ---
Author Organization [facility] Address [address] [place] [address] Care Team Providers Care Sales Force Administrator Name Role Phone Otto Maria DPM Unavailable [phone] Paty Lloyd MD Primary Care Provider + Encounters Date Type Department Care Team Description 08/12/2024 Orders Only [facility] Card[facility] [address] [place] [id number] Travis Liu NP 08/12/2024 11:15 AM CDT Office Visit [facility] Cardiology [address] [place] [address] Saima Jimenez MD Mixed hyperlipidemia (Primary Dx); Nonobstructive atherosclerosis of coronary artery 07/08/2024 3:20 PM CDT - 07/08/2024 11:59 PM CDT Hospital Encounter [facility] [address] [place] [address] Nontoxic multinodular goiter Discharge Disposition: Discharge to home or self care from Last 3 Months Allergies Active Allergy [...] 12 hr tabletIndicatio ns:Coronary artery disease involving upper mattaponi coronary artery of upper mattaponi heart with other form of angina pectoris [...] (04/10/2020): Added automatically from request for surgery [id number] Pain in left tibia 01/09/2020 Assessment & [...] to be done. Patient advised to stop [facility] at a nausea as well as a rash could be from [facility]. She is to give me a [...] 03/03/2019 Assessment & Plan (03/03/2019 12:51 PM MAGAZINE REPAIRER): Patient filled jammed injured her right knee a few days ago x-rays negative for fracture dislocation some pain on range of motion no significant swelling or redness.. Anticipate full recovery. Patient advised she can continue working no further recommendations. Carpal tunnel syndrome of right wrist 10/18/2018 Overview (10/18/2018): Added automatically from request for surgery [id number] Cubital tunnel syndrome on right 10/18/2018 Overview (10/18/2018): Added automatically from request for surgery [id number] Ulnar neuropathy of right upper extremity 2018 Overview (10/18/2018): Added automatically from request for surgery [id number] Restless leg 07/22/2018 Assessment & Plan (01/29/2019 [...] medications. Assessment & Plan (05/24/2018 1:38 PM MAGAZINE REPAIRER): . Blood pressure is very well control on hydrochlorothiazide/triamterene 37.5/25, he takes 1 tablet per day no change in therapy.. Low back pain without sciatica 12/05/2017 Assessment & Plan (06/30/2018 5:26 PM CDT): Patient continues to have back pain has improved she has been cuzy-hnh-xldhgkv medications well as gabapentin. Also using a [...] skull surgery at [facility] in [place].. Patient can ambulate much better not had [...] 01/29/2019 Assessment & Plan (05/24/2018 1:29 PM MAGAZINE REPAIRER): Patient complains of right foot pain for [...] 01/29/2019 Assessment & Plan (05/24/2018 1:31 PM MAGAZINE REPAIRER): Patient complains of a constant thirst for [...] making arrangements. She is considering going to [place] to see a specialist who treats Meniere's disease only. She will check with insurance company for coverage regarding this referral who specialist. Assessment & Plan (08/02/2017 11:00 AM CDT): Patient has had 2 hospital admissions recently for some she is transferred from my office to the [facility] stated few days. Sec hospital [...] why she was the he moved to [facility] ER. EEG is pending. MRI brain without contrast shows no acute changes. Assessment & Plan (07/21/2017 4:52 PM CDT): Patient has a history of Meniere's disease over 20 years. Her impression that is becoming worse because of increased dizziness in on in inability to maintain her balance. Fell at [facility] 3 days ago was seen emergency room placed on [facility] in sent home. We attempted to move [...] back to physical therapy as an utilize [facility]. Return to the attempt to get the patient up and she loss consciousness. She is actually having a seizure she was not aware of anything did not respond to any stimulus for least 3 min. This occurred 1 other time here in office follows on the phone with Dr. Gloria. Patient was sent to emergency room [facility] by ambulance. She was too [...] a ear nose and throat physician at [facility] for management vertigo. Patient rise stationary bike at home for purposes of seeing in condition and helping her muscle tone and overall function. Assessment & Plan (12/05/2017 1:26 PM CDT): Patient's condition is greatly improved she is now Medicare Dr. Anuj Wooten tool radial drill press set up operator of neurotology and skull lbase at [facility] in [place]. S physicians notes can be found under care everywhere in [facility]. Right sided weakness 020 Immunizations Immunization Administration [...] on file Legal Sex Female 11:59 AM MAGAZINE REPAIRER Gender Identity Female 12/08/2020 9:18 AM CDT [...] on file Medical Devices Implanted Type Area Outboard Technician Device Identifier Shelf Expiration Date Model / Serial / Lot Other-Cochlea r Implant-2022 Implanted:Qty : 1 on 06/20/2022 by López Delvalle MD Other - see comments Right: Head [facility] [id number] - NUCLEUS PROFILE PLUS / / [...] completely solid (2) Echogenicity: Hypoechoic (2) Shape: Kucnb-nlpw-epny (0) Margin: Smooth (0) Echogenic Foci: None [...] completely solid (2) Echogenicity: Hyperechoic (1) Shape: Sptfk-rjwq-vqmh (0) Margin: Smooth (0) Echogenic Foci: None (0) Total Points: 3 TI-RADS Score: 3: TR3 Mildly suspicious FNA if 2.5 cm or greater; US follow up at 1, 3, and 5 years if 1.5 cm or greater Nodule # 3 Size: 1.0 x 0.5 x 0.9 cm Location: Left mid thyroid Composition: Solid or almost completely solid (2) Echogenicity: Hyperechoic (1) Shape: Usugn-spnz-yhlo (0) Margin: Smooth (0) Echogenic Foci: None [...] Soto Pereira M.D. NS: NS Report ID: [id number] Reading Location: [id number] Procedure Note Soto Pereira MD - 07/15/2024 [...] completely solid (2) Echogenicity: Hypoechoic (2) Shape: Uurrl-ebvb-tssp (0) Margin: Smooth (0) Echogenic Foci: None [...] completely solid (2) Echogenicity: Hyperechoic (1) Shape: Yzonn-inyo-kksh (0) Margin: Smooth (0) Echogenic Foci: None (0) Total Points: 3 TI-RADS Score: 3: TR3 Mildly suspicious FNA if 2.5 cm or greater; US follow up at 1, 3, and 5 years if 1.5 cm or greater Nodule # 3 Size: 1.0 x 0.5 x 0.9 cm Location: Left mid thyroid Composition: Solid or almost completely solid (2) Echogenicity: Hyperechoic (1) Shape: Sctye-vzdz-nhly (0) Margin: Smooth (0) Echogenic Foci: None [...] Soto Pereira M.D. NS: PLACIDO Report ID: [id number] Reading Location: [id number] us Not In File Miscellaneous IMG US PROCEDURES Suzie l Result * Lipid panel (06/25/2024 11:45 AM CDT) Blood us Travis Liu [employer] [facility] BLOOD ORDERABLES Final Res ult * [...] with given history of: Z78.0 Screening. Postmenopausal Outboard Technician/Model: [employer] Discovery SL (S/N [id number]) CLINICAL INFORMATION: Current height: 66 inches Maximum [...] Ian Blanchard M.D. MF: MCKENZIE Report ID: [id number] Reading Location: [address] Note Ian Blanchard MD - 12/11/2022 EXAM DESCRIPTION: DEXA AXIAL SKELETON BONE DENSITY 1 OR MORE SITES REASON FOR STUDY: 67 y/o year old F with given history of: Z78.0 Screening. Postmenopausal Outboard Technician/Model: [employer] Discovery SL (S/N [id number]) CLINICAL INFORMATION: Current height: 66 inches Maximum [...] Ian Blanchard M.D. MF: MCKENZIE Report ID: [id number] Reading Location: [place] [address] us Paty Lloyd MD IMG DXA PROCEDURES Final Result * Hepatitis C antibody (07/03/2016 12:57 PM CDT) SIGNAL TO CUT-OFF 0.01 <1.00 [facility] Comment: Test performed at [facility] [place] [address] [id number] Director: LINDA EDWARDS DO,MPH Hep C Ab NON-REACT WHITLEY NON-REACT WHITLEY [facility] 07/03/2016 12:5 7 PM CDT us Linda Ng MD LAB MICROBIOLOGY - GENERAL ORDERABLES Final Result [facility] from Last 3 Months or Most Recently Relevant to Health Maintenance Insurance MEDICARE [facility] MEDICARE [facility] WORKERS COMPENSATION GENERIC Advance Directives For more information, please contact: [phone] * Full Code (Latest Code Status on File) Date Activated Date Inactivated Comments 08/04/2023 11:11 AM 08/05/2023 8:51 PM * Full Code Date Activated Date Inactivated Comments 07/10/2021 8:08 PM 07/11/2021 9:59 PM * Full Code Date Activated Date Inactivated Comments 07/21/2017 9:18 PM 07/23/2017 8:40 PM Healthcare Agents on File Name Relationship Healthcare Agent [facility] Communication Ivett Magallon Daughter Health Care Agent Maldonado Han Son Second Alternate Health Car e Agent Care Teams Sales Force Administrator Relationship Specialty Start Date End Date Paty Lloyd MD [facility] [address] [address] [facility] [address] [place] [place] [address] PCP - General Family Medicine 04/27/24 Otto Maria DPM [address] [place] [address] Consulting Physician Orthotics 04/25/22
[2024-09-13 13:31] LABS: Add Urine Microscopic? YES; Appearance Urine Clear (Clear); Bacteria Urine 4+ /hpf; Bilirubin Urine Negative (Negative); Blood Urine Negative (Negative); Color Urine Yellow (Yellow); Glucose Urine UA Negative (Negative); Ketones Urine Negative (Negative); Leukocyte Esterase Ur Trace LEU/UL (Negative); Nitrate Urine Positive (Negative); Non Pathogenic Casts 0-2; Protein Urine Negative (Negative); RBC Urine 0-2 /hpf (0-2); Specific Grav Ur 1.011 (1.001-1.035); Squamous Epithelial Cell Urine None Seen /hpf (Few); WBC Urine 0-5 /hpf (0-3)
== END 2024-09-13 13:02 | disposition home or self-care (01) ==
LOC: ANHSURGERY 13:05
PROVIDERS: PCP Family Medicine; Visit Provider Orthopaedic Surgery
DX: Z87.440 Personal history of urinary (tract) infections (principal)
CPT/HCPCS: 81001; 87086; 87186

== ENCOUNTER 2024-10-10 12:36 | Outpatient (CLI) | payer OTHER, SELFPAY ==
--- OUTSIDE RECORDS SUMMARY | 2024-10-10 12:44 | XMS_ITS | Clinical Summary ---
Author Organization [facility] Address [address] [place] [address] Phone Care Team Providers Care Switch Box Installer Name Role Phone Paty Lloyd MD Primary Care Provider [phone] Allergies Active Allergy Reactions Criticality Noted Date [...] Comments Blood Pressure 126/75 03/06/2021 4:48 PM CYBER INTELLIGENCE ANALYST Pulse 86 03/06/2021 4:48 PM CYBER INTELLIGENCE ANALYST Temperature 36.8 C (98.3 F) 03/06/2021 4:48 PM CYBER INTELLIGENCE ANALYST Respiratory Rate 16 03/06/2021 4:48 PM CYBER INTELLIGENCE ANALYST Oxygen Saturation 97% 03/06/2021 4:48 PM CYBER INTELLIGENCE ANALYST Inhaled Oxygen Concentration - - Weight 83.9 kg (185 lb) 03/06/2021 4:48 PM CYBER INTELLIGENCE ANALYST Height 167.6 cm (5' 6) 03/06/2021 4:48 PM CYBER INTELLIGENCE ANALYST Body Mass Index 29.86 03/06/2021 4:48 PM CYBER INTELLIGENCE ANALYST Plan of Treatment Health Maintenance Due Date Last Done Comments Hepatitis C Virus (HCV) Screening 1955 TdaP Immunization 1955 Cologuard 1998 Colonoscopy 1998 Colorectal Cancer Screening 1998 Immunochemical Fecal Occult Blood 1998 Zoster Immunization (1 of 2) 2003 Pneumococcal Immunization (50+ years) (2 of 2 - PPSV23) 01/01/2020 12/31/2018, 12/12/2018 SARS-COV-2 Immunization ( season) 2023 01/06/2021, 06/26/2020, 06/05/2020 Influenza Immunization [...] topic Insurance MEDICARE [employer] Care Teams Switch Box Installer Relationship Specialty Start Date End Date Paty Lloyd MD PCP - General Family Medicine 11/15/21
--- OUTSIDE RECORDS SUMMARY | 2024-10-10 12:44 | XMS_ITS | Clinical Summary ---
Author Organization [facility] Address [address] [place] [address] Care Team Providers Care Warp Coiler Name Role Phone Otto Maria DPM Unavailable [phone] Paty Lloyd MD Primary Care Provider + [...] 12 hr tabletIndicatio ns:Coronary artery disease involving wales coronary artery of wales heart with other form of angina pectoris [...] (04/10/2020): Added automatically from request for surgery [id number] Pain in left tibia 01/09/2020 Assessment & [...] to be done. Patient advised to stop [facility] at a nausea as well as [...] 03/03/2019 Assessment & Plan (03/03/2019 12:[address]SULTANT): Patient filled jammed injured her right knee a few days ago x-rays negative for fracture dislocation some pain on range of motion no significant swelling or redness.. Anticipate full recovery. Patient advised she can continue working no further recommendations. Carpal tunnel syndrome of right wrist 10/18/2018 Overview (10/18/2018): Added automatically from request for surgery [id number] Cubital tunnel syndrome on right 10/18/2018 Overview (10/18/2018): Added automatically from request for surgery [id number] Ulnar neuropathy of right upper extremity 2018 Overview (10/18/2018): Added automatically from request for surgery [id number] Restless leg 07/22/2018 Assessment & Plan (01/29/2019 [...] medications. Assessment & Plan (05/24/2018 1:[address] CONSULTANT): . Blood pressure is very well control on hydrochlorothiazide/triamterene 37.5, he takes 1 tablet per day no change in therapy.. Low back pain without sciatica 12/05/2017 Assessment & Plan (06/30/2018 5:26 PM CDT): Patient continues to have back pain has improved she has been jnbt-uqn-zazcwcr medications well as gabapentin. Also using a [...] of neurotology and basilar skull surgery at [facility] in [place].. Patient can ambulate much better not had [...] 01/29/2019 Assessment & Plan (05/24/2018 1:[address] CONSULTANT): Patient complains of right foot pain for [...] 01/29/2019 Assessment & Plan (05/24/2018 1:[address]SULTANT): Patient complains of a constant thirst for [...] making arrangements. She is considering going to [place] to see a specialist who treats Meniere's disease only. She will check with insurance company for coverage regarding this referral who specialist. Assessment & Plan (08/02/2017 11:00 AM CDT): Patient has had 2 hospital admissions recently for some she is transferred from my office to the [facility] stated few days. Sec hospital admission [...] Also home hepatic product was purchase called [employer] has been tried. Have no new [...] why she was the he moved to [facility] ER. EEG is pending. MRI brain without contrast shows no acute changes. Assessment & Plan (07/21/2017 4:52 PM CDT): Patient has a history of Meniere's disease over 20 years. Her impression that is becoming worse because of increased dizziness in on in inability to maintain her balance. Fell at latter-day 3 days ago was seen emergency room [...] Gloria. Patient was sent to emergency room [facility] by ambulance. She was too unstable [...] a ear nose and throat physician at [facility] for management vertigo. Patient rise stationary bike at home for purposes of seeing in condition and helping her muscle tone and overall function. Assessment & Plan (12/05/2017 1:26 PM CDT): Patient's condition is greatly improved she is now Medicare Dr. Anuj Wooten executive chairman of the board of neurotology and skull lbase at [facility] in [place]. physicians notes can be found under care everywhere in [facility]. Right sided weakness 020 Encounters Date Type Department Care Team Description 08/12/2024 11:15 AM CDT Office Visit [facility] Medical Group Cardiology [address] [place] [address] Saima Jimenez MD Mixed hyperlipidemia (Primary Dx); Nonobstructive atherosclerosis of coronary artery 08/12/2024 Orders Only [facility] Medical [facility] Cardiology [address] [place] [address] Travis Liu NP from Last 3 Months Immunizations Immunization Administration [...] on file Legal Sex Female 11:[address] Gender Identity Female 12/08/2020 9:18 AM CDT [...] 12/31/2018, 12/12/2018 Medical Devices Implanted Type Area Large Animal Husbandry Technician Device Identifier Shelf Expiration Date Model / Serial / Lot Other-Cochlea r Implant-2022 Implanted:Qty : 1 on 06/20/2022 by López Delvalle MD Other - see comments Right: Head COCHLEAR VIANNEY ALONZO [id number] - NUCLEUS PROFILE PLUS / / Description:3 cm in length Tx/rx coil used Procedures Procedure Name Priority Date/Time Associated Diagnosis Comments SCREENING MAMMOGRAM BILATERAL W ROBIN Schedule Routine, Read Routine (OP Routine) 12/30/2023 1:02 PM CDT Screening mammogram, encounter for DEXA AXIAL SKELETON BONE DENSITY 1 OR MORE SITES Schedule Routine, Read Routine (OP Routine) 12/10/2022 2:39 PM CDT Asymptomatic menopausal state HEPATITIS C ANTIBODY Routine 07/03/2016 12:57 PM CDT from Last 3 Months or Most Recently Relevant to Health Maintenance Results * Screening Mammogram Bilateral W Robin (12/30/2023 [...] with given history of: Z78.0 Screening. Postmenopausal Large Animal Husbandry Technician/Model: [employer] SL (S/N [id number]) CLINICAL INFORMATION: Current height: 66 inches Maximum [...] Ian Blanchard M.D. MF: MCKENZIE Report ID: [id number] Reading Location: [place] [address] Procedure Note Ian Blanchard MD - 12/11/2022 EXAM DESCRIPTION: DEXA AXIAL SKELETON BONE DENSITY 1 OR MORE SITES REASON FOR STUDY: 67 y/o year old F with given history of: Z78.0 Screening. Postmenopausal Large Animal Husbandry Technician/Model: Skin Analytics SL (S/N [id number]) CLINICAL INFORMATION: Current height: 66 inches Maximum [...] Ian Blanchard M.D. MF: MCKENZIE Report ID: [id number] Reading Location: [place] [address] us Paty Lloyd MD IMG DXA PROCEDURES Final Result * Hepatitis C antibody (07/03/2016 12:57 PM CDT) Pathologist [facility] SIGNAL TO CUT-OFF 0.01 <1.00 [facility] HISTORICAL RESULTS Comment: Test performed at [facility] [address] [place] [address] Director: LINDA EDWARDS DO,MPH Hep C Ab NON-REACT WHITLEY NON-REACT WHITLEY [facility] HISTORICAL RESULTS 07/03/2016 12:5 7 PM CDT us Linda Ng MD LAB MICROBIOLOGY - GENERAL ORDERABLES Final Result Performing Organization Address City/State/ZIP Co wi Phone Number [facility] HISTORICAL RESULTS from Last 3 Months or Most Recently Relevant to Health Maintenance Insurance MEDICARE [facility] OTHER Address: [place] [address] [place] [address] MEDICARE [facility] Address: [address] [address] [place] [address] [facility] WORKERS COMPENSATION GENERIC Advance Directives For more information, please contact: [phone] * Full Code (Latest Code Status on File) Date Activated Date Inactivated Comments 08/04/2023 11:11 AM 08/05/2023 8:51 PM * Full Code Date Activated Date Inactivated Comments 07/10/2021 8:08 PM 07/11/2021 9:59 PM * Full Code Date Activated Date Inactivated Comments 07/21/2017 9:18 PM 07/23/2017 8:40 PM Healthcare Agents on File Name Relationship Healthcare Agent [facility] Communication Ivett Magallon Daughter Health Care Agent Maldonado Deutsch Second [facility] Health Car e Agent Care Teams Warp Coiler Relationship Specialty Start Date End Date Paty Lloyd MD [address] [facility] [place] [place] [address] PCP - General Family Medicine 04/27/24 Otto Maria DPM [address] [place] [address] Consulting Physician Orthotics 04/25/22
--- OUTSIDE RECORDS SUMMARY | 2024-10-10 12:44 | XMS_ITS | Referral Summary ---
Author Organization [facility] Address [address] [place] [address] Care Team Providers Care Tip Fixer Name Role Phone Otto Maria DPM Unavailable [phone] Paty Lloyd MD Primary Care Provider + Encounters Date Type Department Care Team Description 08/12/2024 Orders Only [facility] Cardiology 10 [facility] [address] [place] [phone] Travis Liu NP 08/12/2024 11:15 AM CDT Office Visit [facility] Cardiology 10 [facility] [address] [place] [phone] Saima Jimenez MD Mixed hyperlipidemia (Primary Dx); Nonobstructive atherosclerosis of coronary artery from Last 3 Months Allergies Active Allergy [...] 12 hr tabletIndicatio ns:Coronary artery disease involving [place] coronary artery of [place] heart with other form of angina pectoris [...] (04/10/2020): Added automatically from request for surgery [id number] Pain in left tibia 01/09/2020 Assessment & [...] well as a rash could be from [facility]. She is to give me a [...] 03/03/2019 Assessment & Plan (03/03/2019 12:51 PM ABRASIVE GRADER): Patient filled jammed injured her right knee a few days ago x-rays negative for fracture dislocation some pain on range of motion no significant swelling or redness.. Anticipate full recovery. Patient advised she can continue working no further recommendations. Carpal tunnel syndrome of right wrist 10/18/2018 Overview (10/18/2018): Added automatically from request for surgery [id number] Cubital tunnel syndrome on right 10/18/2018 Overview (10/18/2018): Added automatically from request for surgery [id number] Ulnar neuropathy of right upper extremity 2018 Overview (10/18/2018): Added automatically from request for surgery [id number] Restless leg 07/22/2018 Assessment & Plan (01/29/2019 [...] medications. Assessment & Plan (05/24/2018 1:38 PM ABRASIVE GRADER): . Blood pressure is very well control on hydrochlorothiazide/triamterene 37.5/25, he takes 1 tablet per day no change in therapy.. Low back pain without sciatica 12/05/2017 Assessment & Plan (06/30/2018 5:26 PM CDT): Patient continues to have back pain has improved she has been bwws-iyw-jfzlduu medications well as gabapentin. Also using a [...] of neurotology and basilar skull surgery at [facility] in [place].. Patient can ambulate much better not had [...] 01/29/2019 Assessment & Plan (05/24/2018 1:29 PM ABRASIVE GRADER): Patient complains of right foot pain for [...] 01/29/2019 Assessment & Plan (05/24/2018 1:31 PM ABRASIVE GRADER): Patient complains of a constant thirst for [...] making arrangements. She is considering going to [place] to see a specialist who treats Meniere's disease only. She will check with insurance company for coverage regarding this referral who specialist. Assessment & Plan (08/02/2017 11:00 AM CDT): Patient has had 2 hospital admissions recently for some she is transferred from my office to the [facility] stated few days. Sec hospital admission [...] why she was the he moved to [facility] ER. EEG is pending. MRI brain without contrast shows no acute changes. Assessment & Plan (07/21/2017 4:52 PM CDT): Patient has a history of Meniere's disease over 20 years. Her impression that is becoming worse because of increased dizziness in on in inability to maintain her balance. Fell at [facility] 3 days ago was seen emergency room [...] Gloria. Patient was sent to emergency room [facility] by ambulance. She was too unstable [...] a ear nose and throat physician at [facility] for management vertigo. Patient rise stationary bike at home for purposes of seeing in condition and helping her muscle tone and overall function. Assessment & Plan (12/05/2017 1:26 PM CDT): Patient's condition is greatly improved she is now Medicare Dr. Anuj Wooten history department chair of neurotology and skull lbase at [facility] in [place]. S physicians notes can be found under care everywhere in [facility]. Right sided weakness 020 Immunizations Immunization [...] on file Legal Sex Female 11:59 AM ABRASIVE GRADER Gender Identity Female 12/08/2020 9:18 AM CDT [...] on file Medical Devices Implanted Type Area Cutter Machine Device Identifier Shelf Expiration Date Model / [...] with given history of: Z78.0 Screening. Postmenopausal Cutter Machine/Model: Technorides (S/N [id number]) CLINICAL INFORMATION: Current height: 66 inches Maximum [...] Ian Blanchard M.D. MF: MCKENZIE Report ID: [id number] Reading Location: [id number] [facility] Note Ian Blanchard MD - 12/11/2022 EXAM DESCRIPTION: DEXA AXIAL SKELETON BONE DENSITY 1 OR MORE SITES REASON FOR STUDY: 67 y/o year old F with given history of: Z78.0 Screening. Postmenopausal Cutter Machine/Model: Buddytruk Discovery SL (S/N [id number]) CLINICAL INFORMATION: Current height: 66 inches Maximum [...] Ian Blanchard M.D. MF: MCKENZIE Report ID: [id number] Reading Location: [place] [address] us Paty Lloyd MD IM DXA PROCEDURES Final Result * Hepatitis C antibody (07/03/2016 12:57 PM CDT) SIGNAL TO CUT-OFF 0.01 <1.00 [facility] Comment: Test performed at [facility] [place] [address] [address] Director: LINDA EDWARDS DO,MPH Hep C Ab NON-REACT WHITLEY NON-REACT WHITLEY [facility] HISTORICAL RESULTS 07/03/2016 12:5 7 PM CDT Linda Ng MD LAB MICROBIOLOGY - GENERAL ORDERABLES Final Result [facility] HISTORICAL RESULTS from Last 3 Months or Most Recently Relevant to Health Maintenance Insurance MEDICARE [facility] MEDICARE [facility] WORKERS COMPENSATION GENERIC Advance Directives For more information, please contact: [phone] * Full Code (Latest Code Status on File) Date Activated Date Inactivated Comments 08/04/2023 11:11 AM 08/05/2023 8:51 PM * Full Code Date Activated Date Inactivated Comments 07/10/2021 8:08 PM 07/11/2021 9:59 PM * Full Code Date Activated Date Inactivated Comments 07/21/2017 9:18 PM 07/23/2017 8:40 PM Healthcare Agents on File Name Relationship Healthcare Agent [facility] p Communication Ivett Magallon Daughter Health Care Agent Maldonado Han Son Second Alternate Health Car e Agent Care Teams Tip Fixer Relationship Specialty Start Date End Date Paty Lloyd MD [address] [place] [address] PCP - General Family Medicine 04/27/24 Otto Maria DPM [address] [place] [address] Consulting Physician Orthotics 04/25/22
--- OUTSIDE RECORDS SUMMARY | 2024-10-10 12:44 | XMS_ITS | Clinical Summary ---
Author Organization [email or web address] Address [address] [place] [address] Care Team Providers Care Tip Mender Name Role Phone Paty Lloyd MD Primary Care Provider [phone] Source Comments [email or web address],non-owned Affiliates and Associated Physician Practices is amultiple site organization consisting of ambulatory clinics and hospital sitesin [place], [place] and [place]. This disclosure is being madepursuant to the Care Everywhere program and may not contain all information available regarding this patient. Last updated 18.[email or web address] Allergies Active Allergy Reactions Criticality Noted Date [...] (07/19/2020): Added automatically from request for surgery [id number] Pain in left leg 01/09/2020 Pain in [...] well as a rash could be from [facility]. She is to give me a [...] a ear nose and throat physician at [facility] for management vertigo. Patient rise stationary [...] (01/10/2019): Added automatically from request for surgery [id number] Ulnar neuropathy of right upper extremity 2018 Overview (01/10/2019): Added automatically from request for surgery [id number] Carpal tunnel syndrome of right wrist 10/18/2018 Overview (07/19/2020): Added automatically from request for surgery [id number] Cubital tunnel syndrome on right 10/18/2018 Overview (07/19/2020): Added automatically from request for surgery [id number] Ulnar neuropathy of right upper extremity 2018 Overview (07/19/2020): Added automatically from request for surgery [id number] Right wrist pain 09/20/2018 Overview (01/10/2019): Last [...] (01/10/2019): Added automatically from request for surgery [id number] Median nerve compression in right forearm 2018 [...] back pain has improved she has been ricy-mry-wuyzduu medications well as gabapentin. Also using a heating pad Low back pain without sciatica 12/05/2017 Overview (07/19/2020): Last Assessment & Plan: Patient continues to have back pain has improved she has been iqvh-tzc-kyrbxbf medications well as gabapentin. Also using a [...] why she was the he moved to [facility]. EEG is pending. MRI brain without [...] of neurotology and basilar skull surgery at [facility] in [place].. Patient can ambulate much better not had [...] Refill [facility] [address] [place] [address] López Delvalle MD Refill Request from Last 3 Months Immunizations Immunization Administration Dates Next Due Alticast primary monoval ent 12+ yr 0.3mL Purple [...] Comments Blood Pressure 127/80 02/16/2023 10:48 AM RAILWAY SWITCHMAN Pulse 66 02/16/2023 10:48 AM RAILWAY SWITCHMAN Temperature 36.9 C (98.4 F) 06/20/2022 12:25 PM RAILWAY SWITCHMAN Respiratory Rate 22 06/20/2022 1:08 PM RAILWAY SWITCHMAN Oxygen Saturation 96% 02/16/2023 10:48 AM RAILWAY SWITCHMAN Inhaled Oxygen Concentration 21% 08/22/2020 5 :35 PM CDT Weight 82.6 kg (182 lb 3.2 oz) 02/16/2023 10:48 AM RAILWAY SWITCHMAN Height 167.6 cm (5' 6) 02/16/2023 10:48 AM RAILWAY SWITCHMAN Body Mass Index 29.41 02/16/2023 10:48 AM RAILWAY SWITCHMAN Plan of Treatment Health Maintenance Due Date [...] 01/06/2021, Additional history exists SCREENING FOR DIABETES 07/14/2025 , 07/14/2022, 06/06/2022, Additional history exists PNEUMOCOCCAL VACCINE 50+ Completed 022, 12/31/2018, 12/12/2018 [...] this topic Medical Devices Implanted Type Area Channel Man Device Identifier Shelf Expiration Date Model / Serial / Lot Nucleus Cochlear Implant With Slim Straight Electrode Implanted:Qty: 1 on 06/20/2022 by López Delvalle MD at [facility] Other (Type not listed) Right: Ear O2 Secure Wireless 05/11/2024 [id number] / [id number] / Explanted Type Area Channel Man Device Identifier Shelf Expiration Date Model / Serial / Lot Cochlear Nucleus [id number] Cochlear Implant With Slim Straight Electrode Implanted:Qty: 1 on 05/29/2020 by López Delvalle MD at [facility] Explanted:Qty: 1 on 08/22/2020 by López Delvalle MD at [facility] Right: Ear Cochlear [employer] 03/16/2022 [id number] / [id number] / Procedures Procedure Name Priority Date/Time Associated Diagnosis Comments BASIC METABOLIC PANEL (CALCIUM TOTAL) Routine 06/06/2022 11:15 AM [facility] Pre-op evaluation from Last 3 Months or Most Recently Relevant to Health Maintenance Results * (ABNORMAL) BASIC METABOLIC PANEL (CALCIUM TOTAL) (06/06/2022 11:15 AM [facility]) BUN 23 7 - 26 mg/dL 06/06/2022 12:25 PM [facility] Creatinine 1.10(H) 0.56 - 0.96 mg/dL 06/06/2022 12:25 PM [facility] Sodium 140 136 - 145 mmol/L 06/06/2022 12:25 PM [facility] Potassium 3.5 3.5 - 4.5 mmol/L 06/06/2022 12:25 PM [facility] Chloride 105 98 - 107 mmol/L 06/06/2022 12:25 PM [facility] CO2 24 22 - 29 mmol/L 06/06/2022 12:25 PM [facility] Glucose 83 70 - 115 mg/dL 06/06/2022 12:25 PM [facility] Calcium 9.6 8.4 - 10.2 mg/dL 06/06/2022 12:25 PM [facility] Anion Gap 15 8 - 18 06/06/2022 12:25 PM [facility] BUN/Creatinine Ratio 21 7 - 23 06/06/2022 12:25 PM [facility] Osmolality Calculated 293 270 - 300 mOsm/kg 06/06/2022 12:25 PM [facility] eGFR by CKD-EPI 54(L) >=90 mL/min/1.7 3 m2 06/06/2022 12:25 PM [facility] Blood BLOOD SPECIMEN / Unknown Lab Venipuncture / Unknown 06/06/2022 11:15 AM RAILWAY SWITCHMAN 06/06/2022 11:51 AM [facility] us Aniya Betancur PLANT ANATOMY TEACHER-POLE SHAVER HELPER LAB - CHEMISTRY O RDERABLES Final Result [facility] [address] [place] [address], [place] [phone] from Last 3 Months or Most Recently Relevant to Health Maintenance Insurance [facility] MEDICARE SELF PAY NO INSURANCE Member Subscriber Plan / Payer (Ef fective for All Dates) Name:FilemonRaven schmittsam Dumas Member ID:Not on file Relation to Subscriber:Not on file Name:GUILLEHANNA Dumas Subscriber ID:Not on file (Home) Address: [address] [place] [address] Payer ID:Not on file Group ID:Not on file Type:Self Pay Address: [place], [place] Care Teams Tip Mender Relationship Specialty Start Date End Date Paty Lloyd MD [address] [place] [id number] PCP - General 08/24/21
[2024-10-10 13:28] LABS: Prothrombin Time 13.5 Seconds (11.1-14.7)
[2024-10-10 13:29] LABS: Partial Thromboplastin Time 24.6 Seconds (22.3-36.8)
== END 2024-10-10 12:37 | disposition home or self-care (01) ==
LOC: ANHSURGERY 12:41
PROVIDERS: PCP Family Medicine; Visit Provider Orthopaedic Surgery
DX: Z01.812 Encounter for preprocedural laboratory examination (principal); M16.12 Unilateral primary osteoarthritis, left hip
CPT/HCPCS: 36415; 85610; 85730; 86850; 86900; 86901

== ENCOUNTER 2024-10-13 15:16 | Inpatient (IN) | payer OTHER, SELFPAY ==
[2024-09-02 12:15] VITALS: BP 113/63; PULSE 62; RESP 16; TEMP 37.1; O2SAT 99; BMI 24.3
--- OUTSIDE RECORDS SUMMARY | 2024-09-14 00:13 | XMS_ITS | Clinical Summary ---
Author Organization [facility] Address [address] [place] [address] Care Team Providers Care Special Procedures Technologist Name Role Phone Paty Lloyd MD Primary Care Provider [phone] Source Comments [facility] ([facility]),non-owned Affiliates and Associated Physician Practices is amultiple site organization consisting of ambulatory clinics and hospital sitesin [place], [place], [place] and [place]. This disclosure is being madepursuant to the Care Everywhere program and may not contain all information available regarding this patient. Last updated 18.[facility] Allergies Active Allergy Reactions Criticality Noted Date [...] (07/19/2020): Added automatically from request for surgery [id number] Pain in left leg 01/09/2020 Pain in [...] to be done. Patient advised to stop [facility] at a nausea as well as a rash could be from [facility]. She is to give me a progress [...] a ear nose and throat physician at [facility] for management vertigo. Patient rise stationary [...] (01/10/2019): Added automatically from request for surgery [id number] Ulnar neuropathy of right upper extremity 2018 Overview (01/10/2019): Added automatically from request for surgery [id number] Carpal tunnel syndrome of right wrist 10/18/2018 Overview (07/19/2020): Added automatically from request for surgery [id number] Cubital tunnel syndrome on right 10/18/2018 Overview (07/19/2020): Added automatically from request for surgery [id number] Ulnar neuropathy of right upper extremity 2018 Overview (07/19/2020): Added automatically from request for surgery [id number] Right wrist pain 09/20/2018 Overview (01/10/2019): Last [...] (01/10/2019): Added automatically from request for surgery [id number] Median nerve compression in right forearm 2018 [...] back pain has improved she has been xygw-fdi-kpnergl medications well as gabapentin. Also using a heating pad Low back pain without sciatica 12/05/2017 Overview (07/19/2020): Last Assessment & Plan: Patient continues to have back pain has improved she has been jglu-tje-egrbtyv medications well as gabapentin. Also using a [...] why she was the he moved to [facility]. EEG is pending. MRI brain [...] of neurotology and basilar skull surgery at [facility] in [place].. Patient can ambulate much better not had [...] Refill [facility] [address] [place] [address] López Delvalle MD Refill Request from Last 3 Months Immunizations Immunization Administration Dates Next Due [employer] primary monoval ent 12+ yr 0.3mL Purple [...] Comments Blood Pressure 127/80 02/16/2023 10:48 AM [employer] Pulse 66 02/16/2023 10:48 AM [employer] Temperature 36.9 C (98.4 F) 06/20/2022 12:25 PM [employer] Respiratory Rate 22 06/20/2022 1:08 PM [employer] Oxygen Saturation 96% 02/16/2023 10:48 AM [employer] Inhaled Oxygen Concentration 21% 08/22/2020 5 :35 PM CDT Weight 82.6 kg (182 lb 3.2 oz) 02/16/2023 10:48 AM [employer] Height 167.6 cm (5' 6) 02/16/2023 10:48 AM [employer] Body Mass Index 29.41 02/16/2023 10:48 AM [employer] Plan of Treatment Health Maintenance Due Date [...] this topic Medical Devices Implanted Type Area Postal Carrier Device Identifier Shelf Expiration Date Model / Serial / Lot Nucleus Cochlear Implant With Slim Straight Electrode Implanted:Qty: 1 on 06/20/2022 by López Delvalle MD at [facility] Other (Type not listed) Right: Ear Clickability 05/11/2024 [id number] / [id number] / Explanted Type Area Postal Carrier Device Identifier Shelf Expiration Date Model / Serial / Lot Cochlear Nucleus [id number] Cochlear Implant With Slim Straight Electrode Implanted:Qty: 1 on 05/29/2020 by López Delvalle MD at [facility] Explanted:Qty: 1 on 08/22/2020 by López Delvalle MD at [facility] Right: Ear Cochlear Innova Card 03/16/2022 [id number] / [id number] / Procedures Procedure Name Priority Date/Time Associated Diagnosis Comments BASIC METABOLIC PANEL (CALCIUM TOTAL) Routine 06/06/2022 11:15 AM [employer] [facility] Pre-op evaluation from Last 3 Months or Most Recently Relevant to Health Maintenance Results * (ABNORMAL) BASIC METABOLIC PANEL (CALCIUM TOTAL) (06/06/2022 11:15 AM [facility]) BUN 23 7 - 26 mg/dL 06/06/2022 12:25 PM [facility] Creatinine 1.10(H) 0.56 - 0.96 mg/dL 06/06/2022 12:25 PM [facility] Sodium 140 136 - 145 mmol/L 06/06/2022 12:25 PM [facility] Potassium 3.5 3.5 - 4.5 mmol/L 06/06/2022 12:25 PM [facility] Chloride 105 98 - 107 mmol/L 06/06/2022 12:25 PM [facility] CO2 24 22 - 29 mmol/L 06/06/2022 12:25 PM [facility] Glucose 83 70 - 115 mg/dL 06/06/2022 12:25 PM [facility] Calcium 9.6 8.4 - 10.2 mg/dL 06/06/2022 12:25 PM [facility] Anion Gap 15 8 - 18 06/06/2022 12:25 PM [facility] BUN/Creatinine Ratio 21 7 - 23 06/06/2022 12:25 PM [facility] Osmolality Calculated 293 270 - 300 mOsm/kg 06/06/2022 12:25 PM [facility] eGFR by CKD-EPI 54(L) >=90 mL/min/1.7 3 m2 06/06/2022 12:25 PM [facility] Blood BLOOD SPECIMEN / Unknown Lab Venipuncture / Unknown 06/06/2022 11:15 AM [facility] 06/06/2022 11:51 AM [facility] Aniya Betancur APPRENTICE-[employer] [facility] PROGRAMMER LAB - CHEMISTRY O RDERABLES Final Result [facility] [address] [place] [address], [facility] [phone] from Last 3 Months or Most Recently Relevant to Health Maintenance Insurance [facility] MEDICARE SELF PAY NO INSURANCE Member Subscriber Plan / Payer (Ef fective for All Dates) Name:CaRavenHanna E Member ID:Not on file Relation to Subscriber:Not on file Name:HANNA PENALOZA Subscriber ID:Not on file (Home) Address: [address] [place] [address] Payer ID:Not on file Group ID:Not on file Type:Self Pay Address: [place], [place] Care Teams Special Procedures Technologist Relationship Specialty Start Date End Date Paty Lloyd MD [address] [place] [address] PCP - General 08/24/21
--- OUTSIDE RECORDS SUMMARY | 2024-09-14 00:13 | XMS_ITS | Continuity of Care Document ---
Author Organization [facility] Address [address] [place] [address] Phone Care Team Providers Care Oracle R12 Developer Name Role Phone Nadine MS, OTR/L, CANDIDATHyacinth [...] Diagnoses Date Provider Providers Copied on Encounter [facility], [place], [place], [id number], [place] tel:[phone] [place] No Information 9 Nadine Claros. [address], [address], [place], [address], . tel:[phone] [facility], [place], [place], [address], tel:[phone] [place] Pain in right wristStiffness of right wrist, not elsewhere classifiedStiff ness of right hand, not elsewhere classifiedOth symptoms and signs involving the musculoskeletal systemEffusion, right wristEffusion, right handUnspecified sprain of right wrist, subsequent encounter 9 Havenushild Hyacinth. [address], [address], [place], [address], [place]. tel:[phone] Referring Provider: Ronald Davidson, [address], [place], [address]. tel:[phone] [facility], [address], [place], [place], [address], [place] tel:[phone] [place] Pain in right wristStiffness of right wrist, not elsewhere classifiedStiff ness of right hand, not elsewhere classifiedOth symptoms and signs involving the musculoskeletal systemEffusion, right wristEffusion, right handUnspecified sprain of right wrist, subsequent encounter 9 Nadine Hyacinth. [address], [address], [place], [address], [place]. tel:[phone] Referring Provider: Ronald Davidson, [address], [place], [address]. tel:[phone] [facility], [address], [place], [place], [id number], [place] tel:[phone] [place] Pain in right wristStiffness of right wrist, not elsewhere classifiedStiff ness of right hand, not elsewhere classifiedOth symptoms and signs involving the musculoskeletal systemEffusion, right wristEffusion, right handUnspecified sprain of right wrist, subsequent encounter 9 Hauschild Hyacinth. [address], [address], [place], [address], [place]. tel:[phone] Referring Provider: Ronald Davidson, [address], [place], [address]. tel:[phone] [facility], [address], [place], [place], [address], [place] tel:[phone] [place] Pain in right wristStiffness of right wrist, not elsewhere classifiedStiff ness of right hand, not elsewhere classifiedOth symptoms and signs involving the musculoskeletal systemEffusion, right wristEffusion, right handUnspecified sprain of right wrist, subsequent encounter 9 Aldo Arriaga. . Referring Provider: Ronald Davidson [address] [place] [address] [address], [place], [address]. tel:[phone] Family History Family Member Type Diagnosis Age At Onset No Information Payers Payer name Insurance type Covered alliance party ID Authormikael dickeyedison(s) [id number] Social History Type Description Quantity Date Captured [...]
--- OUTSIDE RECORDS SUMMARY | 2024-09-14 00:13 | XMS_ITS | Continuity of Care Document ---
Author Organization [facility] Address [address] [place] [address] Phone Care Team Providers Care Denture Technician Name Role Phone Ralph Mott PT Unavailable Unavailable Procedures Procedure Date Therapeutic Activities Neuromuscular Re-Ed Therapeutic Exercise Therapeutic Activities Neuromuscular Re-Ed Therapeutic Exercise Therapeutic Activities Neuromuscular Re-Ed Therapeutic Exercise Doc neg elder mal no plan PRES/ABSN URINE INCON ASSESS PT Evaluation Moderate Complexity Therapeutic Activities Neuromuscular Re-Ed Therapeutic Exercise Neuromuscular [...] Diagnoses Date Provider Providers Copied on Encounter [facility] [facility] [address], [place], [place], [address], tel:[phone] [place] No Information Pantera Rosas. . Referring Provider: Karl Martinez [address], [place], [address]. tel:[phone] [place] [address], [address], [place], [place], [address], [place] tel:[phone] [place] No Information Scheldt Dolores. . Referring Provider: Karl Martinez [address], [place], [address]. tel:[phone] [facility] [address], [place], [address], [place] tel:[phone] [place] No Information Scheldt Dolores. . Referring Provider: Karl Martinez [address], [place], [address]. tel:[phone] [facility], [address], [place], [place], [address], tel:[phone] [place] No Information Pantera Rosas. . Referring Provider: Karl Martinez [address], [place], [address]. tel:[phone] [facility], [address], [place], [address], [place] tel:[phone] [place] No Information Pantera Rosas. . Referring Provider: Karl Martinez [address], [place], [address]. tel:[phone] [facility], [place], [place], [address], [place] tel:[phone] [place] No Information Scheldt Dolores. . Referring Provider: Karl Martinez [address], [place], [address]. tel:[phone] [facility], [place], [place], [address], tel:[phone] [place] No Information Bret Kumar. . Referring Provider: Karl Martinez [address], [place], [address]. tel:[phone] [facility], [address], [place], [address], tel:[phone] [place] No Information Veda Bernal. . Referring Provider: Travis Liu [address] [place] [address] [address], [place], [address]. tel:[phone] [facility], [address], [place], [place], [address], [place] tel:[phone] [place] No Information Bret Kumar. . Referring Provider: Travis Liu [address] [place] [address] [address], [place], [address]. tel:[phone] [facility], [address] [place], [place] [address], [place], [place], [address], tel:[phone] [place] No Information Kristian Ryder. [address] [place] [address], [address], [place], [address], . tel:[phone] Referring Provider: Karl Martinez [facility] [address], [place], [address]. tel:[phone] [facility], [address], [place], [place], [address], tel:[phone] [place] No Information Bret Kumar. . Referring Provider: Karl Martinez [facility] [address], [place], [address]. tel:[phone] [facility] [address], [place], [address], [place] tel:[phone] [place] No Information Pantera Rosas. . Referring Provider: Deepa Martinez[address] [place] [address] [address], [place], [address]. tel:[phone] [facility], [place], [place], [address], [place] tel:[phone] [place] No Information Emilie Solis. . Referring Provider: Travis Liu Karl [facility] [address], [place], [address]. tel:[phone] [facility], [address], [place], [place], [address], tel:[phone] [place] No Information Pantera Rosas. . Referring Provider: Travis Liu, Karl [facility] [address], [place], [address]. tel:[phone] [facility], [address], [place], [place], [address], tel:[phone] [place] No Information Kristian Ryder. [address] [place] [address], [address], [place], [place], [facility], . tel:[phone] Referring Provider: Travis Liu Karl [facility] [address], [place], [address]. tel:[phone] [facility], [address], [place], [place], [address], [place] tel:[phone] [place] No Information Pantera Rosas. . Referring Provider: Travis Liu Karl [facility] [address], [place], [address]. tel:[phone] [facility], [address], [place], [address], [place] tel:[phone] [place] No Information Pantera Rosas. . Referring Provider: Paty Lloyd, [facility] [facility] [address], [place], [address]. tel:[phone] [facility], [address], [place], [place], [address], tel:[phone] [place] No Information May-09 -202Halie Ryder. [address] [facility], [address], [place], [address], [place]. tel:[phone] Referring Provider: Paty Lloyd, [address] [place] [address] [address], [place], [address]. tel:[phone] [place] [address], [address], [place], [address], [place] tel:[phone] [place] No Information Jaylen Kinney. [address] [facility], [address], [place], [address], [place]. tel:[phone] Referring Provider: Paty Lloyd, [address] [place] [address] [address], [place], [address]. tel:[phone] [place] [address], [address] [place], [place] [address], [place], [place], [address], [place] tel:[phone] [place] No Information Pantera Rosas. . Referring Provider: Paty Lloyd, [address] [place] [address] [address], [place], [address]. tel:[phone] [facility], [address], [place], [address], [place] tel:[phone] [place] No Information Pantera Rosas. . Referring Provider: Paty Lloyd, [address] [place] [address] [address], [place], [address]. tel:[phone] [place] [address], [address], [place], [address], [place] tel:[phone] [place] No Information Pantera Rosas. . Referring Provider: Paty Lloyd, [address] [place] [address] [address], [place], [address]. tel:[phone] [facility], [address], [place], [address], [place] tel:[phone] [place] No Information Kristian Ryder. [address] [facility], [address], [place], [place], [facility], [place]. tel:[phone] Referring Provider: Paty Lloyd, [address] [place] [address] [address], [place], [address]. tel:[phone] [facility], [address], [place], [address], [place] tel:[phone] [place] No Information George Morgan. . [facility], [address], [place], [address], [place] tel:[phone] [place] No Information Pantera Rosas. . Referring Provider: Paty Lloyd, [address] [place] [address] [address], [place], [address]. tel:[phone] [facility], [address], [place], [place], [address], [place] tel:[phone] [place] No Information Kristian Ryder. [address] [facility], [address], [place], [address], [place]. tel:[phone] Referring Provider: Paty Lloyd, [address] [place] [address] [address], [place], [address]. tel:[phone] [facility] [address], [place], [address], [place] tel:[phone] [place] No Information Kristian Ryder. [address] [facility], [address], [place], [address], [place]. tel:[phone] [facility], [place], [address], [place] tel:[phone] [place] No Information Monica Guevara. . [facility], [place], [address], [place] tel:[phone] [place] No Information Vazquezarley Morgan. . [facility], [address], [place], [place], [address], [place] tel:[phone] [place] No Information ky Ralph. . [facility], [place], [place], [address], [place] tel:[phone] [place] No Information ky Ralph. . [facility], [address], [place], [place], [address], [place] tel:[phone] [place] No Information George Morgan. . [facility], [place], [address], [place] tel:[phone] [place] No Information George Morgan. . [facility], [place], [address], [place] tel:[phone] [place] No Information George Morgan. . [facility], [place], [address], [place] tel:[phone] [place] No Information George Morgan. . [facility], [place], [place], [address], [place] tel:[phone] [place] No Information George Morgan. . [facility], [place], [place], [address], [place] tel:[phone] [place] No Information George Morgan. . Referring Provider: Jozef Bosch, [address] [place] [address], [address]. tel:[phone] [facility], [place], [place], [address], tel:[phone] [place] No Information Vazquezarley Morgan. . Referring Provider: Jozef Bosch, [address] [place], [address]. tel:[phone] [facility], [place], [place], [address], tel:[phone] [place] No Information Vazquezarley Mogran. . Referring Provider: Jozef Bosch, [address] [place], [address]. tel:[phone] [facility] [address], [place], [address], tel:[phone] [place] No Information Vazquezarley Morgan. . Referring Provider: Jozef Bosch, [address] [place], [address]. tel:[phone] [facility], [place], [place], [address], [place] tel:[phone] [place] No Information Vazquezarley Morgan. . Referring Provider: Jozef Bosch, [address] [place], [address]. tel:[phone] [facility] [address], [place], [place], [address], [place] tel:[phone] [place] No Information Vazquezarley Morgan. . Referring Provider: Jozef Bosch, [address] [place], [address]. tel:[phone] [facility], [place], [place], [address], [place] tel:[phone] [place] No Information Vazquezarley Morgan. . Referring Provider: Jozef Bosch, [address] [place], [address]. tel:[phone] [facility], [place], [place], [address], [place] tel:[phone] [place] No Information George Morgan. . Referring Provider: Jozef Bosch, [address] [place], [address]. tel:[phone] [facility], [address], [place], [place], [address], [place] tel:[phone] [place] No Information George Morgan. . Referring Provider: Jozef Bosch, [address] [place], [address]. tel:[phone] [facility], [address], [place], [place], [address], tel:[phone] [place] No Information George Morgan. . Referring Provider: Jozef Bosch, [address] [place], [address]. tel:[phone] [facility], [address], [place], [place], [address], [place] tel:[phone] [place] No Information George Morgan. . Referring Provider: Jozef Bosch, [address] [place], [address]. tel:[phone] [facility] [address], [place], [place], [address], [place] tel:[phone] [place] No Information George Morgan. . Referring Provider: Jozef Bosch, [address] [place], [address]. tel:[phone] [facility], [place], [place], [address], tel:[phone] [place] No Information George Morgan. . Referring Provider: Jozef Bosch, [address] [place], [address]. tel:[phone] [facility], [address], [place], [place], [address], [place] tel:[phone] [place] No Information George Morgan. . Referring Provider: Jozef Bosch, [address] [place], [address]. tel:[phone] [facility] [address], [place], [place], [address], [place] tel:[phone] [place] No Information George Morgan. . Referring Provider: Jozef Bosch, [address] [place], [address]. tel:[phone] [facility] [address], [place], [place], [address], tel:[phone] [place] No Information George Morgan. . Referring Provider: Jozef Bosch, [address] [place], [address]. tel:[phone] [facility] [address], [address], [place] tel:[phone] [place] No Information George Morgan. . Referring Provider: Jozef Bosch, [address] [place], [address]. tel:[phone] [facility] [address], [place], [place], [address], [place] tel:[phone] [place] No Information Dav Pink. . Referring Provider: Jozef Bosch, [address] [place], [address]. tel:[phone] [facility], [place], [place], [address], [place] tel:[phone] [place] No Information George Morgan. . Referring Provider: Jozef Bosch, [address] [place], [address]. tel:[phone] [facility] [address], [address], tel:[phone] [place] No Information George Morgan. . Referring Provider: Jozef Bosch, [address] [place], [address]. tel:[phone] [facility] [address], [address], tel:[phone] [place] No Information George Morgan. . Referring Provider: Jozef Bosch, [address] [place], [address]. tel:[phone] [facility] [address], [address], tel:[phone] [place] No Information George Morgan. . Referring Provider: Jozef Bosch, [address] [place], [address]. tel:[phone] Family History Family Member Type Diagnosis Age At Onset No Information Payers Payer name Insurance type Covered libertarian ID Connie montero(s) [employer] CI [id number] Social History Type Description Quantity Date Captured Comments Sex Female Smoking Status No Information Chief Complaint And Reason For Visit No Information Reason For Referral Reason For Referral No Information History Of Present Illness Encounter Date Complaint History Of Prese nt Illness No Information Functional Status Date Functional Assessmen t No Information Instructions Date Instruction Additional Infor mation Dietary needs education Related to Overweight Prescribed activity/exercise edu cation Related to Overweight Assessments Type Assessment Date No Information Patient Care Teams Name Effective Dates (start - stop) Status Members No Information
--- OUTSIDE RECORDS SUMMARY | 2024-09-14 00:13 | XMS_ITS | Clinical Summary ---
Author Organization [facility] Address [address] [place] [address] Care Team Providers Care Medical Lab Assistant Name Role Phone Otto Maria DPM Unavailable [phone] Paty Lloyd MD Primary Care Provider + [...] 12 hr tabletIndicatio ns:Coronary artery disease involving [place] coronary artery of [place] heart with other form of angina pectoris [...] (04/10/2020): Added automatically from request for surgery [id number] Pain in left tibia 01/09/2020 Assessment & [...] to be done. Patient advised to stop [facility] at a nausea as well as [...] 03/03/2019 Assessment & Plan (03/03/2019 12:51 PM HEELER MACHINE): Patient filled jammed injured her right knee a few days ago x-rays negative for fracture dislocation some pain on range of motion no significant swelling or redness.. Anticipate full recovery. Patient advised she can continue working no further recommendations. Carpal tunnel syndrome of right wrist 10/18/2018 Overview (10/18/2018): Added automatically from request for surgery [id number] Cubital tunnel syndrome on right 10/18/2018 Overview (10/18/2018): Added automatically from request for surgery [id number] Ulnar neuropathy of right upper extremity 2018 Overview (10/18/2018): Added automatically from request for surgery [id number] Restless leg 07/22/2018 Assessment & Plan (01/29/2019 [...] medications. Assessment & Plan (05/24/2018 1:38 PM HEELER MACHINE): . Blood pressure is very well control on hydrochlorothiazide/triamterene 37.5, he takes 1 tablet per day no change in therapy.. Low back pain without sciatica 12/05/2017 Assessment & Plan (06/30/2018 5:26 PM CDT): Patient continues to have back pain has improved she has been bpiu-mah-mgaoxeu medications well as gabapentin. Also using a [...] of neurotology and basilar skull surgery at [facility] in [place].. Patient can ambulate much better not had [...] 01/29/2019 Assessment & Plan (05/24/2018 1:29 PM HEELER MACHINE): Patient complains of right foot pain for [...] 01/29/2019 Assessment & Plan (05/24/2018 1:31 PM HEELER MACHINE): Patient complains of a constant thirst for [...] making arrangements. She is considering going to [place] to see a specialist who treats Meniere's disease only. She will check with insurance company for coverage regarding this referral who specialist. Assessment & Plan (08/02/2017 11:00 AM CDT): Patient has had 2 hospital admissions recently for some she is transferred from my office to the [facility] stated few days. Sec hospital admission [...] Also home hepatic product was purchase called ONDINATimeful BARK has been tried. Have no new [...] why she was the he moved to [facility] ER. EEG is pending. MRI brain [...] Gloria. Patient was sent to emergency room [facility] by ambulance. She was too unstable [...] a ear nose and throat physician at [facility] for management vertigo. Patient rise stationary bike at home for purposes of seeing in condition and helping her muscle tone and overall function. Assessment & Plan (12/05/2017 1:26 PM CDT): Patient's condition is greatly improved she is now Medicare Dr. Anuj Wooten chairman & chief executive officer of neurotology and skull lbase at [facility] in [place]. physicians notes can be found under care everywhere in [facility]. Right sided weakness 020 Encounters Date Type Department Care Team Description 08/12/2024 11:15 AM CDT Office Visit [facility] [address] [place] [phone] Saima Jimenez MD Mixed hyperlipidemia (Primary Dx); Nonobstructive atherosclerosis of coronary artery 08/12/2024 Orders Only [facility] Medical [facility] [address] [place] [phone] Travis Liu NP 07/08/2024 3:20 PM CDT - 07/08/2024 11:59 PM CDT Hospital Encounter [facility] [address] [place] [address] Nontoxic multinodular goiter Discharge Disposition: Discharge to [...] on file Legal Sex Female 11:59 AM HEELER MACHINE Gender Identity Female 12/08/2020 9:18 AM CDT [...] 12/31/2018, 12/12/2018 Medical Devices Implanted Type Area Set Builder Device Identifier Shelf Expiration Date Model / [...] completely solid (2) Echogenicity: Hypoechoic (2) Shape: Qbsug-gqrr-cpoj (0) Margin: Smooth (0) Echogenic Foci: None [...] completely solid (2) Echogenicity: Hyperechoic (1) Shape: Wjkii-bgvz-qxyd (0) Margin: Smooth (0) Echogenic Foci: None (0) Total Points: 3 TI-RADS Score: 3: TR3 Mildly suspicious FNA if 2.5 cm or greater; US follow up at 1, 3, and 5 years if 1.5 cm or greater Nodule # 3 Size: 1.0 x 0.5 x 0.9 cm Location: Left mid thyroid Composition: Solid or almost completely solid (2) Echogenicity: Hyperechoic (1) Shape: Odiik-mhik-xnmd (0) Margin: Smooth (0) Echogenic Foci: None [...] Soto Pereira M.D. NS: NS Report ID: [id number] Reading Location: [id number] Procedure Note Soto Pereira MD - 07/15/2024 [...] completely solid (2) Echogenicity: Hypoechoic (2) Shape: Clizi-gppl-xnns (0) Margin: Smooth (0) Echogenic Foci: None [...] completely solid (2) Echogenicity: Hyperechoic (1) Shape: Dgiyy-urlg-uyhm (0) Margin: Smooth (0) Echogenic Foci: None (0) Total Points: 3 TI-RADS Score: 3: TR3 Mildly suspicious FNA if 2.5 cm or greater; US follow up at 1, 3, and 5 years if 1.5 cm or greater Nodule # 3 Size: 1.0 x 0.5 x 0.9 cm Location: Left mid thyroid Composition: Solid or almost completely solid (2) Echogenicity: Hyperechoic (1) Shape: Wrzrs-fvbe-bwvg (0) Margin: Smooth (0) Echogenic Foci: None [...] Soto Pereira M.D. NS: NS Report ID: [id number] Reading Location: [id number] us Not In File Miscellaneous IMG US [...] with given history of: Z78.0 Screening. Postmenopausal Set Builder/Model: [employer] SL (S/N [id number]) CLINICAL INFORMATION: Current height: 66 inches Maximum [...] Ian Blanchard M.D. MF: MCKENZIE Report ID: [id number] Reading Location: [place] [address] Procedure Note Ian Blanchard MD - 12/11/2022 EXAM DESCRIPTION: DEXA AXIAL SKELETON BONE DENSITY 1 OR MORE SITES REASON FOR STUDY: 67 y/o year old F with given history of: Z78.0 Screening. Postmenopausal Set Builder/Model: [employer] SL (S/N [id number]) CLINICAL INFORMATION: Current height: 66 inches Maximum [...] Ian Blanchard M.D. MF: MCKENZIE Report ID: [id number] Reading Location: [place] [address] us Paty Lloyd MD IMG DXA PROCEDURES Final Result * Hepatitis C antibody (07/03/2016 12:57 PM CDT) SIGNAL TO CUT-OFF 0.01 <1.00 [facility] HISTORICAL RESULTS Comment: [facility] [address] [place] [address] Director: LINDA EDWARDS DO,MPH Hep C Ab NON-REACT WHITLEY NON-REACT WHITLEY [facility] HISTORICAL RESULTS 07/03/2016 12:5 7 PM CDT us Linda Ng MD LAB MICROBIOLOGY - GENERAL ORDERABLES Final Result [facility] HISTORICAL RESULTS from Last 3 Months or Most Recently Relevant to Health Maintenance Insurance MEDICARE [facility] MEDICARE [facility]ERS COMPENSATION GENERIC Advance Directives For more information, please contact: [phone] * Full Code (Latest Code Status on [...] Alternate Health Car e Agent Care Teams Medical Lab Assistant Relationship Specialty Start Date End Date Paty Lloyd MD [address] [facility] [place] [address] PCP - General Family Medicine 04/27/24 Otto Maria DPM [address] [place] [address] Consulting Physician Orthotics 04/25/22
--- OUTSIDE RECORDS SUMMARY | 2024-09-14 00:13 | XMS_ITS | Continuity of Care Document ---
Author Organization [facility] Address [address] [place] [address] Phone Care Team Providers Care Continuous Process Rotary Drum Tanner Name Role Phone Bethel Muñoz MD Unavailable Unavailable Procedures Procedure Date Office Consultation Visual Field Examination(s) Advance Directives Directive Yes / No Effective Date File Name No Information Encounters Encounter Description Practice Location Reason(s) For Visit Diagnoses Date Provider Providers Copied on Encounter Office Consultation [facility], [address], [place], [place], [address], tel:[phone] [place] Professional No Information [address] Hugo. [address] [facility] [place], [place], [address], [place]. tel:[phone] Referring Provider: Nury Ratliff OD, [address], [address]. tel:[phone] Family History Family Member Type Diagnosis Age At Onset No Information Payers Payer name Insurance type Covered republican ID Authoriza tion(s) Medicare [facility] [id number] Social History Type Description Quantity Date Captured [...]
--- OUTSIDE RECORDS SUMMARY | 2024-09-14 00:13 | XMS_ITS | Referral Summary ---
Author Organization [facility] Address [address] [place] [address] Care Team Providers Care Machine Pie Maker Name Role Phone Otto Maria DPM Unavailable [phone] Paty Lloyd MD Primary Care Provider + Encounters Date Type Department Care Team Description 08/12/2024 Orders Only [facility] Medical Group Cardiology [address] [facility] [address] [place] [address] Travis Liu NP 08/12/2024 11:15 AM CDT Office Visit [facility] [address] [facility] [address] [place] [address] Saima Jimenez MD Mixed hyperlipidemia (Primary Dx); Nonobstructive atherosclerosis of coronary artery 07/08/2024 3:20 PM CDT - 07/08/2024 11:59 PM CDT Hospital Encounter [facility] [address] [place] [address] Nontoxic multinodular goiter Discharge Disposition: Discharge to [...] 12 hr tabletIndicatio ns:Coronary artery disease involving shinnecock coronary artery of shinnecock heart with other form of angina pectoris [...] (04/10/2020): Added automatically from request for surgery [id number] Pain in left tibia 01/09/2020 Assessment & [...] to be done. Patient advised to stop [facility] at a nausea as well as a rash could be from [facility]. She is to give me a [...] 03/03/2019 Assessment & Plan (03/03/2019 12:51 PM FLIGHT HOSTESS): Patient filled jammed injured her right knee a few days ago x-rays negative for fracture dislocation some pain on range of motion no significant swelling or redness.. Anticipate full recovery. Patient advised she can continue working no further recommendations. Carpal tunnel syndrome of right wrist 10/18/2018 Overview (10/18/2018): Added automatically from request for surgery [id number] Cubital tunnel syndrome on right 10/18/2018 Overview (10/18/2018): Added automatically from request for surgery [id number] Ulnar neuropathy of right upper extremity 2018 Overview (10/18/2018): Added automatically from request for surgery [id number] Restless leg 07/22/2018 Assessment & Plan (01/29/2019 [...] medications. Assessment & Plan (05/24/2018 1:38 PM FLIGHT HOSTESS): . Blood pressure is very well control on hydrochlorothiazide/triamterene 37.5/25, he takes 1 tablet per day no change in therapy.. Low back pain without sciatica 12/05/2017 Assessment & Plan (06/30/2018 5:26 PM CDT): Patient continues to have back pain has improved she has been arow-tnp-wbivbbw medications well as gabapentin. Also using a [...] of neurotology and basilar skull surgery at [facility] in [place].. Patient can ambulate much better not had [...] 01/29/2019 Assessment & Plan (05/24/2018 1:29 PM FLIGHT HOSTESS): Patient complains of right foot pain [...] 01/29/2019 Assessment & Plan (05/24/2018 1:31 PM FLIGHT HOSTESS): Patient complains of a constant thirst [...] making arrangements. She is considering going to [place] to see a specialist who treats Meniere's disease only. She will check with insurance company for coverage regarding this referral who specialist. Assessment & Plan (08/02/2017 11:00 AM CDT): Patient has had 2 hospital admissions recently for some she is transferred from my office to the [facility] stated few days. Sec hospital admission [...] why she was the he moved to [facility] ER. EEG is pending. MRI brain without contrast shows no acute changes. Assessment & Plan (07/21/2017 4:52 PM CDT): Patient has a history of Meniere's disease over 20 years. Her impression that is becoming worse because of increased dizziness in on in inability to maintain her balance. Fell at latter day 3 days ago was seen emergency room placed on [facility] in sent home. We attempted to [...] back to physical therapy as an utilize [facility]. Return to the attempt to get the patient up and she loss consciousness. She is actually having a seizure she was not aware of anything did not respond to any stimulus for least 3 min. This occurred 1 other time here in office follows on the phone with Dr. Gloria. Patient was sent to emergency room [facility] by ambulance. She was too unstable [...] a ear nose and throat physician at [facility] for management vertigo. Patient rise stationary bike at home for purposes of seeing in condition and helping her muscle tone and overall function. Assessment & Plan (12/05/2017 1:26 PM CDT): Patient's condition is greatly improved she is now Medicare Dr. Anuj Wooten math and sciences department chair of neurotology and skull lbase at [facility] in [place]. S physicians notes can be found under care everywhere in [place] [place]. Right sided weakness 020 Immunizations Immunization Administration [...] on file Legal Sex Female 11:59 AM FLIGHT HOSTESS Gender Identity Female 12/08/2020 9:18 AM [...] on file Medical Devices Implanted Type Area Dev Technical Mgr Device Identifier Shelf Expiration Date Model / Serial / Lot Other-Cochlea r Implant-2022 Implanted:Qty : 1 on 06/20/2022 by López Delvalle MD Other - see comments Right: Head COCHLEAR [facility] [id number] - NUCLEUS PROFILE PLUS / [...] completely solid (2) Echogenicity: Hypoechoic (2) Shape: Lkyjw-rieg-tzru (0) Margin: Smooth (0) Echogenic Foci: None [...] completely solid (2) Echogenicity: Hyperechoic (1) Shape: Guvux-dyfh-ftoi (0) Margin: Smooth (0) Echogenic Foci: None (0) Total Points: 3 TI-RADS Score: 3: TR3 Mildly suspicious FNA if 2.5 cm or greater; US follow up at 1, 3, and 5 years if 1.5 cm or greater Nodule # 3 Size: 1.0 x 0.5 x 0.9 cm Location: Left mid thyroid Composition: Solid or almost completely solid (2) Echogenicity: Hyperechoic (1) Shape: Ifcuy-pmyb-iunf (0) Margin: Smooth (0) Echogenic Foci: None [...] Soto Pereira M.D. NS: NS Report ID: [id number] Reading Location: [id number] Procedure Note Soto Pereira MD - 07/15/2024 [...] completely solid (2) Echogenicity: Hypoechoic (2) Shape: Jhdzx-zzfn-kewy (0) Margin: Smooth (0) Echogenic Foci: None [...] completely solid (2) Echogenicity: Hyperechoic (1) Shape: Gqaur-ljze-qkjc (0) Margin: Smooth (0) Echogenic Foci: None (0) Total Points: 3 TI-RADS Score: 3: TR3 Mildly suspicious FNA if 2.5 cm or greater; US follow up at 1, 3, and 5 years if 1.5 cm or greater Nodule # 3 Size: 1.0 x 0.5 x 0.9 cm Location: Left mid thyroid Composition: Solid or almost completely solid (2) Echogenicity: Hyperechoic (1) Shape: Ksftw-abdj-zjlg (0) Margin: Smooth (0) Echogenic Foci: None [...] Soto Pereira M.D. NS: PLACIDO Report ID: [id number] Reading Location: [id number] us Not In File Miscellaneous IMG US PROCEDURES Suzie l Result * Lipid panel (06/25/2024 11:45 AM CDT) Blood us Travis Liu ASSISTANT SALES DIRECTOR LAB BLOOD ORDERABLES Final Res ult * [...] with given history of: Z78.0 Screening. Postmenopausal Dev Technical Mgr/Model: FUZE Fit For A Kid! Discovery SL (S/N [id number]) CLINICAL INFORMATION: Current height: 66 inches Maximum [...] Ian Blanchard M.D. MF: MCKENZIE Report ID: [id number] Reading Location: [address] Note Ian Blanchard MD - 12/11/2022 EXAM DESCRIPTION: DEXA AXIAL SKELETON BONE DENSITY 1 OR MORE SITES REASON FOR STUDY: 67 y/o year old F with given history of: Z78.0 Screening. Postmenopausal Dev Technical Mgr/Model: FUZE Fit For A Kid! Discovery SL (S/N [id number]) CLINICAL INFORMATION: Current height: 66 inches Maximum [...] Ian Blanchard M.D. MF: MCKENZIE Report ID: [id number] Reading Location: [place] [address] us Paty Lloyd MD IMG DXA PROCEDURES Final Result * Hepatitis C antibody (07/03/2016 12:57 PM CDT) SIGNAL TO CUT-OFF 0.01 <1.00 [facility]ISTORICAL RESULTS Comment: Test performed at [facility] [place] [address] [address] Director: LINDA EDWARDS DO,MPH Hep C Ab NON-REACT WHITLEY NON-REACT WHITLEY [facility] HISTORICAL RESULTS 07/03/2016 12:5 7 PM CDT us Linda Ng MD LAB MICROBIOLOGY - GENERAL ORDERABLES Final Result [facility] HISTORICAL RESULTS from Last 3 Months or Most Recently Relevant to Health Maintenance Insurance MEDICARE [facility] MEDICARE [facility] WORKERS COMPENSATION GENERIC Advance Directives For more information, please contact: [phone] * Full Code (Latest Code Status on File) Date Activated Date Inactivated Comments 08/04/2023 11:11 AM 08/05/2023 8:51 PM * Full Code Date Activated Date Inactivated Comments 07/10/2021 8:08 PM 07/11/2021 9:59 PM * Full Code Date Activated Date Inactivated Comments 07/21/2017 9:18 PM 07/23/2017 8:40 PM Healthcare Agents on File Name Relationship Healthcare [facility] Ivett Magallon Daughter Health Care Agent Maldonado Han Son Second Alternate Health Car e Agent Care Teams Machine Pie Maker Relationship Specialty Start Date End Date Paty Lloyd MD [facility] [facility] [address] [place] [address] PCP - General Family Medicine 04/27/24 Otto Maria DPM [address] [place] [address] Consulting Physician Orthotics 04/25/22
--- OUTSIDE RECORDS SUMMARY | 2024-09-14 00:13 | XMS_ITS | Clinical Summary ---
Author Organization [facility] Address [address] [place] [address] Phone Care Team Providers Care Operations Research Engineer Name Role Phone Paty Lloyd MD Primary [...] Comments Blood Pressure 126/75 03/06/2021 4:48 PM NET MENDER Pulse 86 03/06/2021 4:48 PM NET MENDER Temperature 36.8 C (98.3 F) 03/06/2021 4:48 PM NET MENDER Respiratory Rate 16 03/06/2021 4:48 PM NET MENDER Oxygen Saturation 97% 03/06/2021 4:48 PM NET MENDER Inhaled Oxygen Concentration - - Weight 83.9 kg (185 lb) 03/06/2021 4:48 PM NET MENDER Height 167.6 cm (5' 6) 03/06/2021 4:48 PM NET MENDER Body Mass Index 29.86 03/06/2021 4:48 PM NET MENDER Plan of Treatment Health Maintenance Due Date [...] topic Insurance MEDICARE [employer] Care Teams Operations Research Engineer Relationship Specialty Start Date End Date Paty Lloyd MD PCP - General Family Medicine 11/15/21
--- NOTE | 2024-10-04 10:20 | PC.NURSE ---
PATIENT CANCELED FROM 09/14/24 R/T +URINE CULTURE. RESCHEDULED TO 10/12/24. Report to the Outpatient Waiting Room, entrance under the green pavilion located off [facility], at time ___6:00AM____ on date __10/12/24 . Planned Procedure Time: ___7:30AM .? Time changes happen often and if your time is changed the preop area will call you the afternoon before. - You and your visitor will be asked to self-screen and do not enter if you have any COVID symptoms. Please call surgeon if you need to reschedule. - A mask is optional within the hospital at this time. Patients may have clear liquids (water, carbonated beverages, clear teas, apple juice) until 3 hours prior to surgery (4:30AM) with a maximum of 20 ounces. - No food from midnight until time of surgery and no smoking, or chewing tobacco (or any form of nicotine). No chewing gum, candy or mints. Take only the following medications with a SIP of water on the morning of surgery: ____LEVOTHYROXINE, RANOLAZINE. MAY TAKE MECLIZINE & TRAMADOL NEEDED DO NOT STOP ANY OF YOUR OTHER PRESCRIPTION MEDICATIONS PRIOR TO SURGERY EXCEPT THE FOLLOWING Hold all vitamins and supplements for 3 days per anesthesiologist. Medications to discontinue per physician __HOLD ASPIRIN AND ALEVE (ALL NSAIDS) 7 DAYS PRE-OP PER DR CÁRDENAS. Date to take last dose____10/04/24 Please no make-up, nail syriac, hairspray, perfume, deodorant, or body powder the day of surgery.? No jewelry (including any body piercings) or valuables the day of surgery, leave them at home.? Please take a shower or bath the night before, or the morning of, surgery with an antibacterial soap.? Wear comfortable, loose fitting clothing.? - Jewelry must be removed prior to entering the operating room.? Rings and piercings that are not removed may be cut off. - The hospital will not accept responsibility for valuables.? - Please leave all valuables, including medications, at home the day of surgery. If you are going home after surgery, a licensed route driver salesperson must drive you home.? - NO public transportation without another adult if you receive anesthesia. - We recommend that an adult stay with you for 24 hours following discharge. - We also recommend that you do not drive, make important decision, drink alcoholic beverages, or take any drugs that were not prescribed by your health care provider for at least 24 hours after your discharge time. Follow any additional instructions given to you from your surgeon. HIBICLENS SHOWER DAILY FOR 7 DAYS PRE-OP PER DR CÁRDENAS. Telephone instructions given to ____PATIENT and asked if any additional questions and then verbalized understanding. Patient advised to call surgeon office or pre surgery nurse liaison [phone] if any additional questions.
[2024-10-12] VITALS (17 sets, daily range): BP systolic 94–134; BP diastolic 43–73; PULSE 53–70; RESP 10–18; TEMP 36.4–37.3; O2SAT 94–100; BMI 24.0
--- OUTSIDE RECORDS SUMMARY | 2024-10-12 00:13 | XMS_ITS | Continuity of Care Document ---
Author Organization [facility] Address [address] [place] [address] Phone Care Team Providers Care Tugboat Captain Name Role Phone Bethel Muñoz MD Unavailable Unavailable Procedures Procedure Date Office Consultation Visual Field Examination(s) Advance Directives Directive Yes / No Effective Date File Name No Information Encounters Encounter Description Practice Location Reason(s) For Visit Diagnoses Date Provider Providers Copied on Encounter Office Consultation [facility], [address], [place], [place], [id number], tel:[phone] [facility] No Information [address] [facility] [place], [place], [id number], [place]. tel:[phone] Referring Provider: Nury Ratliff OD, [address], [address]. tel:[phone] Family History Family Member Type Diagnosis Age At Onset No Information Payers Payer name Insurance type Covered republican ID Authoriza tion(s) Medicare [facility] [id number] Social History Type Description Quantity Date Captured [...]
--- OUTSIDE RECORDS SUMMARY | 2024-10-12 00:13 | XMS_ITS | Referral Summary ---
Author Organization [facility] Address [address] [place] [address] Care Team Providers Care Bending Machine Operator Name Role Phone Otto Maria DPM Unavailable [phone] Paty Lloyd MD Primary Care Provider + Encounters Date Type Department Care Team Description 08/12/2024 Orders Only [facility] Cardiology 10 [facility] [address] [place] [phone] Travis Liu NP 08/12/2024 11:15 AM CDT Office Visit [facility] Cardiology 10 [facility] [address] [place] [phone] Saima Jimenez MD Mixed hyperlipidemia (Primary [...] 12 hr tabletIndicatio ns:Coronary artery disease involving circle coronary artery of circle heart with other form of angina pectoris [...] (04/10/2020): Added automatically from request for surgery [id number] Pain in left tibia 01/09/2020 Assessment & [...] to be done. Patient advised to stop [facility] at a nausea as well as a rash could be from [facility]. She is to give me [...] 03/03/2019 Assessment & Plan (03/03/2019 12:51 PM DESKTOP MANAGER): Patient filled jammed injured her right knee a few days ago x-rays negative for fracture dislocation some pain on range of motion no significant swelling or redness.. Anticipate full recovery. Patient advised she can continue working no further recommendations. Carpal tunnel syndrome of right wrist 10/18/2018 Overview (10/18/2018): Added automatically from request for surgery [id number] Cubital tunnel syndrome on right 10/18/2018 Overview (10/18/2018): Added automatically from request for surgery [id number] Ulnar neuropathy of right upper extremity 2018 Overview (10/18/2018): Added automatically from request for surgery [id number] Restless leg 07/22/2018 Assessment & Plan (01/29/2019 [...] medications. Assessment & Plan (05/24/2018 1:38 PM DESKTOP MANAGER): . Blood pressure is very well control on hydrochlorothiazide/triamterene 37.5/25, he takes 1 tablet per day no change in therapy.. Low back pain without sciatica 12/05/2017 Assessment & Plan (06/30/2018 5:26 PM CDT): Patient continues to have back pain has improved she has been spdv-ikg-zksyfzw medications well as gabapentin. Also using a [...] skull surgery at [facility] in [place].. Patient can ambulate much better not had [...] 01/29/2019 Assessment & Plan (05/24/2018 1:29 PM DESKTOP MANAGER): Patient complains of right foot pain for [...] 01/29/2019 Assessment & Plan (05/24/2018 1:31 PM DESKTOP MANAGER): Patient complains of a constant thirst for [...] making arrangements. She is considering going to [place] to see a specialist who treats Meniere's disease only. She will check with insurance company for coverage regarding this referral who specialist. Assessment & Plan (08/02/2017 11:00 AM CDT): Patient has had 2 hospital admissions recently for some she is transferred from my office to the [facility] stated few days. Sec hospital [...] why she was the he moved to [facility] ER. EEG is pending. MRI brain without contrast shows no acute changes. Assessment & Plan (07/21/2017 4:52 PM CDT): Patient has a history of Meniere's disease over 20 years. Her impression that is becoming worse because of increased dizziness in on in inability to maintain her balance. Fell at [facility] 3 days ago was seen emergency room [...] Gloria. Patient was sent to emergency room [facility] by ambulance. She was too [...] a ear nose and throat physician at [facility] for management vertigo. Patient rise stationary bike at home for purposes of seeing in condition and helping her muscle tone and overall function. Assessment & Plan (12/05/2017 1:26 PM CDT): Patient's condition is greatly improved she is now Medicare Dr. Anuj Wooten hydraulic chair assembler of neurotology and skull lbase at [facility] in [place]. S physicians notes can be found under care everywhere in [facility]. Right sided weakness 020 Immunizations [...] on file Legal Sex Female 11:59 AM DESKTOP MANAGER Gender Identity Female 12/08/2020 9:18 AM CDT [...] on file Medical Devices Implanted Type Area Accountant Controller Device Identifier Shelf Expiration Date Model / [...] with given history of: Z78.0 Screening. Postmenopausal Accountant Controller/Model: [employer] (S/N [id number]) CLINICAL INFORMATION: Current height: 66 inches Maximum [...] Ian Blanchard M.D. MF: MCKENZIE Report ID: [id number] Reading Location: [id number] [facility] Note Ian Blanchard MD - 12/11/2022 EXAM DESCRIPTION: DEXA AXIAL SKELETON BONE DENSITY 1 OR MORE SITES REASON FOR STUDY: 67 y/o year old F with given history of: Z78.0 Screening. Postmenopausal Accountant Controller/Model: [employer] Discovery SL (S/N [id number]) CLINICAL INFORMATION: Current height: 66 inches Maximum [...] Ian Blanchard M.D. MF: MCKENZIE Report ID: [id number] Reading Location: [place] [address] us Paty Lloyd MD IM DXA PROCEDURES Final Result * Hepatitis C antibody (07/03/2016 12:57 PM CDT) SIGNAL TO CUT-OFF 0.01 <1.00 [facility]ISTORICAL RESULTS Comment: Test performed at [facility] [place] [address] [address] Director: LINDA EDWARDS DO,MPH Hep C Ab NON-REACT WHITLEY NON-REACT WHITLEY [facility] HISTORICAL RESULTS 07/03/2016 12:5 7 PM CDT Linda Ng MD LAB MICROBIOLOGY - GENERAL ORDERABLES Final Result [facility] HISTORICAL RESULTS from Last 3 Months or Most Recently Relevant to Health Maintenance Insurance MEDICARE [facility] MEDICARE [facility] WORKERS COMPENSATION GENERIC Advance Directives For more information, please contact: [phone] * Full Code (Latest Code Status on File) Date Activated Date Inactivated Comments 08/04/2023 11:11 AM 08/05/2023 8:51 PM * Full Code Date Activated Date Inactivated Comments 07/10/2021 8:08 PM 07/11/2021 9:59 PM * Full Code Date Activated Date Inactivated Comments 07/21/2017 9:18 PM 07/23/2017 8:40 PM Healthcare Agents on File Name Relationship Healthcare Agent [facility] p Communication Ivett Magallon Daughter Health Care Agent Maldonado Han Son Second Alternate Health Car e Agent Care Teams Bending Machine Operator Relationship Specialty Start Date End Date Paty Lloyd MD [address] [place] [address] PCP - General Family Medicine 04/27/24 Otto Maria DPM [address] [place] [address] Consulting Physician Orthotics 04/25/22
--- OUTSIDE RECORDS SUMMARY | 2024-10-12 00:13 | XMS_ITS | Clinical Summary ---
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 Patient advised to stop [facility] at a nausea as well [...] 03/03/2019 Assessment & Plan (03/03/2019 12:51 PM TESTER OPERATOR): Patient filled jammed injured her right knee a few days ago x-rays negative for fracture dislocation some pain on range of motion no significant swelling or redness.. Anticipate full recovery. Patient advised she can continue working no further recommendations. Carpal tunnel syndrome of right wrist 10/18/2018 Overview (10/18/2018): Added automatically from request for surgery [id number] Cubital tunnel syndrome on right 10/18/2018 Overview (10/18/2018): Added automatically from request for surgery [id number] Ulnar neuropathy of right upper extremity 2018 Overview (10/18/2018): Added automatically from request for surgery [id number] Restless leg 07/22/2018 Assessment & Plan (01/29/2019 [...] medications. Assessment & Plan (05/24/2018 1:38 PM TESTER OPERATOR): . Blood pressure is very well control on hydrochlorothiazide/triamterene 37.5, he takes 1 tablet per day no change in therapy.. Low back pain without sciatica 12/05/2017 Assessment & Plan (06/30/2018 5:26 PM CDT): Patient continues to have back pain has improved she has been cdnq-bgv-tcfoure medications well as gabapentin. Also using a [...] of neurotology and basilar skull surgery at [facility] in [place].. Patient can ambulate much better not had [...] 01/29/2019 Assessment & Plan (05/24/2018 1:29 PM TESTER OPERATOR): Patient complains of right foot pain for [...] 01/29/2019 Assessment & Plan (05/24/2018 1:31 PM TESTER OPERATOR): Patient complains of a constant thirst for [...] making arrangements. She is considering going to [place] to see a specialist who treats Meniere's disease only. She will check with insurance company for coverage regarding this referral who specialist. Assessment & Plan (08/02/2017 11:00 AM CDT): Patient has had 2 hospital admissions recently for some she is transferred from my office to the [facility] stated few days. Sec hospital [...] Also home hepatic product was purchase called ONDINANETpeas BARK has been tried. Have no new [...] why she was the he moved to [facility] ER. EEG is pending. MRI brain without contrast shows no acute changes. Assessment & Plan (07/21/2017 4:52 PM CDT): Patient has a history of Meniere's disease over 20 years. Her impression that is becoming worse because of increased dizziness in on in inability to maintain her balance. [facility] ago was seen emergency room [...] Gloria. Patient was sent to emergency room [facility] by ambulance. She was too [...] a ear nose and throat physician at [facility] for management vertigo. Patient rise stationary bike at home for purposes of seeing in condition and helping her muscle tone and overall function. Assessment & Plan (12/05/2017 1:26 PM CDT): Patient's condition is greatly improved she is now Medicare Dr. Anuj Wooten agriculture department chair of neurotology and skull lbase at [facility] in [place]. physicians notes can be found under care everywhere in [place]. Right sided weakness 020 Encounters Date Type Department Care Team Description 08/12/2024 11:15 AM CDT Office Visit [facility] Medical Group Cardiology [address] [place] [address] Saima Jimenez MD Mixed hyperlipidemia (Primary Dx); Nonobstructive atherosclerosis of coronary artery 08/12/[address] [facility] Medical [facility] Cardiology [address] [place] [address] Travis Liu NP from Last 3 Months [...] on file Legal Sex Female 11:59 AM TESTER OPERATOR Gender Identity Female 12/08/2020 9:18 AM CDT [...] 12/31/2018, 12/12/2018 Medical Devices Implanted Type Area Lean Consultant Device Identifier Shelf Expiration Date Model / [...] with given history of: Z78.0 Screening. Postmenopausal Lean Consultant/Model: [employer] SL (S/N [id number]) CLINICAL INFORMATION: Current height: 66 inches Maximum [...] Ian Blanchard M.D. MF: MCKENZIE Report ID: [id number] Reading Location: [place] [address] Procedure Note Ian Blanchard MD - 12/11/2022 EXAM DESCRIPTION: DEXA AXIAL SKELETON BONE DENSITY 1 OR MORE SITES REASON FOR STUDY: 67 y/o year old F with given history of: Z78.0 Screening. Postmenopausal Lean Consultant/Model: [employer] SL (S/N [id number]) CLINICAL INFORMATION: Current height: 66 inches Maximum [...] Ian Blanchard M.D. MF: MCKENZIE Report ID: [id number] Reading Location: [place] [address] us Paty Lloyd MD IMG DXA PROCEDURES Final Result * Hepatitis C antibody (07/03/2016 12:57 PM CDT) Pathologist [facility] SIGNAL TO CUT-OFF 0.01 <1.00 [facility]ISTORICAL RESULTS Comment: Test performed at [facility] [address] [place] [address] Director: LINDA EDWARDS DO,MPH Hep C Ab NON-REACT WHITLEY NON-REACT WHITLEY [facility]ISTORICAL RESULTS 07/03/2016 12:5 7 PM CDT us Linda Ng MD LAB MICROBIOLOGY - GENERAL ORDERABLES Final Result Performing Organization Address City/State/ZIP Co ks Phone Number [facility]ISTORICAL RESULTS from Last 3 Months or Most Recently Relevant to Health Maintenance Insurance MEDICARE [facility] OTHER Address[place] [address] [place] [address] MEDICARE [facility] Address: [address] [address] [place] [address] [facility] HEALTHCARE WORKERS COMPENSATION GENERIC Advance Directives For more information, please contact: [phone] * Full Code (Latest Code Status on File) Date Activated Date Inactivated Comments 08/04/2023 11:11 AM 08/05/2023 8:51 PM * Full Code Date Activated Date Inactivated Comments 07/10/2021 8:08 PM 07/11/2021 9:59 PM * Full Code Date Activated Date Inactivated Comments 07/21/2017 9:18 PM 07/23/2017 8:40 PM Healthcare Agents on File Name Relationship Healthcare Agent [facility] Communication Ivett Magallon Daughter Health Care Agent Maldonado Deutsch [facility][1] Health Car e Agent Care Teams Academic Interventionist Relationship Specialty Start Date End Date Paty Lloyd MD [address] [facility] [place] [address] PCP - General Family Medicine 04/27/24 Otto Maria DPM [address] [place] [address] Consulting Physician Orthotics 04/25/22
--- OUTSIDE RECORDS SUMMARY | 2024-10-12 00:13 | XMS_ITS | Clinical Summary ---
Author Organization [facility] Address [address] [place] [address] Phone Care Team Providers Care Correctional Food Service Supervisor Name Role Phone Paty Lloyd MD Primary [...] Comments Blood Pressure 126/75 03/06/2021 4:48 PM SOCIAL WORK ASSOCIATE Pulse 86 03/06/2021 4:48 PM SOCIAL WORK ASSOCIATE Temperature 36.8 C (98.3 F) 03/06/2021 4:48 PM SOCIAL WORK ASSOCIATE Respiratory Rate 16 03/06/2021 4:48 PM SOCIAL WORK ASSOCIATE Oxygen Saturation 97% 03/06/2021 4:48 PM SOCIAL WORK ASSOCIATE Inhaled Oxygen Concentration - - Weight 83.9 kg (185 lb) 03/06/2021 4:48 PM SOCIAL WORK ASSOCIATE Height 167.6 cm (5' 6) 03/06/2021 4:48 PM SOCIAL WORK ASSOCIATE Body Mass Index 29.86 03/06/2021 4:48 PM SOCIAL WORK ASSOCIATE Plan of Treatment Health Maintenance Due Date [...] topic Insurance MEDICARE C [employer] Care Teams Correctional Food Service Supervisor Relationship Specialty Start Date End Date Paty Lloyd MD PCP - General Family Medicine 11/15/21
--- OUTSIDE RECORDS SUMMARY | 2024-10-12 00:13 | XMS_ITS | Clinical Summary ---
Author Organization [facility] Address [address] [place] [address] Care Team Providers Care Supervisor Of Communications Name Role Phone Paty Lloyd MD Primary Care Provider [phone] Source Comments [facility],non-owned Affiliates and Associated Physician Practices is amultiple site organization consisting of ambulatory clinics and hospital sitesin [place], [place]. This disclosure is being madepursuant to the Care Everywhere program and may not contain all information available regarding this patient. Last updated 18.[facility] Allergies Active Allergy Reactions Criticality Noted Date [...] (07/19/2020): Added automatically from request for surgery [id number] Pain in left leg 01/09/2020 Pain in [...] a ear nose and throat physician at [facility] for management vertigo. Patient rise stationary [...] (01/10/2019): Added automatically from request for surgery [id number] Ulnar neuropathy of right upper extremity 2018 Overview (01/10/2019): Added automatically from request for surgery [id number] Carpal tunnel syndrome of right wrist 10/18/2018 Overview (07/19/2020): Added automatically from request for surgery [id number] Cubital tunnel syndrome on right 10/18/2018 Overview (07/19/2020): Added automatically from request for surgery [id number] Ulnar neuropathy of right upper extremity 2018 Overview (07/19/2020): Added automatically from request for surgery [id number] Right wrist pain 09/20/2018 Overview (01/10/2019): Last [...] (01/10/2019): Added automatically from request for surgery [id number] Median nerve compression in right forearm 2018 [...] back pain has improved she has been void-gnz-jhagwin medications well as gabapentin. Also using a heating pad Low back pain without sciatica 12/05/2017 Overview (07/19/2020): Last Assessment & Plan: Patient continues to have back pain has improved she has been srqi-xfz-kopgtgx medications well as gabapentin. Also using a [...] neurotology and basilar skull surgery at [facility] in [place].. Patient can ambulate much better not had [...] Refill [facility] [address] [place] [address] López Delvalle MD Refill Request from Last 3 Months Immunizations Immunization Administration Dates Next Due [employer] primary monoval ent 12+ yr 0.3mL Purple [...] Comments Blood Pressure 127/80 02/16/2023 10:48 AM SOFTWARE QUALITY TEST ENGINEER Pulse 66 02/16/2023 10:48 AM SOFTWARE QUALITY TEST ENGINEER Temperature 36.9 C (98.4 F) 06/20/2022 12:25 PM SOFTWARE QUALITY TEST ENGINEER Respiratory Rate 22 06/20/2022 1:08 PM SOFTWARE QUALITY TEST ENGINEER Oxygen Saturation 96% 02/16/2023 10:48 AM SOFTWARE QUALITY TEST ENGINEER Inhaled Oxygen Concentration 21% 08/22/2020 5 :35 PM CDT Weight 82.6 kg (182 lb 3.2 oz) 02/16/2023 10:48 AM SOFTWARE QUALITY TEST ENGINEER Height 167.6 cm (5' 6) 02/16/2023 10:48 AM SOFTWARE QUALITY TEST ENGINEER Body Mass Index 29.41 02/16/2023 10:48 AM SOFTWARE QUALITY TEST ENGINEER Plan of Treatment Health Maintenance Due Date [...] this topic Medical Devices Implanted Type Area Refrigerating Engineer Head Device Identifier Shelf Expiration Date Model / Serial / Lot Nucleus Cochlear Implant With Slim Straight Electrode Implanted:Qty: 1 on 06/20/2022 by López Delvalle MD at [facility] Other (Type not listed) Right: Ear [employer] 05/11/2024 [id number] / [id number] / Explanted Type Area Refrigerating Engineer Head Device Identifier Shelf Expiration Date Model / Serial / Lot Cochlear Nucleus [id number] Cochlear Implant With Slim Straight Electrode Implanted:Qty: 1 on 05/29/2020 by López Delvalle MD at [facility] Explanted:Qty: 1 on 08/22/2020 by López Delvalle MD at [facility] Right: Ear Cochlear [employer] 03/16/2022 [id number] / [id number] / Procedures Procedure Name Priority Date/Time Associated Diagnosis Comments BASIC METABOLIC PANEL (CALCIUM TOTAL) Routine 06/06/2022 11:[address] [facility] Pre-op evaluation from Last 3 Months or Most Recently Relevant to Health Maintenance Results * (ABNORMAL) BASIC METABOLIC PANEL (CALCIUM TOTAL) (06/06/2022 11:[address] [facility]) BUN 23 7 - 26 mg/dL 06/06/2022 12:25 PM [facility] Creatinine 1.10(H) 0.56 - 0.96 mg/dL 06/06/2022 12:25 PM [facility] Sodium 140 136 - 145 mmol/L 06/06/2022 12:25 PM [facility] Potassium 3.5 3.5 - 4.5 mmol/L 06/06/2022 12:25 PM [facility] Chloride 105 98 - 107 mmol/L 06/06/2022 12:25 PM [facility] CO2 24 22 - 29 mmol/L 06/06/2022 12:25 PM [facility] Glucose 83 70 - 115 mg/dL 06/06/2022 12:25 PM [facility] Calcium 9.6 8.4 - 10.2 mg/dL 06/06/2022 12:25 PM [facility] Anion Gap 15 8 - 18 06/06/2022 12:25 PM [facility] BUN/Creatinine Ratio 21 7 - 23 06/06/2022 12:25 PM [facility] Osmolality Calculated 293 270 - 300 mOsm/kg 06/06/2022 12:25 PM [facility] eGFR by CKD-EPI 54(L) >=90 mL/min/1.7 3 m2 06/06/2022 12:25 PM [facility] Blood BLOOD SPECIMEN / Unknown Lab Venipuncture / Unknown 06/06/2022 11:15 AM SOFTWARE QUALITY TEST ENGINEER 06/06/2022 11:[address] [facility] us Aniya Betancur CATEGORY SPECIALIST-RN [facility] - CHEMISTRY O RDERABLES Final Result [facility] [address] [place] [address], [place] [phone] from Last 3 Months or Most Recently Relevant to Health Maintenance Insurance [facility] MEDICARE SELF PAY NO INSURANCE Member Subscriber Plan / Payer (Ef fective for All Dates) Name:FilemonRaven schmittsam Dum[place] Member ID:Not on file Relation to Subscriber:Not on file Name:GUILLEHANNA Dumas Subscriber ID:Not on file (Home) Address: [address] [address] Payer ID:Not on file Group ID:Not on file Type:Self Pay Address: [place], [place] Care Teams Supervisor Of Communications Relationship Specialty Start Date End Date Paty Lloyd MD [address] [place] [id number] PCP - General 08/24/21
--- OUTSIDE RECORDS SUMMARY | 2024-10-12 00:13 | XMS_ITS | Continuity of Care Document ---
Author Organization [facility] Address [address] [facility] [address] [place] [address] Phone Care Team Providers Care Hospice Nurse Practitioner Name Role Phone Ralph Mott PT Unavailable [...] Diagnoses Date Provider Providers Copied on Encounter [facility] [facility] [address], [place], [place], [address], tel:[phone] [place] No Information Pantera Rosas. . Referring Provider: Karl Martinez [address], [place], [address]. tel:[phone] [place] [address], [address], [place], [place], [address], [place] tel:[phone] [place] No Information Scheldt Dolores. . Referring Provider: Karl [address], [place], [address]. tel:[phone] [facility] [address], [place], [place], [address], [place] tel:[phone] [place] No Information Scheldt Dolores. . Referring Provider: Karl Martinez [address], [place], [address]. tel:[phone] [facility], [address], [place], [place], [address], tel:[phone] [place] No Information Pantera Rosas. . Referring Provider: Karl Martinez [address], [place], [address]. tel:[phone] [facility], [address], [place], [place], [address], [place] tel:[phone] [place] No Information Pantera Rosas. . Referring Provider: Karl Martinez [address], [place], [address]. tel:[phone] [facility], [place], [place], [address], [place] tel:[phone] [place] No Information Scheldt Dolores. . Referring Provider: Karl Martinez [address], [place], [address]. tel:[phone] [facility], [place], [place], [address], tel:[phone] [place] No Information Bret Kumar. . Referring Provider: Karl [address], [place], [address]. tel:[phone] [facility], [address], [place], [place], [address], tel:[phone] [place] No Information Veda Bernal. . Referring Provider: Travis Liu [address] [place] [address] [address], [place], [address]. tel:[phone] [facility], [address], [place], [place], [address], [place] tel:[phone] [place] No Information Bret Kumar. . Referring Provider: Travis Liu [address] [place] [address] [address], [place], [address]. tel:[phone] [facility], [address] [place], [place] [address], [place], [place], [address], tel:[phone] [place] No Information Kristian Ryder. [address] [place] [address], [address], [place], [address], . tel:[phone] Referring Provider: Karl Martinez [facility] [address], [place], [address]. tel:[phone] [facility], [address], [place], [place], [address], tel:[phone] [place] No Information Bret Kumar. . Referring Provider: Karl Martinez [facility] [address], [place], [address]. tel:[phone] [facility] [address], [place], [place], [address], [place] tel:[phone] [place] No Information Pantera Rosas. . Referring Provider: Deepa [address] [place] [address] [address], [place], [address]. tel:[phone] [facility], [place], [place], [address], [place] tel:[phone] [place] No Information Emilie Solis. . Referring Provider: Travis Liu Karl [facility] [address], [place], [address]. tel:[phone] [facility], [address], [place], [place], [address], tel:[phone] [place] No Information Pantera Rosas. . Referring Provider: Travis Liu, Karl [facility] [address], [place], [address]. tel:[phone] [facility], [address], [place], [place], [address], tel:[phone] [place] No Information Kristian Ryder. [address] [place] [address], [address], [place], [place], [facility], . tel:[phone] Referring Provider: Travis Liu Karl [facility] [address], [place], [address]. tel:[phone] [facility], [address], [place], [place], [address], [place] tel:[phone] [place] No Information Pantera Rosas. . Referring Provider: Travis Liu Karl [facility] [address], [place], [address]. tel:[phone] [facility], [address], [place], [place], [address], [place] tel:[phone] [place] No Information Pantera Rosas. . Referring Provider: Paty Lloyd, [facility] [facility] [address], [place], [address]. tel:[phone] [facility], [address], [place], [place], [address], tel:[phone] [place] No Information May-09 -202Halie Ryder. [address] [facility], [address], [place], [address], [place]. tel:[phone] Referring Provider: Paty Lloyd, [address] [place] [address] [address], [place], [address]. tel:[phone] [place] [address], [facility] [address], [place], [place], [address], [place] tel:[phone] [place] No Information Jaylen Kinney. [address] [facility], [address], [place], [address], [place]. tel:[phone] Referring Provider: Paty Lloyd, [address] [place] [address] [address], [place], [address]. tel:[phone] [place] [address], [address] [place], [place] [address], [place], [address], [place] tel:[phone] [place] No Information Pantera Rosas. . Referring Provider: Paty Lloyd, [address] [place] [address] [address], [place], [address]. tel:[phone] [facility], [address], [place], [place], [address], [place] tel:[phone] [place] No Information Pantera Rosas. . Referring Provider: Paty Lloyd, [address] [place] [address] [address], [place], [address]. tel:[phone] [place] [address], [address], [place], [place], [address], [place] tel:[phone] [place] No Information Pantera Rosas. . Referring Provider: Paty Lloyd, [address] [place] [address] [address], [place], [address]. tel:[phone] [facility], [address], [place], [place], [address], [place] tel:[phone] [place] No Information Kristian Ryder. [address] [facility], [address], [place], [place], [facility], [place]. tel:[phone] Referring Provider: Paty Lloyd, [address] [place] [address] [address], [place], [address]. tel:[phone] [facility], [address] [facility] [address], [place], [place], [address], [place] tel:[phone] [place] No Information George Morgan. . [facility], [address], [place], [place], [address], [place] tel:[phone] [place] No Information Pantera Rosas. . Referring Provider: Paty Lloyd, [address] [place] [address] [address], [place], [address]. tel:[phone] [facility], [address], [place], [place], [address], [place] tel:[phone] [place] No Information Kristian Ryder. [address] [facility], [address], [place], [address], [place]. tel:[phone] Referring Provider: Paty Lloyd, [address] [place] [address] [address], [place], [address]. tel:[phone] [facility] [address], [place], [place], [address], [place] tel:[phone] [place] No Information Kristian Ryder. [address] [facility], [address], [place], [address], [place]. tel:[phone] [facility], [place], [place], [address], [place] tel:[phone] [place] No Information Monica Guevara. . [facility] [facility] [address], [place], [place], [address], [place] tel:[phone] [place] No Information Vazquezarley Morgan. . [facility], [address], [place], [place], [address], [place] tel:[phone] [place] No Information ky Ralph. . [facility], [place], [place], [address], [place] tel:[phone] [place] No Information ky Ralph. . [facility], [address], [place], [place], [address], [place] tel:[phone] [place] No Information George Morgan. . [facility], [place], [place], [address], [place] tel:[phone] [place] No Information George Morgan. . [facility], [place], [place], [address], [place] tel:[phone] [place] No Information George Morgan. . [facility], [place], [place], [address], [place] tel:[phone] [place] No Information George Morgan. . [facility], [place], [place], [address], [place] tel:[phone] [place] No Information George Morgan. . [facility], [place], [place], [address], [place] tel:[phone] [place] No Information George Morgan. . Referring Provider: Jozef Bosch, [address] [place] [address], [address]. tel:[phone] [facility], [place], [place], [address], tel:[phone] [place] No Information Vazquezarley Morgan. . Referring Provider: Jozef Bosch, [address] [place], [address]. tel:[phone] [facility], [place], [place], [address], tel:[phone] [place] No Information Vazquezarley Morgan. . Referring Provider: Jozef Bosch, [address] [place], [address]. tel:[phone] [facility] [address], [place], [place], [address], tel:[phone] [place] No Information Vazquezarley Morgan. . Referring Provider: Jozef Bosch, [address] [place], [address]. tel:[phone] [facility], [place], [place], [address], [place] tel:[phone] [place] No Information Vazquezarley Morgan. . Referring Provider: Jozef Bosch, [address] [place], [address]. tel:[phone] [facility] [address], [place], [place], [address], [place] tel:[phone] [place] No Information Vazquezarley Morgan. . Referring Provider: Jozef Bosch, [address] [place], [address]. tel:[phone] [facility], [place], [place], [address], [place] tel:[phone] [place] No Information Vazquezarley Morgan. . Referring Provider: Jozef Bosch, [address] [place], [address]. tel:[phone] [facility], [place], [place], [address], [place] tel:[phone] [place] No Information George Morgan. . Referring Provider: Jozef Bosch, [address] [place], [address]. tel:[phone] [facility], [address], [place], [place], [address], [place] tel:[phone] [place] No Information George Morgan. . Referring Provider: Jozef Bosch, [address] [place], [address]. tel:[phone] [facility], [address], [place], [place], [address], tel:[phone] [place] No Information George Morgan. . Referring Provider: Jozef Bosch, [address] [place], [address]. tel:[phone] [facility], [address], [place], [place], [address], [place] tel:[phone] [place] No Information George Morgan. . Referring Provider: Jozef Bosch, [address] [place], [address]. tel:[phone] [facility] [address], [place], [place], [address], [place] tel:[phone] [place] No Information George Morgan. . Referring Provider: Jozef Bosch, [address] [place], [address]. tel:[phone] [facility], [place], [place], [address], tel:[phone] [place] No Information George Morgan. . Referring Provider: Jozef Bosch, [address] [place], [address]. tel:[phone] [facility], [address], [place], [place], [address], [place] tel:[phone] [place] No Information George Morgan. . Referring Provider: Jozef Bosch, [address] [place], [address]. tel:[phone] [facility] [address], [place], [place], [address], [place] tel:[phone] [place] No Information George Morgan. . Referring Provider: Jozef Bosch, [address] [place], [address]. tel:[phone] [facility] [address], [place], [place], [address], tel:[phone] [place] No Information George Morgan. . Referring Provider: Jozef Bosch, [address] [place], [address]. tel:[phone] [facility] [address], [place], [address], [place] tel:[phone] [place] No Information George Morgan. . Referring Provider: Jozef Bosch, [address] [place], [address]. tel:[phone] [facility] [address], [place], [place], [address], [place] tel:[phone] [place] No Information Dav Pink. . Referring Provider: Jozef Bosch, [address] [place], [address]. tel:[phone] [facility], [place], [place], [address], [place] tel:[phone] [place] No Information George Morgan. . Referring Provider: Jozef Bosch, [address] [place], [address]. tel:[phone] [facility] [address], [address], tel:[phone] [place] No Information George Morgan. . Referring Provider: Jozef Bosch, [address] [place], [address]. tel:[phone] [facility] [address], [address], tel:[phone] [place] No Information George Morgan. . Referring Provider: Jozef Bosch, [address] [place], [address]. tel:[phone] [facility] [address], [address], tel:[phone] [place] No Information George Morgan. . Referring Provider: Jozef Bosch, [address] [place], [address]. tel:[phone] Family History Family Member Type Diagnosis Age At Onset No Information Payers Payer name Insurance type Covered libertarian ID Connie montero(s) [employer] CI [id number] Social History Type Description Quantity Date Captured [...]
--- OUTSIDE RECORDS SUMMARY | 2024-10-12 00:13 | XMS_ITS | Continuity of Care Document ---
Author Organization [facility] Address [address] [facility] [address] [place] [address] Phone Care Team Providers Care Nut Threader Name Role Phone Nadine MS, OTR/L, CANDIDATHyacinth [...] Diagnoses Date Provider Providers Copied on Encounter [facility], [place], [place], [address], [place] tel:[phone] [place] No Information [address] [facility], [address], [place], [address], . tel:[phone] [facility], [place], [place], [address], tel:[phone] [place] Pain in right wristStiffness of right wrist, not elsewhere classifiedStiff ness of right hand, not elsewhere classifiedOth symptoms and signs involving the musculoskeletal systemEffusion, right wristEffusion, right handUnspecified sprain of right wrist, subsequent encounter [address] [facility], [address], [place], [address], [place]. tel:[phone] Referring Provider: Ronald Davidson, [address], [place], [address]. tel:[phone] [facility], [address], [place], [place], [address], [place] tel:[phone] [place] Pain in right wristStiffness of right wrist, not elsewhere classifiedStiff ness of right hand, not elsewhere classifiedOth symptoms and signs involving the musculoskeletal systemEffusion, right wristEffusion, right handUnspecified sprain of right wrist, subsequent encounter [address] [facility], [address], [place], [address], [place]. tel:[phone] Referring Provider: Ronald Davidson, [address], [place], [address]. tel:[phone] [facility], [address], [place], [place], [address], [place] tel:[phone] [place] Pain in right wristStiffness of right wrist, not elsewhere classifiedStiff ness of right hand, not elsewhere classifiedOth symptoms and signs involving the musculoskeletal systemEffusion, right wristEffusion, right handUnspecified sprain of right wrist, subsequent encounter [address] [facility], [address], [place], [address], [place]. tel:[phone] Referring Provider: Ronald Davidson, [address], [place], [address]. tel:[phone] [facility], [address], [place], [place], [address], [place] tel:[phone] [place] Pain in right wristStiffness of right wrist, not elsewhere classifiedStiff ness of right hand, not elsewhere classifiedOth symptoms and signs involving the musculoskeletal systemEffusion, right wristEffusion, right handUnspecified sprain of right wrist, subsequent encounter 9 Aldo Arriaga. . Referring Provider: Ronald Davidson [address] [place] [address] [address], [place], [address]. tel:[phone] Family History Family Member Type Diagnosis Age At Onset No Information Payers Payer name Insurance type Covered constitution party ID Authormikael dickeyedison(s) [id number] Social History Type Description Quantity Date Captured [...]
--- NOTE | 2024-10-12 07:02 | P.PNAN_ITS ---
Anes - Initial Pre Proc Eval Procedure: Operation Date: 10/12/24 07:30 Proposed Procedures p Left Total Hip Arthroplasty - Taiwo Dickinson MD Date/Time: 10/12/24 07:02 Surgeon: Taiwo Dickinson MD Pre Op Diagnosis: Lt Hip O A Patient Data Age: 69 Gender: F Height: 1.68 m Weight: 68.2 kg Last Vital Signs Temp 37.1 C 09/02/24 12:15 Pulse 62 09/02/24 12:15 Resp 16 09/02/24 12:15 BP 113/63 09/02/24 12:15 Pulse Ox 99 09/02/24 12:15 O2 Del Method Room Air 09/02/24 12:15 Allergies Allergy/AdvReac Type Severity Reaction Status Date / Time codeine Allergy Intermediate Hives Verified 10/10/24 13:37 hydrocodone (From [place]) Allergy Intermediate Hives Verified 10/10/24 13:37 latex Allergy Intermediate HVIES Verified 10/10/24 13:37 Penicillins Allergy Intermediate Hives Verified 10/10/24 13:37 prednisone Allergy Intermediate Hives Verified 10/10/24 13:37 propoxyphene (From [place]von) Allergy Intermediate Hives Verified 10/10/24 13:37 erythromycin base AdvReac Intermediate Abdominal Verified 10/10/24 13:37 Pain Home Medications ?Medication ?Instructions ?Recorded ?Confirmed ?Type aspirin 81 mg tablet,delayed 81 mg PO DAILY 06/11/20 09/02/24 History release (Adult Aspirin Regimen) nitroglycerin 0.4 mg sublingual 0.4 mg sublingual Q5M PRN Chest 06/11/20 09/02/24 History tablet Pain meclizine 25 mg tablet 25 mg PO BID PRN dizziness 01/07/22 09/02/24 History naproxen sodium 220 mg capsule 440 mg PO BID PRN Pain 12/18/22 09/02/24 History (Aleve) ranolazine 1,000 mg 1,000 mg PO BID 12/18/22 09/02/24 History tablet,extended release,12 hr triamterene 37.5 2 cap PO QAM 12/18/22 09/02/24 History mg-hydrochlorothiazide 25 mg capsule potassium chloride 20 mEq See Rx Instructions .Route 06/01/23 09/02/24 Rx tablet,extended .COMPLEX #90 tabs release(part/cryst) (Klor-Con M) ezetimibe 10 mg tablet 10 mg PO DAILY 07/22/23 09/02/24 History nitroglycerin 0.4 mg/hr 1 patch transdermal .12h 07/05/24 09/02/24 History transdermal 24 hour patch atorvastatin 80 mg tablet 80 mg PO DAILY #90 tabs 07/27/24 09/02/24 Rx levothyroxine 137 mcg tablet See Rx Instructions .Route 08/01/24 09/02/24 Rx .COMPLEX #90 tabs tramadol 50 mg tablet 50 mg PO Q8H PRN pain #40 tabs 08/12/24 09/02/24 Rx acetaminophen 500 mg capsule 1,000 mg PO Q6H PRN pain 09/02/24 09/02/24 History chlorhexidine gluconate 4 % 1 applic topical DAILY #237 mL 09/07/24 10/04/24 Rx topical liquid (Hibiclens) Patient hx anesthesia problems: none Family hx anesthesia problems: none Results Review: All pre-operative results and documents have been reviewed as part of the pre- operative evaluation. [facility] Past Medical History Medical History Degenerative joint disease of elbow Other fatigue Medial meniscus tear Broken wrist Left 12/28/2022 Left knee DJD Acute kidney injury De Quervain's disease (tenosynovitis) Degenerative joint disease (DJD) of hip High cholesterol Hearing loss Wears glasses Surgical complication involving right mastoid process Bipolar disorder Elbow fracture, right Restless leg syndrome CAD (coronary artery disease) minimal CAD by catheterization in 2012. Cardiac arrest states she had a cardiac arrest requiring CPR but this may have been a syncopal episode or seizure Hx of endometriosis Carpal tunnel syndrome Hypothyroid Seizures History of heart attack not well documented Surgical History Surgical History History of cochlear implant removed. rejection of implants S/P trigger finger release right hand S/P laparoscopic surgery Pelvic. Hx of cardiac cath she stated that she only had 25% blockages. History of appendectomy History of carpal tunnel surgery B/L History of knee surgery x2. right knee Family History Family History Mother Crohn disease Father Old age Sibling Diabetes mellitus Prostate carcinoma Social History Social History Social History: The patient had 4 children with only 3 pregnancies. She had a set of twin boys. She is . She lives home alone. She occasionally drinks a glass a wine. Her daughter daughter Ivett is a durable power title attorney for healthcare. Patient wishes to be a full code. 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 Patient was a former smoker. She does not use any marijuana or illicit drugs. Smoking packs per day: 1 Smoking cigarettes per day: 20.0 Years smoked: 1 Smoking pack-years: 1.00 Smoking status: Former smoker Tobacco type: cigarettes Second hand tobacco smoke exposure: No Smoking end date: 04/13/94 Additional smoking assessment comments: NO nicotine use at all Alcohol intake: current Drinks per week: 4 Substance use: never Substance use type: does not use Do You Feel Safe in your Home?: Yes Lack of Transportation: No Lack of Food: Never True Current Housing: I Have Housing Concerned About Future Housing: No Difficulty Paying Gas/Electric Bills: No Difficulty Paying for Meds: No Currently Unemployed: No Education: Bachelor's Degree Difficulty w/ Childcare or Family Care: No Living arrangements: alone Occupation/Education: occupation Gender identity (if verbalized by the patient): Female Sexual Orientation (if Verbalized by the Patient): Straight or Heterosexual Spiritual care concerns: No Anes - Eval Final PreProcedure Day of Procedure 10/12/24 07:02 Patient weight: normal Heart: regular rate and rhythm Lungs: clear to auscultation Airway: Mallampati scale class II Neurological: alert and oriented Last oral intake: >/= 8 hours ASA classification: III Emergent: no Anesthetic plan: proceed Anesthesia type and monitoring: general ETT and standard monitoring Results Review: All pre-operative results and documents have been reviewed as part of the pre- operative evaluation. Informed Consent: The patient's anesthetic plan and its attendant risks and benefits were discussed with the patient/family/POA. Questions were solicited and answers provided to the satisfaction of the patient/family/POA.
--- NOTE | 2024-10-12 07:06 | WPDHPUPDATE1 ---
History and Physical Update Update Date/Time: 10/12/24 07:06 History and Physical has been reviewed, including an updated exam of the patient. There are NO changes in the patient's condition. Risks, benefits, and alternatives have been discussed and questions answered. Patient agrees to proceed with procedure.
[2024-10-12] MEDS: LACTATED RINGERS 1,000 ML 30 ML IV CONT ×2 (07:10→09:48)
[2024-10-12] MEDS: ACETAMINOPHEN 500 MG TABLET 1000 MG PO (07:12)
[2024-10-12] MEDS: TRANEXAMIC ACID 1,000MG/ISO100 1,000 MG/100 ML BAG 200 MG IVPB (07:12)
[2024-10-12] MEDS: ceFAZolin 2 GM/D5W 50 ML 2 GM/50 ML BAG IVPB ×3 (07:16→21:51)
[2024-10-12] MEDS: SODIUM CHLORIDE 0.9% IV 38.7 ML, ROPivacaine HCL 1% 200 MG, KETOROLAC INJ (*BKC) 15 MG,... INFILTRATE (08:04)
[2024-10-12] MEDS: TRANEXAMIC ACID 1,000 MG/10 ML AMPUL 1000 MG IV PUSH (08:57)
--- NOTE | 2024-10-12 09:46 | W.PM.PROC2 ---
Procedure Note - Detailed Date of Procedure 10/12/24 Pre-op Diagnosis Lt Hip O A Post-op Diagnosis Same Procedure Performed L BEULAH Surgeon Taiwo Dickinson MD Anesthesia General Description of Procedure THE PATIENT WAS TAKEN TO THE OPERATING ROOM IN STABLE CONDITION AND WAS PLACED IN THE LATERAL DECUBITUS AND THE LEFT LOWER EXTREMITY WAS PREPPED AND DRAPED IN THE STERILE FASHION. INCISION WAS MADE IN THE POSTERIOR LATERAL SIDE OF THE HIP, DOWN TO THE FASCIA LAYER. THE FASCIA WAS INCISED. THE HIP WAS EXPOSED. THE SHORT EXTERNAL ROTATORS WERE EXPOSED. THE SCIATIC NERVE WAS IDENTIFIED. INCISION WAS MADE THROUGH THE SHORT EXTERNAL ROTATORS AND THE CAPSULE OF THE HIP JOINT. THE HIP WAS DISLOCATED. AN OSTEOTOMY WAS MADE TO THE FEMORAL NECK ABOUT 1 CM PROXIMAL TO THE LESSER TROCHANTER. THE ACETABULUM WAS EXPOSED. THERE WAS SEVERE DJD SEEN. BEGINNING WITH A 45 REAMER THE ACETABULUM WAS REAMED TO 51 MM. A 51 MM TRIAL WAS PLACED IN 35 DEG OF ABDUCTION AND ANTEVERSION WAS IN ALIGNMENT WITH THE TRANS ACETABULAR LIGAMENT. THE FIT WAS EXCELLENT. THE TRIAL WAS REMOVED. A 52 MM BIOMET G7 COMPONENT WAS THEN TAPPED IN TO PLACE IN 35 DEG OF ABDUCTION AND ANTEVERSION IN ALIGNMENT WITH THE TRANSVERSE ACETABULAR LIGAMENT. THE FIT WAS EXCELLENT. 2 SCREWS WERE PLACED AND HAD EXCELLENT BITES. THE ACETABULAR LINER WAS PLACED AND CHECKED FOR STABILITY. NEXT THE FEMUR WAS PREPARED WITH INITIAL CANAL FINDER THEN SEQUENTIAL BROACHING WITH A TAPERLOC HIP SYSTEM, UNTIL A 14 BROACH FIT WELL IN 15 OF ANTEVERSION. A 0 STANDARD OFFSET NECK WITH 36 MM HEAD TRIAL WAS PLACED. THE SHUCK TEST WAS EXCELLENT AND THE STABILITY IN FLEXION AND ROTATION WAS EXCELLENT. LEG LENGTHS WERE GROSSLY EQUAL. TRIALS WERE REMOVED. A BIOMET TAPERLOC 14 STEM WAS PLACED WITH A STANDARD OFFSET NECK THE FIT WAS EXCELLENT IN 15 DEG OF ANTEVERSION. A 0 CERAMIC 36 MM FEMORAL CERAMIC HEAD WAS PLACED. THE HIP WAS TRIALED AND THE STABILITY WAS EXCELLENT WERE THE LEG LENGTHS AND THE SHUCK TEST. THE WOUND WAS IRRIGATED WITH STERILE BETADINE AND WATER FOR 3 MIN. THEN WASHED AGAIN. THE CAPSULE AND THE EXTERNAL ROTATORS WERE APPROXIMATED WITH NUMBER 1 VICRYL. THE FASCIA WITH No 2 QUIL AND THE SUB CUTANEOUS LAYER WITH 2-0 ABSORBABLE SUTURE WITH A RUNNING 3-0 SUBCUTICULAR LAYER WELL. DERMABOND WAS PLACED AND STERILE DRESSING WAS APPLIED. PATIENT WAS PLACED BACK ON TO THE SUPINE POSITION AND WAS EXTUBATED Estimated Blood Loss 200 Complications No immediate complications Condition Stable Disposition PACU
--- NOTE | 2024-10-12 10:02 | SUR.PHASEI ---
PORTABLE XRAY OF LEFT HIP IN PROGRESS.
--- NOTE | 2024-10-12 12:10 | ADMGEN ---
This patient, Katherin Penaloza, was admitted to Virtual Bed 3rd Floor-1. Patient/family oriented to hospital policies and general routines including ID bracelet, bed and alarms, visiting hours, pain management, procedures, bathroom and other care routines, personal items, smoking policy, room service/diet, and visiting hours. Information on how to activate the Rapid Response Team has been discussed. Patient/Family are encouraged to report perceived risks to care and to ask questions if they do not understand what they are told or what they should do.
[2024-10-12] MEDS: KETOROLAC 15 MG/ML VIAL (*BKC) IV PUSH ×2 (14:00→21:48)
[2024-10-12] MEDS: traMADol HCL (*CRX) 25 MG TABLET 75 MG PO (14:45)
[2024-10-12] MEDS: HYDROmorphone HCL INJ (*CRX) 2 MG/ML VIAL 1 MG IV PUSH (17:33)
[2024-10-12] MEDS: SENNA/DOCUSATE SODIUM TABLET 2 TAB PO (17:36)
[2024-10-12] MEDS: ASPIRIN 325 MG ENTERIC TABLET PO (21:48)
[2024-10-12] MEDS: RANOLAZINE 500 MG TAB.ER.12H 1000 MG PO (21:49)
[2024-10-12] MEDS: FAMOTIDINE 20 MG TABLET PO (21:50)
[2024-10-12] MEDS: NITROGLYCERIN 0.4 MG/HR PATCH 1 PATCH TRANSDERM (21:50)
--- NOTE | ~2024-10-13 | XR_ITS ---
EXAMINATION: XR hip LT 1V DATE: 10/12/2024 10:15 INDICATION: Postoperative evaluation following left total hip arthroplasty TECHNIQUE: Anteroposterior and lateral views of the left hip were obtained. COMPARISON: 07/11/2024 FINDINGS: Interval placement of a left total hip arthroplasty which appears well seated in near anatomic alignm ent.Acetabular component is affixed with at least a single screw. Expected small amount of subcutaneo us gas in the postoperative bed. No fractures identified. A few phleboliths in the pelvis. IMPRESSION: 1. Left total hip arthroplasty, negative for postoperative purposes. Reviewed, dictated and finalized at location A.
--- NOTE | ~2024-10-13 | XR_ITS ---
EXAM/ PROCEDURE: XR hip LT 1V w AP pelvis - 10/18/2024 11:15 CDT HISTORY: 69 years old Female with Post fall, portable COMPARISON: None available TECHNIQUE: Two view(s) FINDINGS/ IMPRESSION: Left hip arthroplasty with intact hardware and no loosening. There are no fractures or dislocations.Joint space narrowing, subchondral sclerosis, subchondral cyst formation and osteophyte formation, compatible with severe osteoarthritis of the right hip. Reviewed, dictated and finalized at location A.
[2024-10-13 00:28] VITALS: BP 96/48; PULSE 67; RESP 18; TEMP 36.6; O2SAT 95
--- NOTE | 2024-10-13 02:14 | PC.NURSE ---
On 10/13/24, ENRIQUE Child, provided care and completed [place] documentation on this patient with this nurse available for assistance. I have reviewed Danyell's documentation and agree with the findings.
[2024-10-13] MEDS: KETOROLAC 15 MG/ML VIAL (*BKC) IV PUSH ×2 (02:40→09:41)
[2024-10-13 05:36] VITALS: BP 106/63; PULSE 71; RESP 18; TEMP 36.6; O2SAT 96
[2024-10-13] MEDS: LEVOTHYROXINE SODIUM 112 MCG TABLET PO (05:41)
[2024-10-13] MEDS: LEVOTHYROXINE SODIUM 50 MCG TABLET PO (05:42)
[2024-10-13] MEDS: HYDROmorphone HCL INJ (*CRX) 2 MG/ML VIAL 0.5 MG IV PUSH (05:42)
[2024-10-13] MEDS: ceFAZolin 2 GM/D5W 50 ML 2 GM/50 ML BAG IVPB (05:48)
[2024-10-13 06:58] LABS: Hematocrit 35.5 % (37.0-47.0); Hemoglobin 11.4 g/dL (12.0-15.0); Immature Granulocyte Percent A 0.4 % (0-0.5); Lymphocytes Absolute Auto 0.81 K/mm3 (0.9-3.2); Mean Corpuscular HGB Conc 32.1 g/dl (32-36); Mean Corpuscular Hemoglobin 31.7 pg (26-34); Mean Corpuscular Volume 98.6 fl (80-100); Nucleated Red Blood Cells Absolute Auto 0.000 K/mm3 (0.0-0.012); Nucleated Red Blood Cells Perc 0.0 % (0.0-0.2); Platelet Count Result 221 k/mm3 (150-375); Red Blood Count 3.60 M/mm3 (4.2-5.4); White Blood Count 11.0 K/mm3 (4.5-10.0)
[2024-10-13 07:05] LABS: Anion Gap 8 mmol/L (4-12); Blood Urea Nitrogen 30 mg/dL (7-17); Calcium 9.2 mg/dL (8.4-10.2); Carbon Dioxide 25 mmol/L (22-30); Chloride 101 mmol/L (98-107); Estimated CRCL calculation 37 ml/min; Estimated Glomerular Filt Rate 46; Glucose 121 mg/dL (65-110); Potassium 3.8 mmol/L (3.4-5.0); Sodium 134 mmol/L (137-145)
[2024-10-13 09:36] VITALS: BP 108/56; PULSE 91; RESP 14; TEMP 36.9; O2SAT 99
[2024-10-13] MEDS: traMADol HCL (*CRX) 25 MG TABLET 75 MG PO (09:40)
[2024-10-13] MEDS: TRIAMTERENE 37.5 MG/HCTZ 25 MG (MAXZIDE) TABLET 2 TAB PO (09:41)
[2024-10-13] MEDS: SENNA/DOCUSATE SODIUM TABLET 2 TAB PO ×2 (09:41→17:10)
[2024-10-13] MEDS: ATORVASTATIN 40 MG TABLET 80 MG PO (09:41)
[2024-10-13] MEDS: FAMOTIDINE 20 MG TABLET PO ×2 (09:42→22:05)
[2024-10-13] MEDS: RANOLAZINE 500 MG TAB.ER.12H 1000 MG PO ×2 (09:42→22:05)
[2024-10-13] MEDS: ASPIRIN 325 MG ENTERIC TABLET PO ×2 (09:42→22:05)
--- NOTE | 2024-10-13 09:43 | P.PNOP_ITS ---
Progress Note: A&P Assessment and Plan (1) S/P total hip arthroplasty: Qualifiers: Laterality: left Qualified Code(s): Z96.642 - Presence of left artificial hip joint Code(s): Z96.649 - Presence of unspecified artificial hip joint Status: Acute Assessment and Plan: POD #1 : Left BEULAH Continue PT/OT. WBAT. Walker. HIGH FALL RISK. AFO for left foot due to postoperative limitations with dorsiflexion/eversion. Dr. Dickinson aware and noted on POD #0. Treatment initiated by Dr. Dickinson. Continue pain control. Ice Hip. Protect skin. DVT prophylaxis with Aspirin. SCDs. Incentive Spirometry Use reviewed. Monitor Dressing. Change prior to discharge. Bowel Regimen. Dispo: Home with Home Health pending progress with PT/OT and fitting of AFO by [facility] Plan Reviewed history, exam, radiographs and current labs with attending MD and [facility] surgeon, Dr. Dickinson, who agrees with current plan as indicated above. No further recommendations from Dr. Dickinson at this time. Subjective Subjective Date/Time Seen: 10/13/24 09:43 Post Op day: 1 Interval history: POD#1: Left BEULAH Patient doing well. Pain well controlled. Still with postoperative weakness of the left foot with dorsiflexion/inversion. Working well with PT despite weakness. Review of Systems Review of Systems: All systems reviewed & are unremarkable except as noted in HPI and below Constitutional: Constitutional: Denies chills, Denies fatigue, Denies fever(s), Denies night sweats and Denies weakness Cardiovascular: Cardiovascular: Denies chest pain, Denies lightheadedness, Denies palpitations and Denies dyspnea Respiratory: Respiratory: Denies cough, Denies dyspnea and Denies wheezing Gastrointestinal: Gastrointestinal: Denies abdominal pain, Denies diarrhea, Denies nausea and Denies vomiting Musculoskeletal: Musculoskeletal: Reports arthralgias (left hip ), Reports joint swelling (left hip ) and Denies numbness Neurologic: Denies numbness and Denies weakness Endocrine: Endocrine: Denies fatigue and Denies palpitations Allergic/Immunologic: Allergic/Immunologic: Denies wheezing Exam Const: General: comfortable and no acute distress Orientation/consciousness: patient oriented x3 Limitations: no limitations Resp: Effort & Inspection: normal respiratory effort Cardio: Rate: regular rate Rhythm: regular rhythm GI: Inspection: non-distended Skin: General skin exam: normal color and wounds noted (incision left hip C/D/I ) Wounds: wounds noted (incision left hip C/D/I ) Neuro: General: patient oriented x3 Extrem: Left lower extremity: hip/thigh Details: tenderness Location: of the hip Location: laterally and anteriorly, swelling (thigh soft ) Location: of the hip (lateral. ), abnormal ROM (limitations with internal/external rotation and flexion/extension due to recent surgical intervention ) and other (incision lateral hip c/d/i. ), knee Details: normal to inspection and normal ROM; no tenderness and no swelling, lower leg (Negative Armando's Sign ) Details: no edema, ankle Details: normal to inspection, no edema and normal ROM; no tenderness, no swelling and no warmth and foot (peroneal nerve palsy, no inversion or dorsiflexion ) Details: normal capillary refill, vascular exam Details: dorsalis pedis pulse present and motor-sensory exam light-touch ab normal (decreased sensation ); no tenderness, no ecchymosis and no crepitus Psych: Mental Status: mental status grossly normal Affect: normal affect Objective Data Vital Signs Vital Signs: Vital Signs - 24 hr 10/12/24 09:48 10/12/24 10:00 10/12/24 10:15 Temperature 36.5 C Pulse Rate 66 53 L 56 L Respiratory Rate 12 11 L 12 Blood Pressure 94/43 L 106/46 L 114/47 L Pulse Oximetry 100 100 95 Oxygen Delivery Simple Face Mask Room Air Room Air Oxygen Flow Rate 8 10/12/24 10:30 10/12/24 10:45 10/12/24 11:00 Temperature Pulse Rate 53 L 53 L 55 L Respiratory Rate 11 L 12 12 Blood Pressure 121/54 L 106/55 L 134/64 Pulse Oximetry 100 97 98 Oxygen Delivery Room Air Nasal Cannula Nasal Cannula Oxygen Flow Rate 2 1 10/12/24 11:15 10/12/24 11:30 10/12/24 12:10 Temperature 36.7 C Pulse Rate 54 L 53 L 56 L Respiratory Rate 10 L 10 L 14 Blood Pressure 112/59 L 99/50 L 122/57 L Pulse Oximetry 96 97 100 Oxygen Delivery Nasal Cannula Nasal Cannula Oxygen Flow Rate 1 1 10/12/24 12:25 10/12/24 12:55 10/12/24 13:36 Temperature 36.8 C 37.1 C Pulse Rate 59 L 65 Respiratory Rate 14 14 Blood Pressure 133/62 116/52 L Pulse Oximetry 100 98 Oxygen Delivery Room Air Oxygen Flow Rate 10/12/24 13:55 10/12/24 17:36 10/12/24 20:00 Temperature 36.4 C 37.3 C Pulse Rate 60 61 67 Respiratory Rate 16 14 18 Blood Pressure 105/71 103/55 L Pulse Oximetry 100 94 95 Oxygen Delivery Room Air Oxygen Flow Rate 10/12/24 21:07 10/12/24 21:20 10/13/24 00:28 Temperature 36.7 C 36.6 C Pulse Rate 61 67 Respiratory Rate 18 18 Blood Pressure 106/51 L 96/48 L Pulse Oximetry 96 96 95 Oxygen Delivery Room Air Oxygen Flow Rate 10/13/24 05:36 Temperature 36.6 C Pulse Rate 71 Respiratory Rate 18 Blood Pressure 106/63 Pulse Oximetry 96 Oxygen Delivery Oxygen Flow Rate Intake/Output Intake/Output: Intake & Output 10/10/24 10/11/24 10/12/24 10/13/24 23:59 23:59 23:59 23:59 Intake Total 2494 Balance 2494 Meds/Results Medications: Active Medications Generic Name Dose Route Start Last Admin Trade Name Freq PRN Reason Stop Dose Admin Acetaminophen 500 mg 10/12/24 11:51 Acetaminophen 500 Mg Tablet PO Q6H PRN Pain Rated 1-3 Aspirin 325 mg 10/12/24 21:00 10/13/24 09:42 Aspirin 325 Mg Enteric Tablet PO 325 mg Q12HR SHADI Administration Atorvastatin Calcium 80 mg 10/13/24 09:00 10/13/24 09:41 Atorvastatin 40 Mg Tablet PO 80 mg DAILY SHADI Administration Diazepam 5 mg 10/12/24 11:51 Diazepam (*Crx) 5 Mg Tablet PO Q6H PRN Anxiety/Muscle Spasm Diphenhydramine HCl 25 mg 10/12/24 11:51 Diphenhydramine Hcl Inj 50 Mg/Ml Vial IV PUSH Q6H PRN Itching Famotidine 20 mg 10/12/24 21:00 10/13/24 09:42 Famotidine 20 Mg Tablet PO 20 mg Q12HR SHADI Administration Hydromorphone HCl 1 mg 10/12/24 15:22 10/12/24 17:33 Hydromorphone Hcl Inj (*Crx) 2 Mg/Ml Vial IV PUSH 1 mg Q2H PRN Administration Breakthrough Pain Rated 7-10 or NPO Hydromorphone HCl 0.5 mg 10/12/24 15:22 10/13/24 05:42 Hydromorphone Hcl Inj (*Crx) 2 Mg/Ml Vial IV PUSH 0.5 mg Q2H PRN Administration Breakthrough Pain Rated 4-6 or NPO Ibuprofen 800 mg in 200 mls @ 400 mls/hr 10/12/24 11:51 Caldolor 800 Mg/200 Ml IVPB Q6H PRN Breakthrough Pain Rated 1-3 or NPO Ketorolac Tromethamine 15 mg 10/12/24 20:00 10/13/24 09:41 Ketorolac 15 Mg/Ml Vial (*Bkc) IV PUSH 10/13/24 14:01 15 mg Q6H SHADI Administration Levothyroxine Sodium 112 mcg 10/13/24 06:30 10/13/24 05:41 Levothyroxine Sodium 112 Mcg Tablet PO 112 mcg DAILY@0630 SHADI Administration Levothyroxine Sodium 50 mcg 10/13/24 06:30 10/13/24 05:42 Levothyroxine Sodium 50 Mcg Tablet PO 50 mcg DAILY@0630 SHADI Administration Meclizine HCl 25 mg 10/12/24 11:51 Meclizine Hcl 25 Mg Tablet PO BID PRN dizziness Naloxone HCl 0.1 mg 10/12/24 11:51 Naloxone Hcl 0.4 Mg/Ml Vial IV PUSH Q2M PRN Opiate Reversal Nitroglycerin 0.4 mg 10/12/24 11:51 Nitroglycerin Sl 0.4 Mg Tablet SUBLINGUAL Q5M PRN Chest Pain Nitroglycerin 1 patch 10/12/24 21:00 10/12/24 21:50 Nitroglycerin 0.4 Mg/Hr Patch TRANSDERM 1 patch 2100 SHADI Administration Ondansetron HCl 4 mg 10/12/24 11:51 Ondansetron Inj 4 Mg/2 Ml Vial IV PUSH Q4H PRN Nausea And Vomiting Polyethylene Glycol 17 gm 10/13/24 09:00 Polyethylene Glycol 3350 17 Gm Powd.Pack PO QAM [facility] Potassium Chloride 20 meq 10/13/24 09:00 Potassium Chloride 20 Meq Er Tablet PO DAILY [facility] Ranolazine 1,000 mg 10/12/24 21:00 10/13/24 09:42 Ranolazine 500 Mg Tab.Er.12h PO 1,000 mg Q12HR SHADI Administration Senna/Docusate Sodium 2 tab 10/12/24 17:00 10/13/24 09:41 Senna/Docusate Sodium Tablet PO 2 tab BID SHADI Administration Tramadol HCl 50 mg 10/12/24 14:16 Tramadol Hcl (*Crx) 50 Mg Tablet PO Q4H PRN Pain Rated 4-6 Tramadol HCl 75 mg 10/12/24 14:16 10/13/24 09:40 Tramadol Hcl (*Crx) 25 Mg Tablet PO 75 mg Q4H PRN Administration Pain Rated 7-10 Triamterene/Hydrochlorothiazide 2 tab 10/13/24 09:00 10/13/24 09:41 Triamterene 37.5 Mg/Hctz 25 Mg (Maxzide) Tablet PO 2 tab QAM SHADI Administration Radiology Results: ITS Impressions Hip X-Ray 10/12/24 12:16 IMPRESSION: 1. Left total hip arthroplasty, negative for postoperative purposes. Labs Labs: Laboratory Results - last 24 hr 10/13/24 10/13/24 06:08 06:09 WBC 11.0 H RBC 3.60 L Hgb 11.4 L Hct 35.5 L MCV 98.6 MCH 31.7 MCHC 32.1 RDW 13.3 Plt Count 221 MPV 9.8 Immature Gran % (Auto) 0.4 Neut % (Auto) 78.8 H Lymph % (Auto) 7.4 L [place] % (Auto) 13.2 H Eos % (Auto) 0.0 Baso % (Auto) 0.2 Lymph # (Auto) 0.81 L [place] # (Auto) 1.5 H Eos # (Auto) 0.0 Baso # (Auto) 0.0 Abs Immat Gran (auto) 0.04 H Absolute Neuts (auto) 8.7 H Absolute Nucleated RBC 0.000 Nucleated RBC % 0.0 Sodium 134 L Potassium 3.8 Chloride 101 Carbon Dioxide 25 Anion Gap 8 BUN 30 H Creatinine 1.16 H Estim Creat Clear Calc 37 Estimated GFR 46 L Glucose 121 H Calcium 9.2
[2024-10-13 13:36] VITALS: BP 97/46; PULSE 78; RESP 14; TEMP 36.4; O2SAT 100
--- NOTE | 2024-10-13 14:27 | WPDANESPN ---
Anes - Prog Note Post-Op Date/Time: 10/13/24 14:27 Cardiovascular status: normal Respiratory status: normal Airway patency: baseline Mental status: baseline Vital Signs: Last Vital Signs Temp 36.9 C 10/13/24 09:36 Pulse 91 10/13/24 09:36 Resp 14 10/13/24 09:36 BP 108/56 L 10/13/24 09:36 Pulse Ox 99 10/13/24 09:36 O2 Del Method Room Air 10/12/24 21:07 O2 Flow Rate 1 10/12/24 11:30 Pain Score (VAS): 3 I/O: Intake & Output 10/12/24 10/13/24 10/13/24 23:59 07:59 15:59 Intake Total 272 240 Balance 272 240 Laboratory Tests 10/13/24 06:09 10/13/24 06:08 10/13/24 10/13/24 06:08 06:09 WBC 11.0 H RBC 3.60 L Hgb 11.4 L Hct 35.5 L MCV 98.6 MCH 31.7 MCHC 32.1 RDW 13.3 Plt Count 221 MPV 9.8 Immature Gran % (Auto) 0.4 Neut % (Auto) 78.8 H Lymph % (Auto) 7.4 L [place] % (Auto) 13.2 H Eos % (Auto) 0.0 Baso % (Auto) 0.2 Lymph # (Auto) 0.81 L [place] # (Auto) 1.5 H Eos # (Auto) 0.0 Baso # (Auto) 0.0 Abs Immat Gran (auto) 0.04 H Absolute Neuts (auto) 8.7 H Absolute Nucleated RBC 0.000 Nucleated RBC % 0.0 Sodium 134 L Potassium 3.8 Chloride 101 Carbon Dioxide 25 Anion Gap 8 BUN 30 H Creatinine 1.16 H Estim Creat Clear Calc 37 Estimated GFR 46 L Glucose 121 H Calcium 9.2 Patient Feedback: Patient satisfied with anesthetic care.
[2024-10-13] MEDS: traMADol HCL (*CRX) 50 MG TABLET 100 MG PO (17:09)
[2024-10-13 20:55] VITALS: BP 98/52; PULSE 88; RESP 14; TEMP 37.3; O2SAT 97
[2024-10-13 21:14] VITALS: O2SAT 97
[2024-10-13] MEDS: NITROGLYCERIN 0.4 MG/HR PATCH 1 PATCH TRANSDERM (22:06)
[2024-10-14] MEDS: traMADol HCL (*CRX) 25 MG TABLET 75 MG PO
[2024-10-14 05:18] VITALS: BP 119/55; PULSE 82; RESP 14; TEMP 37.5; O2SAT 96
[2024-10-14] MEDS: LEVOTHYROXINE SODIUM 112 MCG TABLET PO (06:36)
[2024-10-14] MEDS: LEVOTHYROXINE SODIUM 50 MCG TABLET PO (06:36)
--- NOTE | 2024-10-14 09:12 | PM.PNORT ---
Progress Note: A&P Assessment and Plan (1) S/P total hip arthroplasty: Qualifiers: Laterality: left Qualified Code(s): Z96.642 - Presence of left artificial hip joint Code(s): Z96.649 - Presence of unspecified artificial hip joint Status: Acute Assessment and Plan: POD #2: Left BEULAH Continue PT/OT. WBAT. Walker. HIGH FALL RISK. AFO for left foot due to postoperative limitations with dorsiflexion/eversion. Continue pain control. Ice to Hip. Protect skin. DVT prophylaxis with Aspirin. SCDs. Incentive Spirometry Use reviewed. Monitor Dressing. Change prior to discharge. Bowel Regimen. Dispo: patient lives alone at home. Activity restrictions with total hip precautions. Requires use of brace for left ankle and foot. Possible placement for rehab. Subjective Subjective Date/Time Seen: 10/14/24 09:12 Post Op day: 2 Principal diagnosis: Left hip arthroplasty Interval history: POD#2: Left BEULAH Patient doing well. Pain well controlled. Postoperative weakness of the left foot with dorsiflexion/eversion. patient feels a little improved today with movement of the foot. Working well with PT despite weakness. Brace delivered yesterday. Exam Const: General: comfortable and no acute distress Orientation/consciousness: patient oriented x3 Limitations: no limitations Resp: Effort & Inspection: normal respiratory effort Cardio: Rate: regular rate Rhythm: regular rhythm GI: Inspection: non-distended Skin: General skin exam: normal color and wounds noted (incision left hip C/D/I ) Wounds: wounds noted (incision left hip C/D/I ) Neuro: General: patient oriented x3 Extrem: Left lower extremity: hip/thigh Details: tenderness Location: of the hip Location: laterally and anteriorly, swelling (thigh soft ) Location: of the hip (lateral. ), abnormal ROM (limitations with internal/external rotation and flexion/extension due to recent surgical intervention ) and other (incision lateral hip c/d/i. ), knee Details: normal to inspection and normal ROM; no tenderness and no swelling, lower leg (Negative Armando's Sign ) Details: no edema, ankle Details: normal to inspection, no edema and abnormal ROM ( Decreased dorsiflexion/eversion); no tenderness, no swelling and no warmth and foot ( weakness with dorsiflexion and eversion) Details: normal capillary refill, vascular exam Details: dorsalis pedis pulse present and motor-sensory exam light-touch abnormal (decreased sensation dorso lateral foot); no tenderness, no ecchymosis and no crepitus Psych: Mental Status: mental status grossly normal Affect: normal affect Objective Data Vital Signs Vital Signs: Vital Signs - 24 hr 10/13/24 09:36 10/13/24 13:36 10/13/24 20:00 Temperature 98.5 F 97.6 F Pulse Rate 91 78 Respiratory Rate 14 14 Blood Pressure 108/56 L 97/46 L Pulse Oximetry 99 100 Oxygen Delivery Room Air 10/13/24 20:55 10/13/24 21:14 10/14/24 05:18 Temperature 99.2 F 99.5 F Pulse Rate 88 82 Respiratory Rate 14 14 Blood Pressure 98/52 L 119/55 L Pulse Oximetry 97 97 96 Oxygen Delivery Room Air Intake/Output Intake/Output: Intake & Output 10/11/24 10/12/24 10/13/24 10/14/24 23:59 23:59 23:59 23:59 Intake Total 2494 596 Balance 2494 596 Meds/Results Medications: Active Medications Generic Name Dose Route Start Last Admin Trade Name Freq PRN Reason Stop Dose Admin Acetaminophen 500 mg 10/12/24 11:51 Acetaminophen 500 Mg Tablet PO Q6H PRN Pain Rated 1-3 Aspirin 325 mg 10/12/24 21:00 10/13/24 22:05 Aspirin 325 Mg Enteric Tablet PO 325 mg Q12HR SHADI Administration Atorvastatin Calcium 80 mg 10/13/24 09:00 10/13/24 09:41 Atorvastatin 40 Mg Tablet PO 80 mg DAILY SHADI Administration Diazepam 5 mg 10/12/24 11:51 Diazepam (*Crx) 5 Mg Tablet PO Q6H PRN Anxiety/Muscle Spasm Diphenhydramine HCl 25 mg 10/12/24 11:51 Diphenhydramine Hcl Inj 50 Mg/Ml Vial IV PUSH Q6H PRN Itching Famotidine 20 mg 10/12/24 21:00 10/13/24 22:05 Famotidine 20 Mg Tablet PO 20 mg Q12HR SHADI Administration Hydromorphone HCl 1 mg 10/12/24 15:22 10/12/24 17:33 Hydromorphone Hcl Inj (*Crx) 2 Mg/Ml Vial IV PUSH 1 mg Q2H PRN Administration Breakthrough Pain Rated 7-10 or NPO Hydromorphone HCl 0.5 mg 10/12/24 15:22 10/13/24 05:42 Hydromorphone Hcl Inj (*Crx) 2 Mg/Ml Vial IV PUSH 0.5 mg Q2H PRN Administration Breakthrough Pain Rated 4-6 or NPO Ibuprofen 800 mg in 200 mls @ 400 mls/hr 10/12/24 11:51 Caldolor 800 Mg/200 Ml IVPB Q6H PRN Breakthrough Pain Rated 1-3 or NPO Levothyroxine Sodium 112 mcg 10/13/24 06:30 10/14/24 06:36 Levothyroxine Sodium 112 Mcg Tablet PO 112 mcg DAILY@0630 SHADI Administration Levothyroxine Sodium 50 mcg 10/13/24 06:30 10/14/24 06:36 Levothyroxine Sodium 50 Mcg Tablet PO 50 mcg DAILY@0630 SHADI Administration Meclizine HCl 25 mg 10/12/24 11:51 Meclizine Hcl 25 Mg Tablet PO BID PRN dizziness Naloxone HCl 0.1 mg 10/12/24 11:51 Naloxone Hcl 0.4 Mg/Ml Vial IV PUSH Q2M PRN Opiate Reversal Nitroglycerin 0.4 mg 10/12/24 11:51 Nitroglycerin Sl 0.4 Mg Tablet SUBLINGUAL Q5M PRN Chest Pain Nitroglycerin 1 patch 10/12/24 21:00 10/13/24 22:06 Nitroglycerin 0.4 Mg/Hr Patch TRANSDERM 1 patch 2100 SHADI Administration Ondansetron HCl 4 mg 10/12/24 11:51 Ondansetron Inj 4 Mg/2 Ml Vial IV PUSH Q4H PRN Nausea And Vomiting Polyethylene Glycol 17 gm 10/13/24 09:00 10/14/24 07:21 Polyethylene Glycol 3350 17 Gm Powd.Pack PO Not Given QAM SHADI Potassium Chloride 20 meq 10/13/24 09:00 10/14/24 07:22 Potassium Chloride 20 Meq Er Tablet PO Not Given DAILY SHADI Ranolazine 1,000 mg 10/12/24 21:00 10/13/24 22:05 Ranolazine 500 Mg Tab.Er.12h PO 1,000 mg Q12HR SHADI Administration Senna/Docusate Sodium 2 tab 10/12/24 17:00 10/13/24 17:10 Senna/Docusate Sodium Tablet PO 2 tab BID SHADI Administration Tramadol HCl 75 mg 10/13/24 14:29 10/14/24 00:00 Tramadol Hcl (*Crx) 25 Mg Tablet PO 75 mg Q6H PRN Administration Pain Rated 4-6 Tramadol HCl 100 mg 10/13/24 14:29 10/13/24 17:09 Tramadol Hcl (*Crx) 50 Mg Tablet PO 100 mg Q6H PRN Administration Pain Rated 7-10 Triamterene/Hydrochlorothiazide 2 tab 10/13/24 09:00 10/13/24 09:41 Triamterene 37.5 Mg/Hctz 25 Mg (Maxzide) Tablet PO 2 tab QAM SHADI Administration Radiology Results: ITS Impressions Hip X-Ray 10/12/24 12:16 IMPRESSION: 1. Left total hip arthroplasty, negative for postoperative purposes.
[2024-10-14] MEDS: RANOLAZINE 500 MG TAB.ER.12H 1000 MG PO ×2 (10:12→21:08)
[2024-10-14] MEDS: ASPIRIN 325 MG ENTERIC TABLET PO ×2 (10:12→21:09)
[2024-10-14] MEDS: POTASSIUM CHLORIDE 20 MEQ ER TABLET PO (10:12)
[2024-10-14] MEDS: FAMOTIDINE 20 MG TABLET PO ×2 (10:13→21:08)
[2024-10-14] MEDS: SENNA/DOCUSATE SODIUM TABLET 2 TAB PO (10:13)
[2024-10-14] MEDS: TRIAMTERENE 37.5 MG/HCTZ 25 MG (MAXZIDE) TABLET 2 TAB PO (10:13)
[2024-10-14] MEDS: ATORVASTATIN 40 MG TABLET 80 MG PO (10:14)
[2024-10-14] MEDS: ONDANSETRON INJ 4 MG/2 ML VIAL IV PUSH ×2 (12:45→16:32)
[2024-10-14] MEDS: MECLIZINE HCL 25 MG TABLET PO (14:32)
[2024-10-14 15:00] VITALS: BP 101/41; PULSE 67; RESP 16; TEMP 36.8; O2SAT 97
[2024-10-14 15:37] LABS: Hematocrit 33.0 % (37.0-47.0); Hemoglobin 10.6 g/dL (12.0-15.0); Mean Corpuscular HGB Conc 32.1 g/dl (32-36); Mean Corpuscular Hemoglobin 31.6 pg (26-34); Mean Corpuscular Volume 98.5 fl (80-100); Platelet Count Result 186 k/mm3 (150-375); Red Blood Count 3.35 M/mm3 (4.2-5.4); White Blood Count 11.1 K/mm3 (4.5-10.0)
[2024-10-14 15:47] LABS: Anion Gap 8 mmol/L (4-12); Blood Urea Nitrogen 26 mg/dL (7-17); Calcium 9.0 mg/dL (8.4-10.2); Carbon Dioxide 24 mmol/L (22-30); Chloride 103 mmol/L (98-107); Estimated CRCL calculation 45 ml/min; Estimated Glomerular Filt Rate 58; Glucose 119 mg/dL (65-110); Potassium 3.8 mmol/L (3.4-5.0); Sodium 135 mmol/L (137-145)
[2024-10-14 20:45] VITALS: BP 113/51; PULSE 71; RESP 17; TEMP 36.3; O2SAT 95
[2024-10-14 21:05] VITALS: PULSE 71; RESP 17; O2SAT 95
[2024-10-14] MEDS: NITROGLYCERIN 0.4 MG/HR PATCH 1 PATCH TRANSDERM (21:13)
[2024-10-14] MEDS: HYDROmorphone HCL INJ (*CRX) 2 MG/ML VIAL 1 MG IV PUSH (23:05)
[2024-10-15] MEDS: LEVOTHYROXINE SODIUM 50 MCG TABLET PO (05:32)
[2024-10-15] MEDS: LEVOTHYROXINE SODIUM 112 MCG TABLET PO (05:32)
[2024-10-15 06:00] VITALS: BP 102/56; PULSE 68; RESP 16; TEMP 37.3; O2SAT 96
--- NOTE | 2024-10-15 09:05 | PM.PNORT ---
Progress Note: A&P Assessment and Plan (1) S/P total hip arthroplasty: Qualifiers: Laterality: left Qualified Code(s): Z96.642 - Presence of left artificial hip joint Code(s): Z96.649 - Presence of unspecified artificial hip joint Status: Acute Assessment and Plan: POD #3: Left BEULAH Condition worse yesterday with increased pain lateral left hip as well as generalized illness and nausea. Labs drawn, no major abnormality. Will monitor today when patient up and with diet for nausea and vomiting. Continue PT/OT. WBAT. Walker. HIGH FALL RISK. AFO for left foot due to postoperative limitations with dorsiflexion/eversion. Continue pain control. Ice to Hip. Protect skin. Increased pain lateral side of the left hip radiating down the leg which may indicate nerve function returning. We will continue to observe. DVT prophylaxis with Aspirin. SCDs. Incentive Spirometry Use reviewed. Monitor Dressing. Change prior to discharge. Bowel Regimen. Dispo: patient lives alone at home. Activity restrictions with total hip precautions. Requires use of brace for left ankle and foot. Physical therapy indicating that patient is max assist with transfers and ambulation at this time. Indicated for placement for acute rehab. Subjective Subjective Date/Time Seen: 10/15/24 09:05 Post Op day: 3 Principal diagnosis: Left hip arthroplasty Interval history: POD#3: Left BEULAH Change in condition yesterday. Increased pain left hip on the lateral aspect radiating down to the knee. Difficulty with movement. Generally felt ill and nauseated. 2 episodes of vomiting. Postoperative weakness of the left foot with dorsiflexion/eversion. Motion unchanged today. Working well with PT despite weakness. Brace delivered. Exam Const: General: comfortable and no acute distress Orientation/consciousness: patient oriented x3 Limitations: no limitations Resp: Effort & Inspection: normal respiratory effort Cardio: Rate: regular rate Rhythm: regular rhythm GI: Inspection: non-distended Skin: General skin exam: normal color and wounds noted (incision left hip C/D/I ) Wounds: wounds noted (incision left hip C/D/I ) Neuro: General: patient oriented x3 Extrem: Left lower extremity: hip/thigh Details: tenderness Location: of the hip Location: laterally and anteriorly, swelling (thigh soft ) Location: of the hip (lateral. ), abnormal ROM (limitations with internal/external rotation and flexion/extension due to recent surgical intervention ) and other (incision lateral hip c/d/i. ), knee Details: normal to inspection and normal ROM; no tenderness and no swelling, lower leg (Negative Armando's Sign ) Details: no edema, ankle Details: normal to inspection, no edema and abnormal ROM ( Decreased dorsiflexion/eversion); no tenderness, no swelling and no warmth and foot ( weakness with dorsiflexion and eversion) Details: normal capillary refill, vascular exam Details: dorsalis pedis pulse present and motor-sensory exam light-touch abnormal (decreased sensation dorso lateral foot); no tenderness, no ecchymosis and no crepitus Psych: Mental Status: mental status grossly normal Affect: normal affect Objective Data Vital Signs Vital Signs: Vital Signs - 24 hr 10/14/24 10:13 10/14/24 14:17 10/14/24 15:00 Temperature 98.2 F Pulse Rate 67 Respiratory Rate 16 Blood Pressure 101/41 L Pulse Oximetry 97 Oxygen Delivery Room Air Room Air 10/14/24 20:45 10/14/24 21:05 10/15/24 06:00 Temperature 97.4 F L 99.2 F Pulse Rate 71 71 68 Respiratory Rate 17 17 16 Blood Pressure 113/51 L 102/56 L Pulse Oximetry 95 95 96 Oxygen Delivery Room Air Intake/Output Intake/Output: Intake & Output 10/12/24 10/13/24 10/14/24 10/15/24 23:59 23:59 23:59 23:59 Intake Total 2494 596 140 Balance 2494 596 140 Meds/Results Medications: Active Medications Generic Name Dose Route Start Last Admin Trade Name Freq PRN Reason Stop Dose Admin Acetaminophen 500 mg 10/12/24 11:51 Acetaminophen 500 Mg Tablet PO Q6H PRN Pain Rated 1-3 Aspirin 325 mg 10/12/24 21:00 10/14/24 21:09 Aspirin 325 Mg Enteric Tablet PO 325 mg Q12HR SHADI Administration Atorvastatin Calcium 80 mg 10/13/24 09:00 10/14/24 10:14 Atorvastatin 40 Mg Tablet PO 80 mg DAILY SHADI Administration Diazepam 5 mg 10/12/24 11:51 Diazepam (*Crx) 5 Mg Tablet PO Q6H PRN Anxiety/Muscle Spasm Diphenhydramine HCl 25 mg 10/12/24 11:51 Diphenhydramine Hcl Inj 50 Mg/Ml Vial IV PUSH Q6H PRN Itching Famotidine 20 mg 10/12/24 21:00 10/14/24 21:08 Famotidine 20 Mg Tablet PO 20 mg Q12HR SHADI Administration Hydromorphone HCl 1 mg 10/12/24 15:22 10/14/24 23:05 Hydromorphone Hcl Inj (*Crx) 2 Mg/Ml Vial IV PUSH 1 mg Q2H PRN Administration Breakthrough Pain Rated 7-10 or NPO Hydromorphone HCl 0.5 mg 10/12/24 15:22 10/13/24 05:42 Hydromorphone Hcl Inj (*Crx) 2 Mg/Ml Vial IV PUSH 0.5 mg Q2H PRN Administration Breakthrough Pain Rated 4-6 or NPO Ibuprofen 800 mg in 200 mls @ 400 mls/hr 10/12/24 11:51 Caldolor 800 Mg/200 Ml IVPB Q6H PRN Breakthrough Pain Rated 1-3 or NPO Levothyroxine Sodium 112 mcg 10/13/24 06:30 10/15/24 05:32 Levothyroxine Sodium 112 Mcg Tablet PO 112 mcg DAILY@0630 SHADI Administration Levothyroxine Sodium 50 mcg 10/13/24 06:30 10/15/24 05:32 Levothyroxine Sodium 50 Mcg Tablet PO 50 mcg DAILY@0630 SHADI Administration Meclizine HCl 25 mg 10/12/24 11:51 10/14/24 14:32 Meclizine Hcl 25 Mg Tablet PO 25 mg BID PRN Administration dizziness Naloxone HCl 0.1 mg 10/12/24 11:51 Naloxone Hcl 0.4 Mg/Ml Vial IV PUSH Q2M PRN Opiate Reversal Nitroglycerin 0.4 mg 10/12/24 11:51 Nitroglycerin Sl 0.4 Mg Tablet SUBLINGUAL Q5M PRN Chest Pain Nitroglycerin 1 patch 10/12/24 21:00 10/14/24 21:13 Nitroglycerin 0.4 Mg/Hr Patch TRANSDERM 1 patch 2100 [facility] Administration Ondansetron HCl 4 mg 10/12/24 11:51 10/14/24 16:32 Ondansetron Inj 4 Mg/2 Ml Vial IV PUSH 4 mg Q4H PRN Administration Nausea And Vomiting Polyethylene Glycol 17 gm 10/13/24 09:00 10/14/24 10:08 Polyethylene Glycol 3350 17 Gm Powd.Pack PO 17 gm QAM SHADI Administration Potassium Chloride 20 meq 10/13/24 09:00 10/14/24 10:12 Potassium Chloride 20 Meq Er Tablet PO 20 meq DAILY SHADI Administration Ranolazine 1,000 mg 10/12/24 21:00 10/14/24 21:08 Ranolazine 500 Mg Tab.Er.12h PO 1,000 mg Q12HR SHADI Administration Senna/Docusate Sodium 2 tab 10/12/24 17:00 10/14/24 16:29 Senna/Docusate Sodium Tablet PO Not Given BID SHADI Tramadol HCl 75 mg 10/13/24 14:29 10/14/24 00:00 Tramadol Hcl (*Crx) 25 Mg Tablet PO 75 mg Q6H PRN Administration Pain Rated 4-6 Tramadol HCl 100 mg 10/13/24 14:29 10/13/24 17:09 Tramadol Hcl (*Crx) 50 Mg Tablet PO 100 mg Q6H PRN Administration Pain Rated 7-10 Triamterene/Hydrochlorothiazide 2 tab 10/13/24 09:00 10/14/24 10:13 Triamterene 37.5 Mg/Hctz 25 Mg (Maxzide) Tablet PO 2 tab QAM SHADI Administration Radiology Results: ITS Impressions Hip X-Ray 10/12/24 12:16 IMPRESSION: 1. Left total hip arthroplasty, negative for postoperative purposes. Labs Labs: Laboratory Results - last 24 hr 10/14/24 15:30 WBC 11.1 H RBC 3.35 L Hgb 10.6 L Hct 33.0 L MCV 98.5 MCH 31.6 MCHC 32.1 RDW 13.5 Plt Count 186 MPV 9.4 Sodium 135 L Potassium 3.8 Chloride 103 Carbon Dioxide 24 Anion Gap 8 BUN 26 H Creatinine 0.95 Estim Creat Clear Calc 45 Estimated GFR 58 L Glucose 119 H Calcium 9.0
[2024-10-15] MEDS: ATORVASTATIN 40 MG TABLET 80 MG PO (09:17)
[2024-10-15] MEDS: RANOLAZINE 500 MG TAB.ER.12H 1000 MG PO ×2 (09:17→21:42)
[2024-10-15] MEDS: FAMOTIDINE 20 MG TABLET PO ×2 (09:17→21:41)
[2024-10-15] MEDS: POTASSIUM CHLORIDE 20 MEQ ER TABLET PO (09:17)
[2024-10-15] MEDS: ASPIRIN 325 MG ENTERIC TABLET PO ×2 (09:18→21:41)
[2024-10-15] MEDS: TRIAMTERENE 37.5 MG/HCTZ 25 MG (MAXZIDE) TABLET 2 TAB PO (09:18)
[2024-10-15] MEDS: traMADol HCL (*CRX) 50 MG TABLET 100 MG PO ×2 (09:20→18:38)
[2024-10-15 14:00] VITALS: BP 98/58; PULSE 64; RESP 16; TEMP 36.9; O2SAT 96
[2024-10-15] MEDS: HYDROmorphone HCL INJ (*CRX) 2 MG/ML VIAL 0.5 MG IV PUSH (14:15)
[2024-10-15 22:00] VITALS: BP 97/46; PULSE 68; RESP 16; TEMP 37.4; O2SAT 95
[2024-10-16] MEDS: HYDROmorphone HCL INJ (*CRX) 2 MG/ML VIAL 1 MG IV PUSH ×2 (00:29→08:10)
--- NOTE | 2024-10-16 03:20 | PC.NURSE ---
I agree with Herlinda graduate nurse's assessment on 10/15/24
[2024-10-16] MEDS: LEVOTHYROXINE SODIUM 112 MCG TABLET PO (05:52)
[2024-10-16] MEDS: LEVOTHYROXINE SODIUM 50 MCG TABLET PO (05:52)
[2024-10-16 06:00] VITALS: BP 126/52; PULSE 81; RESP 18; TEMP 37; O2SAT 98
[2024-10-16] MEDS: POTASSIUM CHLORIDE 20 MEQ ER TABLET PO (08:24)
[2024-10-16] MEDS: ATORVASTATIN 40 MG TABLET 80 MG PO (08:24)
[2024-10-16] MEDS: RANOLAZINE 500 MG TAB.ER.12H 1000 MG PO ×2 (08:24→20:11)
[2024-10-16] MEDS: TRIAMTERENE 37.5 MG/HCTZ 25 MG (MAXZIDE) TABLET 2 TAB PO (08:25)
[2024-10-16] MEDS: FAMOTIDINE 20 MG TABLET PO ×2 (08:25→20:12)
[2024-10-16] MEDS: ASPIRIN 325 MG ENTERIC TABLET PO ×2 (08:25→20:12)
[2024-10-16] MEDS: SENNA/DOCUSATE SODIUM TABLET 2 TAB PO ×2 (08:25→17:22)
[2024-10-16 08:40] VITALS: TEMP 37
--- NOTE | 2024-10-16 08:41 | PCOTNOTE ---
Attempted to see pt for OT treatment this AM. Pt is currently sleeping heavy at therapist arrival requiring tactile cue to wake up despite verbal cues. Pt states that she just received a narco for pain and it knocks her out for 3-4hrs. Pt was offered to get up in the chair to eat breakfast however, declined food due to nausea. Will attempt later today for treatment.
[2024-10-16 14:00] VITALS: BP 101/53; PULSE 66; RESP 18; TEMP 36.8; O2SAT 100
--- NOTE | 2024-10-16 15:22 | PM.PNORT ---
Progress Note: A&P Assessment and Plan (1) S/P total hip arthroplasty: Qualifiers: Laterality: left Qualified Code(s): Z96.642 - Presence of left artificial hip joint Code(s): Z96.649 - Presence of unspecified artificial hip joint Status: Acute Assessment and Plan: POD #4: Left BEULAH overall patient states better today. No nausea or vomiting. Pain better controlled. Restless leg improved with medication. Still not cleared for independent care with therapy. Continue PT/OT. WBAT. Walker. HIGH FALL RISK. AFO for left foot due to postoperative limitations with dorsiflexion/eversion. Continue pain control. Ice to Hip. Protect skin. Increased pain lateral side of the left hip radiating down the leg which may indicate nerve function returning. We will continue to observe. DVT prophylaxis with Aspirin. SCDs. Incentive Spirometry Use reviewed. Monitor Dressing. Change prior to discharge. Bowel Regimen. Dispo: patient lives alone at home. Activity restrictions with total hip precautions. Requires use of brace for left ankle and foot. Physical therapy indicating that patient is max assist with transfers and ambulation at this time. Indicated for placement for acute rehab. Subjective Subjective Date/Time Seen: 10/16/24 15:22 Post Op day: 4 Principal diagnosis: Left hip arthroplasty Interval history: POD#3: Left BEULAH patient states feels a little bit better today. Restless leg yesterday improved with medication. Increased pain left hip on the lateral aspect radiating down to the knee. Difficulty with movement. Slightly improved. Denies current nausea/ vomiting. Postoperative weakness of the left foot with dorsiflexion/eversion. Motion Slightly improved today. Working well with PT despite weakness. Brace delivered. Exam Const: General: comfortable and no acute distress Orientation/consciousness: patient oriented x3 Limitations: no limitations Resp: Effort & Inspection: normal respiratory effort Cardio: Rate: regular rate Rhythm: regular rhythm GI: Inspection: non-distended Skin: General skin exam: normal color and wounds noted (incision left hip C/D/I ) Wounds: wounds noted (incision left hip C/D/I ) Neuro: General: patient oriented x3 Extrem: Left lower extremity: hip/thigh Details: tenderness Location: of the hip Location: laterally and anteriorly, swelling (thigh soft ) Location: of the hip (lateral. ), abnormal ROM (limitations with internal/external rotation and flexion/extension due to recent surgical intervention ) and other (incision lateral hip c/d/i. ), knee Details: normal to inspection and normal ROM; no tenderness and no swelling, lower leg (Negative Armando's Sign ) Details: no edema, ankle Details: normal to inspection, no edema and abnormal ROM ( Decreased dorsiflexion/eversion); no tenderness, no swelling and no warmth and foot ( weakness with dorsiflexion and eversion) Details: normal capillary refill, vascular exam Details: dorsalis pedis pulse present and motor-sensory exam light-touch abnormal (decreased sensation dorso lateral foot); no tenderness, no ecchymosis and no crepitus Psych: Mental Status: mental status grossly normal Affect: normal affect Objective Data Vital Signs Vital Signs: Vital Signs - 24 hr 10/15/24 21:38 10/15/24 22:00 10/16/24 06:00 Temperature 99.3 F 98.6 F Pulse Rate 68 81 Respiratory Rate 16 18 Blood Pressure 97/46 L 126/52 L Pulse Oximetry 95 98 Oxygen Delivery Room Air 10/16/24 08:00 10/16/24 08:40 10/16/24 10:55 Temperature 98.6 F Pulse Rate Respiratory Rate Blood Pressure Pulse Oximetry Oxygen Delivery Room Air Room Air Intake/Output Intake/Output: Intake & Output 10/13/24 10/14/24 10/15/24 10/16/24 23:59 23:59 23:59 23:59 Intake Total 596 140 120 Balance 596 140 120 Meds/Results Medications: Active Medications Generic Name Dose Route Start Last Admin Trade Name Morganq PRN Reason Stop Dose Admin Acetaminophen 500 mg 10/12/24 11:51 Acetaminophen 500 Mg Tablet PO Q6H PRN Pain Rated 1-3 Aspirin 325 mg 10/12/24 21:00 10/16/24 08:25 Aspirin 325 Mg Enteric Tablet PO 325 mg Q12HR SHADI Administration Atorvastatin Calcium 80 mg 10/13/24 09:00 10/16/24 08:24 Atorvastatin 40 Mg Tablet PO 80 mg DAILY SHADI Administration Diazepam 5 mg 10/12/24 11:51 Diazepam (*Crx) 5 Mg Tablet PO Q6H PRN Anxiety/Muscle Spasm Diphenhydramine HCl 25 mg 10/12/24 11:51 Diphenhydramine Hcl Inj 50 Mg/Ml Vial IV PUSH Q6H PRN Itching Famotidine 20 mg 10/12/24 21:00 10/16/24 08:25 Famotidine 20 Mg Tablet PO 20 mg Q12HR SHADI Administration Hydromorphone HCl 1 mg 10/12/24 15:22 10/16/24 08:10 Hydromorphone Hcl Inj (*Crx) 2 Mg/Ml Vial IV PUSH 1 mg Q2H PRN Administration Breakthrough Pain Rated 7-10 or NPO Hydromorphone HCl 0.5 mg 10/12/24 15:22 10/15/24 14:15 Hydromorphone Hcl Inj (*Crx) 2 Mg/Ml Vial IV PUSH 0.5 mg Q2H PRN Administration Breakthrough Pain Rated 4-6 or NPO Ibuprofen 800 mg in 200 mls @ 400 mls/hr 10/12/24 11:51 Caldolor 800 Mg/200 Ml IVPB Q6H PRN Breakthrough Pain Rated 1-3 or NPO Levothyroxine Sodium 112 mcg 10/13/24 06:30 10/16/24 05:52 Levothyroxine Sodium 112 Mcg Tablet PO 112 mcg DAILY@0630 [facility] Administration Levothyroxine Sodium 50 mcg 10/13/24 06:30 10/16/24 05:52 Levothyroxine Sodium 50 Mcg Tablet PO 50 mcg DAILY@0630 SHADI Administration Meclizine HCl 25 mg 10/12/24 11:51 10/14/24 14:32 Meclizine Hcl 25 Mg Tablet PO 25 mg BID PRN Administration dizziness Naloxone HCl 0.1 mg 10/12/24 11:51 Naloxone Hcl 0.4 Mg/Ml Vial IV PUSH Q2M PRN Opiate Reversal Nitroglycerin 0.4 mg 10/12/24 11:51 Nitroglycerin Sl 0.4 Mg Tablet SUBLINGUAL Q5M PRN Chest Pain Nitroglycerin 1 patch 10/12/24 21:00 10/15/24 23:02 Nitroglycerin 0.4 Mg/Hr Patch TRANSDERM Not Given 2100 [facility] Ondansetron HCl 4 mg 10/12/24 11:51 10/14/24 16:32 Ondansetron Inj 4 Mg/2 Ml Vial IV PUSH 4 mg Q4H PRN Administration Nausea And Vomiting Polyethylene Glycol 17 gm 10/13/24 09:00 10/16/24 08:24 Polyethylene Glycol 3350 17 Gm Powd.Pack PO 17 gm QAM SHADI Administration Potassium Chloride 20 meq 10/13/24 09:00 10/16/24 08:24 Potassium Chloride 20 Meq Er Tablet PO 20 meq DAILY SHADI Administration Ranolazine 1,000 mg 10/12/24 21:00 10/16/24 08:24 Ranolazine 500 Mg Tab.Er.12h PO 1,000 mg Q12HR SHADI Administration Ropinirole HCl 0.5 mg 10/15/24 14:26 10/16/24 14:05 Ropinirole Hcl 0.5 Mg Tablet PO 0.5 mg Q8HR SHADI Administration Senna/Docusate Sodium 2 tab 10/12/24 17:00 10/16/24 08:25 Senna/Docusate Sodium Tablet PO 2 tab BID SHADI Administration Tramadol HCl 75 mg 10/13/24 14:29 10/14/24 00:00 Tramadol Hcl (*Crx) 25 Mg Tablet PO 75 mg Q6H PRN Administration Pain Rated 4-6 Tramadol HCl 100 mg 10/13/24 14:29 10/15/24 18:38 Tramadol Hcl (*Crx) 50 Mg Tablet PO 100 mg Q6H PRN Administration Pain Rated 7-10 Triamterene/Hydrochlorothiazide 2 tab 10/13/24 09:00 10/16/24 08:25 Triamterene 37.5 Mg/Hctz 25 Mg (Maxzide) Tablet PO 2 tab QAM SHADI Administration Radiology Results: ITS Impressions Hip X-Ray 10/12/24 12:16 IMPRESSION: 1. Left total hip arthroplasty, negative for postoperative purposes.
[2024-10-16] MEDS: traMADol HCL (*CRX) 50 MG TABLET 100 MG PO (15:36)
--- NOTE | 2024-10-16 19:00 | PC.NURSE ---
On 10/16/24, the DIET KITCHEN COOK, Nunu Vasquez, provided care and completed [employer] documentation on this patient. I have reviewed the DIET KITCHEN COOK's documentation and agree with the findings.
[2024-10-16 20:10] VITALS: PULSE 64; RESP 20; O2SAT 95
[2024-10-16] MEDS: NITROGLYCERIN 0.4 MG/HR PATCH 1 PATCH TRANSDERM (20:11)
[2024-10-16 21:13] VITALS: BP 96/53; PULSE 64; RESP 20; TEMP 36.8; O2SAT 95
[2024-10-17] MEDS: traMADol HCL (*CRX) 50 MG TABLET 100 MG PO ×3 (03:12→18:33)
[2024-10-17] MEDS: diazePAM (*CRX) 5 MG TABLET PO (03:13)
[2024-10-17] MEDS: LEVOTHYROXINE SODIUM 112 MCG TABLET PO (05:47)
[2024-10-17] MEDS: LEVOTHYROXINE SODIUM 50 MCG TABLET PO (05:48)
[2024-10-17 06:00] VITALS: BP 120/63; PULSE 60; RESP 20; TEMP 36.7; O2SAT 97
[2024-10-17] MEDS: FAMOTIDINE 20 MG TABLET PO ×2 (08:50→21:02)
[2024-10-17] MEDS: ATORVASTATIN 40 MG TABLET 80 MG PO (08:50)
[2024-10-17] MEDS: RANOLAZINE 500 MG TAB.ER.12H 1000 MG PO ×2 (08:50→21:02)
[2024-10-17] MEDS: SENNA/DOCUSATE SODIUM TABLET 2 TAB PO ×2 (08:50→18:33)
[2024-10-17] MEDS: POTASSIUM CHLORIDE 20 MEQ ER TABLET PO (08:51)
[2024-10-17] MEDS: TRIAMTERENE 37.5 MG/HCTZ 25 MG (MAXZIDE) TABLET 2 TAB PO (08:51)
[2024-10-17] MEDS: ASPIRIN 325 MG ENTERIC TABLET PO ×2 (08:52→21:02)
[2024-10-17] MEDS: KETOROLAC 30 MG/ML VIAL (*BKC) (11:23)
[2024-10-17] MEDS: HYDROmorphone HCL INJ (*CRX) 2 MG/ML VIAL (11:25)
[2024-10-17 13:25] VITALS: BP 98/56; PULSE 65; RESP 16; TEMP 36.9; O2SAT 97
[2024-10-17] MEDS: GABAPENTIN 100 MG CAPSULE PO ×2 (15:19→18:33)
--- NOTE | 2024-10-17 15:56 | P.PNOP_ITS ---
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 HER FUNCTION HAS IMPROVED SINCE SURGERY. WE WILL CONTINUE WITH PT. SHE SHOULD BE CONSIDERED FOR REHAB OR SENIOR LIVING. Subjective Subjective Date/Time Seen: 10/17/24 15:56 Post Op day: 5 Interval history: POD 5. PATIENT HAS IMPROVED HER FOOT FUNCTION NO WITH IMPROVEMENT OF HER EVERSION. SHE HAD A SEVERE SPASM TODAY IN THE THIGH WHICH IMPROVED WITH TORADOL, SHE DENIES ANY CALF PAIN. Exam Extrem: Other: VSS AFEBRILE DRESSING DRY SOME INVERSION IMPROVED FROM LAST VISIT. NO LESSER OR GREATER TOE EXTENSION, NO DORSIFLEXION, SENSATION DECREASED IN PERONEAL NERVE DISTRIBUTION. NEG HOMANS SIGN CALF SOFT NON TENDER Objective Data Vital Signs Vital Signs: Vital Signs - 24 hr 10/16/24 20:10 10/16/24 21:13 10/17/24 06:00 Temperature 36.8 C 36.7 C Pulse Rate 64 64 60 Respiratory Rate 20 20 20 Blood Pressure 96/53 L 120/63 Pulse Oximetry 95 95 97 Oxygen Delivery Room Air 10/17/24 13:25 Temperature 36.9 C Pulse Rate 65 Respiratory Rate 16 Blood Pressure 98/56 L Pulse Oximetry 97 Oxygen Delivery Intake/Output Intake/Output: Intake & Output 10/14/24 10/15/24 10/16/24 10/17/24 23:59 23:59 23:59 23:59 Intake Total 140 120 240 440 Balance 140 120 240 440 Meds/Results Medications: Active Medications Generic Name Dose Route Start Last Admin Trade Name Freq PRN Reason Stop Dose Admin Acetaminophen 500 mg 10/12/24 11:51 Acetaminophen 500 Mg Tablet PO Q6H PRN Pain Rated 1-3 Aspirin 325 mg 10/12/24 21:00 10/17/24 08:52 Aspirin 325 Mg Enteric Tablet PO 325 mg Q12HR SHADI Administration Atorvastatin Calcium 80 mg 10/13/24 09:00 10/17/24 08:50 Atorvastatin 40 Mg Tablet PO 80 mg DAILY SHADI Administration Diazepam 5 mg 10/12/24 11:51 10/17/24 03:13 Diazepam (*Crx) 5 Mg Tablet PO 5 mg Q6H PRN Administration Anxiety/Muscle Spasm Diphenhydramine HCl 25 mg 10/12/24 11:51 Diphenhydramine Hcl Inj 50 Mg/Ml Vial IV PUSH Q6H PRN Itching Famotidine 20 mg 10/12/24 21:00 10/17/24 08:50 Famotidine 20 Mg Tablet PO 20 mg Q12HR SHADI Administration Gabapentin 100 mg 10/17/24 13:00 10/17/24 15:19 Gabapentin 100 Mg Capsule PO 100 mg TID SHADI Administration Hydromorphone HCl 0.5 mg 10/17/24 11:05 Hydromorphone Hcl (*Crx) 0.5 Mg Tablet PO Q4H PRN Pain Rated 4-6 Hydromorphone HCl 1 mg 10/17/24 11:05 Hydromorphone Hcl (*Crx) 1 Mg Tablet PO Q4H PRN Pain Rated 7-10 Ibuprofen 800 mg in 200 mls @ 400 mls/hr 10/12/24 11:51 Caldolor 800 Mg/200 Ml IVPB Q6H PRN Breakthrough Pain Rated 1-3 or NPO Levothyroxine Sodium 112 mcg 10/13/24 06:30 10/17/24 05:47 Levothyroxine Sodium 112 Mcg Tablet PO 112 mcg DAILY@0630 [facility] Administration Levothyroxine Sodium 50 mcg 10/13/24 06:30 10/17/24 05:48 Levothyroxine Sodium 50 Mcg Tablet PO 50 mcg DAILY@0630 [facility] Administration Meclizine HCl 25 mg 10/12/24 11:51 10/14/24 14:32 Meclizine Hcl 25 Mg Tablet PO 25 mg BID PRN Administration dizziness Naloxone HCl 0.1 mg 10/12/24 11:51 Naloxone Hcl 0.4 Mg/Ml Vial IV PUSH Q2M PRN Opiate Reversal Nitroglycerin 0.4 mg 10/12/24 11:51 Nitroglycerin Sl 0.4 Mg Tablet SUBLINGUAL Q5M PRN Chest Pain Nitroglycerin 1 patch 10/12/24 21:00 10/16/24 20:11 Nitroglycerin 0.4 Mg/Hr Patch TRANSDERM 1 patch 2100 [facility] Administration Ondansetron HCl 4 mg 10/12/24 11:51 10/14/24 16:32 Ondansetron Inj 4 Mg/2 Ml Vial IV PUSH 4 mg Q4H PRN Administration Nausea And Vomiting Polyethylene Glycol 17 gm 10/13/24 09:00 10/17/24 08:50 Polyethylene Glycol 3350 17 Gm Powd.Pack PO 17 gm QAM SHADI Administration Potassium Chloride 20 meq 10/13/24 09:00 10/17/24 08:51 Potassium Chloride 20 Meq Er Tablet PO 20 meq DAILY SHADI Administration Ranolazine 1,000 mg 10/12/24 21:00 10/17/24 08:50 Ranolazine 500 Mg Tab.Er.12h PO 1,000 mg Q12HR SHADI Administration Ropinirole HCl 0.5 mg 10/15/24 14:26 10/17/24 15:19 Ropinirole Hcl 0.5 Mg Tablet PO 0.5 mg Q8HR SHADI Administration Senna/Docusate Sodium 2 tab 10/12/24 17:00 10/17/24 08:50 Senna/Docusate Sodium Tablet PO 2 tab BID SHADI Administration Tramadol HCl 75 mg 10/13/24 14:29 10/14/24 00:00 Tramadol Hcl (*Crx) 25 Mg Tablet PO 75 mg Q6H PRN Administration Pain Rated 4-6 Tramadol HCl 100 mg 10/13/24 14:29 10/17/24 08:51 Tramadol Hcl (*Crx) 50 Mg Tablet PO 100 mg Q6H PRN Administration Pain Rated 7-10 Triamterene/Hydrochlorothiazide 2 tab 10/13/24 09:00 10/17/24 08:51 Triamterene 37.5 Mg/Hctz 25 Mg (Maxzide) Tablet PO 2 tab QAM SHADI Administration Radiology Results: ITS Impressions Hip X-Ray 10/12/24 12:16 IMPRESSION: 1. Left total hip arthroplasty, negative for postoperative purposes.
[2024-10-17 20:57] VITALS: BP 107/50; PULSE 73; RESP 20; TEMP 36.9; O2SAT 98
[2024-10-17] MEDS: NITROGLYCERIN 0.4 MG/HR PATCH 1 PATCH TRANSDERM (21:02)
[2024-10-18] MEDS: traMADol HCL (*CRX) 50 MG TABLET 100 MG PO ×4 (02:19→23:12)
[2024-10-18 04:38] VITALS: BP 117/60; PULSE 66; RESP 20; TEMP 36.7; O2SAT 97
[2024-10-18] MEDS: LEVOTHYROXINE SODIUM 50 MCG TABLET PO (06:11)
[2024-10-18] MEDS: LEVOTHYROXINE SODIUM 112 MCG TABLET PO (06:11)
[2024-10-18] MEDS: POTASSIUM CHLORIDE 20 MEQ ER TABLET PO (08:16)
[2024-10-18] MEDS: GABAPENTIN 100 MG CAPSULE PO ×3 (08:16→16:49)
[2024-10-18] MEDS: SENNA/DOCUSATE SODIUM TABLET 2 TAB PO ×2 (08:16→16:48)
[2024-10-18] MEDS: FAMOTIDINE 20 MG TABLET PO ×2 (08:16→20:10)
[2024-10-18] MEDS: ATORVASTATIN 40 MG TABLET 80 MG PO (08:16)
[2024-10-18] MEDS: RANOLAZINE 500 MG TAB.ER.12H 1000 MG PO ×2 (08:16→20:09)
[2024-10-18] MEDS: TRIAMTERENE 37.5 MG/HCTZ 25 MG (MAXZIDE) TABLET 2 TAB PO (08:16)
[2024-10-18] MEDS: ASPIRIN 325 MG ENTERIC TABLET PO ×2 (08:16→20:17)
[2024-10-18 09:37] VITALS: BP 122/82; PULSE 81; RESP 18; O2SAT 100
[2024-10-18 11:11] VITALS: BP 122/82; PULSE 81; RESP 18; TEMP 36.4; O2SAT 100
[2024-10-18 14:00] VITALS: BP 88/58; PULSE 66; RESP 18; TEMP 36.5; O2SAT 97
--- NOTE | 2024-10-18 15:30 | P.PNOP_ITS ---
Progress Note: A&P Assessment and Plan (1) S/P total hip arthroplasty: Qualifiers: Laterality: left Qualified Code(s): Z96.642 - Presence of left artificial hip joint Code(s): Z96.649 - Presence of unspecified artificial hip joint Status: Acute Assessment and Plan: POST LEFT BEULAH IMPROVING. SHE IS STILL WAITING ON [facility]. CONTINUE PT. Subjective Subjective Date/Time Seen: 10/18/24 15:30 Interval history: POSTOP LEFT BEULAH. SHE HAD A STUMBLE TODAY. SHE DENIES ANY NEW HIP PAIN. XRAYS SHOW NO CHANGE IN POSTOP XRAYS Exam Extrem: Other: VSS AFEBRILE DRESSING DRY MILD EVERSION TO FOOT, SENSATION IMPROVED, OTHERWISE NO CHANGE IN FOOT EXAM, CALF SOFT NON TENDER, THIGH SOFT NON TENDER Objective Data Vital Signs Vital Signs: Vital Signs - 24 hr 10/17/24 20:57 10/18/24 04:38 10/18/24 08:00 Temperature 36.9 C 36.7 C Pulse Rate 73 66 Respiratory Rate 20 20 Blood Pressure 107/50 L 117/60 Pulse Oximetry 98 97 Oxygen Delivery Room Air 10/18/24 09:37 10/18/24 11:11 10/18/24 14:00 Temperature 36.4 C L 36.5 C Pulse Rate 81 81 66 Respiratory Rate 18 18 18 Blood Pressure 122/82 122/82 88/58 L Pulse Oximetry 100 100 97 Oxygen Delivery Intake/Output Intake/Output: Intake & Output 10/15/24 10/16/24 10/17/24 10/18/24 23:59 23:59 23:59 23:59 Intake Total 177 257 2623 990 Balance 346 216 9940 990 Meds/Results Medications: Active Medications Generic Name Dose Route Start Last Admin Trade Name Freq PRN Reason Stop Dose Admin Acetaminophen 500 mg 10/12/24 11:51 Acetaminophen 500 Mg Tablet PO Q6H PRN Pain Rated 1-3 Aspirin 325 mg 10/12/24 21:00 10/18/24 08:16 Aspirin 325 Mg Enteric Tablet PO 325 mg Q12HR SHADI Administration Atorvastatin Calcium 80 mg 10/13/24 09:00 10/18/24 08:16 Atorvastatin 40 Mg Tablet PO 80 mg DAILY SHADI Administration Diazepam 5 mg 10/12/24 11:51 10/17/24 03:13 Diazepam (*Crx) 5 Mg Tablet PO 5 mg Q6H PRN Administration Anxiety/Muscle Spasm Diphenhydramine HCl 25 mg 10/12/24 11:51 Diphenhydramine Hcl Inj 50 Mg/Ml Vial IV PUSH Q6H PRN Itching Famotidine 20 mg 10/12/24 21:00 10/18/24 08:16 Famotidine 20 Mg Tablet PO 20 mg Q12HR SHADI Administration Gabapentin 100 mg 10/17/24 13:00 10/18/24 13:33 Gabapentin 100 Mg Capsule PO 100 mg TID SHADI Administration Hydromorphone HCl 0.5 mg 10/17/24 11:05 Hydromorphone Hcl (*Crx) 0.5 Mg Tablet PO Q4H PRN Pain Rated 4-6 Hydromorphone HCl 1 mg 10/17/24 11:05 Hydromorphone Hcl (*Crx) 1 Mg Tablet PO Q4H PRN Pain Rated 7-10 Ibuprofen 800 mg in 200 mls @ 400 mls/hr 10/12/24 11:51 Caldolor 800 Mg/200 Ml IVPB Q6H PRN Breakthrough Pain Rated 1-3 or NPO Levothyroxine Sodium 112 mcg 10/13/24 06:30 10/18/24 06:11 Levothyroxine Sodium 112 Mcg Tablet PO 112 mcg DAILY@0630 [facility] Administration Levothyroxine Sodium 50 mcg 10/13/24 06:30 10/18/24 06:11 Levothyroxine Sodium 50 Mcg Tablet PO 50 mcg DAILY@0630 [facility] Administration Meclizine HCl 25 mg 10/12/24 11:51 10/14/24 14:32 Meclizine Hcl 25 Mg Tablet PO 25 mg BID PRN Administration dizziness Naloxone HCl 0.1 mg 10/12/24 11:51 Naloxone Hcl 0.4 Mg/Ml Vial IV PUSH Q2M PRN Opiate Reversal Nitroglycerin 0.4 mg 10/12/24 11:51 Nitroglycerin Sl 0.4 Mg Tablet SUBLINGUAL Q5M PRN Chest Pain Nitroglycerin 1 patch 10/12/24 21:00 10/17/24 21:02 Nitroglycerin 0.4 Mg/Hr Patch TRANSDERM 1 patch 2100 SHADI Administration Ondansetron HCl 4 mg 10/12/24 11:51 10/14/24 16:32 Ondansetron Inj 4 Mg/2 Ml Vial IV PUSH 4 mg Q4H PRN Administration Nausea And Vomiting Polyethylene Glycol 17 gm 10/13/24 09:00 10/18/24 08:16 Polyethylene Glycol 3350 17 Gm Powd.Pack PO 17 gm QAM SHADI Administration Potassium Chloride 20 meq 10/13/24 09:00 10/18/24 08:16 Potassium Chloride 20 Meq Er Tablet PO 20 meq DAILY SHADI Administration Ranolazine 1,000 mg 10/12/24 21:00 10/18/24 08:16 Ranolazine 500 Mg Tab.Er.12h PO 1,000 mg Q12HR SHADI Administration Ropinirole HCl 0.5 mg 10/15/24 14:26 10/18/24 13:33 Ropinirole Hcl 0.5 Mg Tablet PO 0.5 mg Q8HR SHADI Administration Senna/Docusate Sodium 2 tab 10/12/24 17:00 10/18/24 08:16 Senna/Docusate Sodium Tablet PO 2 tab BID SHADI Administration Tramadol HCl 75 mg 10/13/24 14:29 10/14/24 00:00 Tramadol Hcl (*Crx) 25 Mg Tablet PO 75 mg Q6H PRN Administration Pain Rated 4-6 Tramadol HCl 100 mg 10/13/24 14:29 10/18/24 10:09 Tramadol Hcl (*Crx) 50 Mg Tablet PO 100 mg Q6H PRN Administration Pain Rated 7-10 Triamterene/Hydrochlorothiazide 2 tab 10/13/24 09:00 10/18/24 08:16 Triamterene 37.5 Mg/Hctz 25 Mg (Maxzide) Tablet PO 2 tab QAM SHADI Administration Radiology Results: ITS Impressions Hip X-Ray 10/12/24 12:16 IMPRESSION: 1. Left total hip arthroplasty, negative for postoperative purposes.
[2024-10-18] MEDS: NITROGLYCERIN 0.4 MG/HR PATCH 1 PATCH TRANSDERM (20:10)
[2024-10-18 21:20] VITALS: BP 102/52; PULSE 73; RESP 16; TEMP 36.6; O2SAT 97
[2024-10-19] MEDS: LEVOTHYROXINE SODIUM 112 MCG TABLET PO (05:56)
[2024-10-19] MEDS: LEVOTHYROXINE SODIUM 50 MCG TABLET PO (05:56)
[2024-10-19 05:57] VITALS: BP 109/58; PULSE 63; RESP 14; TEMP 36.3; O2SAT 98
[2024-10-19] MEDS: RANOLAZINE 500 MG TAB.ER.12H 1000 MG PO ×2 (08:39→20:53)
[2024-10-19] MEDS: TRIAMTERENE 37.5 MG/HCTZ 25 MG (MAXZIDE) TABLET 2 TAB PO (08:39)
[2024-10-19] MEDS: ATORVASTATIN 40 MG TABLET 80 MG PO (08:39)
[2024-10-19] MEDS: POTASSIUM CHLORIDE 20 MEQ ER TABLET PO (08:40)
[2024-10-19] MEDS: GABAPENTIN 100 MG CAPSULE PO ×3 (08:40→16:48)
[2024-10-19] MEDS: SENNA/DOCUSATE SODIUM TABLET 2 TAB PO ×2 (08:40→16:48)
[2024-10-19] MEDS: FAMOTIDINE 20 MG TABLET PO ×2 (08:40→21:04)
[2024-10-19] MEDS: ASPIRIN 325 MG ENTERIC TABLET PO ×2 (08:40→20:53)
[2024-10-19] MEDS: traMADol HCL (*CRX) 50 MG TABLET 100 MG PO (12:43)
[2024-10-19 14:00] VITALS: BP 98/53; PULSE 75; RESP 18; TEMP 36.6; O2SAT 100
--- NOTE | 2024-10-19 16:52 | PM.PNORT ---
Progress Note: A&P Assessment and Plan (1) S/P total hip arthroplasty: Qualifiers: Laterality: left Qualified Code(s): Z96.642 - Presence of left artificial hip joint Code(s): Z96.649 - Presence of unspecified artificial hip joint Status: Acute Assessment and Plan: POST LEFT BEULAH IMPROVING. SHE IS STILL WAITING ON [facility]. SENSATION DEFINITELY IMPROVED TODAY. CONTINUE PT. Subjective Subjective Date/Time Seen: 10/19/24 16:52 Interval history: POSTOP LEFT BEULAH. SHE DENIES ANY NEW HIP PAIN. XRAYS SHOW NO CHANGE IN POSTOP XRAYS. HER SENSATION CONTINUES TO IMPROVE Exam Extrem: Other: VSS AFEBRILE DRESSING DRY MILD EVERSION TO FOOT, SENSATION IMPROVED FIRST WEB SPACE SENSATION INTACT, OTHERWISE CALF SOFT NON TENDER, THIGH SOFT NON TENDER Objective Data Vital Signs Vital Signs: Vital Signs - 24 hr 10/18/24 21:20 10/19/24 05:57 10/19/24 08:00 Temperature 36.6 C 36.3 C L Pulse Rate 73 63 Respiratory Rate 16 14 Blood Pressure 102/52 L 109/58 L Pulse Oximetry 97 98 Oxygen Delivery Room Air 10/19/24 14:00 Temperature 36.6 C Pulse Rate 75 Respiratory Rate 18 Blood Pressure 98/53 L Pulse Oximetry 100 Oxygen Delivery Intake/Output Intake/Output: Intake & Output 10/16/24 10/17/24 10/18/24 10/19/24 23:59 23:59 23:59 23:59 Intake Total 240 1040 1230 830 Balance 240 1040 1230 830 Meds/Results Medications: Active Medications Generic Name Dose Route Start Last Admin Trade Name Morganq PRN Reason Stop Dose Admin Acetaminophen 500 mg 10/12/24 11:51 Acetaminophen 500 Mg Tablet PO Q6H PRN Pain Rated 1-3 Aspirin 325 mg 10/12/24 21:00 10/19/24 08:40 Aspirin 325 Mg Enteric Tablet PO 325 mg Q12HR SHADI Administration Atorvastatin Calcium 80 mg 10/13/24 09:00 10/19/24 08:39 Atorvastatin 40 Mg Tablet PO 80 mg DAILY SHADI Administration Diazepam 5 mg 10/12/24 11:51 10/17/24 03:13 Diazepam (*Crx) 5 Mg Tablet PO 5 mg Q6H PRN Administration Anxiety/Muscle Spasm Diphenhydramine HCl 25 mg 10/12/24 11:51 Diphenhydramine Hcl Inj 50 Mg/Ml Vial IV PUSH Q6H PRN Itching Famotidine 20 mg 10/12/24 21:00 10/19/24 08:40 Famotidine 20 Mg Tablet PO 20 mg Q12HR SHADI Administration Gabapentin 100 mg 10/17/24 13:00 10/19/24 16:48 Gabapentin 100 Mg Capsule PO 100 mg TID [facility] Administration Hydromorphone HCl 0.5 mg 10/17/24 11:05 Hydromorphone Hcl (*Crx) 0.5 Mg Tablet PO Q4H PRN Pain Rated 4-6 Hydromorphone HCl 1 mg 10/17/24 11:05 Hydromorphone Hcl (*Crx) 1 Mg Tablet PO Q4H PRN Pain Rated 7-10 Ibuprofen 800 mg in 200 mls @ 400 mls/hr 10/12/24 11:51 Caldolor 800 Mg/200 Ml IVPB Q6H PRN Breakthrough Pain Rated 1-3 or NPO Levothyroxine Sodium 112 mcg 10/13/24 06:30 10/19/24 05:56 Levothyroxine Sodium 112 Mcg Tablet PO 112 mcg DAILY@0630 [facility] Administration Levothyroxine Sodium 50 mcg 10/13/24 06:30 10/19/24 05:56 Levothyroxine Sodium 50 Mcg Tablet PO 50 mcg DAILY@0630 [facility] Administration Meclizine HCl 25 mg 10/12/24 11:51 10/14/24 14:32 Meclizine Hcl 25 Mg Tablet PO 25 mg BID PRN Administration dizziness Naloxone HCl 0.1 mg 10/12/24 11:51 Naloxone Hcl 0.4 Mg/Ml Vial IV PUSH Q2M PRN Opiate Reversal Nitroglycerin 0.4 mg 10/12/24 11:51 Nitroglycerin Sl 0.4 Mg Tablet SUBLINGUAL Q5M PRN Chest Pain Nitroglycerin 1 patch 10/12/24 21:00 10/18/24 20:10 Nitroglycerin 0.4 Mg/Hr Patch TRANSDERM 1 patch 2100 [facility] Administration Ondansetron HCl 4 mg 10/12/24 11:51 10/14/24 16:32 Ondansetron Inj 4 Mg/2 Ml Vial IV PUSH 4 mg Q4H PRN Administration Nausea And Vomiting Polyethylene Glycol 17 gm 10/13/24 09:00 10/19/24 08:40 Polyethylene Glycol 3350 17 Gm Powd.Pack PO 17 gm QAM SHADI Administration Potassium Chloride 20 meq 10/13/24 09:00 10/19/24 08:40 Potassium Chloride 20 Meq Er Tablet PO 20 meq DAILY SHADI Administration Ranolazine 1,000 mg 10/12/24 21:00 10/19/24 08:39 Ranolazine 500 Mg Tab.Er.12h PO 1,000 mg Q12HR SHADI Administration Ropinirole HCl 0.5 mg 10/15/24 14:26 10/19/24 13:42 Ropinirole Hcl 0.5 Mg Tablet PO 0.5 mg Q8HR SHADI Administration Senna/Docusate Sodium 2 tab 10/12/24 17:00 10/19/24 16:48 Senna/Docusate Sodium Tablet PO 2 tab BID SHADI Administration Tramadol HCl 75 mg 10/13/24 14:29 10/14/24 00:00 Tramadol Hcl (*Crx) 25 Mg Tablet PO 75 mg Q6H PRN Administration Pain Rated 4-6 Tramadol HCl 100 mg 10/13/24 14:29 10/19/24 12:43 Tramadol Hcl (*Crx) 50 Mg Tablet PO 100 mg Q6H PRN Administration Pain Rated 7-10 Triamterene/Hydrochlorothiazide 2 tab 10/13/24 09:00 10/19/24 08:39 Triamterene 37.5 Mg/Hctz 25 Mg (Maxzide) Tablet PO 2 tab QAM SHADI Administration Radiology Results: ITS Impressions Hip X-Ray 10/12/24 12:16 IMPRESSION: 1. Left total hip arthroplasty, negative for postoperative purposes.
--- NOTE | 2024-10-19 19:36 | PC.NURSE ---
On 10/19/24, the INTERNAL COMMUNICATIONS SPECIALIST, [ Meño Pérez], provided care and completed [facility] documentation on this patient. I have reviewed the INTERNAL COMMUNICATIONS SPECIALIST's documentation and agree with the findings.
[2024-10-19] MEDS: NITROGLYCERIN 0.4 MG/HR PATCH 1 PATCH TRANSDERM (20:54)
[2024-10-19 21:53] VITALS: BP 102/57; PULSE 72; RESP 16; TEMP 37.3; O2SAT 96
[2024-10-20 05:23] VITALS: BP 92/56; PULSE 66; RESP 14; TEMP 36.4; O2SAT 96
[2024-10-20] MEDS: LEVOTHYROXINE SODIUM 50 MCG TABLET PO (05:57)
[2024-10-20] MEDS: LEVOTHYROXINE SODIUM 112 MCG TABLET PO (05:57)
[2024-10-20 06:04] VITALS: BP 98/60
[2024-10-20] MEDS: GABAPENTIN 100 MG CAPSULE PO ×3 (08:53→17:10)
[2024-10-20] MEDS: TRIAMTERENE 37.5 MG/HCTZ 25 MG (MAXZIDE) TABLET 2 TAB PO (08:53)
[2024-10-20] MEDS: ASPIRIN 325 MG ENTERIC TABLET PO (08:53)
[2024-10-20] MEDS: ATORVASTATIN 40 MG TABLET 80 MG PO (08:53)
[2024-10-20] MEDS: FAMOTIDINE 20 MG TABLET PO (08:53)
[2024-10-20] MEDS: POTASSIUM CHLORIDE 20 MEQ ER TABLET PO (08:53)
[2024-10-20] MEDS: traMADol HCL (*CRX) 50 MG TABLET 100 MG PO (08:53)
[2024-10-20] MEDS: RANOLAZINE 500 MG TAB.ER.12H 1000 MG PO (10:47)
[2024-10-20 14:00] VITALS: BP 100/61; PULSE 83; RESP 18; TEMP 36.2; O2SAT 95
--- NOTE | 2024-10-20 16:55 | P.PNOP_ITS ---
Progress Note: A&P Assessment and Plan (1) S/P total hip arthroplasty: Qualifiers: Laterality: left Qualified Code(s): Z96.642 - Presence of left artificial hip joint Code(s): Z96.649 - Presence of unspecified artificial hip joint Status: Acute Assessment and Plan: POST LEFT BEULAH IMPROVING. SHE IS STILL WAITING ON [facility]ISON. SENSATION CONTINUES TO IMPROVE TODAY. SHE HAS BEEN CLEARED FOR REHAB. SHE WILL F/U IN 3 WEEKS. . Subjective Subjective Date/Time Seen: 10/20/24 16:55 Interval history: POSTOP LEFT BEULAH. SHE DENIES ANY NEW HIP PAIN. HER SENSATION CONTINUES TO IMPROVE TODAY WELL. NO CALF PAIN. SLOW PROGRESS WITH PT Exam Extrem: Other: VSS AFEBRILE DRESSING DRY MILD EVERSION TO FOOT, SENSATION IMPROVED FIRST WEB SPACE SENSATION INTACT, OTHERWISE CALF SOFT NON TENDER, THIGH SOFT NON TENDER Objective Data Vital Signs Vital Signs: Vital Signs - 24 hr 10/19/24 21:53 10/20/24 05:23 10/20/24 06:04 Temperature 37.3 C 36.4 C Pulse Rate 72 66 Respiratory Rate 16 14 Blood Pressure 102/57 L 92/56 L 98/60 L Pulse Oximetry 96 96 Oxygen Delivery 10/20/24 08:00 Temperature Pulse Rate Respiratory Rate Blood Pressure Pulse Oximetry Oxygen Delivery Room Air Intake/Output Intake/Output: Intake & Output 10/17/24 10/18/24 10/19/24 10/20/24 23:59 23:59 23:59 23:59 Intake Total 1040 1230 830 250 Balance 1040 1230 830 250 Meds/Results Medications: Active Medications Generic Name Dose Route Start Last Admin Trade Name Freq PRN Reason Stop Dose Admin Acetaminophen 500 mg 10/12/24 11:51 Acetaminophen 500 Mg Tablet PO Q6H PRN Pain Rated 1-3 Aspirin 325 mg 10/12/24 21:00 10/20/24 08:53 Aspirin 325 Mg Enteric Tablet PO 325 mg Q12HR SHADI Administration Atorvastatin Calcium 80 mg 10/13/24 09:00 10/20/24 08:53 Atorvastatin 40 Mg Tablet PO 80 mg DAILY SHADI Administration Diazepam 5 mg 10/12/24 11:51 10/17/24 03:13 Diazepam (*Crx) 5 Mg Tablet PO 5 mg Q6H PRN Administration Anxiety/Muscle Spasm Diphenhydramine HCl 25 mg 10/12/24 11:51 Diphenhydramine Hcl Inj 50 Mg/Ml Vial IV PUSH Q6H PRN Itching Famotidine 20 mg 10/12/24 21:00 10/20/24 08:53 Famotidine 20 Mg Tablet PO 20 mg Q12HR SHADI Administration Gabapentin 100 mg 10/17/24 13:00 10/20/24 14:07 Gabapentin 100 Mg Capsule PO 100 mg TID [facility] Administration Hydromorphone HCl 0.5 mg 10/17/24 11:05 Hydromorphone Hcl (*Crx) 0.5 Mg Tablet PO Q4H PRN Pain Rated 4-6 Hydromorphone HCl 1 mg 10/17/24 11:05 Hydromorphone Hcl (*Crx) 1 Mg Tablet PO Q4H PRN Pain Rated 7-10 Ibuprofen 800 mg in 200 mls @ 400 mls/hr 10/12/24 11:51 Caldolor 800 Mg/200 Ml IVPB Q6H PRN Breakthrough Pain Rated 1-3 or NPO Levothyroxine Sodium 112 mcg 10/13/24 06:30 10/20/24 05:57 Levothyroxine Sodium 112 Mcg Tablet PO 112 mcg DAILY@0630 [facility] Administration Levothyroxine Sodium 50 mcg 10/13/24 06:30 10/20/24 05:57 Levothyroxine Sodium 50 Mcg Tablet PO 50 mcg DAILY@0630 [facility] Administration Meclizine HCl 25 mg 10/12/24 11:51 10/14/24 14:32 Meclizine Hcl 25 Mg Tablet PO 25 mg BID PRN Administration dizziness Naloxone HCl 0.1 mg 10/12/24 11:51 Naloxone Hcl 0.4 Mg/Ml Vial IV PUSH Q2M PRN Opiate Reversal Nitroglycerin 0.4 mg 10/12/24 11:51 Nitroglycerin Sl 0.4 Mg Tablet SUBLINGUAL Q5M PRN Chest Pain Nitroglycerin 1 patch 10/12/24 21:00 10/19/24 20:54 Nitroglycerin 0.4 Mg/Hr Patch TRANSDERM 1 patch 2100 [facility] Administration Ondansetron HCl 4 mg 10/12/24 11:51 10/14/24 16:32 Ondansetron Inj 4 Mg/2 Ml Vial IV PUSH 4 mg Q4H PRN Administration Nausea And Vomiting Polyethylene Glycol 17 gm 10/13/24 09:00 10/20/24 08:53 Polyethylene Glycol 3350 17 Gm Powd.Pack PO Not Given QAM SHADI Potassium Chloride 20 meq 10/13/24 09:00 10/20/24 08:53 Potassium Chloride 20 Meq Er Tablet PO 20 meq DAILY SHADI Administration Ranolazine 1,000 mg 10/12/24 21:00 10/20/24 10:47 Ranolazine 500 Mg Tab.Er.12h PO 1,000 mg Q12HR SHADI Administration Ropinirole HCl 0.5 mg 10/15/24 14:26 10/20/24 14:07 Ropinirole Hcl 0.5 Mg Tablet PO 0.5 mg Q8HR SHADI Administration Senna/Docusate Sodium 2 tab 10/12/24 17:00 10/20/24 08:53 Senna/Docusate Sodium Tablet PO Not Given BID SHADI Tramadol HCl 75 mg 10/13/24 14:29 10/14/24 00:00 Tramadol Hcl (*Crx) 25 Mg Tablet PO 75 mg Q6H PRN Administration Pain Rated 4-6 Tramadol HCl 100 mg 10/13/24 14:29 10/20/24 08:53 Tramadol Hcl (*Crx) 50 Mg Tablet PO 100 mg Q6H PRN Administration Pain Rated 7-10 Triamterene/Hydrochlorothiazide 2 tab 10/13/24 09:00 10/20/24 08:53 Triamterene 37.5 Mg/Hctz 25 Mg (Maxzide) Tablet PO 2 tab QAM SHADI Administration Radiology Results: ITS Impressions Hip X-Ray 10/12/24 12:16 IMPRESSION: 1. Left total hip arthroplasty, negative for postoperative purposes.
--- NOTE | 2024-10-20 16:58 | P.DS_ITS ---
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 SHE WILL F/U IN 3 WEEKS DS: Summary Hospital Course Reason for hospitalization: LEFT BEULAH Hospital Course: PATIENT WAS ADMITTED S/P TOTAL HIP ARTHROPLASTY FOR POSTOPERATIVE MEDICAL MANAGEMENT, PAIN CONTROL AND MOBILIZATION WITH PHYSICAL AND OCCUPATIONAL THERAPY. THE PATIENT PROGRESSED WELL WITH PT/OT. LABS AND VITALS REMAINED STABLE AND PAIN WELL CONTROLLED. THE PATIENT HAS BEEN CLEARED TO BE DISCHARGED REHAB. FOLLOW UP APPOINTMENT SCHEDULED. DISCHARGE INSTRUCTIONS DISCUSSED AT LENGTH WITH THE PATIENT. MEDICATIONS REVIEWED. Status at Discharge Cognitive/behavioral status at discharge: STABLE Time Spent with Patient Time attestation: Total time spent providing and/or coordinating discharge services: DS: Data Procedures/Treatments: LEFT BEULAH Discharge Plan Discharge Attending physician on discharge: Taiwo Dickinson Discharging Clinician: Taiwo Dickinson Anticipated Discharge Date/Time: 10/20/24 17:00 Patient Disposition: SNF Activity: may shower, no driving and follow weight bearing status Diet: as tolerated Wound Care Instructions: keep dressing dry Discharge Instructions: Hip Replacement Instructions Dr. Taiwo Dickinson MD [facility] [phone] * Your dressing will be changed prior to your discharge. You will be discharged with one additional dressing to be changed on post op day 7 by the nurse. You may remove the dressing on post op day 14. Vero to be removed at that time. * You may shower with your dressing but do not submerge in a bath tub. * Do not drive or operate machinery until you are released by physician. * Do not walk without a walker for any reason until you are released. * Continue to apply ice to the hip intermittently for additional pain relief. Protect your skin with a towel or pillow case. * Continue to follow strict hip fracture/surgical precautions. * Your follow up appt has been indicated below. * Please contact our office with any questions/concerns regarding your hip at [phone]. * TAKE 2 ADULT STRENGTH ASPIRIN DAILY FOR 3 WEEKS FOR BLOOD CLOT PREVENTION Patient Instructions: Antibiotic Form, Pain Management (DC) Patient Language: [place] Stand Alone Forms: General Discharge Information Follow-up/Referrals: Taiwo Dickinson MD [Physician] - 11/03/24 9:15 am Discharge Medications: New aspirin 325 mg Tablet,Delayed Release (Dr/Ec) 325 mg PO Q12HR 28 Days Qty: 56 0RF tramadol 50 mg tablet 50 mg PO Q6H PRN (Reason: pain) Qty: 40 0RF Continued ranolazine 1,000 mg tablet extended release 12 hr 1,000 mg PO BID triamterene-hydrochlorothiazid 37.5-25 mg capsule 2 cap PO QAM Patient Comments: 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 Rx Instructions: do not exceed 3 doses per episode ezetimibe 10 mg tablet 10 mg PO DAILY Patient Comments: HS nitroglycerin 0.4 mg/hr patch 24 hour 1 patch transdermal .12h Patient Comments: 12 HOURS ON, 12 HOURS OFF meclizine 25 mg tablet 25 mg PO BID PRN (Reason: dizziness) Patient Comments: TAKES EVERY MORNING AND PRN LATER IN THE DAY acetaminophen 500 mg capsule 1,000 mg PO Q6H PRN (Reason: pain) potassium chloride [Klor-Con M20] 20 mEq tablet,ER particles/crystals See Rx Instructions .ROUTE .COMPLEX Qty: 90 1RF Dose Instruction: TAKE 1 TABLET BY MOUTH EVERYDAY AT BEDTIME Rx Instructions: TAKE 1 TABLET BY MOUTH EVERYDAY AT BEDTIME atorvastatin 80 mg tablet 80 mg PO DAILY Qty: 90 3RF levothyroxine 137 mcg tablet See Rx Instructions .ROUTE .COMPLEX Qty: 90 1RF Dose Instruction: TAKE 1 TABLET BY MOUTH DAILY AT 6:30AM Rx Instructions: TAKE 1 TABLET BY MOUTH DAILY AT 6:30AM Held aspirin [Adult Aspirin Regimen] 81 mg tablet,delayed release (DR/EC) 81 mg PO DAILY Hold Instructions: Resume on 11/10/24. Patient Comments: AM Date of admission: 10/18/24 16:09 Primary Care Provider: Paty Lloyd Admitting Provider: Taiwo Dickinson Attending physician on admission: Taiwo Dickinson Condition: Stable
--- NOTE | 2024-10-20 18:42 | PC.NURSE ---
On 10/20/24, the SECURITY SHIFT MANAGER, Nunu Vasquez, provided care and completed [facility] documentation on this patient. I have reviewed the SECURITY SHIFT MANAGER's documentation and agree with the findings.
== END 2024-10-20 18:20 | DRG 470 ==
LOC: ANHSURGERY 15:47 → ANH3MEDSUR 15:47
PROVIDERS: Orthopaedic Surgery; Admitting Provider Orthopaedic Surgery; PCP Family Medicine; Visit Provider Orthopaedic Surgery
PROC: 0SRB04A Replacement of Left Hip Joint with Ceramic on Polyethylene Synthetic Substitute, Uncemented, Open Approach (ICD-10-PCS; CPT 27130; principal; 2024-10-12 07:30)
DX: M16.12 Unilateral primary osteoarthritis, left hip (principal); G97.82 Other postprocedural complications and disorders of nervous system; G25.81 Restless legs syndrome; E03.9 Hypothyroidism, unspecified; I25.10 Atherosclerotic heart disease of native coronary artery without angina pectoris; E78.5 Hyperlipidemia, unspecified; Z79.82 Long term (current) use of aspirin; Z79.899 Other long term (current) drug therapy
CPT/HCPCS: 36415; 73501; 80048; 85025; 85027; 97110; 97116; 97161; 97530; 97535; A9270; C1776; G0378; G0379; J0166; J0171; J0690; J1100; J1171; J1885; J2250; J2270; J2405; J2704; J2795; J7120

== ENCOUNTER 2025-01-20 12:25 | Outpatient (CLI) | payer OTHER, SELFPAY ==
--- NOTE | ~2025-01-20 | XR_ITS ---
EXAMINATION: XR knee LT min 4V, 01/20/2025 12:45 CDT HISTORY: LT KNEE PAIN UNABLE TO BARE WEIGHT AFTER FALL LAST NIGHT COMPARISON: No comparisons available. Findings: No acute fracture or malalignment. Moderate tricompartmental degenerative changes, small effusion Soft tissues unremarkable. Impression: No acute fracture or malalignment. Reviewed, dictated and finalized at location P. Impression: No acute fracture or malalignment.
== END 2025-01-20 12:26 | disposition home or self-care (01) ==
PROVIDERS: PCP Family Medicine; Visit Provider Student in an Organized Health Care Education/Training Program
DX: S89.92XA Unspecified injury of left lower leg, initial encounter (principal); X58.XXXA Exposure to other specified factors, initial encounter
CPT/HCPCS: 73564